=== PATIENT | female | born 1955 | race Caucasian/White ===

== ENCOUNTER 2018-11-15 14:57 | Outpatient (CLI) | payer MEDICARE, MEDICAID, SELFPAY ==
[2018-11-15 16:39] LABS: ALT 30 U/L (12-78); AST 21 U/L (15-37); Albumin 3.6 g/dL (3.4-5.0); Alkaline Phosphatase 60 U/L (46-116); Anion Gap 9.2 mmol/L (3-11); BUN 14 mg/dL (7-18); Bilirubin, Total 0.3 mg/dL (0.2-1.0); CO2 25.8 mmol/L (21.0-32.0); CREATININE 0.65 mg/dL (0.55-1.02); Calcium 8.9 mg/dL (8.5-10.1); Calculated LDL 144; Chloride 103 mmol/L (98-107); Cholesterol 263 mg/dL (50-200); Glucose 88 mg/dL (70-100); HDL Cholesterol 107 mg/dL (40-60); Potassium 4.2 mmol/L (3.5-5.1); Sodium 138 mmol/L (136-145); Triglyceride 63 mg/dL (30-150)
== END 2018-11-15 15:17 ==
PROVIDERS: PCP Family Medicine; Visit Provider Family Medicine
DX: E78.00 Pure hypercholesterolemia, unspecified (principal); E87.6 Hypokalemia
CPT/HCPCS: 36415; 80053; 80061; 83721

== ENCOUNTER 2020-04-15 03:39 | Outpatient (CLI) | payer MEDICARE, MEDICAID, SELFPAY ==
[2020-04-15 12:16] LABS: ALT 28 U/L (14-59); AST 22 U/L (15-37); Albumin 3.9 g/dL (3.4-5.0); Alkaline Phosphatase 57 U/L (46-116); Anion Gap 3.4 mmol/L (3-11); BUN 13 mg/dL (7-18); Bilirubin, Total 0.2 mg/dL (0.2-1.0); CO2 30.6 mmol/L (21.0-32.0); CREATININE 0.67 mg/dL (0.55-1.02); Calcium 9.1 mg/dL (8.5-10.1); Calculated LDL 142 mg/dL (<100); Chloride 104 mmol/L (98-107); Cholesterol 259 mg/dL (<200); Glucose 88 mg/dL (74-106); HDL Cholesterol 108 mg/dL (40-60); Potassium 4.2 mmol/L (3.5-5.1); Sodium 138 mmol/L (136-145); Total Protein 7.1 g/dL (6.4-8.2); Triglyceride 49 mg/dL (<150)
== END 2020-04-15 03:59 ==
PROVIDERS: PCP Family Medicine; Visit Provider Family Medicine
DX: E78.00 Pure hypercholesterolemia, unspecified (principal); E87.6 Hypokalemia
CPT/HCPCS: 36415; 80053; 80061

== ENCOUNTER 2020-05-20 00:47 | Outpatient (CLI) | payer MEDICARE, MEDICAID, SELFPAY ==
--- NOTE | 2020-05-20 13:29 | DI.MAMMO_ITS ---
EXAM: MG MAMMO SCREENING CLINICAL HISTORY: screening. TECHNIQUE: Bilateral full field digital CC and MLO mammographic images were obtained with 3D tomosyn thesis and utilizing computer aided detection (CAD). COMPARISON: Prior mammograms dating back to 2010, the most recent being 2016. There are no interval mammograms since 2016. FINDINGS: The fibroglandular tissue of the breast is very dense, this decreasing the sensitivity of the mammogr am for finding in underlying lesions. There are no new obvious spiculated masses nor malignant appearing microcalcification groups. Subtle suggestion of possible nodules in subjacent to the dense fibroglandular tissue. There is no new arch itectural distortion nor skin thickening-retraction. IMPRESSION: Very dense bilateral fibroglandular tissue. Subtle suggestion of possible bilateral nodules. Recomm end follow-up bilateral screening breast ultrasound. BI-RADS Category 0 - Assessment Incomplete: Need additional imaging evaluation Breast Density - Category D - Extremely dense Breast density Category C or D implies that the patient has dense breast tissue. Dense breast tissue can make it harder to find cancer on a mammogram. Dense breast tissue is also associated with an incr eased risk of breast cancer. This information about the result of the mammogram report was provided to the patient to raise their awareness. Use this report when you speak with the patient about their risks for breast cancer, which includes their family history. At that time, you may recommend additional screening tests (Ultrasoun d or MRI) as these tests may add significant information. A negative radiographic report should not delay biopsy if a dominant or clinically suspicious mass is present. Up to ten percent of cancers are not identified on mammography. A negative report may reinforce clinical impression. Adenosis and dense breasts may obscure an underlying neoplasm. False positive reports average 6 to 10%. Patient will receive a letter notifying them of these results.
== END 2020-05-20 01:07 ==
PROVIDERS: PCP Family Medicine; Visit Provider Obstetrics & Gynecology Gynecology
DX: Z12.31 Encounter for screening mammogram for malignant neoplasm of breast (principal); R92.8 Other abnormal and inconclusive findings on diagnostic imaging of breast
CPT/HCPCS: 77063; 77067

== ENCOUNTER 2020-05-24 01:12 | Outpatient (CLI) | payer MEDICARE, MEDICAID, SELFPAY ==
--- NOTE | 2020-05-24 | DI.US_ITS ---
EXAM: US BREAST LT COMPLETE CLINICAL HISTORY: F/U MAMMO, DENSE BREASTS, ? BILAT NODULES TECHNIQUE: Ultrasound of both breasts were performed. COMPARISON: MG Screening Bilat Mammo from 04/06/2016 MG MG MAMMO SCREENING from 05/20/2020 US US BREAST RT COMPLETE from 05/24/2020 FINDINGS: No solid or cystic masses, hypoechoic foci, areas of abnormal shadowing, or areas of skin thickening. There is minimal ductal dilatation in the subareolar region. Normal lymph nodes are seen in the ax illa. IMPRESSION: No sonographically suspicious finding. Yearly screening mammography is recommended. BI-RADS Category 1 - Negative DATA REPOSITORY:
== END 2020-05-24 01:32 ==
PROVIDERS: PCP Family Medicine; Visit Provider Obstetrics & Gynecology Gynecology
DX: R92.8 Other abnormal and inconclusive findings on diagnostic imaging of breast (principal)
CPT/HCPCS: 76642

== ENCOUNTER 2020-09-13 02:29 | Outpatient (CLI) | payer MEDICARE, MEDICAID, SELFPAY ==
[2020-09-14 00:14] LABS: COVID-19 RT-PCR UVMMC Result Negative (Negative)
== END 2020-09-13 02:30 | disposition home or self-care (01) ==
LOC: LBO 02:30
PROVIDERS: Orthopaedic Surgery; PCP Family Medicine; Visit Provider Family Medicine
DX: Z20.822 Contact with and (suspected) exposure to COVID-19 (principal); Z01.818 Encounter for other preprocedural examination
CPT/HCPCS: U0003; U0005

== ENCOUNTER 2020-10-03 13:45 | Outpatient (REF) | payer MEDICARE, MEDICAID, SELFPAY ==
[2020-10-03 15:01] LABS: Abs Immature Grans 0.03 10^3/uL (0.0-0.06); Absolute Basophil Count 0.02 10^3/uL (0.0-0.2); Absolute Eosinophil Count 0.28 10^3/uL (0.0-0.7); Absolute Lymphocyte Count 1.68 10^3/uL (1.2-3.4); Absolute Monocyte Count 0.42 10^3/uL (0.1-0.8); Absolute Neutrophil Count 4.37 10^3/uL (1.2-6.7); Basophils % 0.3; Eosinophils % 4.1; HCT 32.7 % (36.0-46.0); HGB 10.9 g/dL (11.2-15.7); Immature Grans % 0.4; Lymphocytes % 24.7; MCH 32.1 pg (27.0-33.0); MCHC 33.3 % (32.0-36.0); MCV 96.2 fL (80-95); MPV 8.7 fL (8.0-11.0); Monocytes % 6.2; Neutrophils % 64.3; Nucleated RBC 0 %; Platelet Count 604 10^3/uL (130-400); RDW 11.9 % (11.7-14.6); RDW-SD 41.7 fL
[2020-10-03 15:11] LABS: ALT 22 U/L (14-59); AST 17 U/L (15-37); Albumin 3.2 g/dL (3.4-5.0); Alkaline Phosphatase 88 U/L (46-116); Anion Gap 6.6 mmol/L (3-11); BUN 14 mg/dL (7-18); Bilirubin, Total 0.1 mg/dL (0.2-1.0); CO2 30.4 mmol/L (21.0-32.0); CREATININE 0.5 mg/dL (0.55-1.02); Calcium 9.6 mg/dL (8.5-10.1); Chloride 103 mmol/L (98-107); Glucose 91 mg/dL (74-106); Magnesium 1.9 mg/dL (1.8-2.4); Potassium 4.9 mmol/L (3.5-5.1); Sodium 140 mmol/L (136-145); Total Protein 6.8 g/dL (6.4-8.2)
== END 2020-10-03 13:46 | disposition home or self-care (01) ==
LOC: LBN 13:45
PROVIDERS: PCP Family Medicine; Visit Provider Family Medicine
DX: E55.9 Vitamin D deficiency, unspecified (principal); E87.6 Hypokalemia; E83.42 Hypomagnesemia
CPT/HCPCS: 80053; 82306; 83735; 85025

== ENCOUNTER 2021-07-16 00:47 | Outpatient (CLI) | payer MEDICARE, MEDICAID, SELFPAY ==
--- NOTE | 2021-07-16 | DI.DEXA_ITS ---
Exam(s) XR DEXA BONE DENSITY W/WO IHSAN EXAM: XR DEXA BONE DENSITY W/WO IHSAN CLINICAL HISTORY: OTHER DISORDER OF BONE DENSITY,M85.88 TECHNIQUE: COMPARISON: CR LUMBAR SPINE COMPLETE from 10/25/2009 FINDINGS: DEXA scan was performed according to the usual protocol. Lumbar spine scanning shows T-score -0.2, prior examination of October 2017 showed lumbar T-score 0.6. Left forearm scanning shows T-score -3.7, prior examination of 2017 showed left forearm T-score -2.1. Lateral vertebral scanogram shows mild anterior wedging of vertebral bodies in the thoracolumbar vignesh on consistent with minimal anterior compression fractures of uncertain age. IMPRESSION: Findings are consistent with osteoporosis according to the WHO criteria. RADIATION DOSE DELIVERED: Total DLP
== END 2021-07-16 01:07 ==
PROVIDERS: PCP Family Medicine; Visit Provider Family Medicine
DX: M85.88 Other specified disorders of bone density and structure, other site (principal); M81.0 Age-related osteoporosis without current pathological fracture
CPT/HCPCS: 77080

== ENCOUNTER 2021-08-20 15:52 | Outpatient (REF) | payer MEDICARE, MEDICAID, SELFPAY ==
[2021-08-20 20:48] LABS: HCT 41.6 % (36.0-46.0); HGB 13.5 g/dL (11.2-15.7); MCH 30.5 pg (27.0-33.0); MCHC 32.5 % (32.0-36.0); MCV 94.1 fL (80-95); MPV 10.1 fL (8.0-11.0); Platelet Count 323 10^3/uL (130-400); RBC 4.42 10^6/uL (3.93-5.22); RDW 11.9 % (11.7-14.6); RDW-SD 41.8 fL; WBC 5.12 10^3/uL (4.4-10.8)
[2021-08-20 21:03] LABS: Anion Gap 10.9 mmol/L (3-11); BUN 16 mg/dL (7-18); CO2 26.1 mmol/L (21.0-32.0); CREATININE 0.6 mg/dL (0.55-1.02); Calcium 9.3 mg/dL (8.5-10.1); Calculated LDL 116 mg/dL (<100); Chloride 104 mmol/L (98-107); Cholesterol 229 mg/dL (<200); Glucose 88 mg/dL (74-106); HDL Cholesterol 106 mg/dL (40-60); Potassium 4.2 mmol/L (3.5-5.1); Sodium 141 mmol/L (136-145); Triglyceride 35 mg/dL (<150)
== END 2021-08-20 15:53 | disposition home or self-care (01) ==
LOC: NCHCN 15:52
PROVIDERS: PCP Nurse Practitioner Family; Visit Provider Family Medicine
DX: E78.5 Hyperlipidemia, unspecified (principal); M85.88 Other specified disorders of bone density and structure, other site
CPT/HCPCS: 80048; 80061; 85027

== ENCOUNTER → 2021-11-03 01:59 | Outpatient (CLI) | payer MEDICARE, MEDICAID, SELFPAY ==
--- NOTE | 2021-11-03 | DI.MAMMO_ITS ---
Exam(s) MG MAMMO SCREENING 60 MIN DUR EXAM: MG MAMMO SCREENING 60 MIN DUR CLINICAL HISTORY: SCREENING, Z12.31. TECHNIQUE: Bilateral full field digital CC and MLO mammographic images were obtained with 3D tomosyn thesis and utilizing computer aided detection (CAD). COMPARISON: 2011 through 2019 FINDINGS: Masses/Architectural Distortion: None seen. Microcalcifications: No suspicious pleomorphic-type are seen. Skin Thickening/Nipple Retraction: None. IMPRESSION: 1. No significant interval change with no specific features of malignancy noted. 2. Unless there is more urgent need, annual screening mammography is recommended, as per [place] [employer] guidelines. BI-RADS Category 1-negative Breast Density - Category D - extremely dense Breast Density Category D: The mammogram demonstrates the patient's breast tissue is dense. Dense cornel ast tissue is very common and is not abnormal but dense breast tissue can make it harder to find canc er on a mammogram. Also, dense breast tissue may increase their breast cancer risk. This information about the result of the mammogram report was provided to the patient to raise their awareness. Use th is report when you speak with the patient about their risks for breast cancer, which includes their f amily history. At that time, you may recommend for more screening tests (Ultrasound or MRI) as they m ight be useful based on their risk. A negative radiographic report should not delay biopsy if a dominant or clinically suspicious mass is present. Up to ten percent of cancers are not identified on mammography. A negative report may reinforce clinical impression. Adenosis and dense breasts may obscure an underlying neoplasm. False positive reports average 6 to 10%.
== END ==
PROVIDERS: PCP Family Medicine; Visit Provider Family Medicine
DX: Z12.31 Encounter for screening mammogram for malignant neoplasm of breast (principal)
CPT/HCPCS: 77063; 77067

== ENCOUNTER 2021-12-11 17:27 | Emergency (ER) | payer MEDICARE, MEDICAID, SELFPAY ==
[2021-12-11 17:32] VITALS: BP 123/66; PULSE 76; RESP 16; TEMP 37.1; O2SAT 98
--- NOTE | 2021-12-11 18:05 | ED.GENADUL_ITS ---
Discharge Plan Disposition Patient Disposition: HOME Condition: Improving Discharge Details Clinical Impression: Dehydration Primary Care Provider: Frank Francois ED Provider: Edd Lang Home Meds and New Rx's Prescriptions: Continued calcium citrate 1,000 mg tablet 1,000 mg PO DAILY polyethylene glycol 3350 [Miralax] 17 gram/dose powder 17 gm PO DAILY niacin 500 MG tablet 500 mg PO DAILY Cholest Off 450 MG tablet 450 mg PO DAILY TUMERIC 500 mg PO DAILY multivitamin 1 tab PO DAILY B Complex 1 EACH tablet extended release 1 ea PO DAILY acetaminophen [Acetaminophen Extra Strength] 500 MG tablet 1,000 mg PO Q4H PRN omega-3 fatty acids-fish oil 300-1,000 mg capsule 1 cap PO DAILY docusate sodium [Colace] 100 mg capsule 100 mg PO BID oxycodone-acetaminophen 5-325 mg tablet 1 tab PO PRN Label Comments: TAKE ONE TABLET BY MOUTH EVERY DAY NEEDED FOR PAIN morphine 15 mg tablet extended release 15 mg PO BID Label Comments: TAKE ONE TABLET BY MOUTH TWICE A DAY Discharge Instructions Instructions: Dehydration (ED) Additional Instructions: Home to rest today. Small, frequent sips of fluids to maintain good hydration. May slowly advance a bland diet. Return if you develop a fever, vomiting, or any other acute concerns Medical Decision Making 66-year-old female who states over the weekend she indulged in some socializing with small amount of alcohol, poor p.o. intake. For the past 3 days she has felt general weakness, has had poor p.o. intake with some nausea but no emesis. She had decreased energy today at physical therapy and they recommended that she be evaluated in ER. Patient arrives with normal vital signs, she is pleasant and alert. She does have some dry mucous membranes and appears mildly dehydrated. IV access was established and screening labs obtained. Patient was given 1 L normal saline. Labs are reassuring. Note of urine specific gravity 1.02. Patient improved following fluids. Able to take p.o. without difficulty. Discussed with her home management and she is appropriate for outpatient trial. HPI General Mode of arrival: ambulatory . Date/Time Provider Initiated Documentation: 12/11/21 17:28 . Limitations to Documentation: no limitations . Information obtained by: patient . History of Present Illness 66 year old F presents to the emergency department with the chief complaint of Generalized weakness and poor p.o. intake, described as moderate, Patient reports no radiation. Patient started experiencing this day(s) and it has been constant. No relieving factors improve symptom(s), No exacerbating factors reported . Patient notes loss of appetite, malaise and weakness; denies chest pain, fever/chills, headaches, nausea/vomiting, shortness of breath and syncope. Patient did receive the following treatments prior to arrival, none Related Data Home Medications Medication Instructions Recorded Confirmed Multivitamin 1 tab PO DAILY 10/09/13 12/11/21 Tumeric 500 mg PO DAILY 10/09/13 12/11/21 niacin 500 mg tablet 500 mg PO DAILY 10/09/13 12/11/21 plant stanol scott 450 mg tablet 450 mg PO DAILY 10/09/13 12/11/21 (Cholest Off) acetaminophen 500 mg tablet 1,000 mg PO Q4H PRN 07/19/14 12/11/21 (Acetaminophen Extra Strength) vitamin B complex (B Complex 1 ea PO DAILY 07/19/14 12/11/21 tablet,extended release) calcium citrate 1,000 mg tablet 1,000 mg PO DAILY 03/08/19 12/11/21 docusate sodium 100 mg capsule 100 mg PO BID 03/17/19 12/11/21 (Colace) omega-3 fatty acids-fish oil 300 1 cap PO DAILY 03/17/19 12/11/21 mg-1,000 mg capsule polyethylene glycol 3350 17 17 gm PO DAILY 03/17/19 12/11/21 gram/dose oral powder (Miralax) morphine 15 mg tablet,extended 15 mg PO BID 12/11/21 12/11/21 release oxycodone-acetaminophen 5 mg-325 1 tab PO PRN 12/11/21 mg tablet Allergies Allergy/AdvReac Type Severity Reaction Status Date / Time No Known Allergies Allergy Unverified 12/11/21 17:37 General Stated Complaint: GenMedical ROCKY: 3 PFSH All Active Problems (Updated 12/11/21 @ 19:27 by Edd Lang MD) Dehydration (Acute) 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 Rx with cervical vertebra fusion and rodding. Cervical vertebral fusion (Acute) 10/2020. [facility]. Robert placed Encounter for pessary maintenance (Chronic) 57 mm ring with support. 02/18/2021 pessary removed secondary to vaginal irritation. 02/27/2021 patient reports no issues since pessary removed. We will leave out 57 mm ring with support until patient request otherwise. History of nephrolithiasis (Acute) History of bulimia (Acute) Spinal stenosis of lumbar region (Acute) Osteoporosis (Chronic) Hyperlipidemia (Acute) H/O rectocele repair (Acute) 01/17/19 [facility] [place]Dr. Pitt. [place]-rectal surgeon Pelvic organ prolapse quantification stage 2 cystocele (Acute) 02/2019. Sx developed after successful rectocele repair . 57 mm ring with support pessary placed 04/24/201905/2019 [facility] UroGyn Dept recommended against surgery. Recommend to continue current pessary. 02/18/2021 pessary removed secondary to vaginal excoriation not reinserted. Surgical History Pelvic organ prolapse quantification stage 3 rectocele Social History Smoking/Tobacco Use Status: Former Tobacco Use Smoking risk assessment performed?: Yes Alcohol Intake: current Alcohol Intake frequency: a few times a week Drug use: Current Sobriety Details: History of IVDA at 15 years old Household members: other Details: Patient is . [place], lives in [facility]. 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 Pleasant, well groomed, interactive. HEAD: Normocephalic, atraumatic ENT: Mucous membranes dry, oropharynx unremarkable, External ear exam unremarkable EYES: PERRL, EOMI NECK: Full ROM, no XOCHILT, no menigismus CHEST/RESP: Nontender, clear to auscultation bilateral, no wheeze/rhonchi/rales CARDIOVASCULAR: RRR, no murmur, rub ankit. 2+ Rad pulse bilateral ABDOMEN: Soft, nontender, no mass. +Bowel sounds EXT: Full ROM, no edema, no rash Neuro: Grossly normal neurologic exam, conversant, interactive. Psych: Speech fluent, thoughts congruent, affect normal Course Vital Signs Vital signs: Vital Signs Temperature 37.1 C 12/11/21 17:32 Pulse 76 12/11/21 17:32 Respiratory Rate 16 12/11/21 17:32 Blood Pressure 123/66 12/11/21 17:32 Pulse Oximetry 98 12/11/21 17:32 Temperature 37.1 C 12/11/21 17:32 Temperature Source Temporal Artery Scan 12/11/21 17:32 Pulse 76 12/11/21 17:32 Respiratory Rate 16 12/11/21 17:32 Respiratory Effort 12/11/21 17:32 Blood Pressure 123/66 12/11/21 17:32 Blood Pressure Position Sitting 12/11/21 17:32 Pulse Oximetry 98 12/11/21 17:32 Oxygen Delivery Method Room Air 12/11/21 17:32 Oxygen Flow Rate 0 12/11/21 17:32 Pain Level 10 12/11/21 17:32 Comment 12/11/21 17:32
[2021-12-11] MEDS: Normal Saline 1,000 ML 1000 ML IV (18:20)
[2021-12-11 18:23] LABS: HCT 37.5 % (36.0-46.0); HGB 12.4 g/dL (11.2-15.7); MCH 29.9 pg (27.0-33.0); MCHC 33.1 % (32.0-36.0); MCV 90 fL (80-95); Platelet Count 270 10^3/uL (130-400); RBC 4.15 10^6/uL (3.93-5.22); RDW 12.1 % (11.7-14.6); RDW-SD 40.4 fL; WBC 4.77 10^3/uL (4.4-10.8)
[2021-12-11] MEDS: Normal Saline Flush 10 ML SYR IVP (18:25)
[2021-12-11 18:26] VITALS: RESP 16
[2021-12-11 18:37] LABS: ALT 29 U/L (14-59); AST 19 U/L (15-37); Albumin 3.8 g/dL (3.4-5.0); Alkaline Phosphatase 76 U/L (46-116); Anion Gap 6.8 mmol/L (3-11); BUN 12 mg/dL (7-18); Bilirubin, Total 0.3 mg/dL (0.2-1.0); CO2 29.2 mmol/L (21.0-32.0); CREATININE 0.7 mg/dL (0.55-1.02); Calcium 9.3 mg/dL (8.5-10.1); Chloride 101 mmol/L (98-107); Glucose 112 mg/dL (74-106); Lipase 98 U/L (73-393); Potassium 3.8 mmol/L (3.5-5.1); Sodium 137 mmol/L (136-145); Total Protein 7.3 g/dL (6.4-8.2)
[2021-12-11 19:06] LABS: Bilirubin Negative (Negative); Blood Negative (Negative); Clarity Clear (Clear); Glucose Negative (Negative); Ketones Negative (Negative); Leukocyte Esterase Negative (Negative); Nitrite Negative (Negative); Urobilinogen 0.2 EU/dL (Up TO 0.2)
[2021-12-11 19:59] VITALS: BP 126/74; PULSE 62; RESP 18; TEMP 36.3; O2SAT 99
== END 2021-12-11 20:12 | disposition home or self-care (01) ==
PROVIDERS: Emergency Provider Emergency Medicine; PCP Family Medicine
DX: E86.0 Dehydration (principal); Z87.891 Personal history of nicotine dependence
CPT/HCPCS: 80053; 83690; 85027; 96360; 99284; 81003

== ENCOUNTER 2021-12-16 12:10 | Emergency (ER) | payer MEDICARE, MEDICAID, SELFPAY ==
--- NOTE | 2021-12-16 12:30 | DI.RAD_ITS ---
Exam(s) XR ANKLE LT COMPLETE EXAM: XR ANKLE LT COMPLETE CLINICAL HISTORY: pain. TECHNIQUE: 2D digital imaging was performed. COMPARISON: No exams were available for comparison FINDINGS: 3 views No evidence of fracture or widening of the mortise. Talar dome unremarkable. Exaggerated plantar arch noted. Small calcification noted at plantar fascia level. No osseous tarsa l coalition evident. IMPRESSION: DATA REPOSITORY: RADIATION DOSE DELIVERED:
--- NOTE | 2021-12-16 12:30 | DI.RAD_ITS ---
Exam(s) XR FOOT LT COMPLETE EXAM: XR FOOT LT COMPLETE CLINICAL HISTORY: pain. TECHNIQUE: 2D digital imaging was performed. COMPARISON: CR LEFT FOOT COMPLETE from 03/19/2014 FINDINGS: 3 views There is a nondisplaced subtle transverse fracture of the base of the 5th metatarsal. No other fract ures identified. No radiopaque foreign body. No osseous lesions. IMPRESSION: Nondisplaced fracture at the base of the 5th metatarsal. DATA REPOSITORY: RADIATION DOSE DELIVERED:
[2021-12-16 12:32] VITALS: BP 126/83; PULSE 79; RESP 18; TEMP 36.7; O2SAT 98
--- NOTE | 2021-12-16 15:09 | W.ED.GENAD ---
Discharge Plan Disposition Patient Disposition: HOME Condition: Stable Discharge Details Clinical Impression: Closed fracture of fifth metatarsal bone Primary Care Provider: Frank Francois ED Provider: Yamila Stevens Home Meds and New Rx's Prescriptions: Continued calcium citrate 1,000 mg tablet 1,000 mg PO DAILY polyethylene glycol 3350 [Miralax] 17 gram/dose powder 17 gm PO DAILY niacin 500 MG tablet 500 mg PO DAILY Cholest Off 450 MG tablet 450 mg PO DAILY TUMERIC 500 mg PO DAILY multivitamin 1 tab PO DAILY B Complex 1 EACH tablet extended release 1 ea PO DAILY acetaminophen [Acetaminophen Extra Strength] 500 MG tablet 1,000 mg PO Q4H PRN omega-3 fatty acids-fish oil 300-1,000 mg capsule 1 cap PO DAILY docusate sodium [Colace] 100 mg capsule 100 mg PO BID oxycodone-acetaminophen 5-325 mg tablet 1 tab PO PRN Label Comments: TAKE ONE TABLET BY MOUTH EVERY DAY NEEDED FOR PAIN morphine 15 mg tablet extended release 15 mg PO BID Label Comments: TAKE ONE TABLET BY MOUTH TWICE A DAY Discharge Instructions Additional Instructions: Wear your boot Follow-up with orthopedic Take your pain medication as prescribed and return earlier should you have new or worsening complaints Referrals: Frank Francois MD [Primary Care Provider] - Greg Dawkins MD [ [facility] STAFF PHYSICIAN] - Discharge Data Discharge Date/Time-TO BE ENTERED AT DEPARTURE: 12/16/21 14:05 Medical Decision Making Patient with tenderness, swelling, and ecchymosis to her left foot, dorsal aspect Distal pulses intact X-ray of left foot showed a nondisplaced left fifth metatarsal fracture to the distal aspect Placed in a boot and will refer to orthopedics in the outpatient setting Has crutches in the car and feels comfortable using them, also has walker Has morphine at home which she will take as needed for pain Medical Records Medical records reviewed: Yes I reviewed the patient's medical records. HPI General Date/Time Provider Initiated Documentation: 12/16/21 12:38. HPI Narrative: This 66-year-old female with history of chronic pain presents with report of twisting her foot yesterday and having persistent pain to her left foot. She was evaluated by physical therapy prior to assessment and sent to the emergency department for evaluation. She does take chronic pain medication secondary to chronic back pain and surgery. She states that neither of us is helping with her discomfort. denies any additional complaints at this time. Related Data Home Medications Medication Instructions Recorded Confirmed Multivitamin 1 tab PO DAILY 10/09/13 12/11/21 Tumeric 500 mg PO DAILY 10/09/13 12/11/21 niacin 500 mg tablet 500 mg PO DAILY 10/09/13 12/11/21 plant stanol scott 450 mg tablet 450 mg PO DAILY 10/09/13 12/11/21 (Cholest Off) acetaminophen 500 mg tablet 1,000 mg PO Q4H PRN 07/19/14 12/11/21 (Acetaminophen Extra Strength) vitamin B complex (B Complex 1 ea PO DAILY 07/19/14 12/11/21 tablet,extended release) calcium citrate 1,000 mg tablet 1,000 mg PO DAILY 03/08/19 12/11/21 docusate sodium 100 mg capsule 100 mg PO BID 03/17/19 12/11/21 (Colace) omega-3 fatty acids-fish oil 300 1 cap PO DAILY 03/17/19 12/11/21 mg-1,000 mg capsule polyethylene glycol 3350 17 17 gm PO DAILY 03/17/19 12/11/21 gram/dose oral powder (Miralax) morphine 15 mg tablet,extended 15 mg PO BID 12/11/21 12/11/21 release oxycodone-acetaminophen 5 mg-325 1 tab PO PRN 12/11/21 mg tablet Allergies Allergy/AdvReac Type Severity Reaction Status Date / Time No Known Allergies Allergy Unverified 12/11/21 17:37 General Stated Complaint: Orthopedic ROCKY: 4 Review of Systems All systems reviewed & are unremarkable except as noted in HPI and below PFSH All Active Problems (Updated 12/16/21 @ 13:43 by CESAR Brody) Dehydration (Acute) Closed fracture of fifth metatarsal bone (Acute) 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 Rx with cervical vertebra fusion and rodding. Cervical vertebral fusion (Acute) 10/2020. [facility]. Robert placed Encounter for pessary maintenance (Chronic) 57 mm ring with support. 02/18/2021 pessary removed secondary to vaginal irritation. 02/27/2021 patient reports no issues since pessary removed. We will leave out 57 mm ring with support until patient request otherwise. History of nephrolithiasis (Acute) History of bulimia (Acute) Spinal stenosis of lumbar region (Acute) Osteoporosis (Chronic) Hyperlipidemia (Acute) H/O rectocele repair (Acute) 01/17/19 [facility] [place]. Pitt. [place]-rectal surgeon Pelvic organ prolapse quantification stage 2 cystocele (Acute) 02/2019. Sx developed after successful rectocele repair . 57 mm ring with support pessary placed 04/24/201905/2019 [facility] [place] UroGyn Dept recommended against surgery. Recommend to continue current pessary. 02/18/2021 pessary removed secondary to vaginal excoriation not reinserted. Surgical History Pelvic organ prolapse quantification stage 3 rectocele Social History Smoking/Tobacco Use Status: Former Tobacco Use Smoking risk assessment performed?: Yes Alcohol Intake: current Alcohol Intake frequency: a few times a week Drug use: Current Sobriety Details: History of IVDA at 15 years old Household members: other Details: Patient is . X 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 Mona/Worship: Taoism Do you feel safe in your relationship?: Yes History History 3 Para 1 Hx # Term Pregnancies 1 Multiple births Hx # Pregnancies Ectopic pregnancies AB induced Hx Number of Living Children 1 AB spontaneous 2 Exam Const General: cooperative, comfortable and no acute distress Orientation: alert and oriented x3 Extrem Other: left-sided tenderness, neurovascularly intact, no tenderness to left ankle or left knee Course Vital Signs Vital signs: Vital Signs Temperature 36.7 C 12/16/21 12:32 Pulse 79 12/16/21 12:32 Respiratory Rate 18 12/16/21 12:32 Blood Pressure 126/83 12/16/21 12:32 Pulse Oximetry 98 12/16/21 12:32 Temperature 36.7 C 12/16/21 12:32 Temperature Source Skin 12/16/21 12:32 Pulse 79 12/16/21 12:32 Respiratory Rate 18 12/16/21 12:32 Respiratory Effort 12/16/21 13:36 Blood Pressure 126/83 12/16/21 12:32 Blood Pressure Position Sitting 12/16/21 12:32 Pulse Oximetry 98 12/16/21 12:32 Oxygen Delivery Method Room Air 12/16/21 12:32 Oxygen Flow Rate 0 12/16/21 12:32 Pain Level 5 12/16/21 13:36 PAWSS Have you Been Recently Intoxicated or Drunk Within the Last 30 days?: No Have you Ever Experienced Previous Episodes of Alcohol Withdrawal?: No Have you ever Experienced Withdrawal Seizures?: No Have you ever Experienced Delirium Tremens(DT)s?: No Have you ever undergone Alcohol Rehabilitation Treatment (i.e, inpt ot outpatient treatment programs)?: No Have you ever Experienced Blackouts?: No Have you ever Combined Alcohol with other Downers within the last 90 days?: No Have you ever Combined Alcohol with any other Substance of Abuse during the last 90 days?: No Positive Blood Alcohol level on Presentation? [PCS.BAL]: No Evidence of Increased Autonomic Activity (i.e. HR>120, tremor, sweating, agitation, nausea)?: No Result: 0
== END 2021-12-16 14:05 | disposition home or self-care (01) ==
PROVIDERS: Emergency Provider Physician Assistant; PCP Family Medicine
DX: S92.355A Nondisplaced fracture of fifth metatarsal bone, left foot, initial encounter for closed fracture (principal); Z87.891 Personal history of nicotine dependence; X50.1XXA Overexertion from prolonged static or awkward postures, initial encounter
CPT/HCPCS: 99284; 73610; 73630; 99283

== ENCOUNTER 2022-03-13 13:49 | Outpatient (REF) | payer MEDICARE, MEDICAID, SELFPAY ==
--- NOTE | 2022-03-13 13:15 | PAPFT_PTH ---
PATIENT: Mary Ellen Hodge LOC: [facility] U#:[id number] AGE/SX: 67/F ROOM: RE03/13/[address]: Dionne Eckert : 1955 BED: DIS: 03/13/2022 SPEC #: [id number] RECD: 03/13/22 17:30 STATUS: SHELBY REQ #: [id number] VERA: 03/13/22 13:[address]: Dionne Eckert DEPT: [facility] Cytology RECD BY: Yamila Holcomb ENTERED: 03/13/22 17:31 SP TYPE: PAPFT OTHR DR: Frank Francois Tissues: 1 - CX/ENDOCX FOR PAP SMEARS Procedures: PAP THIN PREP/[facility] Screening HPV DNA PROBE Comments: [id number]
== END 2022-03-13 13:50 | disposition home or self-care (01) ==
LOC: LBN 13:49
PROVIDERS: PCP Family Medicine; Visit Provider Obstetrics & Gynecology Gynecology
DX: Z12.4 Encounter for screening for malignant neoplasm of cervix (principal); Z11.51 Encounter for screening for human papillomavirus (HPV); Z01.419 Encounter for gynecological examination (general) (routine) without abnormal findings
CPT/HCPCS: 88142; 87624

== ENCOUNTER → 2023-03-03 01:10 | Outpatient (CLI) | payer MEDICARE, MEDICAID, SELFPAY ==
--- NOTE | 2023-03-03 07:45 | DI.MAMMO_ITS ---
Exam(s) MG MAMMO SCREENING 60 MIN DUR EXAM: MG MAMMO SCREENING 60 MIN DUR CLINICAL HISTORY: breast cancer screening. TECHNIQUE: Bilateral full field digital CC and MLO mammographic images were obtained with 3D tomosyn thesis and utilizing computer aided detection (CAD). COMPARISON: 2012 through 2021 FINDINGS: Positioning of left MLO suboptimal due to patient arm immobility. Masses/Architectural Distortion: None seen. Microcalcifications: No suspicious pleomorphic-type are seen. Skin Thickening/Nipple Retraction: None. IMPRESSION: 1. No significant interval change with no specific features of malignancy noted. 2. Unless there is more urgent need, annual screening mammography is recommended, as per [place] [employer] guidelines. BI-RADS Category 1-negative Breast Density - Category D - extremely dense Breast Density Category D: The mammogram demonstrates the patient's breast tissue is dense. Dense cornel ast tissue is very common and is not abnormal but dense breast tissue can make it harder to find canc er on a mammogram. Also, dense breast tissue may increase their breast cancer risk. This information about the result of the mammogram report was provided to the patient to raise their awareness. Use th is report when you speak with the patient about their risks for breast cancer, which includes their f amily history. At that time, you may recommend for more screening tests (Ultrasound or MRI) as they m ight be useful based on their risk. A negative radiographic report should not delay biopsy if a dominant or clinically suspicious mass is present. Up to ten percent of cancers are not identified on mammography. A negative report may reinforce clinical impression. Adenosis and dense breasts may obscure an underlying neoplasm. False positive reports average 6 to 10%.
== END ==
PROVIDERS: PCP Family Medicine; Visit Provider Obstetrics & Gynecology Gynecology
DX: Z12.31 Encounter for screening mammogram for malignant neoplasm of breast (principal)
CPT/HCPCS: 77063; 77067

== ENCOUNTER 2023-04-21 20:55 | Outpatient (REF) | payer MEDICARE, MEDICAID, SELFPAY ==
[2023-04-21 21:37] LABS: HCT 38.9 % (36.0-46.0); HGB 12.9 g/dL (11.2-15.7); MCH 30.1 pg (27.0-33.0); MCHC 33.2 % (32.0-36.0); MCV 91 fL (80-95); MPV 9.7 fL (8.0-11.0); Platelet Count 306 10^3/uL (130-400); RBC 4.29 10^6/uL (3.93-5.22); RDW 12.3 % (11.7-14.6); RDW-SD 40.7 fL; WBC 3.73 10^3/uL (4.4-10.8)
[2023-04-21 21:57] LABS: ALT 34 U/L (14-59); AST 21 U/L (15-37); Alkaline Phosphatase 73 U/L (46-116); Anion Gap 9.2 mmol/L (3-11); BUN 14 mg/dL (7-18); Bilirubin, Total 0.3 mg/dL (0.2-1.0); CO2 27.8 mmol/L (21.0-32.0); CREATININE 0.7 mg/dL (0.55-1.02); Calcium 9.6 mg/dL (8.5-10.1); Calculated LDL 108 mg/dL (<100); Chloride 102 mmol/L (98-107); Cholesterol 218 mg/dL (<200); Estimated GFR 92.98 (mL/min/1.73m2); Glucose 88 mg/dL (74-106); HDL Cholesterol 105 mg/dL (40-60); Potassium 4.4 mmol/L (3.5-5.1); Sodium 139 mmol/L (136-145); Total Protein 7.2 g/dL (6.4-8.2); Triglyceride 25 mg/dL (<150)
== END 2023-04-21 20:56 | disposition home or self-care (01) ==
LOC: NCHCN 20:55
PROVIDERS: PCP Family Medicine; Visit Provider Family Medicine
DX: G89.21 Chronic pain due to trauma (principal); M81.0 Age-related osteoporosis without current pathological fracture; Z00.00 Encounter for general adult medical examination without abnormal findings
CPT/HCPCS: 80053; 80061; 85027

== ENCOUNTER 2024-04-26 16:38 | Outpatient (REF) | payer MEDICARE, MEDICAID, SELFPAY ==
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
--- OUTSIDE RECORDS SUMMARY | 2024-04-26 16:46 | XMS_ITS | Encounter Summary ---
[place] [address] Care Team Providers Care Tooling Manager Name Role Phone Frank Francois MD Primary Care Provider [phone] Encounter Details Date Type Department Care Team (Late st Contact Info) Description 04/03/2024 Telephone Obstetrics [place] [id number] Matthew Sanchez LPN Social History Tobacco Use Types Packs/Day Years Used Date Smoking Tobacco: Former Cigarettes 1 15 0 10/12/1968 - 10/13/1983 Smokeless Tobacco: Never Alcohol Use Standard Drinks/Week Comments Yes 1 (1 standard drink = 0.6 oz pur e alcohol) [facility] Inpatient Questions Answer Date Recorded Does Anyone Try to Keep You From Having Contact with Others or Doing Things Outside Your Home? no 05/03/2023 Feels Threatened by Someone no 04/15 Feels Unsafe at Home or Work/School no 05/03/2023 Physical Signs of Abuse Present no 05/03/2023 Sex and Gender Information Value Date Recorded Sex Assigned at Not on file Gender Identity Not on file Sexual Orientation Not on file documented as of this encounter Miscellaneous Notes * Telephone Encounter - Matthew Sanchez LPN - 04/03/2024 2:39 PM EDT Mary Ellen Hodge calls today to request next step for surgical repair of vaginal prolapse and difficulty emptying her bladder. Plan to forward note to MD Nicholas. documented in this encounter Plan of Treatment Upcoming Encounters Date Type Department Care Team (Late st Contact Info) Description 04/27/2024 11:30 AM EST Office Visit Dermatology at [place] [address] [place] [address] Robert Herron MD [address], [place] [address] Scheduled Procedures Name Priority Associated Diagnoses Date/Ti me ANTERIOR COLPORRHAPHY CYSTOC SALLY W OR WO URETHEROCELE; INC CYSTO (WRVU 10.08) Female cystocele URETHRAL SUSPENSION, SLING\F ASCIA OR SYNTHETIC (WRVU 12.13) Female cystocele documented as of this encounter Visit Diagnoses Not on filedocumented in this encounter Care Teams Tooling Manager Relationship Specialty Start Date End Date Frank Francois MD [address] [place] [address] PCP - General Emergency Medicine 04/28/21 documented as of this encounter
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
--- OUTSIDE RECORDS SUMMARY | 2024-04-26 16:46 | XMS_ITS | Clinical Summary ---
Author Organization [facility] Address [facility] [place] [address] Care Team Providers Care Supply Chain Business Analyst Name Role Phone Frank Francois MD Primary Care Provider [phone] Allergies Active Allergy Reactions Criticality Noted Date Comments Gabapentin 11/20/2021 Other reaction(s): Drowsiness Worse balance. even at 100 TID Medications Medication Sig Dispensed Refills Start Date End Date Status valACYclovir (VALTREX) 500 mg Tablet Take 500 mg by mouth 2 times daily. Taking PRN Active fish oil-omega-3 fatty acids 1,000 mg Capsule Take 2 g by mouth daily. Active Niacin 1,000 mg Tablet Sustained Release 24 hr Take 1,200 mg by mouth. Active TURMERIC ROOT EXTRACT ORAL Take by mouth. Active Calcium 500 mg Tablet Take by mouth. Active cholecalciferol, Vitamin D3, (cholecalciferol, Vitamin D3,) 50 mcg (2,000 unit) Capsule Take by mouth. Active multivitamin (THERAGRAN) Tablet Take 1 tablet by mouth daily. Active pyridoxine (B-6) 100 mg Tablet Take 100 mg by mouth daily. Active UNABLE TO FIND Med Name cholestoff and coQ 10. Richelle root Active oxyCODONE-acetaminop hen (Percocet) 5-325 mg Tablet 09/20/2021 Active acetaminophen (Tylenol) 500 mg Tablet Take 325 mg by mouth as needed. Active magnesium hydroxide (Milk of Magnesia) 2,400 mg/10 mL Suspension Take by mouth daily. 27-28 ML Active estradioL (ESTRACE) 0.01 % (0.1 mg/gram) CreamIndications:Vag inal atrophy Place 2 g vaginally daily. 42.5 g 12 12/24/2023 Active morphine CR (MS Contin) 15 mg ER tablet Take 15 mg by mouth every 12 hours. 11/15/2023 Active Active Problems Problem Noted Date Diagnosed Date History of pelvic fracture 11/21/2018 Peripheral neuropathy 11/21/2018 Spinal stenosis 11/21/2018 History of right hip replacement 11/21/2018 Osteoarthritis (arthritis due to wear and tear o f joints) 11/21/2018 History of bulimia--per scanned doc 11/21/2018 Chronic pain 11/21/2018 Gastroesophageal reflux--treats with aloe vera j uice 11/21/2018 Actinic cheilitis 11/10/2016 AK (actinic keratosis) 11/10/2016 Solar lentigo 03/12/2014 Resolved Problems Problem Noted Date Diagnosed Date Resolved Date Rectal prolapse 11/21/2018 02/27/2019 Encounters Date Type Department Care Team Description 04/17/2024 Orders Only [place] [address] Helen Peterson MD Female cystocele 04/13/2024 8:30 AM EDT TH Visit (TeleHealth) Obstetrics [place] [address] Helen Peterson MD Female cystocele 04/11/2024 Telephone Obstetrics [place] [phone] Addy Arnold 04/03/2024 Telephone Obstetrics [place] [address] Matthew Sanchez LPN 02/22/2024 9:00 AM EDT Office Visit Dermatology at [address] [address] Robert Herron MD Herpes labialis 02/22/2024 Travel from Last 3 Months Immunizations Name Administration Dates Next Due Influenza Unspecified Formulation 04/23/2018 Family History Medical History Relation Comments Heart Disease Father Hypertension Father Dementia Mother Cerebrovascular Accident Paternal Grandfather Relation Status Comments Father Mother Paternal Grandfather Social History Tobacco Use Types Packs/Day Years [...] on file Sexual Orientation Not on file Last Filed Vital Signs Vital Sign Reading Time Taken Comments Blood Pressure 101/51 12/24/2023 1:49 PM EDT Pulse 58 12/24/2023 1:49 PM EDT Temperature 36.8 ??C (98.3 ??F) 08/26/2023 9:04 AM ED T Respiratory Rate 18 08/26/2023 9:04 AM EDT Oxygen Saturation 98% 12/24/2023 1:49 PM EDT Inhaled Oxygen Concentration - - Weight 38.9 kg (85 lb 12.8 oz) 12/24/2023 1:49 P M EDT Height 142.2 cm (4' 8) 12/24/2023 1:49 PM EDT Body Mass Index 19.24 12/24/2023 1:49 PM EDT Plan of Treatment Upcoming Encounters Date Type Department Care Team (Late st Contact Info) Description 04/27/2024 11:30 AM EST Office Visit Dermatology at [place] [address] [place] [phone] Robert Herron MD [address], [place] [address] Scheduled Procedures Name Priority Associated Diagnoses Date/Ti me ANTERIOR COLPORRHAPHY CYSTOC SALLY W OR WO URETHEROCELE; INC CYSTO (WRVU 10.08) Female cystocele URETHRAL SUSPENSION, SLING\F ASCIA OR SYNTHETIC (WRVU 12.13) Female cystocele Health Maintenance Due Date Last Done Comments CT Colonography 1953 FIT DNA 1953 FIT 1953 Sigmoidoscopy 1953 Hepatitis C Screening 1971 Tetanus/Diphtheria/Pertussis Vaccines (1 - Tdap) 01/14 Breast Cancer Share Decision Needed 1993 Breast Cancer screening 1993 Zoster vaccine (1 of 2) 2003 Advance Directive 01/15/2008 Bone Density Scan 2018 Pneumoccocal Vaccine: 65+ (1 of 1 - PCV) 2018 Covid-19 Vaccine (1 - season) 2024 Influenza (Flu) vaccine (1 o f 1 - Influenza standard series) 02/13/2024 04/23/2018 Colonoscopy 01/17/2029 01/17/2019 Colorectal Cancer Screening 01/17/2029 Sigmoidoscopy (10 year) with FIT yearly 01/17/2029 0 01/17/2019 Advance Directives * Full Code (Latest Code Status on File) Date Activated Date Inactivated Comments 01/17/2019 11:21 AM 01/18/2019 7:55 PM Question Answer Comments Does patient have capacity to make decision: Yes Care Teams Supply Chain Business Analyst Relationship Specialty Start Date End Date Frank Francois MD [address] [place] [address] PCP - General Emergency Medicine 04/28/21
--- OUTSIDE RECORDS SUMMARY | 2024-04-26 16:46 | XMS_ITS | Encounter Summary ---
Author Organization [facility] [place] [address] Care Team Providers Care Lead Press Operator Name Role Phone Frank Francois MD Primary Care Provider [phone] Encounter Details Date Type Department Care Team (Latest Contact Info) Description 08/26/2023 Travel Social History Tobacco Use Types Packs/Day Years [...] on file documented as of this encounter Plan of Treatment Upcoming Encounters Date Type Department Care Team (Late st Contact Info) Description 04/27/2024 11:30 AM EST Office Visit Dermatology at [place] [address] [place] [address] Robert Herron MD [address], [place] [address] Scheduled Procedures Name Priority Associated Diagnoses Date/Ti me ANTERIOR COLPORRHAPHY CYSTOC SALLY W OR WO URETHEROCELE; INC CYSTO (WRVU 10.08) Female cystocele URETHRAL SUSPENSION, SLING\F ASCIA OR SYNTHETIC (WRVU 12.13) Female cystocele documented as of this encounter Visit Diagnoses Not on filedocumented in this encounter Care Teams Lead Press Operator Relationship Specialty Start Date End Date Frank Francois MD [address] [place] [address] PCP - General Emergency Medicine 04/28/21 documented as of this encounter
--- OUTSIDE RECORDS SUMMARY | 2024-04-26 16:46 | XMS_ITS | Encounter Summary ---
Author Organization [facility] [place] [address] Care Team Providers Care Trestleman Name Role Phone Frank Francois MD Primary Care Provider [phone] Encounter Details Date Type Department Care Team (Late Contact Info) Description 04/17/2024 Orders [place] [phone] Helen Peterson MD [facility] [place] [address] Female cystocele Social History Tobacco Use Types Packs/Day Years [...] Encounters Date Type Department Care Team (Late Contact Info) Description 04/27/2024 11:30 AM EST Office Visit Dermatology at [address] [place] [phone] Robert Herron MD [address], [place] [address] Scheduled Orders Name Type Priority Associated Diagnoses Orde r Schedule SURGICAL CASE REQUEST: ANTERIOR COLPORRHAPHY CYSTOCELE W OR WO URETHEROCELE; INC CYSTO (WRVU 10.08), URETHRAL SUSPENSION, SLING\FASCIA OR SYNTHETIC (WRVU 12.13) Procedures Routine Female cystocele One Time for 1 Occurrences starting 04/17/2024 until 04/17/2024 Scheduled Procedures Name Priority Associated Diagnoses Date/Ti me ANTERIOR COLPORRHAPHY CYSTOC SALLY W OR WO URETHEROCELE; INC CYSTO (WRVU 10.08) Female cystocele URETHRAL SUSPENSION, SLING\F ASCIA OR SYNTHETIC (WRVU 12.13) Female cystocele documented as of this encounter Visit Diagnoses Diagnosis Female cystocele Cystocele, midline documented in this encounter Care Teams Trestleman Relationship Specialty Start Date End Date Frank Francois MD [address] [place] [address] PCP - General Emergency Medicine 04/28/21 documented as of this encounter
--- OUTSIDE RECORDS SUMMARY | 2024-04-26 16:46 | XMS_ITS | Encounter Summary ---
Author Organization [facility] [place] [address] Care Team Providers Care Building Code Inspector Name Role Phone Frank Francois MD Primary Care Provider [phone] Encounter Details Date Type Department Care Team (Late st Contact Info) Description 12/21/2023 Telephone Obstetrics and Gynecology at [facility] [place] [address] [facility] Social History Tobacco Use Types Packs/Day Years Used Date Smoking Tobacco: Former Cigarettes 1 15 0 10/12/1968 - 10/13/1983 Smokeless Tobacco: Never Alcohol Use Standard Drinks/Week Comments Yes 1 (1 standard drink = 0.6 oz pur e alcohol) [facility] Inpatient Questions Answer Date Recorded Does [...] 11:30 AM EST Office Visit Dermatology at [place] [address] [place] [phone] Robert Herron MD [address], [place] [address] Scheduled Procedures Name Priority Associated Diagnoses Date/Ti me ANTERIOR COLPORRHAPHY CYSTOC SALLY W OR WO URETHEROCELE; INC CYSTO (WRVU 10.08) Female cystocele URETHRAL SUSPENSION, SLING\F ASCIA OR SYNTHETIC (WRVU 12.13) Female cystocele documented as of this encounter Visit Diagnoses Not on filedocumented in this encounter Care Teams Building Code Inspector Relationship Specialty Start Date End Date Frank Francois MD [address] [place] [address] PCP - General Emergency Medicine 04/28/21 documented as of this encounter
--- OUTSIDE RECORDS SUMMARY | 2024-04-26 16:46 | XMS_ITS | Encounter Summary ---
Author Organization [facility] [place] [address] Care Team Providers Care Oilfield Plant And Field Operator Name Role Phone Frank Francois MD Primary Care Provider [phone] Encounter Details Date Type Department Care Team (Latest Contact Info) Description 12/24/2023 Travel Social History Tobacco Use Types Packs/Day [...] 11:30 AM EST Office Visit Dermatology at [place] [address] [place] [address] Robert Herron MD [address], [place] [address] Scheduled Procedures Name Priority Associated Diagnoses Date/Ti me ANTERIOR COLPORRHAPHY CYSTOC SALLY W OR WO URETHEROCELE; INC CYSTO (WRVU 10.08) Female cystocele URETHRAL SUSPENSION, SLING\F ASCIA OR SYNTHETIC (WRVU 12.13) Female cystocele documented as of this encounter Visit Diagnoses Not on filedocumented in this encounter Care Teams Oilfield Plant And Field Operator Relationship Specialty Start Date End Date Frank Francois MD [address] [place] [address] PCP - General Emergency Medicine 04/28/21 documented as of this encounter
--- OUTSIDE RECORDS SUMMARY | 2024-04-26 16:46 | XMS_ITS | Encounter Summary ---
Author Organization [facility] [place] [address] Care Team Providers Care Health Information Management Director Name Role Phone Frank Francois MD Primary Care Provider [phone] Encounter Details Date Type Department Care Team (Latest Contact Info) Description 02/22/2024 Travel Social History Tobacco Use Types Packs/Day [...] 11:30 AM EST Office Visit [facility] [place] [address] [place] [address] Robert Herron MD [address], [place] [address] Scheduled Procedures Name Priority Associated Diagnoses Date/Ti me ANTERIOR COLPORRHAPHY CYSTOC SALLY W OR WO URETHEROCELE; INC CYSTO (WRVU 10.08) Female cystocele URETHRAL SUSPENSION, SLING\F ASCIA OR SYNTHETIC (WRVU 12.13) Female cystocele documented as of this encounter Visit Diagnoses Not on filedocumented in this encounter Care Teams Health Information Management Director Relationship Specialty Start Date End Date Frank Francois MD [address] [place] [address] PCP - General Emergency Medicine 04/28/21 documented as of this encounter
--- OUTSIDE RECORDS SUMMARY | 2024-04-26 16:46 | XMS_ITS | Continuity of Care Document ---
Author Organization [facility] Address [address] [place] [id number] Care Team Providers Care Applications Architect Name Role Phone ANTONY GRIFFIN Primary Care Physician Encounter [facility] FIN NBR [phone] Date(s): 11/13/23 - 11/13/[address] [address]- Encounter Diagnosis Rectal prolapse(Discharge Diagnosis) - 11/13/23 Rectocele(Discharge Diagnosis) - 11/13/23 UTI (urinary tract infection)(Discharge Diagnosis) - 11/13/23 Discharge Disposition: Home or Self Care Attending Physician: Beny Alcala MD Admitting Physician: Beny Alcala MD Allergies, Adverse Reactions, Alerts No Known Medication Allergies Assessment and Plan Extracted from: Title:ED Provider Note Author:CESAR Cooley Date:11/13/23 Assessment/Plan 1.??Rectal prolapse??K62.3 ??Reduce successfully while in the emergency department. ??Has close surgical follow-up in 3 days. ??Return precautions understood. Ordered: cefpodoxime 100 mg oral tablet, 100 mg = 1 tab, Oral, every 12 hr, X 7 days, # 14 tab, 0 Refill(s), 11/20/23 16:28:00 EDT, Pharmacy: [facility], 142, cm, 11/13/23 12:12:00 EDT, Height, 39, kg, 11/13/23 12:17:00 EDT, Weight Dosing ?? 2.??Rectocele??N81.6 Ordered: cefpodoxime 100 mg oral tablet, 100 mg = 1 tab, Oral, every 12 hr, X 7 days, # 14 tab, 0 Refill(s), 11/20/23 16:28:00 EDT, Pharmacy: [facility], 142, cm, 11/13/23 12:12:00 EDT, Height, 39, kg, 11/13/23 12:17:00 EDT, Weight Dosing ?? 3.??UTI (urinary tract infection)??N39.0 ??Will treat with cefpodoxime. ??Discussed??fluids and return precautions. Ordered: cefpodoxime 100 mg oral tablet, 100 mg = 1 tab, Oral, every 12 hr, X 7 days, # 14 tab, 0 Refill(s), 11/20/23 16:28:00 EDT, Pharmacy: [facility], 142, cm, 11/13/23 12:12:00 EDT, Height, 39, kg, 11/13/23 12:17:00 EDT, Weight Dosing ?? Orders: Urine Culture, U CleanCatch, Stat collect, ST - Stat, 11/13/23 14:44:00 EDT, Once, Nurse collect, Collected, 11/13/23 14:44:00 EDT, Print Label, [id number] Follow Up With When Contact Information Follow up with specialist Within 2 to 4 days Additional Instructions: Future Appointments Diagnostic Tests Pending * Urine Culture 11/13/23 Medications cefpodoxime 100 mg oral tablet 100 mg = 1 tab, Oral, every 12 hr, X 7 days, # 14 tab, 0 Refill(s), 11/20/23 3:28:00 PM CDT, Pharmacy: [facility], 142, cm, 11/13/23 12:12:00 EDT, Height, 39, kg, 11/13/23 12:17:00 EDT, Weight Dosing Start Date: 11/13/23 Stop Date: 11/20/23 Status: Ordered morphine 15 mg oral tablet 0 Refill(s) Start Date: 11/13/23 Status: Ordered Percocet 5/325 0 Refill(s) Start Date: 11/13/23 Status: Ordered Mental Status 11/13/23 Eye Opening Response Johnson Spontaneous ly Best Verbal Response [place] Oriented Best Motor Response Johnson Obeys comman ds Johnson Coma Score 15 Results Laboratory List Name Date Urinalysis Microscopic 11/13/23 Urinalysis with Micro if Indicated and C ulture if Indicated 11/13/23 CBC w/ Diff 11/13/23 Comprehensive Metabolic Panel (CMP) Automated Diff 11/13/23 Most recent to oldest [Reference Range]: 1 WBC [4.8-10.8 K/mcL] 4.7 K/mcL *LOW* (11/13/23 1:50 PM) RBC [4.20-5.40 Million/mcL] 4.35 Million /mcL (11/13/23 1:50 PM) Neutro Auto [42.2-75.2 %] 65.5 % (11/13/23 1:50 PM) Lymph Auto [20.5-51.1 %] 27.1 % (11/13/23 1:50 PM) [place] Auto [1.7-9.3 %] 5.5 % (11/13/23 1:50 PM) Basophil Auto [0.0-0.8 %] 0.7 % (11/13/23 1:50 PM) BUN [7-25 mg/dL] 12 mg/dL (11/13/23 1:50 PM) UA Color [Yellow] Yellow (11/13/23 2:44 PM) UA WBC [0-3] 25-50 *ABN* (11/13/23 2:44 PM) Glucose Level [70-109 mg/dL] 93 mg/dL (11/13/23 1:50 PM) Potassium Level [3.5-5.1 mmol/L] 3.7 mmo l/L (11/13/23 1:50 PM) Baso Absolute [0.0-0.2 K/mcL] 0.0 K/mcL (11/13/23 1:50 PM) MCV [81.0-99.0 fL] 90.0 fL (11/13/23 1:50 PM) UA Urobilinogen [0.2] 0.2 (11/13/23 2:44 PM) UA Bili [Negative] Negative (11/13/23 2:44 PM) UA Ketones [Negative] Negative (11/13/23 2:44 PM) AST [13-39 IntlUnit/L] 18 IntlUnit/L (11/13/23 1:50 PM) ALT [7-52 IntlUnit/L] 18 IntlUnit/L (11/13/23 1:50 PM) MCHC [32.0-37.0 g/dL] 34.3 g/dL (11/13/23 1:50 PM) Osmolality [275-295 mOsm/kg] 275 mOsm/kg (11/13/23 1:50 PM) Sodium Level [136-145 mmol/L] 138 mmol/L (11/13/23 1:50 PM) UA RBC [0-3] 0-3 (11/13/23 2:44 PM) UA Leuk Est [Negative] Small *ABN* (11/13/23 2:44 PM) Lymph Absolute [1.2-3.4 K/mcL] 1.3 K/mcL (11/13/23 1:50 PM) UA Nitrite [Negative] Positive *ABN* (11/13/23 2:44 PM) UA Glucose [Negative] Negative (11/13/23 2:44 PM) Hct [37.0-47.0 %] 39.2 % (11/13/23 1:50 PM) UA Bacteria [None Seen] 4+ *ABN* (11/13/23 2:44 PM) Calcium Level [8.6-10.3 mg/dL] 9.2 mg/dL (11/13/23 1:50 PM) [place] Absolute [0.1-0.6 K/mcL] 0.3 K/mcL (11/13/23 1:50 PM) Albumin Level [3.5-5.7 g/dL] 3.9 g/dL (11/13/23 1:50 PM) Protein Total [6.4-8.9 g/dL] 6.9 g/dL (11/13/23 1:50 PM) UA Protein [Negative] Negative (11/13/23 2:44 PM) MCH [27.0-31.0 pg] 30.9 pg (11/13/23 1:50 PM) Neutro Absolute [1.4-6.5 K/mcL] 3.1 K/mc L (11/13/23 1:50 PM) Bilirubin Total [0.3-1.0 mg/dL] 0.3 mg/d L (11/13/23 1:50 PM) Hgb [12.0-16.0 g/dL] 13.5 g/dL (11/13/23 1:50 PM) Alk Phos [34-104 IntlUnit/L] 58 IntlUnit /L (11/13/23 1:50 PM) UA Blood [Negative] Negative (11/13/23 2:44 PM) MPV [7.4-10.4 fL] 6.6 fL *LOW* (11/13/23 1:50 PM) UA Spec Grav [1.001-1.030] 1.010 (11/13/23 2:44 PM) Platelets [130-400 K/mcL] 308 K/mcL (11/13/23 1:50 PM) CO2 [21-31 mmol/L] 24 mmol/L (11/13/23 1:50 PM) Eos Absolute [0.0-0.2 K/mcL] 0.1 K/mcL (11/13/23 1:50 PM) UA pH [5.00-9.00] 6.50 (11/13/23 2:44 PM) UA Appear [Clear] Cloudy *ABN* (11/13/23 2:44 PM) Chloride Level [98-107 mmol/L] 105 mmol/ L (11/13/23 1:50 PM) RDW-CV [11.5-14.5 %] 13.4 % (11/13/23 1:50 PM) A/G Ratio [1.0-2.5 g/dL] 1.3 g/dL (11/13/23 1:50 PM) BUN/Creat Ratio [8.0-20.0] 20.0 (11/13/23 1:50 PM) Globulin [2.3-3.5 g/dL] 3.0 g/dL (11/13/23 1:50 PM) UA Culture Ind?. [No] Yes (11/13/23 2:44 PM) Urine Srce Clean Catch (11/13/23 2:44 PM) Creatinine Level [0.60-1.20 mg/dL] 0.60 mg/dL (11/13/23 1:50 PM) Anion Gap [3.0-12.0] 9.0 (11/13/23 1:50 PM) Eos, Auto [0.00-3.00 %] 1.20 % (11/13/23 1:50 PM) eGFR CKD-EPI [>=60 mL/min/1.73 m2] 96 mL /min/1.73 m2 (11/13/23 1:50 PM) Radiology Reports * Exam Date Time Procedure Performing Provider Status 11/13/23 2:[address] Abdomen and Pelvis w/ Contrast Diamond Turner; Rich (Verified) Notes: (CT Abdomen and Pelvis w/ Contrast) Reason For Exam: abd pain/ rectocele / rectal prolapse CT Abdomen and Pelvis w/ Contrast PROCEDURE INFORMATION: Exam: CT Abdomen And Pelvis With Contrast Exam date and time: 11/13/2023 1:58 PM Age: 68 years old Clinical indication: Abdominal pain; Acute; Additional info: Abd pain/ rectocele / rectal prolapse TECHNIQUE: Imaging protocol: Computed tomography of the abdomen and pelvis with contrast. Radiation optimization: All CT scans at this facility use at least one of these dose optimization techniques: automated exposure control; mA and/or kV adjustment per patient size (includes targeted exams where dose is matched to clinical indication); or iterative reconstruction. Contrast material: [id number]; Contrast volume: 100 ml; Contrast route: INTRAVENOUS (IV); COMPARISON: MR PELVIS WO CONTRAST 04/27/2018 1:02 PM FINDINGS: Liver: Normal. No mass. Gallbladder and bile ducts: Normal. No calcified stones. No ductal dilation. Pancreas: Normal. No ductal dilation. Spleen: Normal. No splenomegaly. Adrenal glands: Normal. No mass. Kidneys and ureters: Normal. No hydronephrosis. Stomach and bowel: Under distension versus mild distal gastric wall thickening. Bowel gas pattern nonobstructive. Significant prolapse changes again noted with loops of bowel through the pelvic floor. Appendix: No evidence of appendicitis. Intraperitoneal space: Unremarkable. No free air. No significant fluid collection. Vasculature: Unremarkable. No abdominal aortic aneurysm. Lymph nodes: Unremarkable. No enlarged lymph nodes. Urinary bladder: Unremarkable as visualized. Reproductive: Unremarkable as visualized. Bones/joints: Grade 2 anterolisthesis L5 on S1 with associated bilateral L5 pars defects. No acute fracture. Soft tissues: See Stomach and bowel finding. IMPRESSION: Significant pelvic floor prolapse Under distension versus mild distal gastric wall thickening. Consider gastritis or infiltrative process THIS DOCUMENT HAS BEEN ELECTRONICALLY SIGNED BY ELLIOT ARITA MD on 11/13/2023 04:25 PM Final Signed by: Elliot Arita MD Signed (Electronic Signature): 11/13/2023 4:25 pm Vital Signs Most recent to oldest [Reference Range]: 1 2 3 Temperature Temporal Artery [36-38 Deg C] 37.2 Deg C (11/13/23 12:12 PM) Peripheral Pulse Rate [60-100 bpm] 70 bpm (11/13/23 4:34 PM) 72 bpm (11/13/23 4:03 PM) 60 bpm (11/13/23 2:29 PM) Respiratory Rate [12-24 br/min] 16 br/min (11/13/23 4:34 PM) 16 br/min (11/13/23 4:03 PM) 16 br/min (11/13/23 2:29 PM) Blood Pressure [90-140/60-90 mmHg] 126/79mmHg (11/13/23 4:34 PM) 126/79mmHg (11/13/23 4:03 PM) 121/60mmHg (11/13/23 2:29 PM) Mean Arterial Pressure, Cuff [65-140 mmHg] 87 mmHg (11/13/23 12:12 PM) Weight 39 kg (11/13/23 12:12 PM) Weight Dosing 39.000 kg (11/13/23 12:12 PM) Height 142 cm (11/13/23 12:12 PM) Body Mass Index 19.34 kg/m2 (11/13/23 12:12 PM) Social History Social History Type Response Tobacco Former tobacco user Tobacco Use:. Sex Hospital Discharge Instructions Follow Up Care 11/13/2023 11:52:32 With:Follow up with specialist Address: When:2 to 4 days Physician Emergency department Note * CESAR Cooley: PERFORM Event Display: ED Note Physician Authored Date: [id number] GISEL CORTEZ :1955 Age:68 years Sex:Female Visit Date:11/13/2023 Primary Care Physician: ANTONY GRIFFIN Basic Information Time Seen: CESAR Cooley / 11/13/2023 11:59 Chief Complaint rectaseal in 2019 at 2019. 18 months ago was seen by GI and was dx with a hemmoroid. States the pain is rectal unbearable, has nausea, fatigue, urinary buring. Exposed to C.diff recently. Hemmroid isbleeding and having loss of bowels. Take narcotics nayeli History Of Present Illness: This is a 68-year-old female with??history of uterine, bladder and rectal prolapse here for concernof worsening rectal prolapse over the past month.?? She??was seen initially??at [facility] and it was reduced??back in September. ??For the past month she has had Worsening of??the prolapse. ??Initially thought it was a hemorrhoid??however??due to the size that she does not believe this is the case at this time. ??She describes intermittent abdominal cramping??almost this like a??severe menstrual cycle or a contraction??lasting a few minutes each time. ??She did have a normal bowel movement this morning however this was preceded by 1 of these cramps.?? Most the time though??over the past month that she has had difficulties with her bowel movements and has been incontinent.?? She typically does take a milk of magnesia or??daily.?? Has been afebrile. ??No nausea or vomiting. ??She also notes dysuria over the past few days and increased urinary frequency. Review of Systems: See HPI Physical Exam Vitals & Measurements T:??37.2?C ??(Temporal Artery)?? HR:??70??(Peripheral)?? RR:??16?? BP:??126/79?? SpO2:??100%?? HT:??142??cm?? WT:??39??kg?? BMI:??19.34?? Pain Score:??9?? General: Patient is alert and engaging, appears well. Is in no acute distress. Speaking comfortablyin full sentences.?? Constitutional: No fevers, chills or diaphoresis.?? HEENT: Head normocephalic and atraumatic. Neck supple with FROM w/o lymphadenopathy or JVD. Tracheamidline. No c-spine tenderness. EOMs intact w/o pain. Pupils equal and reactive to light. TMs visulized bilaterally with normal color and landmarks present w/o erythema or effusion.?? Respiratory: ??No obvious work of breathing, regular rate. BS equal b/l, clear to auscultation.?? Cardiovascular: Heart regular rate and rhythm w/o murmurs, rubs or gallops. No peripheral edema present.?? GI: normoactive BS. Abdomen soft non tender, nondistended without guarding, rebound or rigidity. NoHSM Extremities: No obvious deformities. FROM.?? Integumentary: Skin warm and pink. No rashes or ecchymosis present.?? Neuro: CN III-XII grossly intact.?? Psychiatric: acting appropriate for age and circumstance. Normal mood without obvious ??affect.?? Medical Decision Making: This is a very pleasant 68-year-old female here for rectal prolapse. ??Vitals obtained and reviewedall within normal limits.?? Abdominal exam??benign. ??She did have a??8 cm??rectal prolapse. ??Tissue was red and nonblanchable. ??No with ischemic tissue present.?? Normal rectal tone.?? Did obtain labs and CT of the abdomen. ??Labs unrevealing.?? Was able to reduce??easily after some compression.??Patient given fentanyl for the pain during the procedure but she tolerated it very well. ??She did have significant improvement in pain after procedure was done.?? She already has a scheduled appointment with Dr. Larose??on??November 15.?? She remains??hemodynamically stable??while in the emergency department and believe that she is safeto discharge??with this close surgical follow-up. ?? UA was concerning for infection and will start on cefpodoxime. ??First dose was given while in the emergency department. Procedure No Qualifying Data Assessment/Plan 1.??Rectal prolapse??K62.3 ??Reduce successfully while in the emergency department. ??Has close surgical follow-up in 3 days. ??Return precautions understood. Ordered: cefpodoxime 100 mg oral tablet, 100 mg = 1 tab, Oral, every 12 hr, X 7 days, # 14 tab, 0 Refill(s),11/20/23 16:28:00 EDT, Pharmacy: [facility], 142, cm, 11/13/23 12:12:00 EDT, Height, 39, kg, 11/13/23 12:17:00 EDT, Weight Dosing ?? 2.??Rectocele??N81.6 Ordered: cefpodoxime 100 mg oral tablet, 100 mg = 1 tab, Oral, every 12 hr, X 7 days, # 14 tab, 0 Refill(s),11/20/23 16:28:00 EDT, Pharmacy: [facility], 142, cm, 11/13/23 12:12:00 EDT, Height, 39, kg, 11/13/23 12:17:00 EDT, Weight Dosing ?? 3.??UTI (urinary tract infection)??N39.0 ??Will treat with cefpodoxime. ??Discussed??fluids and return precautions. Ordered: cefpodoxime 100 mg oral tablet, 100 mg = 1 tab, Oral, every 12 hr, X 7 days, # 14 tab, 0 Refill(s),11/20/23 16:28:00 EDT, Pharmacy: [facility], 142, cm, 11/13/23 12:12:00 EDT, Height, 39, kg, 11/13/23 12:17:00 EDT, Weight Dosing ?? Orders: Urine Culture, U CleanCatch, Stat collect, ST - Stat, 11/13/23 14:44:00 EDT, Once, Nurse collect, Collected, 11/13/23 14:44:00 EDT, Print Label, [id number] Follow Up With When Contact Information Follow up with specialist Within 2 to 4 days Additional Instructions: Medication Reconciliation New Prescription cefpodoxime (cefpodoxime 100 mg oral tablet)1 tab Oral (given by mouth) every 12 hours for 7 Days. Refills: 0. ?? Unchanged morphine (morphine 15 mg oral tablet) ?? oxyCODONE-acetaminophen (Percocet 5/325) Problem List/Past Medical History Ongoing No qualifying data Historical No qualifying data Medication Administration Given cefpodoxime, 100 mg, Oral. For: Rectal prolapse,??Rectocele,??UTI (urinary tract infection) fentaNYL, 25 mcg, IV Push. For: Rectal prolapse,??Rectocele fentaNYL, 25 mcg, IV Push. For: Rectal prolapse,??Rectocele fentaNYL, 25 mcg, IV Push. For: Rectal prolapse,??Rectocele,??UTI (urinary tract infection) Allergies No Known Medication Allergies Social History Alcohol Current, 1-2 times per month Electronic Cigarette/Vaping Electronic Cigarette Use: Never. Substance Use Never Tobacco Former tobacco user Tobacco Use:. Diagnostic Results CT Abdomen and Pelvis w/ Contrast 11/13/2023 16:[address] Abdomen and Pelvis w/ Contrast ?? 11/13/23 13:58:20 PROCEDURE INFORMATION: Exam: CT Abdomen And Pelvis With Contrast Exam date and time: 11/13/2023 1:58 PM Age: 68 years old Clinical indication: Abdominal pain; Acute; Additional info: Abd pain/ rectocele / rectal prolapse ?? TECHNIQUE: Imaging protocol: Computed tomography of the abdomen and pelvis with contrast. Radiation optimization: All CT scans at this facility use at least one of these dose optimization techniques: automated exposure control; mA and/or kV adjustment per patient size (includes targeted exams where dose is matched to clinical indication); or iterative reconstruction. Contrast material: [id number]; Contrast volume: 100 ml; Contrast route: INTRAVENOUS (IV); ?? COMPARISON: MR PELVIS WO CONTRAST 04/27/2018 1:02 PM ?? FINDINGS: Liver: Normal. No mass. Gallbladder and bile ducts: Normal. No calcified stones. No ductal dilation. Pancreas: Normal. No ductal dilation. Spleen: Normal. No splenomegaly. Adrenal glands: Normal. No mass. Kidneys and ureters: Normal. No hydronephrosis. Stomach and bowel: Under distension versus mild distal gastric wall thickening. Bowel gas pattern nonobstructive. Significant prolapse changes again noted with loops of bowel through the pelvic floor. Appendix: No evidence of appendicitis. ?? Intraperitoneal space: Unremarkable. No free air. No significant fluid collection. Vasculature: Unremarkable. No abdominal aortic aneurysm. Lymph nodes: Unremarkable. No enlarged lymph nodes. Urinary bladder: Unremarkable as visualized. Reproductive: Unremarkable as visualized. Bones/joints: Grade 2 anterolisthesis L5 on S1 with associated bilateral L5 pars defects. No acute fracture. Soft tissues: See???Stomach and bowel?? finding. ?? IMPRESSION: Significant pelvic floor prolapse ?? Under distension versus mild distal gastric wall thickening. Consider gastritis or infiltrative process ? THIS DOCUMENT HAS BEEN ELECTRONICALLY SIGNED BY ELLIOT ARITA MD on 11/13/2023 04:25 PM ?? Signed By: Elliot Arita MD Lab Results CBC and Differential?? LATEST RESULTS?? WBC?? 11/13/23 13:50?? 4.7 ??Low?? RBC?? 11/13/23 13:50?? 4.35?? Hgb?? 11/13/23 13:50?? 13.5?? Hct?? 11/13/23 13:50?? 39.2?? MCV?? 11/13/23 13:50?? 90.0?? MCH?? 11/13/23 13:50?? 30.9?? MCHC?? 11/13/23 13:50?? 34.3?? RDW-CV?? 11/13/23 13:50?? 13.4?? Platelets?? 11/13/23 13:50?? 308?? MPV?? 11/13/23 13:50?? 6.6 ??Low?? Neutro Auto?? 11/13/23 13:50?? 65.5?? Lymph Auto?? 11/13/23 13:50?? 27.1?? [place] Auto?? 11/13/23 13:50?? 5.5?? Eos, Auto?? 11/13/23 13:50?? 1.20?? Basophil Auto?? 11/13/23 13:50?? 0.7?? Neutro Absolute?? 11/13/23 13:50?? 3.1?? Lymph Absolute?? 11/13/23 13:50?? 1.3?? [place] Absolute?? 11/13/23 13:50?? 0.3?? Eos Absolute?? 11/13/23 13:50?? 0.1?? Baso Absolute?? 11/13/23 13:50?? 0.0? Routine Chemistry?? LATEST RESULTS?? Sodium Level?? 11/13/23 13:50?? 138?? Potassium Level?? 11/13/23 13:50?? 3.7?? Chloride Level?? 11/13/23 13:50?? 105?? CO2?? 11/13/23 13:50?? 24?? Alk Phos?? 11/13/23 13:50?? 58?? AST?? 11/13/23 13:50?? 18?? ALT?? 11/13/23 13:50?? 18?? BUN?? 11/13/23 13:50?? 12?? Glucose Level?? 11/13/23 13:50?? 93?? Creatinine Level?? 11/13/23 13:50?? 0.60?? BUN/Creat Ratio?? 11/13/23 13:50?? 20.0?? eGFR CKD-EPI?? 11/13/23 13:50?? 96?? Calcium Level?? 11/13/23 13:50?? 9.2?? Protein Total?? 11/13/23 13:50?? 6.9?? Albumin Level?? 11/13/23 13:50?? 3.9?? Globulin?? 11/13/23 13:50?? 3.0?? A/G Ratio?? 11/13/23 13:50?? 1.3?? Bilirubin Total?? 11/13/23 13:50?? 0.3?? Anion Gap?? 11/13/23 13:50?? 9.0?? Osmolality?? 11/13/23 13:50?? 275? UA Macroscopic?? LATEST RESULTS?? Urine Srce?? 11/13/23 14:44?? Clean Catch?? UA Color?? 11/13/23 14:44?? Yellow?? UA Appear?? 11/13/23 14:44?? Cloudy Abnormal?? UA Glucose?? 11/13/23 14:44?? Negative?? UA Bili?? 11/13/23 14:44?? Negative?? UA Ketones?? 11/13/23 14:44?? Negative?? UA Spec Grav?? 11/13/23 14:44?? 1.010?? UA Blood?? 11/13/23 14:44?? Negative?? UA pH?? 11/13/23 14:44?? 6.50?? UA Protein?? 11/13/23 14:44?? Negative?? UA Urobilinogen?? 11/13/23 14:44?? 0.2?? UA Nitrite?? 11/13/23 14:44?? Positive Abnormal?? UA Leuk Est?? 11/13/23 14:44?? Small Abnormal?? UA Culture Ind?.?? 11/13/23 14:44?? Yes? UA Microscopic?? LATEST RESULTS?? UA WBC?? 11/13/23 14:44?? 25-50 Abnormal?? UA RBC?? 11/13/23 14:44?? 0-3?? UA Bacteria?? 11/13/23 14:44?? 4+ Abnormal? Electronically Signed on 11/13/2023 17:48 EDT CESAR Cooley Emergency department Discharge instructions * CESAR Cooley: PERFORM Event Display: ED Discharge Information Authored Date: [id number] GISEL CORTEZ :1955 Age:68 years Sex:Female Visit Date:11/13/2023 Primary Care Physician: ANTONY GRIFFIN Discharge Instructions We would like to thank you for allowing us to assist you with your healthcare needs. The following includes patient education materials and information regarding your injury/illness. Diagnosis from Today's Visit Rectal prolapse Rectocele UTI (urinary tract infection) Discharge Vitals Temperature??(Temporal Artery) 99.0 ??F (37.2 ??C) Heart Rate??(Peripheral) 72 Respiratory Rate?? 16 Blood Pressure?? 126/79?? SpO2?? 100% Height?? 55.91 in (142 cm) Weight?? 86.00 lb (39 kg) BMI?? 19.34 Allergies No Known Medication Allergies What to Do Next Instructions from Your Care Team You are seen here for rectal prolapse. ??This was successfully reduced. ??Please continue with your??stool softener and see Dr. Larose??as planned on the fourth.?? There is also evidence of UTI on??urinalysis You are to be on a cefpodoxime. ??Please take this twice a day for the next 7 days.?? Please returnto the emergency department with any worsening of pain or return of the prolapse. You Need to Schedule the Following Appointments Follow Up with??Follow up with specialist When:??Within 2 to 4 days Upcoming Scheduled Appointments Wednesday 1:00 PM EDT ?? With: Alexander Larose MD Where: [facility] General Surgery Status: Confirmed You were treated today on an emergency basis; it may be friedman to contact your primary care provider to notify them of your visit today. You may have been referred to your regular doctor or a specialist, please follow up as instructed. If your condition worsens or you can't get in to see the doctor, contact the Emergency Department. Medications What How Much When Why Instructions Next Dose New cefpodoxime (cefpodoxime 100 mg oral tablet) 1 tab Oral (given by mouth) Every 12 hours Rectal prolapse Rectocele UTI (urinary tract infection) Duration: 7 Days Pickup at [facility] Unchanged morphine (morphine 15 mg oral tablet) Unchanged oxyCODONE-acetaminophen (Percocet 5/ 325) Pharmacy Information [facility]: [address] [place] [id number] [phone] Abdomen and Pelvis w/ Contrast 11/13/2023 16:25 EDT Medications and Immunizations Administered Given fentaNYL, 25 mcg, IV Push. For: Rectal prolapse,??Rectocele fentaNYL, 25 mcg, IV Push. For: Rectal prolapse,??Rectocele fentaNYL, 25 mcg, IV Push. For: Rectal prolapse,??Rectocele,??UTI (urinary tract infection) Lab Test Name Test Result Date/Time WBC 4.7 K/mcL 11/13/2023 13:50 EDT RBC 4.35 Million/mcL 11/13/2023 13:50 EDT Hgb 13.5 g/dL 11/13/2023 13:50 EDT Hct 39.2 % 11/13/2023 13:50 EDT MCV 90.0 fL 11/13/2023 13:50 EDT MCH 30.9 pg 11/13/2023 13:50 EDT MCHC 34.3 g/dL 11/13/2023 13:50 EDT RDW-CV 13.4 % 11/13/2023 13:50 EDT Platelets 308 K/mcL 11/13/2023 13:50 EDT MPV 6.6 fL 11/13/2023 13:50 EDT Neutro Auto 65.5 % 11/13/2023 13:50 EDT Lymph Auto 27.1 % 11/13/2023 13:[address] [place] Auto 5.5 % 11/13/2023 13:50 EDT Eos, Auto 1.20 % 11/13/2023 13:50 EDT Basophil Auto 0.7 % 11/13/2023 13:50 EDT Neutro Absolute 3.1 K/mcL 11/13/2023 13:50 EDT Lymph Absolute 1.3 K/mcL 11/13/2023 13:[address] [place] Absolute 0.3 K/mcL 11/13/2023 13:50 EDT Eos Absolute 0.1 K/mcL 11/13/2023 13:50 EDT Baso Absolute 0.0 K/mcL 11/13/2023 13:50 EDT Sodium Level 138 mmol/L 11/13/2023 13:50 EDT Potassium Level 3.7 mmol/L 11/13/2023 13:50 EDT Chloride Level 105 mmol/L 11/13/2023 13:50 EDT CO2 24 mmol/L 11/13/2023 13:50 EDT Alk Phos 58 IntlUnit/L 11/13/2023 13:50 EDT AST 18 IntlUnit/L 11/13/2023 13:50 EDT ALT 18 IntlUnit/L 11/13/2023 13:50 EDT BUN 12 mg/dL 11/13/2023 13:50 EDT Glucose Level 93 mg/dL 11/13/2023 13:50 EDT Creatinine Level 0.60 mg/dL 11/13/2023 13:50 EDT BUN/Creat Ratio 20.0 11/13/2023 13:50 EDT eGFR CKD-EPI 96 mL/min/1.73 m2 11/13/2023 13:50 EDT Calcium Level 9.2 mg/dL 11/13/2023 13:50 EDT Protein Total 6.9 g/dL 11/13/2023 13:50 EDT Albumin Level 3.9 g/dL 11/13/2023 13:50 EDT Globulin 3.0 g/dL 11/13/2023 13:50 EDT A/G Ratio 1.3 g/dL 11/13/2023 13:50 EDT Bilirubin Total 0.3 mg/dL 11/13/2023 13:50 EDT Anion Gap 9.0 11/13/2023 13:50 EDT Osmolality 275 mOsm/kg 11/13/2023 13:50 EDT Urine Srce Clean Catch 11/13/2023 14:44 EDT UA Color YELLOW. 11/13/2023 14:44 EDT UA Appear CLOUDY. 11/13/2023 14:44 EDT UA Glucose NEGATIVE 11/13/2023 14:44 EDT UA Bili NEGATIVE 11/13/2023 14:44 EDT UA Ketones NEGATIVE 11/13/2023 14:44 EDT UA Spec Grav 1.010 11/13/2023 14:44 EDT UA Blood NEGATIVE 11/13/2023 14:44 EDT UA pH 6.50 11/13/2023 14:44 EDT UA Protein NEGATIVE 11/13/2023 14:44 EDT UA Urobilinogen 0.2 11/13/2023 14:44 EDT UA Nitrite POSITIVE 11/13/2023 14:44 EDT UA Leuk Est SMALL Clinitek 11/13/2023 14:44 EDT UA Culture Ind?. Yes 11/13/2023 14:44 EDT UA WBC 25-50 11/13/2023 14:44 EDT UA RBC 0-3 11/13/2023 14:44 EDT UA Bacteria 4+ 11/13/2023 14:44 EDT Patient/Director Of Scientific Research Signature Patient Name:GISEL CORTEZ I have received this information and my questions have been answered. Patient/Director Of Scientific Research Name: Patient/Director Of Scientific Research Signature: Relationship to Patient: Witness Name/Signature: Date: Electronically Signed on: 11/13/2023 16:31 EDTSigned by:WOOD Patient Care team information Care Team Personnel Name: ANTONY GRIFFIN Position: No Access Member Role: Primary Care Physician Address: Address: [address] [address]-
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
--- OUTSIDE RECORDS SUMMARY | 2024-04-26 16:46 | XMS_ITS | Encounter Summary ---
Author Organization [facility] [place] [address] Care Team Providers Care Financial Developer Name Role Phone Frank Francois MD Primary Care Provider [phone] Encounter Details Date Type Department Care Team (Late st Contact Info) Description 04/11/2024 Telephone Obstetrics [place] [address] Addy Arnold Social History Tobacco Use Types Packs/Day Years Used Date Smoking Tobacco: Former Cigarettes 1 15 0 10/12/1968 - 10/13/1983 Smokeless Tobacco: Never Alcohol Use Standard Drinks/Week Comments Yes 1 (1 standard drink = 0.6 oz pur e alcohol) [facility] Inpatient Questions Answer Date Recorded Does Anyone [...] 11:30 AM EST Office Visit Dermatology at [address] [place] [id number] Robert Herron MD [address], [place] [address] Scheduled Procedures Name Priority Associated Diagnoses Date/Ti me ANTERIOR COLPORRHAPHY CYSTOC ASLLY W OR WO URETHEROCELE; INC CYSTO (WRVU 10.08) Female cystocele URETHRAL SUSPENSION, SLING\F ASCIA OR SYNTHETIC (WRVU 12.13) Female cystocele documented as of this encounter Visit Diagnoses Not on filedocumented in this encounter Care Teams Financial Developer Relationship Specialty Start Date End Date Frank Francois MD [address] [place] [address] PCP - General Emergency Medicine 04/28/21 documented as of this encounter
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
--- OUTSIDE RECORDS SUMMARY | 2024-04-26 16:47 | XMS_ITS | Encounter Summary ---
[facility] Organization [facility] [place] [address] Care Team Providers Care [facility] Psychiatrist Name Role Phone AdaEdd sanchez Primary Care Provider [phone] Encounter Details Date Type Department Care Team (Late st Contact Info) Description 07/10/2019 Telephone [place] [phone] Shirin Malone RN Social History Tobacco Use Types Packs/Day Years Used Date Smoking Tobacco: Former Cigarettes 1 15 0 10/12/1968 - 10/13/1983 Smokeless Tobacco: Never Alcohol Use Standard Drinks/Week Comments Yes 1 (1 standard drink = 0.6 oz pur e alcohol) Sex and Gender Information Value Date Recorded Sex Assigned at Not on file Gender Identity Not on file Sexual Orientation Not on file documented as of this encounter Miscellaneous Notes * Telephone Encounter - Shirin Tian RN - 07/10/2019 2:24 PM EST I received a call from Mary Ellen. She notes the day after she saw Dr. Pitt for follow up of her rectocele surgery she noted she hada bladder prolapse. March 022018 She was seen by ob-ships equipment engineer and a pessary was placed 05/23/2019 . She lives in [place], [place]. She reports she is unable to insert and remove the device because of her hands and past injuries. 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 She notes she has stool staining on her protective pads because of this. She had her pessary removed recently for a trial and notes that she feels she has to bear down to void, she is not emptying her bladder because when she goes to lay back down at night she has to get right back up and go again and will void more urine. She also feels when the pessary is not in place this places more pressure in her pelvis making her feel more rectal pressure. She looked with a mirror, after moving her bowels and noted some blood and slight bulging at her anus. I asked her if she has any history of hemorrhoids, she denies any. I have suggested she have her pessary replaced to see if this helps relieve her feeling of pelvic fullness, and the need to bear down when trying to void. I have also asked her about her weight lifting and other activities which cause increase pressure to her pelvic floor and have cautioned her about making sure she is doing things in an apropriate way. She is somewhat vague as to what her exercising activities include. She ask that I let Dr. Pitt know of the above information and asks if she needs to come and see him. I let her know that I will ask that if Dr. Pitt thinks she needs to come for a visit he ask his national secretary to schedule Mary Ellen for a follow up appoinmtnent documented in this encounter Plan of Treatment Upcoming Encounters Date Type Department Care Team (Late st Contact Info) Description 04/27/2024 11:30 AM EST Office Visit Dermatology at [place] [address] [place] [phone] Robert Herron MD [address], [place] [address] Scheduled Procedures Name Priority Associated Diagnoses Date/Ti me ANTERIOR COLPORRHAPHY CYSTOC SALLY W OR WO URETHEROCELE; INC CYSTO (WRVU 10.08) Female cystocele URETHRAL SUSPENSION, SLING\F ASCIA OR SYNTHETIC (WRVU 12.13) Female cystocele documented as of this encounter Visit Diagnoses Not on filedocumented in this encounter Care Teams [facility] Psychiatrist Relationship Specialty Start Date End Date Edd Caballero DO [address] [place] [address] PCP - General Family Medicine 10/24/18 04/27/21 documented as of this encounter
--- OUTSIDE RECORDS SUMMARY | 2024-04-26 16:47 | XMS_ITS | Encounter Summary ---
Author Organization Formerly [facility] [place] [address] Care Team Providers Care Junior Administrative Assistant Name Role Phone Frank Francois MD Primary Care Provider [phone] Reason for Visit * Reason Comments Follow-up * Consultation (Routine) - Closed Specialty Diagnoses / Procedures Referred By Contac t Referred To Contact General Surgery Diagnoses Cystocele with incomplete uterovaginal prolapse Frank Francois MD [address] [place] [address] [facility] Gen Surgery [address] [place] [address] Referral ID Status Reason Start Date Expiration Date V isits Requested Visits Authorized [id number] Closed Consult, Test & Treat PCP Updated and/or Approved 05/01/2023 04/30/2024 12 12 Encounter Details Date Type Department Care Team (Late st Contact Info) Description 06/03/2023 2:00 PM EST Office Visit [place] [address] Greg Pitt MD [facility] [place] [address] Perineal floor weakness Social History Tobacco Use Types Packs/Day Years [...] Sign Reading Time Taken Comments Blood Pressure 98/55 06/03/2023 2:24 PM EST Pulse 63 06/03/2023 2:24 PM EST Temperature - - Respiratory Rate 16 06/03/2023 2:24 PM EST Oxygen Saturation 100% 06/03/2023 2:24 PM EST Inhaled Oxygen Concentration - - Weight 38.7 kg (85 lb 4.8 oz) 06/03/2023 2:24 PM EST Height - - Body Mass Index 19.83 05/03/2023 3:40 PM EST documented in this encounter Progress Notes * Paco Lama MD - 06/03/2023 2:00 PM EST Colorectal Surgery Outpatient Consultation ~ Division of Colon and Rectal Surgery ~ [facility] HPI: Mary Ellen Hodge is a pleasant 68 y.o. female who we were asked to see by Dr. Francois regarding Chief Complaint Patient presents with Follow-up . The patient's PCP is Frank Francois MD. Mary Ellen previously underwent a perineal rectosigmoidectomy for treatment of full thickness rectal prolapse on 01/17/23. She was last seen on 01/22/20 due to concern for anterior mucosal prolapse related to vaginal or bladder prolapse- she was treating her symptoms with a pessary, and to follow up with her uro-glass furnace operator for management of anterior prolapse. Recently she was seen in the [facility] on 05/03 with recurrent rectal prolapse and procodynia. Work up was otherwise unremarkable and she as encouraged to continue follow up with Dr. Pitt today. Reports that over the last 6 months she has been experiencing daily episodes of prolapse that have progressively gotten more symptomatic with bloody mucus discharge- wears a pad to control drainage. Denies straining or constipation as she takes milk of magnesia daily, but does report prolonged time on the toilet due to urinary frequency and inability to completely empty her bladder. She is no longer wearing her pessary- continues to follow with Dr. Ordaz - and plan to fit an incontinence ring with knob- she has not had this placed yet. Dr. Eckert has recently referred her to pelvic floor physical therapy over the past month. Since starting physical therapy, her she reports no further symptoms of any prolapse Review of Systems 10 point review of systems was reviewed with the patient and otherwise negative except for stated in the HPI. Past medical history: Patient Active Problem List [...] METHOD performed by Greg Pitt MD at [facility] MAIN OR PRO EXCIS RECTAL PROLAPSE, PERINEAL N/A 01/17/2019 @RECTOPEXY, RESEC. PROLAPSE, PERINEAL APPROACH (WRVU 18.5) performed by Greg Pitt MD at [facility] MAIN OR TOTAL HIP ARTHROPLASTY Right Allergies: Gabapentin Medications: reviewed in the electronic medical record. Current Outpatient Medications on File Prior to Visit Medication Sig Dispense Refill magnesium hydroxide (Milk of Magnesia) 2,400 mg/10 mL Suspension Take by mouth daily. 27-28 ML morphine CR (Ms Contin) 15 mg Tablet [...] 500 mg by mouth 2 times daily. acetaminophen (Tylenol) 500 mg Tablet Take 325 mg by mouth Every 6 hours as needed. polyethylene glycoL (Miralax) 17 gram/dose Powder MIX 17 GRAMS ( ONE CAPFUL) IN LIQUID AND DRINK BYMOUTH ONCE DAILY docusate sodium (COLACE) 100 mg Capsule Take 1 capsule by mouth 2 times daily. (Patient not taking:Reported on 06/03/2023) No current facility-administered medications on file prior [...] Father Dementia Mother Cerebrovascular Accident Paternal Grandfather Patient denies a family history of: colorectal cancer, colorectal polyps, diverticular disease, Crohn disease, and ulcerative colitis. Patient admits a family history of: none. Physical exam: Vitals: Blood pressure 98/55, pulse 63, resp. rate 16, weight 38.7 kg (85 lb 4.8 oz), SpO2 100%. BMI: Body mass index is 19.83 kg/m??. General Appearance: well developed and well nourished Neuro: awake, alert and oriented to person, place and time no acute distress Psych: appropriate mood and affect Eyes: extra ocular muscles intact, pupils equally reactive to light and accomodation ENT: neck supple, no lyphadenopathy noted CV: regular rate and rhythm Resp: non-labored without adventitous sounds on auscultation Lymph: no edema noted Abdomen: soft, non-tender, and not distended, no masses or organomegaly Perineal exam: The patient was examined in the prone floyd knife position with nursing assisting. The perianal skinis normal. The anus is normal without evidence of external skin tags or prolapsing tissue. On digital rectal exam resting tone is normal and squeeze tone is normal. There is normal relaxation with valsalva. There are no masses. There is no gross blood. Normal voluntary anal contraction an evacuation without prolapsing tissue. Significant mobility of anterior compartment with valsalva consistent with perineal descent Labs: reviewed. Endoscopy: reviewed. Path: reviewed. Imaging: reviewed. 11/21/2018 9:59 AM 02/27/2019 12:49 PM 01/22/2020 10:20 AM 06/03/2023 1:57 PM COREFO Responses Incontinence Scale 55.55 33.33 58.33 77.78 Social Impact Scale 77.77 47.22 69.44 88.89 Frequency Scale 12.5 0 0 37.5 Stool Releated Aspects 50 8.33 16.66 83.33 Medication Scale 50 41.66 16.66 33.33 Total COREFO Score 58.65 33.65 48.07 74.04 The COREFO questionnaire is a validated questionnaire [...] Ellen Hodge is a 68 y.o. female with history of rectal prolapse status post Altmeyer procedure who presents back to clinic for concern of recurrent prolapse. 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 There is no evidence of any recurrent rectal prolapse. Given her dramatic improvement with pelvic floor PT, we encouraged her to continue with her therapy as she has experienced her back improvement. She will continue to follow-up with out with Dr. Eckert regarding cystocele and uterine prolapse. Should she develop any further symptoms in the future, we encouraged her to reach out to our team. Otherwise she can follow-up on an as-needed basis. Paco Lama MD Colorectal Surgery I have seen the patient and reviewed [...] appropriate. Greg Pitt MD MSc FACS FASCRS reel stripper Division of Colon and Rectal Surgery [facility] Pager [phone] documented in this encounter Plan of Treatment Upcoming Encounters Date Type Department Care Team (Late st Contact Info) Description 04/27/2024 11:30 AM EST Office Visit Dermatology at [place] [address] [place] [phone] Robert Herron MD [address] [facility], [facility]ANICE A DERMATOLOGY [place], [place] [id number] Scheduled Procedures Name Priority Associated Diagnoses Date/Ti me ANTERIOR COLPORRHAPHY CYSTOC SALLY W OR WO URETHEROCELE; INC CYSTO (WRVU 10.08) Female cystocele URETHRAL SUSPENSION, SLING\F ASCIA OR SYNTHETIC (WRVU 12.13) Female cystocele documented as of this encounter Visit Diagnoses Diagnosis Perineal floor weakness documented in this encounter Care Teams Junior Administrative Assistant Relationship Specialty Start Date End Date Frank Francois MD [address] [place] [address] PCP - General Emergency Medicine 04/28/21 documented as of this encounter
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
--- OUTSIDE RECORDS SUMMARY | 2024-04-26 16:47 | XMS_ITS | Encounter Summary ---
Author Organization [facility] [place] [address] Care Team Providers Care Adjunct Teacher Name Role Phone Frank Francois MD Primary Care Provider [phone] Encounter Details Date Type Department Care Team (Latest Contact Info) Description 05/03/2023 Travel Social History Tobacco Use Types Packs/Day [...] 11:30 AM EST Office Visit Dermatology at [place] [address] [place] [address] Robert Herron MD [address], [place] [address] Scheduled Procedures Name Priority Associated Diagnoses Date/Ti me ANTERIOR COLPORRHAPHY CYSTOC SALLY W OR WO URETHEROCELE; INC CYSTO (WRVU 10.08) Female cystocele URETHRAL SUSPENSION, SLING\F ASCIA OR SYNTHETIC (WRVU 12.13) Female cystocele documented as of this encounter Visit Diagnoses Not on filedocumented in this encounter Care Teams Adjunct Teacher Relationship Specialty Start Date End Date Frank Francois MD [address] [place] [address] PCP - General Emergency Medicine 04/28/21 documented as of this encounter
--- OUTSIDE RECORDS SUMMARY | 2024-04-26 16:47 | XMS_ITS | Encounter Summary ---
Author Organization [facility] [place] [address] Care Team Providers Care Paper Making Machine Operator Name Role Phone Frank Francois MD Primary Care Provider [phone] Encounter Details Date Type Department Care Team (Latest Contact Info) Description 05/04/2022 Travel Social History Tobacco Use Types Packs/Day [...] 11:30 AM EST Office Visit Dermatology at [address] [place] [phone] Robert Herron MD [address] [place] [address] RD, [place] [address] Scheduled Procedures Name Priority Associated Diagnoses Date/Ti me ANTERIOR COLPORRHAPHY CYSTOC SALLY W OR WO URETHEROCELE; INC CYSTO (WRVU 10.08) Female cystocele URETHRAL SUSPENSION, SLING\F ASCIA OR SYNTHETIC (WRVU 12.13) Female cystocele documented as of this encounter Visit Diagnoses Not on filedocumented in this encounter Care Teams Paper Making Machine Operator Relationship Specialty Start Date End Date Frank Francois MD [address] [place] [address] PCP - General Emergency Medicine 04/28/21 documented as of this encounter
--- OUTSIDE RECORDS SUMMARY | 2024-04-26 16:47 | XMS_ITS | Encounter Summary ---
Author Organization [facility] [place] [address] Care Team Providers Care Nick Setter Name Role Phone AdaEdd Bueno Primary Care Provider [phone] Encounter Details Date Type Department Care Team (Late st Contact Info) Description 03/02/2019 Telephone [place] [phone] Carey Fletcher RN Social History Tobacco Use Types Packs/Day [...] encounter Miscellaneous Notes * Telephone Encounter - Carey Olivier RN - 03/02/2019 1:51 PM EDT Patient is S/P Case Date: 01/17/2019 ?? Surgeon: Surgeon(s) and Role: * Greg Pitt MD - Primary * Alex Mariscal MD - Resident ?? Preoperative diagnosis: RECTAL POLAPSE ?? Postoperative diagnosis: RECTAL POLAPSE linear colonic ulcerations ?? Procedure(s) (LRB): COLONOSCOPY; W CONTROL OF BLEEDING, ANY METHOD (N/A) @RECTOPEXY, RESEC. PROLAPSE, PERINEAL APPROACH (WRVU 18.5) (N/A) TRIAGE CALL Caller: Patient Reason for Call: Something is protruding from my vagina Symptom Review: Onset: Today Location: Vagina Duration: Since this morning What makes it better: NA What makes it worse: NA Timing of symptoms: Since this morning Review of Systems related to Reason for Call: Integumentary: Neg Head (ENT/Neuro): Not Assessed Respiratory: Not Assessed Cardiac: Not Assessed GI: Neg : Pos Musculoskeletal: Not Assessed Pertinent Positive and Negative findings: Patient reports bladder pressure, difficulty with urination and swelling in the vaginal area. Bowels are moving fine and no signs of any protrusion there. Discussed with resident. Select specific Decision Support Tool used: MD WILIAM verbal instruction Disposition: Referred to other agency Plan of Care: Patient is to contact local PCP or women's care center for exam. Suspected differentials are UTI vs vaginal prolapse? Per Decision Support Tool (note specific protocol from text selected above): WILIAM instruction from Patient/responsible caregiver able to read back instructions/plan of care? yes Recommendations for worsening condition given to patient/responsible caregiver? Patient to be seen locally and if symptoms worsen she will call back and/or present to local ER Patient/responsible caregiver able to read back actions for worsening condition? yes Patient/responsible caregiver intends to comply with action/disposition? yes Follow up needed? yes If yes, outline: Local provider. documented in this encounter Plan of Treatment Upcoming Encounters Date Type Department Care Team (Late st Contact Info) Description 04/27/2024 11:30 AM EST Office Visit Dermatology at [address] [place] [address] Robert Herron MD [address] [place] [address] RD, [place] [address] Scheduled Procedures Name Priority Associated Diagnoses Date/Ti me ANTERIOR COLPORRHAPHY CYSTOC SALLY W OR WO URETHEROCELE; INC CYSTO (WRVU 10.08) Female cystocele URETHRAL SUSPENSION, SLING\F ASCIA OR SYNTHETIC (WRVU 12.13) Female cystocele documented as of this encounter Visit Diagnoses Not on filedocumented in this encounter Care Teams Nick Setter Relationship Specialty Start Date End Date Edd Caballero DO [address] [place] [address] PCP - General Family Medicine 10/24/18 04/27/21 documented as of this encounter
--- OUTSIDE RECORDS SUMMARY | 2024-04-26 16:47 | XMS_ITS | Encounter Summary ---
Author Organization [facility] [place] [address] Care Team Providers Care Physician Ophthalmologist Name Role Phone Edd Caballero DO Primary Care Provider [phone] Encounter Details Date Type Department Care Team (Late st Contact Info) Description 05/27/2020 Ancillary Procedure Radiology Library at [facility] [place] [address] Edd Caballero DO [address] [place] [address] Social History Tobacco Use Types Packs/Day Years [...] 11:30 AM EST Office Visit Dermatology at [place] [address] [facility] [place] [phone] Robert Herron MD [address] [facility], [place] [address] Scheduled Procedures Name Priority Associated Diagnoses Date/Ti me ANTERIOR COLPORRHAPHY CYSTOC SALLY W OR WO URETHEROCELE; INC CYSTO (WRVU 10.08) Female cystocele URETHRAL SUSPENSION, SLING\F ASCIA OR SYNTHETIC (WRVU 12.13) Female cystocele documented as of this encounter Procedures Procedure Name Priority Date/Time Associated Diagnosis Comments FILM LIBRARY STORAGE ONLY MR SPINE Routine 05/27/2020 12:00 AM EST documented in this encounter Results * Film Library- Storage Only MR Spine (05/27/2020 12:00 AM EST) Narrative [facility] - 05/28/2020 11:12 AM EST This exam is auto-finalizing. It's purpose is for storage only. Edd Caballero DO G FILM LIBRARY O RDERABLES [place], [place] documented in this encounter Visit Diagnoses Not on filedocumented in this encounter Care Teams Physician Ophthalmologist Relationship Specialty Start Date End Date Edd Caballero DO [address] [place] [address] PCP - General Family Medicine 10/24/18 04/27/21 documented as of this encounter
--- OUTSIDE RECORDS SUMMARY | 2024-04-26 16:47 | XMS_ITS | Encounter Summary ---
Author Organization [facility] [place] [address] Care Team Providers Care Ssds Mk 2 Advanced Operator Name Role Phone AdaEdd adam Primary Care Provider [phone] Encounter Details Date Type Department Care Team (Late st Contact Info) Description 07/03/2019 Telephone [place] [phone] Carey Fletcher RN Social History Tobacco Use [...] Telephone Encounter - Carey Olivier RN - 07/03/2019 10:58 AM EST Patient is S/P Case Date: 01/17/2019 ?? Surgeon: Surgeon(s) and Role: * Greg Pitt MD - Primary * Alex Mariscal MD - Resident ?? Preoperative diagnosis: RECTAL POLAPSE ?? Postoperative diagnosis: RECTAL POLAPSE linear colonic ulcerations ?? Procedure(s) (LRB): COLONOSCOPY; W CONTROL OF BLEEDING, ANY METHOD (N/A) @RECTOPEXY, RESEC. PROLAPSE, PERINEAL APPROACH (WRVU 18.5) (N/A) Anesthesia: General Patient phones today and leaves a message stating that she has questions about her Wid[place] procedurewith Dr. Pitt. Phoned back and left her a voicemail with our call back number. documented in this encounter Plan of Treatment Upcoming Encounters Date Type Department Care Team (Late st Contact Info) Description 04/27/2024 11:30 AM EST Office Visit Dermatology at [place] [address] [place] [address] Robert Herron MD [address] [facility], [place] [address] Scheduled Procedures Name Priority Associated Diagnoses Date/Ti me ANTERIOR COLPORRHAPHY CYSTOC SALLY W OR WO URETHEROCELE; INC CYSTO (WRVU 10.08) Female cystocele URETHRAL SUSPENSION, SLING\F ASCIA OR SYNTHETIC (WRVU 12.13) Female cystocele documented as of this encounter Visit Diagnoses Not on filedocumented in this encounter Care Teams Ssds Mk 2 Advanced Operator Relationship Specialty Start Date End Date Edd Caballero DO [address] [place] [address] PCP - General Family Medicine 10/24/18 04/27/21 documented as of this encounter
--- OUTSIDE RECORDS SUMMARY | 2024-04-26 16:47 | XMS_ITS | Encounter Summary ---
Author Organization [facility], [facility] [place] [address] Care Team Providers Care Vision Mixer Name Role Phone Edd Caballero DO Primary Care Provider [phone] Reason for Visit * Reason Comments Follow-up Encounter Details Date Type Department Care Team (Late st Contact Info) Description 02/27/2019 1:00 PM EDT Office Visit [place] [address] Greg Pitt MD [facility] [place] [address] Rectal prolapse Social History Tobacco Use Types Packs/Day Years [...] Sign Reading Time Taken Comments Blood Pressure 128/56 02/27/2019 12:51 PM EDT Pulse 64 02/27/2019 12:51 PM EDT Temperature - - Respiratory Rate 16 02/27/2019 12:51 PM EDT Oxygen Saturation 100% 02/27/2019 12:51 PM EDT Inhaled Oxygen Concentration - - Weight 42.5 kg (93 lb 9.6 oz) 02/27/2019 12:51 P M EDT Height - - Body Mass Index 20.98 01/17/2019 8:05 AM EDT documented in this encounter Progress Notes * Greg Pitt MD - 02/27/2019 1:00 PM EDT Colorectal Surgery Outpatient Follow-up ~ Division of Colon and Rectal Surgery ~ [facility] HPI: Mary Ellen Hodge is a pleasant 64 y.o. female who has undergone perineal rectosigmoidectomy forthe treatment of full thickness rectal prolapse. She returns today for a postoperative visit. She reports that she is doing extremely well postoperatively and has had complete resolution of her primary complaints. She has noted occasional pinkish discharge that she has noted on the toilet tissue however no jazlyn bleeding and no recurrence of prolapse. She has noted a couple of the sutures used to reapproximate her resection have come out. She is taking Colace daily and MiraLAX every other day approximately 1/2-3/4 of a capful. She denies straining or hard bowel movements. Review of Systems Constitutional: Negative for weight loss. Gastrointestinal: Negative for abdominal discomfort, vomiting, constipation and diarrhea. All other systems reviewed and are negative. The patient's PCP is Edd Caballero DO. Past medical history: Patient Active Problem List Diagnosis Code ??? Solar lentigo L81.4 ??? 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 AK (actinic keratosis) L57.0 ??? History of pelvic fracture Z87.81 ??? Peripheral neuropathy G62.9 ??? Spinal stenosis M48.00 ??? History of right hip replacement Z96.641 ??? Osteoarthritis (arthritis due to wear and tear of joints) M19.90 ??? History of bulimia--per scanned doc Z86.59 ??? Chronic pain G89.29 ??? Gastroesophageal reflux--treats with aloe vera juice K21.9 Past surgical history: Past Surgical History: Procedure Laterality Date ??? COLONOSCOPY 2003 ??? DILATION AND CURETTAGE OF UTERUS ??? JOINT REPLACEMENT Right ??? PRO COLONOSCOPY, FLEX, W/CONTROL, BLEEDING N/A 01/17/2019 COLONOSCOPY; W CONTROL OF BLEEDING, ANY METHOD performed by Greg Pitt MD at [facility] MAIN OR ??? PRO EXCIS RECTAL PROLAPSE, PERINEAL N/A 01/17/2019 @RECTOPEXY, RESEC. PROLAPSE, PERINEAL APPROACH (WRVU 18.5) performed by Greg Pitt MD at [facility] MAIN OR Allergies: Patient has no known allergies. Medications: reviewed in the electronic medical record. Current Outpatient Medications on File Prior to Visit Medication Sig Dispense Refill ??? lidocaine (XYLOCAINE) 5 % Ointment as needed. 0 ??? docusate sodium (COLACE) 100 mg Capsule Take 1 capsule by mouth 2 times daily. ??? polyethylene glycol (MIRALAX) 17 gram Powder in Packet Take 17 g by mouth daily. ??? acetaminophen (TYLENOL) 500 mg Tablet Take 1,000 mg by mouth every 6 hours as needed for Pain. ??? UNABLE TO FIND Med Name cholestoff and coQ 10. Richelle root ??? triamcinolone (KENALOG) 0.1 % Ointment Apply topically 2 times daily. 30 g 1 ??? diclofenac (VOLTAREN) 75 mg Tablet, Delayed Release (E.C.) ??? miSOPROStol (CYTOTEC) 200 mcg Tablet ??? potassium chloride (K-DUR/KLOR-CON) 20 mEq Tab Sust.Rel. Particle/Crystal ??? fish oil-omega-3 fatty acids 1,000 mg Capsule Take 2 g by mouth daily. ??? Niacin 1,000 mg Tablet Sustained Release 24 hr Take 1,200 mg by mouth. ??? TURMERIC ROOT EXTRACT ORAL Take by mouth. ??? Calcium 500 mg Tablet Take by mouth. ??? Cholecalciferol, Vitamin D3, (VITAMIN D-3) 2,000 unit Capsule Take by mouth. ??? multivitamin (THERAGRAN) Tablet Take 1 tablet by mouth daily. ??? pyridoxine (B-6) 100 mg Tablet Take 100 mg by mouth daily. ??? valACYclovir (VALTREX) 500 mg Tablet Take 500 mg by mouth 2 times daily. ??? diclofenac-misoprostol (ARTHROTEC 50) 50-200 mg-mcg per tablet ??? [DISCONTINUED] traMADol (ULTRAM) 50 mg Tablet Take 1 tablet by mouth every 6 hours as needed for Pain. 15 tablet 0 ??? [DISCONTINUED] bisacodyl (DULCOLAX) 5 mg Tablet, Delayed Release (E.C.) Take 10 mg by mouth 4 times daily. No current facility-administered medications on file prior to visit. Social history: reports that she quit smoking about 35 years ago. Her smoking use included cigarettes. She has a 15.00 pack-year smoking history. She has never used smokeless tobacco. She reports that she drinks about 1.0 standard drinks of alcohol per week. She reports that she has current or pastdrug history. Family medical history: Family History Problem Relation Age of Onset ??? Heart Disease Father Patient denies a family history of: colorectal cancer, colorectal polyps, diverticular disease, Crohn disease and ulcerative colitis. Patient admits a family history of: none. Physical exam: Vitals: Blood pressure 128/56, pulse 64, resp. rate 16, weight 42.5 kg (93 lb 9.6 oz), SpO2 100 %. BMI: Body mass index is 20.98 kg/m??. General Appearance: well developed and well [...] non-tender, and not distended, no masses or organomegaly. Scars from prior intervention. Ext: no cyanosis Labs: reviewed. Endoscopy: reviewed. Path: reviewed. Imaging: reviewed. COREFO Responses 11/21/2018 02/27/2019 Incontinence Scale 55.55 33.33 Social Impact Scale 77.77 47.22 Frequency Scale 12.5 0 Stool Releated Aspects 50 8.33 Medication Scale 50 41.66 Total COREFO Score 58.65 33.65 The COREFO questionnaire is a validated questionnaire [...] disturbance. Impression/Plan: Mary Ellen Hodge is a 64 y.o. female status post perineal rectosigmoidectomy for rectal prolapse as well as complete colonoscopy performed at the same time. her colonoscopy was completely normal and this puts her at average risk she should have a repeat colonoscopy in 10 years. Otherwise she is doing quite well postoperatively, I counseled her to begin a daily quarter capful of MiraLAX regimen and to DC Colace at this time. All her questions were answered to her satisfaction I will see her back in 10 years for her next screening colonoscopy. Greg Pitt MD, MSc fitness specialist Division of Colon and Rectal Surgery [facility] Pager [phone] documented in this encounter Plan of Treatment Upcoming Encounters Date Type Department Care Team (Late st Contact Info) Description 04/27/2024 11:30 AM EST Office Visit Dermatology at [place] [address] [place] [address] Robert Herron MD [address] [facility], [place] [address] Scheduled Procedures Name Priority Associated Diagnoses Date/Ti me ANTERIOR COLPORRHAPHY CYSTOC SALLY W OR WO URETHEROCELE; INC CYSTO (WRVU 10.08) Female cystocele URETHRAL SUSPENSION, SLING\F ASCIA OR SYNTHETIC (WRVU 12.13) Female cystocele documented as of this encounter Visit Diagnoses Diagnosis Rectal prolapse documented in this encounter Care Teams Vision Mixer Relationship Specialty Start Date End Date Edd Caballero DO [address] [place] [address] PCP - General Family Medicine 10/24/18 04/27/21 documented as of this encounter
--- OUTSIDE RECORDS SUMMARY | 2024-04-26 16:47 | XMS_ITS | Encounter Summary ---
Author Organization [facility] [place] [address] Care Team Providers Care Fur Pointer Name Role Phone AdaEdd DO Primary Care Provider [phone]- [phone] Encounter Details Date Type Department Care Team (Late st Contact Info) Description 01/10/2019 Telephone [place] [phone] Lorna Barton, RN Social History Tobacco Use Types Packs/Day [...] encounter Miscellaneous Notes * Telephone Encounter - Lorna Barton RN - 01/10/2019 1:33 PM EDT Patient called the general surgery clinic nurses line with some questions about pre-op and post-op.She is scheduled for Altemeier procedure to fix a rectal prolapse w/ intra-op colonoscopy on 01/17/19. I returned the pts call. She is a bit teary during the call. She states that she had a falling outwith her daughter. She is wondering if she can drive home from the hospital after surgery. She states that she has been having increased pain from her prolapse so she has taken some dilaudid she had from a previous surgery. She states that she wears a pad to protect her underwear from the moisture of the prolapse and wants to make sure that is ok. She questioned if she should stop any of her medic ations, specifically the diclofenac, cytotec and fish oil. She also states that she is feeling a lot of anxiety about the surgery and feels like she isn't going to make it through. She states that she has a lot going on in her life other than this as well. Plan: I discussed with Dr. Alfie Pitt. Pt will hold her diclofenac, cytotec and fish oil from now until surgery. She will take extra strength tylenol, which she currently takes. I also reminded her that Dr. Pitt would like her to take 2 extra strength tylenol three times a day for 2 days before surgery. I explained that we did not prescribe the dilaudid so I cannot tell her what to do about taking or not taking it. I did caution her that narcotics can cause constipation which will make her painworse. I told the patient that she will not be able to drive home after discharge. I empathized with her anxiety regarding surgery. I suggested she touch base with her PCP to talk about it more. I reassured her that Dr. Pitt will take good care of her. Pt was appreciative of the information and will call with further questions/concerns. documented in this encounter Plan of Treatment Upcoming Encounters Date Type Department Care Team (Late st Contact Info) Description 04/27/2024 11:30 AM EST Office Visit Dermatology at [place] [address] [place] [phone] Robert Herron MD [address], [place] [address] Scheduled Procedures Name Priority Associated Diagnoses Date/Ti me ANTERIOR COLPORRHAPHY CYSTOC SALLY W OR WO URETHEROCELE; INC CYSTO (WRVU 10.08) Female cystocele URETHRAL SUSPENSION, SLING\F ASCIA OR SYNTHETIC (WRVU 12.13) Female cystocele documented as of this encounter Visit Diagnoses Not on filedocumented in this encounter Care Teams Fur Pointer Relationship Specialty Start Date End Date Edd Caballero DO [address] [place] [address] PCP - General Family Medicine 10/24/18 04/27/21 documented as of this encounter
--- OUTSIDE RECORDS SUMMARY | 2024-04-26 16:47 | XMS_ITS | Encounter Summary ---
[place] [address] Care Team Providers Care Platen Builder Up Name Role Phone Frank Francois MD Primary Care Provider [phone] Reason for Referral * Consultation (RADHA) - Closed Specialty Diagnoses / Procedures Referred By Contac t Referred To Contact General Surgery Diagnoses Rectal prolapse Dionne Eckert MD [address] [place] [address] [facility] Gen Surgery [address] [address] Referral ID Status Reason Start Date Expiration Date V isits Requested Visits Authorized [id number] Closed Consult, Test & Treat PCP Updated and/or Approved 07/07/2023 01/04/2024 6 6 Encounter Details Date Type Department Care Team (Late st Contact Info) Description 07/14/2023 Transcribe Orders eDH Incoming Referrals [phone] Dionne Eckert MD [address] [place] [address] Rectal prolapse Social History Tobacco Use Types [...] 11:30 AM EST Office Visit Dermatology at [place] [address] [place] [phone] Robert Herron MD [address], [place] [address] [place] [address] Scheduled Procedures Name Priority Associated Diagnoses Date/Ti me ANTERIOR COLPORRHAPHY CYSTOC SALLY W OR WO URETHEROCELE; INC CYSTO (WRVU 10.08) Female cystocele URETHRAL SUSPENSION, SLING\F ASCIA OR SYNTHETIC (WRVU 12.13) Female cystocele Scheduled Referrals Name Type Priority Associated Diagnoses Order Schedule Referral to Colorectal Surgery Outpatient Referral Routine Rectal prolapse Ordered: 07/14/2023 documented as of this encounter Visit Diagnoses Diagnosis Rectal prolapse documented in this encounter Care Teams Platen Builder Up Relationship Specialty Start Date End Date Frank Francois MD [address] [place] [id number] PCP - General Emergency Medicine 04/28/21 documented as of this encounter
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
--- OUTSIDE RECORDS SUMMARY | 2024-04-26 16:47 | XMS_ITS | Encounter Summary ---
Author Organization [facility] [place] [address] Care Team Providers Care Engineering Test Specialist Name Role Phone AdaEdd adam Primary Care Provider +1- [phone] Encounter Details Date Type Department Care Team (Late st Contact Info) Description 03/14/2019 Telephone [place] [phone] Carey Fletcher RN Social History Tobacco Use [...] Telephone Encounter - Carey Olivier RN - 03/14/2019 12:29 PM EDT Patient is S/P Case Date: 01/17/2019 ?? Surgeon: Surgeon(s) and Role: * Greg Pitt MD - Primary * Alex Mariscal MD - Resident ?? Preoperative diagnosis: RECTAL POLAPSE ?? Postoperative diagnosis: RECTAL POLAPSE linear colonic ulcerations ?? Procedure(s) (LRB): COLONOSCOPY; W CONTROL OF BLEEDING, ANY METHOD (N/A) @RECTOPEXY, RESEC. PROLAPSE, PERINEAL APPROACH (WRVU 18.5) (N/A) Patient has already had follow-up and was doing great. Called 03-02-19 with vaginal issues and was instructed to see her PCP, local ER or urgent care. Patient phones back today requesting a call. Leftmessage for patient to call back. documented in this encounter Plan of Treatment Upcoming Encounters Date Type Department Care Team (Late st Contact Info) Description 04/27/2024 11:30 AM EST Office Visit Dermatology at [place] [address] [facility] [place] [address] Robert Herron MD [address] [facility] [address] Scheduled Procedures Name Priority Associated Diagnoses Date/Ti me ANTERIOR COLPORRHAPHY CYSTOC SALLY W OR WO URETHEROCELE; INC CYSTO (WRVU 10.08) Female cystocele URETHRAL SUSPENSION, SLING\F ASCIA OR SYNTHETIC (WRVU 12.13) Female cystocele documented as of this encounter Visit Diagnoses Not on filedocumented in this encounter Care Teams Engineering Test Specialist Relationship Specialty Start Date End Date Edd Caballero DO [address] [place] [address] PCP - General Family Medicine 10/24/18 04/27/21 documented as of this encounter
--- OUTSIDE RECORDS SUMMARY | 2024-04-26 16:47 | XMS_ITS | Encounter Summary ---
Author Organization [facility] [place] [address] Care Team Providers Care Ammonia Print Operator Name Role Phone AdaEdd sanchez Primary Care Provider +1- [phone] Encounter Details Date Type Department Care Team (Late st Contact Info) Description 03/15/2019 Telephone [place] [phone] Carey Fletcher RN Social History Tobacco Use [...] Telephone Encounter - Carey Olivier RN - 03/15/2019 9:45 AM EDT Phone call from patient today, was finally able to reach patient. Patient reports that she now havea gynecological prolapse (uterus/bladder she thinks). [facility]. She wants to make sure that this won't effect the repair of her rectal prolapse. Will forward to Dr. Pitt. documented in this encounter Plan of Treatment Upcoming Encounters Date Type Department Care Team (Late st Contact Info) Description 04/27/2024 11:30 AM EST Office Visit Dermatology at [place] [address] [facility] [place] [address] Robert Herron MD [address] [facility] [place] [address] Scheduled Procedures Name Priority Associated Diagnoses Date/Ti me ANTERIOR COLPORRHAPHY CYSTOC SALLY W OR WO URETHEROCELE; INC CYSTO (WRVU 10.08) Female cystocele URETHRAL SUSPENSION, SLING\F ASCIA OR SYNTHETIC (WRVU 12.13) Female cystocele documented as of this encounter Visit Diagnoses Not on filedocumented in this encounter Care Teams Ammonia Print Operator Relationship Specialty Start Date End Date Edd Caballero DO [address] [place] [address] PCP - General Family Medicine 10/24/18 04/27/21 documented as of this encounter
--- OUTSIDE RECORDS SUMMARY | 2024-04-26 16:47 | XMS_ITS | Encounter Summary ---
Author Organization [facility] [place] [address] Care Team Providers Care Machine Spring Former Name Role Phone Edd Caballero DO Primary Care Provider +1- [phone] Encounter Details Date Type Department Care Team (Late st Contact Info) Description 06/10/2020 12:05 AM EST Ancillary Procedure Radiology Library at [facility] [place] [address] Edd Caballero, DO [address] [place] [address] Social History Tobacco Use Types Packs/Day Years [...] 11:30 AM EST Office Visit Dermatology at [place] [address] [facility] [place] [phone] Robert Herron MD [address] [facility] [place] [address] Scheduled Procedures Name Priority Associated Diagnoses Date/Ti me ANTERIOR COLPORRHAPHY CYSTOC SALLY W OR WO URETHEROCELE; INC CYSTO (WRVU 10.08) Female cystocele URETHRAL SUSPENSION, SLING\F ASCIA OR SYNTHETIC (WRVU 12.13) Female cystocele documented as of this encounter Procedures Procedure Name Priority Date/Time Associated Diagnosis Comments FILM LIBRARY STORAGE ONLY DX SPINE Routine 06/10/2020 12:05 AM EST documented in this encounter Results * Film Library- Storage Only DX Spine (06/10/2020 12:05 AM EST) Narrative [facility] [place] - 06/12/2020 11:24 AM EST This exam is auto-finalizing. It's purpose is for storage only. Edd Caballero DO G FILM LIBRARY O RDERABLES Performing Organization Address City/State/[facility] Co de Phone Number [place], [place] documented in this encounter Visit Diagnoses Not on filedocumented in this encounter Care Teams Machine Spring Former Relationship Specialty Start Date End Date Edd Caballero DO [address] [place] [address] PCP - General Family Medicine 10/24/18 04/27/21 documented as of this encounter
--- OUTSIDE RECORDS SUMMARY | 2024-04-26 16:47 | XMS_ITS | Encounter Summary ---
Author Organization [facility] [place] [address] Care Team Providers Care Owner Spa Director Name Role Phone AdaEdd adam Primary Care Provider [phone] Encounter Details Date Type Department Care Team (Late Contact Info) Description 03/14/2019 Telephone [place] [phone] Carey Fletcher RN Social History Tobacco Use [...] Encounter - Carey Olivier RN - 03/14/2019 2:49 PM EDT Patient phoned again. Phoned back, got v-mail, this time mailbox is full. documented in this encounter Plan of Treatment Upcoming Encounters Date Type Department Care Team (Late Contact Info) Description 04/27/2024 11:30 AM EST Office Visit Dermatology at [address] [place] [id number] Robert Herron MD [address], [place] [address] Scheduled Procedures Name Priority Associated Diagnoses Date/Ti me ANTERIOR COLPORRHAPHY CYSTOC SALLY W OR WO URETHEROCELE; INC CYSTO (WRVU 10.08) Female cystocele URETHRAL SUSPENSION, SLING\F ASCIA OR SYNTHETIC (WRVU 12.13) Female cystocele documented as of this encounter Visit Diagnoses Not on filedocumented in this encounter Care Teams Owner Spa Director Relationship Specialty Start Date End Date Edd Caballero DO [address] [place] [address] PCP - General Family Medicine 10/24/18 04/27/21 documented as of this encounter
--- OUTSIDE RECORDS SUMMARY | 2024-04-26 16:47 | XMS_ITS | Encounter Summary ---
[facility] [address] Care Team Providers Care Heel Seat Fitter Machine Name Role Phone Frank Francois MD Primary Care Provider [phone] Encounter Details Date Type Department Care Team (Late st Contact Info) Description 07/05/2023 Telephone [place] [phone] Lorna Lo, RN Social History Tobacco Use Types Packs/Day Years Used Date Smoking Tobacco: Former Cigarettes 1 15 0 10/12/1968 - 10/13/1983 Smokeless Tobacco: Never Alcohol Use Standard Drinks/Week Comments Yes 1 (1 standard drink = 0.6 oz pur e alcohol) [facility] Inpatient Questions Answer Date Recorded Does Anyone [...] Miscellaneous Notes * Telephone Encounter - Lorna Lo RN - 07/05/2023 3:31 PM EST 01/17/19: Perineal Rectosigmoidectomy Last seen by Dr. Pitt on 06/03/23 for c/o recurrent rectal prolapse. 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 Pt would like to schedule surgery. Pt reports she feels the prolapse has been out daily since her visit with Dr. Pitt last month. Will send to Dr. Pitt and team for review. documented in this encounter Plan of Treatment Upcoming Encounters Date Type Department Care Team (Late st Contact Info) Description 04/27/2024 11:30 AM EST Office Visit Dermatology at [place] [address] [place] [address] Robert Herron MD [address], [place] [address] Scheduled Procedures Name Priority Associated Diagnoses Date/Ti me ANTERIOR COLPORRHAPHY CYSTOC SALLY W OR WO URETHEROCELE; INC CYSTO (WRVU 10.08) Female cystocele URETHRAL SUSPENSION, SLING\F ASCIA OR SYNTHETIC (WRVU 12.13) Female cystocele documented as of this encounter Visit Diagnoses Not on filedocumented in this encounter Care Teams Heel Seat Fitter Machine Relationship Specialty Start Date End Date Frank Francois MD [address] [place] [address] PCP - General Emergency Medicine 04/28/21 documented as of this encounter
--- OUTSIDE RECORDS SUMMARY | 2024-04-26 16:47 | XMS_ITS | Encounter Summary ---
Author Organization [place] [address] Care Team Providers Care Installers Mechanical Name Role Phone AdaEdd sanchez Iain DON Primary Care Provider [phone] Reason for Visit * Auth/Cert Specialty Diagnoses / Procedures Referred By Contac t Referred To Contact Diagnoses Rectal prolapse RECTAL POLAPSE unk Procedures PRO COLONOSCOPY, DIAGNOSTIC PRO EXCIS RECTAL PROLAPSE, PERINEAL COLONOSCOPY, DIAGNOSTIC @RECTOPEXY, RESEC. PROLAPSE, PERINEAL APPROACH ([facility] 18.5) Referral ID Status Reason Start Date Expiration Date Visits Re quested Visits Authorized [id number] 1 1 Encounter Details Date Type Department Care Team (Late st Contact Info) Description 01/17/2019 8:58 AM EDT - 01/17/2019 11:26 AM EDT Surgery [place] [address] Julio Pitt MD [facility] [place] [address] COLONOSCOPY; W CONTROL OF BLEEDING, ANY METHOD ([facility] 4.66) Social History Tobacco Use Types Packs/Day Years [...] Sign Reading Time Taken Comments Blood Pressure 144/67 01/17/2019 11:26 AM EDT Pulse 84 01/17/2019 11:26 AM EDT Temperature 36.1 ??C (97 ??F) 01/17/2019 11:26 AM EDT Respiratory Rate 16 01/17/2019 8:05 AM EDT Oxygen Saturation 100% 01/17/2019 11:26 AM EDT Inhaled Oxygen Concentration - - Weight 41.3 kg (91 lb) 01/17/2019 8:05 AM EDT Height 142.2 cm (4' 8) 01/17/2019 8:05 AM EDT Body Mass Index 21.99 01/17/2019 8:05 AM EDT documented in this encounter Discharge Summaries * Dorie Erazo PA - 01/17/2019 1:03 PM EDT Images from the original note were not included. Colorectal Surgery Discharge Summary Patient Name: Mary Ellen Hodge Patient Age: 64 y.o. Birthdate: 1955 Admit date: 01/17/2019 Discharge date: 01/18/19 Attending Physician: JULIO PITT Primary Diagnosis: Admitting Diagnosis: RECTAL POLAPSE Now Status Post: Procedure(s): COLONOSCOPY; W CONTROL OF BLEEDING, ANY METHOD @RECTOPEXY, RESEC. PROLAPSE, PERINEAL APPROACH ([facility] 18.5) Date of surgery: 01/17/2019 Discharge Diagnoses (Hospital Problems): Active Hospital Problems Diagnosis ??? Rectal prolapse Resolved Hospital Problems No resolved problems to display. Secondary Diagnoses (Chronic Problems): Active Non-Hospital Problems Diagnosis ??? History of pelvic fracture ??? Peripheral neuropathy ??? Spinal stenosis ??? History of right hip replacement ??? Osteoarthritis (arthritis due to wear and tear of joints) ??? History of bulimia--per scanned doc ??? Chronic pain ??? Gastroesophageal reflux--treats with aloe vera juice ??? Actinic cheilitis ??? AK (actinic keratosis) ??? Solar lentigo Operations/Major Procedures: 01/17/2019 Surgeon(s) and Role: * Julio Pitt MD - Primary * Alex Mariscal MD - Resident COLONOSCOPY; W CONTROL OF BLEEDING, ANY METHOD: @RECTOPEXY, RESEC. PROLAPSE, [facility]AL APPROACH ([facility] HPI: Mary Ellen Hodge is a 63 y.o. female who was referred to Dr. Julio Pitt by Dr. Bajwa regarding rectal prolapse. Ms. Hodge reports that since March 2018 she has had progressing symptoms including rectal pressure, irregular bowel habits with a few days of constipation and then a few days of soft bowel movements with associated incontinence, urgency, and incomplete emptying. She reports shewas initially diagnosed with hemorrhoids and that it took her a while to find a provider that wouldproperly address her complaints. ?? Due to her irregular bowel habits she is now taking up to two dulcolax pills four times per day as stool softeners. She endorses not drinking enough fluids daily, reporting about 1 quart per day. She also has had urinary incontinence, urgency, incomplete voiding and was seeing a physical therapist and doing regular Kegal exercises which she believes has helped, but first needs to treat her prolapse. At this time she reports having ongoing prolapse symptoms while exercising, straining, or whenshe is tired, and it is now having a significant impact on her daily life. She uses witchhazel, baby wipes, OTC hemorrhoid ointment, and lidocaine 5% to manage her symptoms. She does endorse noticing blood per rectum occasionally while wiping. She would like surgery to allow her to get back to living her regular life, but does endorse having some fear of having to get an ostomy. ?? Dr. Pitt has discussed goals, risks, alternatives to surgical management, the patient has expressed understanding and has elected to proceed with operative intervention at this time. Hospital Course: Mary Ellen Hodge is a 64 y.o. female who was admitted on 01/17/2019 for surgical management of full thickness rectal prolapse. Mary Ellen Hodge was taken to the operating room where she underwent a perineal proctosigmoidectomy. Intraoperatively, a colonoscopy was performed demonstrating no evidence of masses, only a linear ulceration noted which was managed with clip application. Shetolerated the operation well and without complication. She was admitted post-operatively for clinical monitoring and further management. The patient was tolerating a regular diet, walking independently, voiding spontaneously, and havingadequate bowel function (bowel movements and flatus). The patient was deemed stable for discharge on 01/18/2019. Colon & Rectal Surgery Evidence-based* Discharge Criteria At a minimum all criteria must be met prior to discharged (every line should have a check-hollie): [x] adequate oral intake [x] adequate urine output [x] ambulating independently >4X day in hallway [x] effective peristalsis: consistently passing flatus and/or stool [x] no evidence of complications; educated about signs and symptoms of complications [x] pain controlled with oral meds, preferably non-narcotic; patient to be discharged with prescription more than Tylenol/Ibuprofen (i.e. Tramadol or Oxycodone) [x] Tylenol alternating every three hours with Ibuprofen (with food) around the clock (assuming no contraindications to either). [x] ex. Tylenol 12pm, Ibuprofen 3pm, Tylenol 6pm, Ibuprofen 9pm [x] Tramadol or Oxycodone for breatkhrough [x] follow-up appointment already scheduled -call Samantha Chin [phone] for scheduling assistance -call the [facility] Surgery [facility] nurses [phone] for prior authorizations assistance Only if applicable (check either NA or at end after scheduled): [x] NA visiting nurse arrangements in place [] [x] NA ostomy nursing appt. POD# 12-14 [] [x] NA subQ drain(s) stay in until < 30 cc / 24 hours each x 3 days in a row [] [x] NA elvin out POD #12-14 (General Surgery nurses clinic for drain/staple removal) [] *Jumana MITCHELL Jr, et al. Criteria to determine readiness for hospital discharge following colorectal surgery: an international consensus using the [place] technique. Dis Colon Rectum. 2012 Sep;55(4):416-23. Vital Signs Last value Range last 24hrs Temperature Temp: 36.8 ??C (98.2 ??F) Temp: [36.5 ??C (97.7 ??F)-37 ??C (98.6 ??F)] Heart Rate Heart Rate: 63 Heart Rate: -- Blood Pressure BP: 117/69 BP: (92-117)/(51-69) Respiratory Rate Resp: 18 Resp: [16-18] SpO2 SpO2: 97 % SpO2: [93 %-97 %] Pertinent Lab Data: Recent Labs 01/18/19 0501/17/19 1220 HGB 9.8* 10.3* HCT 30.2* 32.6* Recent Labs 01/18/1952201/17/19 1220 CREATININE 0.70 0.57* No results for input(s): CRP in the last 72 hours. Physical Exam: Body mass index is 21.99 kg/m??. General: NAD, resting comfortably, pleasant, conversant HEENT: PERRL CVS: RRR Pulm: Breathing comfortably, no respiratory distress Abd: soft, nontender to palpation Skin: warm, dry Neuro: CN 2-12 grossly intact, nonfocal,moving all four extremities spontaneously Imaging: No new imaging Condition at discharge: Stable Mental Status: awake and alert, oriented x 3 Medications: Your Medications New Medications Dose Details docusate sodium 100 mg Cap Commonly known as: COLACE Take 1 capsule by mouth 2 times daily. 100 mg Refills: 0 polyethylene glycol 17 gram Pwpk Commonly known as: MIRALAX Take 17 g by mouth daily. Start taking on: 01/19/2019 17 g Refills: 0 traMADol 50 mg Tab Commonly known as: ULTRAM Take 1 tablet by mouth every 6 hours as needed for Pain. 50 mg Quantity: 15 tablet Refills: 0 Continued medications, unchanged Dose Details acetaminophen 500 mg Tab Commonly known as: TYLENOL Take 1,000 mg by mouth every 6 hours as needed for Pain. 1000 mg Refills: 0 ARTHROTEC 50 50-200 mg-mcg Tbid Generic drug: diclofenac-misoprostol Refills: 0 bisacodyl 5 mg Tbec Commonly known as: DULCOLAX Take 10 mg by mouth 4 times daily. 10 mg Refills: 0 Calcium 500 mg Tab Take by mouth. Refills: 0 cholecalciferol (Vitamin D3) 2,000 unit Cap Take by mouth. Generic drug: cholecalciferol (Vitamin D3) Refills: 0 diclofenac 75 mg Tbec Commonly known as: VOLTAREN Refills: 0 fish oil-omega-3 fatty acids 1,000 mg Cap Take 2 g by mouth daily. 2 g Refills: 0 miSOPROStol 200 mcg Tab Commonly known as: CYTOTEC Refills: 0 multivitamin Tab Commonly known as: THERAGRAN Take 1 tablet by mouth daily. 1 tablet Refills: 0 niacin 1,000 mg Tablet sr Commonly known as: NIASPAN ER Take 1,200 mg by mouth. 1200 mg Refills: 0 potassium chloride 20 mEq Tbtq Commonly known as: K-DUR/KLOR-CON Refills: 0 pyridoxine (vitamin B6) 100 mg Tab Commonly known as: B-6 Take 100 mg by mouth daily. 100 mg Refills: 0 triamcinolone 0.1 % Oint Commonly known as: KENALOG Apply topically 2 times daily. Quantity: 30 g Refills: 1 TURMERIC ROOT EXTRACT ORAL Take by mouth. Refills: 0 UNABLE TO FIND Med Name cholestoff and coQ 10. Richelle root Refills: 0 valACYclovir 500 mg Tab Commonly known as: VALTREX Take 500 mg by mouth 2 times daily. 500 mg Refills: 0 STOPPED Medications HYDROmorphone 2 mg Tab Commonly known as: DILAUDID Disposition: Home Allergies: No Known Allergies Outpatient Services/Studies: No discharge procedures on file. Scheduled Appointments: Future Appointments and Orders Future Appointments and Orders Future Appointments Provider Department Dept Phone 02/27/2019 1:00 PM Julio Pitt MD General Surgery at [place] Arrive at: [facility] [phone] 10/30/2019 11:00 AM Robert Herron MD Dermatology at [place] Arrive at: [facility] [address] [phone] Instructions Given to Patient at Discharge: Patient Instructions Colon and Rectal Surgery Patient Discharge Instructions Activity level: Avoid heavy lifting for the next 4 weeks or until cleared to do so at follow-up appointment. No vaginal or rectal intercourse (or insertion of tampon/toys, etc.) until follow-up with surgeon. Otherwise activity as tolerated by comfort level. Diet: Regular diet. You should try and drink 2 liters of fluids daily. VERY IMPORTANT: Bowel Medications: You should try to avoid being constipated or straining to have abowel movement until follow-up with your surgeon. You should remain on daily stool softener and gentle laxative (Colace and MiraLax). If you are experiencing constipation or require straining to havea bowel movement on this regimen, please add milk of magnesium to your bowel regimen. You will use d ifferent medications and find the right regimen that works for you. Your goal should be to have soft bowel movements that do not require straining. Incontinence may occur with this advanced bowel regimen, please do not stop bowel regimen for issues with incontinence. Please call provider if you have any questions. Driving: No driving while still taking opioid pain medications (wait at least 6- 8 hours since last dose). No driving if you are still sore from surgery as it may limit your ability to react quickly if necessary. Shower/Bath: You may shower and bathe. Pain Medication: Tylenol should be used as primary [id number] pain reliever; 650mg every 6 hours or 1000mg every 8 hours as needed. Do not exceed 3000mg in 24 hours. Ibuprofen may also be used and dosed at 600mg every 6 hours as well. In addition to these medications, non-opioid therapies andnon- pharmacologic modalities such as heating pad, ice, and activity modification are recommended asappropriate for adjunct treatment of your pain. For break through pain management, you are also being prescribed a prescription opioid for the treatment of acute post-operative pain related to surgery. You have been advised to take the smallest dose possible to control their pain and as their pain improves to take smaller doses and increase the time between doses. Risk for opioid misuse, abuse or diversion have been considered. Risks and potential side effects of opioid medications, that include but are not limited to, addiction, overdose and , dependence, tolerance, constipation, sexual dysfunction, hyperalgesia and crime victimization have been discussed. Also informed of: - the risks of keeping unused medication -counseled on keeping opioids locked -counseled on safe disposal of unused medication -dangers of operating a motor vehicle or heavy machinery -if a renewal is required, they shall return for an in-office follow up for reevaluation. The Acute Opioid Therapy Informed Consent form has been completed and sent to medical records for scanning to chart. Follow up Appointments: You will receive a phone call and/or a letter in the mail with information about your appointments. Please call [phone] (clinic number for appointments only) to confirm date and time of your appointments or if you do not receive information about your appointment in a timely manner. Future Appointments Date Time Provider Department [place] 02/27/2019 1:00 PM Julio Pitt MD Leb Surg [facility] 10/30/2019 11:00 AM Robert Herron MD Lit Derm [facility] Call your doctor if: ??? You develop any of the following sings or symptoms of infection: o Redness or swelling of your incision (some mild redness around the incision and the staple sites is normal) o Drainage or bleeding from your incision o Fever over 100.5 F o Increased pain or discomfort at the incision site ??? Persistent nausea and/or vomiting or the inability to keep foods or fluids down in a 24 hour period. ??? Signs or symptoms of dehydration: o Dry mouth o Dark, concentrated urine, or lack of urine o Lightheadedness ??? Any other concerning sign or symptom such as shortness or breath, chest pain, pain with urination or other signs of urinary tract infection (UTI), or new leg pain/swelling. Also, please call if you develop increasing abdominal pain, increasing abdominal pain, abdominal firmness, if you stop passing gas or stool for an extended period of time, or bloody bowel movements/vomitting. CALL THE GENERAL SURGERY CLINIC DURING WORKING HOURS AT , OR CALL AFTER CLINIC HOURS, WEEKENDS AND HOLIDAYS: ASK FOR THE SURGERY RESIDENT BROOMCORN SEEDER IF ANY OF THE ABOVE OCCUR. Divison of Colon and Rectal Surgery ??? [facility] ??? [address] ??? [place] [address] ??? [phone] ??? ~~~~~~~~~~~~~~~~~~~~~~~~~~~~~~~~~~~~~~~~~~~~~~~~~~~~~~~~~~~~~~~~~~~ General Instructions None [facility] Surgery - Provider Contact Information: [phone] Primary [place] Physician: Edd Caballero DO [address] [facility] [id number] Signed: CESAR Dyson 01/18/19 2:36 PM documented in this encounter Discharge Instructions * Patient Instructions* Dorie Erazo PA - 01/18/2019 2:15 PM EDT Images from the original note were not included. Colon and Rectal Surgery Patient Discharge Instructions Activity level: Avoid heavy lifting for the next 4 weeks or until cleared to do so at follow-up appointment. No vaginal or rectal intercourse (or insertion of tampon/toys, etc.) until follow-up with surgeon. Otherwise activity as tolerated by comfort level. Diet: Regular diet. You should try and drink 2 liters of fluids daily. VERY IMPORTANT: Bowel Medications: You should try to avoid being constipated or straining to have abowel movement until follow-up with your surgeon. You should remain on daily stool softener and gentle laxative (Colace and MiraLax). If you are experiencing constipation or require straining to havea bowel movement on this regimen, please add milk of magnesium to your bowel regimen. You will use d ifferent medications and find the right regimen that works for you. Your goal should be to have soft bowel movements that do not require straining. Incontinence may occur with this advanced bowel regimen, please do not stop bowel regimen for issues with incontinence. Please call provider if you have any questions. Driving: No driving while still taking opioid pain medications (wait at least 6- 8 hours since last dose). No driving if you are still sore from surgery as it may limit your ability to react quickly if necessary. Shower/Bath: You may shower and bathe. Pain Medication: Tylenol should be used as primary uces-jfi-ayabugs pain reliever; 650mg every 6 hours or 1000mg every 8 hours as needed. Do not exceed 3000mg in 24 hours. Ibuprofen may also be used and dosed at 600mg every 6 hours as well. In addition to these medications, non-opioid therapies andnon- pharmacologic modalities such as heating pad, ice, and activity modification are recommended asappropriate for adjunct treatment of your pain. For break through pain management, you are also being prescribed a prescription opioid for the treatment of acute post-operative pain related to surgery. You have been advised to take the smallest dose possible to control their pain and as their pain improves to take smaller doses and increase the time between doses. Risk for opioid misuse, abuse or diversion have been considered. Risks and potential side effects of opioid medications, that include but are not limited to, addiction, overdose and , dependence, tolerance, constipation, sexual dysfunction, hyperalgesia and crime victimization have been discussed. Also informed of: - the risks of keeping unused medication -counseled on keeping opioids locked -counseled on safe disposal of unused medication -dangers of operating a motor vehicle or heavy machinery -if a renewal is required, they shall return for an in-office follow up for reevaluation. The Acute Opioid Therapy Informed Consent form has been completed and sent to medical records for scanning to chart. Follow up Appointments: You will receive a phone call and/or a letter in the mail with information about your appointments. Please call [phone] (clinic number for appointments only) to confirm date and time of your appointments or if you do not receive information about your appointment in a timely manner. Future Appointments Date Time Provider Department Center 02/27/2019 1:00 PM Julio Pitt MD Leb Surg [facility] 10/30/2019 11:00 AM Robert Herron MD [facility] Call your doctor if: ??? You develop any of the following sings or symptoms of infection: o Redness or swelling of your incision (some mild redness around the incision and the staple sites is normal) o Drainage or bleeding from your incision o Fever over 100.5 F o Increased pain or discomfort at the incision site ??? Persistent nausea and/or vomiting or the inability to keep foods or fluids down in a 24 hour period. ??? Signs or symptoms of dehydration: o Dry mouth o Dark, concentrated urine, or lack of urine o Lightheadedness ??? Any other concerning sign or symptom such as shortness or breath, chest pain, pain with urination or other signs of urinary tract infection (UTI), or new leg pain/swelling. Also, please call if you develop increasing abdominal pain, increasing abdominal pain, abdominal firmness, if you stop passing gas or stool for an extended period of time, or bloody bowel movements/vomitting. CALL THE GENERAL SURGERY CLINIC DURING WORKING HOURS AT , OR CALL AFTER CLINIC HOURS, WEEKENDS AND HOLIDAYS: ASK FOR THE SURGERY RESIDENT BROOMCORN SEEDER IF ANY OF THE ABOVE OCCUR. Divison of Colon and Rectal Surgery ??? [facility] ??? [address] ??? [place] [address] ??? [phone] ??? ~~~~~~~~~~~~~~~~~~~~~~~~~~~~~~~~~~~~~~~~~~~~~~~~~~~~~~~~~~~~~~~~~~~ documented in this encounter Medications at Time of Discharge Medication Sig Dispensed Refills Start Date End Date UNABLE TO FIND Med Name cholestoff and [...] by mouth 2 times daily. Taking PRN lidocaine (XYLOCAINE) 5 % Ointment as needed. 0 01/05/2019 05/04/2022 docusate sodium (COLACE) 100 mg Capsule Take 1 capsule by mouth 2 times daily. 01/18/2019 12/24/2023 polyethylene glycol (MIRALAX) 17 gram Powder in Packet Take 17 g by mouth daily. 01/19/2019 05/04/2022 traMADol (ULTRAM) 50 mg Tablet Take 1 tablet by mouth every 6 hours as needed for Pain. 15 tablet 01/18/2019 02/27/2019 acetaminophen (TYLENOL) 500 mg Tablet Take 1,000 mg by mouth every 6 hours as needed for Pain. 05/04/2022 bisacodyl (DULCOLAX) 5 mg Tablet, Delayed Release (E.C.) Take 10 mg by mouth 4 times daily. 02/27/2019 triamcinolone (KENALOG) 0.1 % Ointment Apply topically 2 times daily. 30 g 1 11/02/2017 05/23/2019 diclofenac (VOLTAREN) 75 mg Tablet, Delayed Release (E.C.) 08/09/2017 05/04/2022 miSOPROStol (CYTOTEC) 200 mcg Tablet 08/09/2017 05/04/2022 potassium chloride (K-DUR/KLOR-CON) 20 mEq Tab Sust.Rel. Particle/Crystal 08/31/2017 05/04/2022 diclofenac-misoprostol (ARTHROTEC 50) 50-200 mg-mcg per tablet 04/02/2005 05/23/2019 documented as of this encounter Progress Notes * Nahed Beal RN - 01/18/2019 4:48 PM EDT Marysol was discharged home around 1615 in stable condition via private vehicle with no services. IV access removed and hemostasis obtained prior to departure. Pt was endorsing moderate nausea (no emesis) prior to discharge; MD to bedside. Pt and daughter both feel comfortable with discharge home. MDs concurred. Discharge instructions reviewed with patient and daughter; all questions encouraged and an swered. Both pt and daughter verbalized understanding. All belongings accompanied pt on discharge. * Lauren Catherine RN - 01/17/2019 3:27 PM EDT Marysol arrived to 418B A+Ox4, denies SOB ,chest pain, N/V. Reporting 5-6/10 tolerable pain. Daughter at bedside. attached to all monitors, VSS. Oriented to room and call light. Bed alarm on. Will continue too monitor * Chio Pennington RN - 01/17/2019 1:10 PM EDT 1245 break coverage. 1310 daughter at bedside. * Yamila Timmons RN - 01/17/2019 11:37 AM EDT 1126 Pt received into pacu 5 following colonscopy, rectal prolapse s/p perineal sigmoidectomy. Pt unresponse with oral airway in place VSS. Will continue to monitor per pacu protocol. Will draw H&H and Cr in PACU. 1325 Pt resting comfortably on left side, talking with daughter. H/H WNL, waiting for chem results.Waiting for 418B to be cleaned. documented in this encounter H&P Notes * Alex Mariscal MD - 01/17/2019 8:11 AM EDT 24 Hour H&P Update No changes in medical condition since last Surgery office visit. Patient denies chest pain, increasing shortness of breath, nausea/vomitting/fevers/chills. Patient Vitals for the past 8 hrs: BP Temp Temp src Pulse Resp SpO2 Height Weight 01/17/19 0805 104/62 37 ??C (98.6 ??F) Temporal 67 16 100 % 142.2 cm (4' 8) 41.3 kg (91 lb) NAD Heart sounds are nml, no murmur appreciated Lungs clear to auscultation Abdomen is soft There are no rashes on the skin Extremities are symmetric A/P: Okay to proceed with surgery, perineal proctosigmoidectomy. documented in this encounter Miscellaneous Notes * Plan of Care - Reynaldo Lyle RN - 01/18/2019 2:38 AM EDT Problem: Patient Care Overview Goal: Plan of Care Review Outcome: Ongoing (Interventions Implemented as Appropriate) 01/18/19228 Coping/Psychosocial Plan Of Care Reviewed With patient Plan of Care Review Progress no change OUTCOME EVALUATION NOTE: OUTCOME SUMMARY: A+O x4, SBP maintained into high 90's w/o complains. Pain was controlled with scheduled Tylenol Oliver.V Toradol. Continued on MIVF of L.R infusing at 42 cc/hr via left hand PIV. PO fluid intake encouraged w/o nausea and vomiting. Pt was able to void 300 cc dark alvarez urine around 0100 am. Bladder scanned per protocol. Perirectal incision with small amount of bloody drainage noted. Dressing changed x 1. Having one liquid bowel movement overnight. Will continue to monitor. @0500: bladder scanned 155 cc at this time. chief talent officer MD paged. PLAN MOVING FORWARD: Pain control. Closely monitor perirectal incision. Bladder scan per protocol. INDIVIDUALIZED FALL PREVENTION INTERVENTIONS: Patient-specific fall risk factors per assessment: [current deficits]: narcotics, generalized weakness, multiple tubes. Assistance [level of assistance required for transfers and ambulation]: SBA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 Zan Sanchez MD)0929 (Canceled Entry - Provider: Zan Sanchez MD)1120 (Anesthesia Volume Adjustment - Provider: Zan Sanchez MD) lactated ringers infusion (CANCELED) 42 mL/hr, Intravenous, CONTINUOUS, Starting on Wed01/17/19 at 1230, Until Wed01/18/19 at 0842, Recovery (Recovery-Hospital Unit) 1215 (New Bag - Provider: Esthela Timmons RN) PRN Medication Order 01/16/2019 01/17/2019 01/18/2019 BUpivacaine-EPINEPHrine 0.25 %-1:200,000 injection (CANCELED) ONCE PRN, Starting on Wed01/17/19 at 1110, Until Wed01/18/19 at 1955, Intra-Operative (Intra-Procedure), Routine 1110 (Given - Provider: Julio Pitt MD - Comment: 15mL Bupivacaine 0.25% with epi (1:200,000) mixed with 15mL Lidocaine 1%) fentaNYL (PF) 50mcg/mL injection (CANCELED) 12.5-25 mcg, Intravenous, EVERY 5 MIN PRN, Starting on Wed01/17/19 at 1124, Until Wed01/17/19 at 1349, Pain, Give 12.5 mcg every 5 minutes PRN for mild to moderate pain (1-5) Give 25 mcg every 5 minutes PRN for moderate to severe pain (6-10). Hold for respiratory rate less than 10 per minute. Maximum dose 250 mcg over one hour. If ordered with hydromorphone or morphine, give hydromorphone or morphine first and use fentanyl for breakthrough pain., PACU Recovery, Routine 1158 (Given - Provider: Yamila Timmons RN)1212 (Given - Provider: Yamila Timmons, RN)1239 (Given - Provider: Yamila Timmons RN) lidocaine (PF) (XYLOCAINE) 10 mg/mL (1 %) injection (CANCELED) ONCE PRN, Starting on Wed01/17/19 at 1110, Until Wed01/18/19 at 1955, Intra-Operative (Intra-Procedure), Routine 1110 (Given - Provider: Julio Pitt MD - Comment: 15mL Bupivacaine 0.25% with epi (1:200,000) mixed with 15mL Lidocaine 1%) lidocaine (XYLOCAINE) 10 mg/mL (1 %) injection 3 mg 3 mg (0.3 mL), Subcutaneous, ONCE PRN, 1 dose, Starting on Wed01/17/19 at 1527, Until Wed01/18/19 at 195, for discomfort with PIV insertion, Recovery (Recovery-Hospital Unit), Routine sodium chloride 0.9 % (flush) flush 5-20 mL 5-20 mL, Intravenous, EVERY 1 MIN PRN, Starting on Wed01/17/19 at 1527, Until Wed01/18/19 at 195, flush, Flush pertains to all indwelling lines. Flush per protocol found in the job aid using the link provided on this medication record., Recovery (Recovery-Hospital Unit), Routine traMADol (ULTRAM) tablet 25 mg (COMPLETED) 25 mg, Oral, ONCE PRN, 1 dose, Starting on Wed01/17/19 at 1712, Until Wed01/17/19 at 1728, Pain, Routine 1728 (Given - Provider: Lauren Catherine RN) traMADol (ULTRAM) tablet 50 mg 50 mg, Oral, EVERY 6 HOURS PRN, Starting on Wed01/17/19 at 1205, Until Wed01/18/19 at 195, Pain, May repeat 50 mg in 60 minutes if pain is not relieved. Contraindications with MAO inhibitors. Because of the potential risk and severity of serotonin syndrome or neuroleptic malignant syndrome - Like reactions, caution should be observed when administering selective serotonin reuptake inhibitors (SSRIs) with tramadol., Routine 1343 (Given - Provider: Yamila Timmons RN) 1257 (Given - Provider: Nahed Beal RN) Linked Groups Order Group 1: cefTRIAXone (ROCEPHIN) 1 g vial attach to sodium chloride 0.9% 50 mL Mini-Bag Plus (CANCELED)Jump to med 1 g, Intravenous, EVERY 24 HOURS, First dose on Wed01/17/19 at 0830, Until Discontinued, Administer over 30 Minutes, Attach to 50 mL sodium chloride 0.9% Mini-Bag Plus , Intra-Operative (Intra-Procedure), Indication for (Active or Suspected): Prophylaxis And metroNIDAZOLE (FLAGYL) 1,000 mg in sodium chloride 0.9% 200 mL (2x100 mL bags) (COMPLETED)Jump to med 1,000 mg, Intravenous, ONCE, 1 dose, On Wed01/17/19 at 0830, Administer over 60 Minutes, Infuse two bags of 500 mg/100 mL each over 30 minutes consecutively. Total dose 1000 mg/200 mL. Document infusion initiation time of first bag. chief talent officer to OR., Intra-Operative (Intra-Procedure), Indication for (Active or Suspected): Prophylaxis Group 2: ketorolac (TORADOL) injection 15 mgJump to med 15 mg, Intravenous, USER SPECIFIED (4 times per day), 20 doses, First dose on Wed01/17/19 at 1500, Last dose on Wed01/22/19 at 0900, Do not administer with other NSAIDS, Routine Followed by ibuprofen (ADVIL;MOTRIN) tablet 600 mgJump to med 600 mg, Oral, EVERY 6 HOURS, First dose on Wed01/22/19 at 1500, Until Discontinued, Administer orally with milk or food to minimize GI irritation. Maximum dose of 3200 mg from all sources in 24 hours, Routine documented in this encounter Care Teams Installers Mechanical Relationship Specialty Start Date End Date Edd Caballero DO [address] [place] [id number] PCP - General Family Medicine 10/24/18 04/27/21 documented as of this encounter
--- OUTSIDE RECORDS SUMMARY | 2024-04-26 16:47 | XMS_ITS | Encounter Summary ---
Author Organization [facility] [place] [address] Care Team Providers Care Floor Technician Name Role Phone Frank Francois MD Primary Care Provider [phone] Encounter Details Date Type Department Care Team (Latest Contact Info) Description 06/03/2023 Travel Social History Tobacco Use Types Packs/Day [...] 11:30 AM EST Office Visit Dermatology at [place] [address] [place] [address] Robert Herron MD [address] [place] [address] Scheduled Procedures Name Priority Associated Diagnoses Date/Ti me ANTERIOR COLPORRHAPHY CYSTOC SALLY W OR WO URETHEROCELE; INC CYSTO (WRVU 10.08) Female cystocele URETHRAL SUSPENSION, SLING\F ASCIA OR SYNTHETIC (WRVU 12.13) Female cystocele documented as of this encounter Visit Diagnoses Not on filedocumented in this encounter Care Teams Floor Technician Relationship Specialty Start Date End Date Frank Francois MD [address] [place] [address] PCP - General Emergency Medicine 04/28/21 documented as of this encounter
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
--- OUTSIDE RECORDS SUMMARY | 2024-04-26 16:47 | XMS_ITS | Encounter Summary ---
Author Organization [facility] [place] [address] Care Team Providers Care Process Control Board Operator Name Role Phone AdaEdd adam Primary Care Provider [phone]- [phone] Encounter Details Date Type Department Care Team (Late st Contact Info) Description 01/05/2020 Telephone [place] [phone] Shirin Malone RN Social History Tobacco Use [...] Telephone Encounter - Shirin Tian RN - 01/05/2020 2:00 PM EDT I received a voice mail message from Mary Ellen who notes in her message she had surgery with Dr. Pitt and feels she again has a rectal prolapse. Case Date:??01/17/2019?? Surgeon(s) and Role:?* Greg Pitt MD - Primary?* Alex Mariscal MD - Resident ??Preoperative diagnosis: RECTAL POLAPSE Postoperative diagnosis:??RECTAL POLAPSE linear colonic ulcerations? Procedure(s) (LRB): COLONOSCOPY; W CONTROL OF BLEEDING, ANY METHOD (N/A) @RECTOPEXY, RESEC. PROLAPSE, PERINEAL APPROACH (WRVU 18.5) (N/A) She would like to schedule follow up with Dr. Pitt to see what can be done. I will forward my note to Dr. Pitt and his vp revenue cycle. She was last seen by Dr. Pitt in February of 2019 Below is a small portion from that visit. Impression/Plan: Mary Ellen Hodge is a 64 [...] 10 years for her next screening colonoscopy. ?? Greg Pitt MD, MSc annealing furnace operator Division of Colon and Rectal Surgery [facility] Pager [phone] ?1:49 PM documented in this encounter Plan of Treatment Upcoming Encounters Date Type Department Care Team (Late st Contact Info) Description 04/27/2024 11:30 AM EST Office Visit Dermatology at [address] [phone] Robert Herron MD [address] [place] [address], [facility] [place] [address] Scheduled Procedures Name Priority Associated Diagnoses Date/Ti me ANTERIOR COLPORRHAPHY CYSTOC SALLY W OR WO URETHEROCELE; INC CYSTO (WRVU 10.08) Female cystocele URETHRAL SUSPENSION, SLING\F ASCIA OR SYNTHETIC (WRVU 12.13) Female cystocele documented as of this encounter Visit Diagnoses Not on filedocumented in this encounter Care Teams Process Control Board Operator Relationship Specialty Start Date End Date Edd Caballero DO [address] [place] [address] [place] [address] PCP - General Family Medicine 10/24/18 04/27/21 documented as of this encounter
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
--- OUTSIDE RECORDS SUMMARY | 2024-04-26 16:47 | XMS_ITS | Encounter Summary ---
Author Organization [facility] [place] [address] Care Team Providers Care Child And Family Services Specialist Name Role Phone AdaEdd adam Primary Care Provider [phone] Reason for Visit * Auth/Cert Specialty Diagnoses / Procedures Referred By Contac t Referred To Contact Diagnoses Rectal prolapse RECTAL POLAPSE unk Procedures PRO COLONOSCOPY, DIAGNOSTIC PRO EXCIS RECTAL PROLAPSE, PERINEAL COLONOSCOPY, DIAGNOSTIC @RECTOPEXY, RESEC. PROLAPSE, PERINEAL APPROACH (WRVU 18.5) Referral ID Status Reason Start Date Expiration Date Visits Re quested Visits Authorized [id number] 1 1 Encounter Details Date Type Department Care Team (Latest Contact Info) Description 01/17/2019 6:52 AM EDT - 01/18/2019 4:15 PM EDT Hospital Encounter [address] [place] [address] Julio Pitt MD [facility] [place] [address] Discharge Disposition: Home Social History Tobacco Use Types Packs/Day Years [...] Sign Reading Time Taken Comments Blood Pressure 119/73 01/18/2019 3:17 PM EDT Pulse 63 01/17/2019 1:30 PM EDT Temperature 36.9 ??C (98.4 ??F) 01/18/2019 3:17 PM ED T Respiratory Rate 18 01/18/2019 3:17 PM EDT Oxygen Saturation 95% 01/18/2019 3:17 PM EDT Inhaled Oxygen Concentration - - Weight 44.5 kg (98 lb 1.7 oz) 01/18/2019 7:00 AM EDT Height 142.2 cm (4' 8) [...] ANY METHOD: @RECTOPEXY, RESEC. PROLAPSE, PERINEAL APPROACH ([facility] HPI: Mary Ellen Hodge is a [...] follow-up appointment already scheduled -call Samantha Chin [phone] for scheduling assistance -call the General Surgery Clinic nurses [phone] for prior authorizations assistance Only if applicable [...] colorectal surgery: an international consensus using the [place] technique. Dis Colon Rectum. 2012 Sep;55(4):416-23. Vital Signs Last value Range last 24hrs Temperature Temp: 36.8 ??C (98.2 ??F) Temp: [36.5 ??C (97.7 ??F)-37 ??C (98.6 ??F)] Heart Rate Heart Rate: 63 Heart Rate: -- Blood Pressure BP: 117/69 BP: (92-117)/(51-69) Respiratory Rate Resp: 18 Resp: [16-18] SpO2 SpO2: 97 % SpO2: [93 %-97 %] Pertinent Lab Data: Recent Labs 01/18/19 0523 01/17/19 1220 HGB 9.8* 10.3* HCT 30.2* 32.6* Recent Labs 01/18/19 0523 01/17/19 1220 CREATININE 0.70 0.57* No results for [...] PM Julio Pitt MD General Surgery at [place] Arrive at: [facility] [phone] 10/30/2019 11:00 AM Robert Herron MD Dermatology at [place] Arrive at: [facility] [address] [phone] Instructions Given to Patient at Discharge: Patient [...] Medication: Tylenol should be used as primary dkjy-vxf-sautpfr pain reliever; 650mg every 6 hours or [...] with information about your appointments. Please call [phone] (clinic number for appointments only) to confirm date and time of your appointments or if you do not receive information about your appointment in a timely manner. Future Appointments Date Time Provider Department Center 02/27/2019 1:00 PM Julio Pitt MD [place] [facility] 10/30/2019 11:00 AM Robert Herron MD Lit Derm [facility] Call your doctor if: ??? You [...] AND HOLIDAYS: ASK FOR THE SURGERY RESIDENT WAX ROOM SUPERVISOR IF ANY OF THE ABOVE OCCUR. Divison of Colon and Rectal Surgery ??? [facility] ??? [address] ??? [place] [address] ??? [phone] ??? ~~~~~~~~~~~~~~~~~~~~~~~~~~~~~~~~~~~~~~~~~~~~~~~~~~~~~~~~~~~~~~~~~~~ General Instructions None [facility] [place] - Provider Contact Information: [phone] Primary [place] Physician: Edd Caballero DO [address] [facility] [id number] Signed: CESAR Dyson 01/18/19 2:36 PM documented [...] Medication: Tylenol should be used as primary nbyh-jmp-cwkhfjp pain reliever; 650mg every 6 hours or [...] with information about your appointments. Please call [phone] (clinic number for appointments only) to confirm date and time of your appointments or if you do not receive information about your appointment in a timely manner. Future Appointments Date Time Provider Department Center 02/27/2019 1:00 PM Julio Pitt MD [place] [facility] 10/30/2019 11:00 AM Robert Herron MD [facility] Call your doctor if: ??? [...] AND HOLIDAYS: ASK FOR THE SURGERY RESIDENT WAX ROOM SUPERVISOR IF ANY OF THE ABOVE OCCUR. Divison of Colon and Rectal Surgery ??? [facility] ??? [address] ??? [place] [address] ??? [phone] ??? ~~~~~~~~~~~~~~~~~~~~~~~~~~~~~~~~~~~~~~~~~~~~~~~~~~~~~~~~~~~~~~~~~~~ documented in this encounter Medications [...] bladder scanned 155 cc at this time. call circuit worker MD paged. PLAN MOVING FORWARD: Pain control. [...] Pitt MD - 01/17/2019 11:56 AM EDT [facility] Operative Note Patient Name: Mary Ellen Hodge : [id number] MR#: [id number] Case Date: 01/17/2019 Surgeon: Surgeon(s) and Role: [...] Note Patient Name: Mary Ellen Hodge : [id number] MR#: [id number] Case Date: 01/17/2019 Surgeon: Surgeon(s) and Role: [...] closure: Yes Sterile closure tray used: Yes Ihubrvvag-piarpkkkz-tpyiiyucur abdominal cavity wash: Yes Qyxtrnzao-pbdzucuqq-qsjjpqmzjo wound wash: Yes documented in this encounter Plan of Treatment Upcoming Encounters Date Type Department Care Team (Late st Contact Info) Description 04/27/2024 11:30 AM EST Office Visit Dermatology at [place] [address] [place] [address] Robert Herron MD [address], [place] [address] Scheduled Procedures Name Priority Associated Diagnoses Date/Ti [...] EDT TYPE AND SCREEN, SDP (FUTURE SURGERY, [facility] SAME DAY PROGRAM ONLY) STAT 01/17/2019 7:07 AM EDT ABO/RH TYPING STAT 01/17/2019 7:07 AM EDT ANTIBODY SCREEN STAT 01/17/2019 7:07 AM EDT documented in this encounter Results * (ABNORMAL) Hemoglobin and Hematocrit, blood (01/18/2019 5:23 AM EDT) Hemoglobin 9.8(L) 11.7 - 15.5 gm/dL [facility] Hematocrit 30.2(L) 35.7 - 45.8 % [facility] Blood specimen (specimen) 01/18/2019 5:23 AM EDT 01/18/2019 5:59 AM EDT Narrative Resulting Agency Comment Spec In Lab Julio Pitt MD HEMATOLOGY ORDERABLE S Performing Organization Address City/[facility]/ZIP Co de Phone Number [facility] [place] [address] * Creatinine (01/18/2019 5:23 AM EDT) Creatinine 0.70 0.70 - 1.20 mg/dL [facility] Est Glomerular Filtration Rate 90 >=60 mL/min/1.7 3 m?? [facility] Comment: The eGFR was calculated using the CKD-EPI equation. As with all creatinine based estimates of kidney function, eGFR values calculated with the CKD-EPI equation are not accurate in patients with acute kidney failure, extremes of body mass or the acutely ill. http://[employer] eGFR 105 >=60 mL/min/1.7 3 m?? [facility] Comment: The eGFR was calculated using the CKD-EPI equation. As with all creatinine based estimates of kidney function, eGFR values calculated with the CKD-EPI equation are not accurate in patients with acute kidney failure, extremes of body mass or the acutely ill. [email or web address] Blood specimen (specimen) 01/18/2019 5:23 AM EDT 01/18/2019 5:59 AM EDT Narrative Resulting Agency Comment Spec In Lab Julio Pitt MD CHEMISTRY ORDERABLES Performing Organization Address City/[facility]/ZIP Co de Phone Number [facility] [place] [address] * (ABNORMAL) Hemoglobin and Hematocrit, blood (01/17/2019 12:20 PM EDT) Hemoglobin 10.3(L) 11.7 - 15.5 gm/dL [facility] Hematocrit 32.6(L) 35.7 - 45.8 % [facility] Blood specimen (specimen) 01/17/2019 12:20 PM EDT 01/17/2019 12:30 PM EDT Narrative Resulting Agency Comment Spec In Lab Julio Pitt MD HEMATOLOGY ORDERABLE S Performing Organization Address [facility] Co de Phone Number [facility] [place] [address] * (ABNORMAL) Creatinine (01/17/2019 12:20 PM EDT) Creatinine 0.57(L) 0.70 - 1.20 mg/dL [facility] Est Glomerular Filtration Rate 97 >=60 mL/min/1.7 3 m?? [facility] Comment: The eGFR was calculated using the CKD-EPI equation. As with all creatinine based estimates of kidney function, eGFR values calculated with the CKD-EPI equation are not accurate in patients with acute kidney failure, extremes of body mass or the acutely ill. http://[employer] eGFR 112 >=60 mL/min/1.7 3 m?? [facility] Comment: The eGFR was calculated using the CKD-EPI equation. As with all creatinine based estimates of kidney function, eGFR values calculated with the CKD-EPI equation are not accurate in patients with acute kidney failure, extremes of body mass or the acutely ill. [email or web address] Blood specimen (specimen) 01/17/2019 12:20 PM EDT 01/17/2019 12:30 PM EDT Narrative Resulting Agency Comment Spec In Lab Julio Pitt MD CHEMISTRY ORDERABLES Performing Organization Address [facility]/ZIP Co de Phone Number [facility] [place] [address] * Specimen to Pathology (01/17/2019 10:58 AM EDT) AP Specimen 01/17/2019 10:5 8 AM EDT 01/17/2019 10:58 AM EDT Narrative [facility] - 01/17/2019 10:58 AM EDT Specimen requisition ordered. ??Separate Pathology report to follow Julio Pitt MD PATHOLOGY/CYTOLOGY O RDERABLES Performing Organization Address City/[facility]/ZIP Co de Phone Number [facility] [place] [address] * Surgical Pathology Report (01/17/2019 10:56 AM EDT) Final Diagnosis [id number] ? Location: 4WST; 0418; B The signing pathologist has (i) examined the relevant preparation(s) for the specimen(s) and (ii) rendered or confirmed the diagnosis(es). . ?Surgical Pathology DIAGNOSIS Rectum, resection: Rectum with mucosal prolapse changes. Electronically signed by: ??Saima Ramsey MD Verified: ??01/20/2019 ?Pathologist Performed at: ??-[facility] Dept. [place], [place], [place] CLINICAL INFORMATION Specimen Submitted: A - [...] visible at the distal margin. Sections/Proces sing: Geothermal Operations Engineer sections in 3 cassettes as follows: ?A1: ??proximal margin ?A2: ??distal margin ?A3: ??representativ e mucosa ??MJA/sns 01/20/2019 1:00 PM EDT [facility] COLON STRUCTURE / Unknown 01/17/2019 10:56 AM EDT 01/17/2019 10:56 AM EDT Julio Pitt MD PATHOLOGY/CYTOLOGY O RDERABLES [facility] [place] [address] * ABORH Recheck Status (01/17/2019 7:07 AM EDT) ABORH Type Recheck Completed [facility] Blood specimen (specimen) 01/17/2019 7:07 AM EDT 01/17/2019 7:07 AM EDT Narrative Resulting Agency Comment Spec In Lab Julio Pitt MD BLOOD BANK LAB ORDER PUNEET [facility] [place] [address] * Antibody screen (01/17/2019 7:07 AM EDT) Ab Screen Interp Negative [facility] Expires at 2359 on: 01/20/2019 [facility] Blood specimen (specimen) 01/17/2019 7:07 AM EDT 01/17/2019 7:07 AM EDT Narrative Resulting Agency Comment Spec In Lab Julio Pitt MD BLOOD BANK LAB ORDER PUNEET [facility] [place] [address] * ABO/Rh Typing (01/17/2019 7:07 AM EDT) ABORH Type O Pos [facility] Blood specimen (specimen) 01/17/2019 7:07 AM EDT 01/17/2019 7:07 AM EDT Narrative Resulting Agency Comment Spec In Lab Julio Pitt MD BLOOD BANK LAB ORDER PUNEET Performing Organization Address City/[facility]/ZIP Co de Phone Number [facility] [place] [address] documented in this encounter Visit Diagnoses Diagnosis Rectal prolapse documented in this encounter Administered Medications Inactive Administered Medications - up to 3 most recent administrations Medication Order MAR Action Action Date Dose Rate Site acetaminophen (TYLENOL) tablet 1,000 mg 1,000 mg, Oral, ONCE, 1 dose, On Wed01/17/19 at 0830, Administer with SIP of H2O only., Day of Surgery (Day of Procedure), Routine Given 01/17/2019 8:49 AM EDT 1,000 mg acetaminophen (TYLENOL) tablet 1,000 mg 1,000 mg, Oral, EVERY 6 HOURS, First dose on Wed01/17/19 at 1230, Until Discontinued, Do not exceed 4,000 mg in 24 hours., Routine Given 01/18/2019 6:17 AM EDT 1,000 mg Given 01/18/2019 12:47 AM EDT 1,000 mg Given 01/17/2019 8:31 PM EDT 1,000 mg celecoxib (CeleBREX) capsule 400 mg 400 mg, Oral, ONCE, 1 dose, On Wed01/17/19 at 0830, Administer with SIP of H2O only., Day of Surgery (Day of Procedure), Routine Given 01/17/2019 8:49 AM EDT 400 m g docusate sodium (COLACE) capsule 100 mg 100 mg, Oral, 2 TIMES DAILY, First dose on Wed01/17/19 at 2100, Until Discontinued, Routine Given 01/17/2019 8:31 PM EDT 100 mg fentaNYL (PF) 50mcg/mL injection 12.5-25 mcg, Intravenous, EVERY 5 MIN PRN, [...] fentanyl for breakthrough pain., PACU Recovery, Routine Given 01/17/2019 12:39 PM EDT 25 mcg Given 01/17/2019 12:12 PM EDT 25 mcg Given 01/17/2019 11:58 AM EDT 25 mcg gabapentin (NEURONTIN) capsule 300 mg 300 mg, Oral, 3 TIMES DAILY, First dose on Wed01/17/19 at 1500, Until Discontinued, Routine Given 01/18/2019 8:50 AM EDT 300 mg Given 01/17/2019 8:31 PM EDT 300 mg Given 01/17/2019 3:48 PM EDT 300 mg heparin (Porcine) subcutaneous injection 5,000 Units 5,000 Units, Subcutaneous, WAX ROOM SUPERVISOR TO O.R., 1 dose, On Wed01/17/19 at 0830, Routine Given 01/17/2019 8:49 AM EDT 5,000 Units Left Lower Quadrant heparin (Porcine) subcutaneous injection 5,000 Units 5,000 [...] Given 01/17/2019 8:31 PM EDT 15 mg lactated ringers infusion 42 mL/hr, Intravenous, CONTINUOUS, Starting on Wed01/17/19 at 1230, Until Wed01/18/19 at 0842, Recovery (Recovery-Hospital Unit) New Bag 01/17/2019 12:15 PM EDT 42 mL/hr 42 mL /hr ondansetron (ZOFRAN-ODT) oral disintegrating tablet 8 mg 8 mg, Oral, EVERY 8 HOURS, 3 doses, First dose on Wed01/17/19 at 1545, Last dose on Wed01/18/19 at 0745, Recovery (Recovery-Hospital Unit), Routine Given 01/18/2019 8:46 AM EDT 8 mg Given 01/17/2019 3:49 PM EDT 8 mg polyethylene glycol (MIRALAX) packet 17 g 17 [...] PM EDT 0.4 mg traMADol (ULTRAM) tablet 25 mg 25 mg, Oral, ONCE PRN, 1 dose, Starting on Wed01/17/19 at 1712, Until Wed01/17/19 at 1728, Pain, Routine Given 01/17/2019 5:28 PM EDT 25 mg traMADol (ULTRAM) tablet 50 mg 50 [...] 0849 (Given - Provider: Lorna Bush RN) acetaminophen (TYLENOL) tablet 1,000 mg 1,000 mg, Oral, EVERY 6 HOURS, First dose on Wed01/17/19 at 1230, Until Discontinued, Do not exceed 4,000 mg in 24 hours., Routine 1443 (Given - Provider: Yamila Timmons RN)2030 (Given - Provider: Reynaldo Lyle RN) 0047 (Given - Provider: Reynaldo Lyle RN)0617 (Given - Provider: Reynaldo Lyle RN)1230 (Hold - Provider: Nahed Beal RN - Reason: See comment - Comment: dose [...] area - Comment: given at 9:10 per [facility] records)0910 (New Bag - Provider: Zan Sanchez [...] Routine 1548 (Given - Provider: Lauren Catherine RN)203 (Given - Provider: Reynaldo Lyle RN) 0850 (Given - Provider: Nahed Beal RN)1500 (Due) heparin (Porcine) subcutaneous injection 5,000 Units (COMPLETED) 5,000 Units, Subcutaneous, WAX ROOM SUPERVISOR TO O.R., 1 dose, On Wed01/17/19 at [...] Routine 1443 (Given - Provider: Yamila Timmons RN)2031 (Given - Provider: Reynaldo Lyle RN) 0300 [...] Document infusion initiation time of first bag. call circuit worker to OR., Intra-Operative (Intra-Procedure), Indication for (Active or Suspected): Prophylaxis 911 (Given - Provider: Zan Sanchez MD) ondansetron [...] 2100, Until Discontinued, Recovery (Recovery-Hospital Unit), Routine 203 (Given - Provider: Reynaldo Lyle RN) 0900 (Not Given - Provider: Nahed Beal RN - Reason: See comment - Comment: INFUSING) [...] Yamila Timmons RN)1212 (Given - Provider: Yamila Timmons RN)1239 (Given - Provider: Yamila Timmons RN) [...] on Wed01/17/19 at 1527, Until Wed01/18/19 at 1955, for discomfort with PIV insertion, Recovery (Recovery-Hospital Unit), Routine sodium chloride 0.9 % (flush) flush 5-20 mL 5-20 mL, Intravenous, EVERY 1 MIN PRN, Starting on Wed01/17/19 at 1527, Until Wed01/18/19 at 1955, flush, Flush pertains to all indwelling lines. [...] Document infusion initiation time of first bag. call circuit worker to OR., Intra-Operative (Intra-Procedure), Indication for (Active [...] Routine documented in this encounter Care Teams Child And Family Services Specialist Relationship Specialty Start Date End Date Edd Caballero DO [address] [place] [address] PCP - General Family Medicine 10/24/18 04/27/21 documented as of this encounter
--- OUTSIDE RECORDS SUMMARY | 2024-04-26 16:47 | XMS_ITS | Encounter Summary ---
[facility] [place] [address] Care Team Providers Care Litigation Associate Name Role Phone Frank Francois MD Primary Care Provider [phone] Reason for Visit * Reason Comments Rectal Problems Encounter Details Date Type Department Care Team ([facility] st Contact Info) Description 07/22/2023 6:51 PM EST - 07/22/2023 11:21 PM EST [place] [address] Lupe Estrada MD [facility] [address] [place] [address] Rectal prolapse; Abdominal cramping; Incontinence of feces, unspecified fecal incontinence type Discharge Disposition: Home Social History Tobacco Use [...] Sign Reading Time Taken Comments Blood Pressure 100/68 07/22/2023 10:17 PM EST Pulse 68 07/22/2023 11:15 PM EST Temperature 36.8 ??C (98.2 ??F) 07/22/2023 2:26 PM ES T Respiratory Rate 18 07/22/2023 10:17 PM EST Oxygen Saturation 97% 07/22/2023 11:15 PM EST Inhaled Oxygen Concentration - - Weight 38.1 kg (84 lb) 07/22/2023 2:26 PM EST Height - - Body Mass Index 19.52 05/03/2023 3:40 PM EST documented in this encounter Discharge Instructions * Discharge Instructions* Gideon Arnold MD - 07/22/2023 10:40 PM EST What makes up the pelvic floor? The pelvic floor refers to a group of muscles that support the organs in the pelvis. These organs include the bladder and rectum. In the female pelvis, they also include the uterus. The pelvic floor muscles play an important role in bladder and bowel control. Like any muscles, they can become injured or weakened. Contributing factors can include: vaginal childbirth Obesity certain types of surgery Normal aging What do pelvic floor muscle exercises do? Pelvic floor muscles exercises, also known as Kegel exercises, is to strengthen the pelvic floor muscles. When these muscles become weak, it increases the risk of problems such as: Urinary incontinence:This is when a person leaks urine or loses bladder control. Stress incontinence occurs when the muscles and tissues around the urethra do not stay closed properly when there is increased pressure in the abdomen. Activities that increase the pressure in the abdomen include coughing, sneezing, laughing, or heavy lifting. This is common in people who have given . It can also happen after surgery to treat prostate cancer or an enlarged prostate. Urge incontinence is when aperson regularly feels a sudden urge need to urinate. Fecal incontinence.This refers to the involuntary loss of liquid or solid stool. Anal incontinence can also mean the involuntary passing of gas. Injury to the pelvic floor muscles, like vaginal childbirth, can contribute to incontinence. Pelvic organ prolapse.This is when the bladder, rectum, or uterus drops down and bulges into the vagina. This can happen if the pelvic floor is weakened and unable to support the organs. While some people with pelvic organ prolapse have no symptoms, others notice a feeling of fullness or a bulge inthe vagina. If you have any of these problems, doing exercises to strengthen your pelvic floor may help improvesymptoms. While these exercises may be helpful in improving your current symptoms, these exercises have not shown to prevent new problems from developing. If you are interested in trying pelvic floor muscle exercises, it is a good idea to talk with your health care provider first. There are some situations in which these exercises are not recommended: In certain types of injury that can result from childbirth. This will need to heal before exercise can be beneficial. These exercises may also worsen symptoms in people with a condition called myofascial pelvic pain syndrome. This condition causes pain with sex or bladder problems. People with this condition are typically treated by a physical therapist with specialized training. Your provider can help you understand whether pelvic floor muscle exercises are likely to be helpful for your situation, teach you how to do the exercises correctly, and refer you to a physical therapist if needed. How do I learn how to do pelvic floor muscle exercises? If you want to try to perform pelvic muscle exercises, start by talking to your provider. They can teach you how to do them correctly. You will learn which muscles to tighten. It's sometimes really hard to know which muscles to tighten. Below are some ways you can practice: People with male or female anatomy: squeeze the muscles you would use to avoid passing gas or holding in a bowel movement. People with female anatomy: put a finger inside your vagina and squeeze the muscles around your finger. You can also imagine that you are sitting on a marble and have to pick it up using your vagina. People with male anatomy: squeeze the muscles that control the flow of urine. These exercises mighthelp reduce urine leaks in people who have had surgery to treat prostate cancer or an enlarged prostate. No matter how you learn to do pelvic muscle exercises, its important to understand that the musclesinvolved are NOT in your belly, thighs, or buttocks. After you learn which muscles to tighten, you can do the exercises in any position. You should perform pelvic muscle exercises 3 times a day. For each set, do the following about 10 times: Squeeze your pelvic muscles Hold the muscles tight for about 10 seconds Relax Keep this routine up for at least a few months. Results are not immediate and may take you a few weeks to several months to notice results. What is the role of a physical therapist? Some people benefit from working with a physical therapist or specially trained nurse. This can help to ensure that you are using the correct technique in order to get the most out of your exercises. In addition, these providers may use other methods to help you improve your technique and maximize results, such as: Biofeedback:This typically involves inserting a sensor into your vagina or rectum that can identifywhich muscles you are pritesh and measure the strength of each contraction. This can help if you are having trouble isolating your pelvic floor muscles and can also give you an idea of your progress as you strengthen these muscles over time. Electrical stimulation: This can be done along with biofeedback. It involves placing a device into the vagina or anus. The device delivers a small electrical current that causes the pelvic floor muscles to contract. Vaginal weights. You can purchase weighted cones that you hold in your vagina or rectum to help increase strength. You use your pelvic floor muscles to keep the weight in place during your normal daily activities. While there is limited evidence supporting this approach, some people find that it helps them strengthen their pelvic floor. Vaginal weights are easy to use, relatively inexpensive, andcan be purchased online. What are the benefits of pelvic floor muscle exercises? There is no doubt that pelvic floor muscle exercise can generally strengthen your pelvic floor, butit can also help in the following situations: Preventing leakage of urine in stress incontinence: Once you know how to contract your pelvic floormuscles effectively, you can get into the habit of doing this any time you are about to laugh, cough, sneeze, lift something heavy, or do anything else that might cause leakage. Controlling sudden urges to urinate: If you have this urge, rather than running to the bathroom, sit or stand still and contract your pelvic muscles. Once the urge decreases, you can then go to the toilet. Improving fecal and anal incontinence. Relieving symptoms of pelvic organ prolapse, such as a feeling of fullness or pressure in the vagina. If you have any of these problems and pelvic floor muscle exercises do not seem to be helping afterseveral months, talk to your health care provider. They may recommend changing the way you do the exercises or trying other approaches. While pelvic floor muscle exercises can be beneficial, many people with incontinence or pelvic organ prolapse need other treatments as well. From UpToDate What is pelvic organ prolapse? Pelvic organ prolapse is a condition that affects the pelvic floor. The pelvic floor is the name for the muscles that support the organs in the pelvis, including the bladder, rectum, and uterus. Pelvic organ prolapse is when these muscles relax too much, causing the organs to drop down and press against or bulge into the vagina. Prolapse can affect different organs. You may hear your provider use different terms for the types of prolapse: Bladder - If the bladder bulges into the vagina, it is called cystocele. Rectum - If the rectum bulges into the vagina, it is called rectocele. Uterus - If the uterus bulges into the vagina, it is called uterine prolapse. Some things can increase your risk of having pelvic organ prolapse. They include: Obesity Older age It is important to talk with your provider about your past medical history including any obstetric history. What are the symptoms of pelvic organ prolapse? Many times, prolapse does not cause any symptoms. But when symptoms do happen, they can include: Fullness or pressure in the pelvis or vagina An aching or pulling sensation in the pelvis A bulge in the vagina or coming out of the vagina Leaking urine when you laugh, cough, or sneeze Have the urge to urinate all of a sudden Trouble having a bowel movement When using the toilet, you might need to press on the bulge in your vagina with a finger to get outall your urine or to finish a bowel movement. Is there a test for pelvic organ prolapse? Your provider will be able to tell if you have it by doing a pelvic exam. Your provider may want toperform both a digital rectal exam and pelvic exam at the same time while asking you to contract and relax your pelvic floor muscles. This will allow your provider to evaluate prolapse and abnormal movements of your pelvic floor muscles. Is there anything I can do on my own to feel better? Some people may feel better if they do pelvic muscle exercises. These exercises strengthen the muscles that control the flow of urine and bowel movements. They are also known as Kegel exercises. Your provider can teach you how to do them or refer you to a physical therapist who specializes in pelvic floor problems. How do I learn how to do pelvic floor muscle exercises? If you want to try to perform pelvic muscle exercises, start by talking to your provider. They can teach you how to do them correctly. You will learn which muscles to tighten. It's sometimes really hard to know which muscles to tighten. Below are some ways you can practice: People with male or female anatomy: squeeze the muscles you would use to avoid passing gas or holding in a bowel movement. People with female anatomy: put a finger inside your vagina and squeeze the muscles around your finger. You can also imagine that you are sitting on a marble and have to pick it up using your vagina. People with male anatomy: squeeze the muscles that control the flow of urine. These exercises mighthelp reduce urine leaks in people who have had surgery to treat prostate cancer or an enlarged prostate. No matter how you learn to do pelvic muscle exercises, its important to understand that the musclesinvolved are NOT in your belly, thighs, or buttocks. After you learn which muscles to tighten, you can do the exercises in any position. You should perform pelvic muscle exercises 3 times a day. For each set, do the following about 10 times: Squeeze your pelvic muscles Hold the muscles tight for about 10 seconds Relax Keep this routine up for at least a few months. Results are not immediate and may take you a few weeks to several months to notice results. How is pelvic organ prolapse treated? People who have no symptoms or who are not bothered by their symptoms do not need treatment. If youdo have symptoms that bother you, your treatment options might include: Pelvic floor muscle exercises: This involves working with a physical therapist for 8 to 12 weeks tostrengthen your pelvic muscles. A vaginal pessary - This device fits inside your vagina to support the bladder and push it back into place. Pessaries come in different shapes and sizes. Your provider may refer you to you gynecologyurology specialists to talk to you about your options and make sure your pessary fits your body. Surgery - A surgeon can move organs back where they belong and strengthen the tissues that keep them in place. You should only consider this type of surgery if you do not plan to have children or aredone having children. Can pelvic organ prolapse be prevented? You can reduce your chances of pelvic organ prolapse if you: Lose weight if you are overweight This will reduce amount of pressure on your pelvic floor Get treated for constipation if you are constipated This will limit straining and prevent prolapse changes Avoid activities that require you to lift heavy things This will also decrease the amount of pressure on your pelvic floor From ASCRS and UpToDate What is rectal prolapse? Rectal prolapse is a condition that happens when some or all of the tissue that lines the rectum telescopes out through the anus turning it inside out. This can be quite embarrassing often significant impact on a patient's quality of life. Rectal prolapse is most common in women over 50 years of age and are six times more likely as men to develop this condition, although it can happen in men and women of all ages. Although an operation is not always needed, the definitive treatment of rectal prolapse requires surgery. What causes rectal prolapse in adults? While a number of factors have been shown to be associated with rectal prolapse, there is no clear cut cause. Women who have had more than one baby by vaginal are more likely to get rectal prolapse, especially if the vaginal delivery was complicated by use of forceps, suction, or episiotomy (incision on the perineum). Other contributing factors associated with vaginal deliveries is having a large baby, usually > 8 pounds. Other health conditions that can make rectal prolapse more likely include: prison bowel problems Chronic constipation: this means your bowel movements are too hard or small, difficult to get out, and happen fewer than 3 times per week. Straining during bowel movements. Diarrhea: this means your bowel movements are watery and runny and happen more than 3 times per day. Problems in the pelvic area, including weak muscles or a history of pelvic injury. What are the symptoms of rectal prolapse? The main symptom is bright red tissue sticking out of the anus. The tissue might have mucus or blood on it. Rectal prolapse is not usually painful, but may be uncomfortable. The tissue can stay outside the anus or move in and out of the body. Other symptoms include: Trouble starting a bowel movement Feeling like you have fully emptied your bowels Feeling something falling out that you may have to push back in following a bowel movement/sensation of sitting on a ball Leaking solid or liquid bowel movements, also known as fecal incontinence Fecal incontinence occurs in rectal prolapse due to prolapse tissue overcoming the strength of the anal sphincter muscles. Is rectal prolapse the same as hemorrhoids? Some of the symptoms of hemorrhoids and rectal prolapse are similar, however, rectal prolapse involves an entire segment of the bowel located higher up within the body, while hemorrhoids involve onlythe inner layer near the anal opening. Is there a test for rectal prolapse? A provider can often diagnose this condition with a careful history and complete anorectal exam. Providers want induce the prolapse so we know what you are experiencing at home. Exam may include sitting on the commode and straining as if having a bowel movement. This will allow your provider to seeexactly what you are seeing and feeling. Occasionally, a rectal prolapse may be more internal, making the diagnosis very difficult. Your provider may want to get imaging studies to evaluate your rectum. Imaging studies include: MRI: this test will create 3D pictures of inside the body. Cystocolpoproctography: in this study, the provider will fill your bladder, vagina and rectum with contrast that is easily seen on X-Rays. These x-rays will show how these parts of your body are working. Defecogrpahy: this test uses contrast in the rectum and takes x-rays while you are having a bowel movement. Manometry: this test measures the pressure inside the rectum. It can show if the muscles that control bowel movements are working correctly. These tests can give your provider useful information and can assist in determining whether surgerymay be beneficial and which operation is appropriate. How is rectal prolapse treated? The treatment depends on how serious your symptoms are and if have other health problems. Whatever treatment you have, your provider will likely tell you to: Eat foods high in fiber. You should be getting between 25-35 grams of fiber per day. Use fiber supplementation. This can be done metamucil, citrucel, psyllium powder, wheat dextrin. Drink more water. You should drink between 6-8 glasses of water daily. Laxatives: These medicines help make bowel movements easier to get out. Enemas: This is a fluid that squirted into the rectum to help empty your bowels. Pelvic floor exercises with biofeedback: These exercises strengthen the muscles the control flow ofurine and bowel movements. They are called kegel exercises. Biofeedback uses devices called sensorsthat measure muscle activity. They can tell if you are using the muscles the right way. This can bedone at home or with pelvic floor physical therapy. The above mentioned treatment options aim at reducing constipation, diarrhea, and straining that can be associated with causing rectal prolapse, however, simply correcting these problems may not improve the prolapse once it has developed. If the rectal prolapse goes untreated for longer periods of time, the greater the chance of having permanent problems with fecal incontinence and nerve damage. There are many different ways to surgically correct rectal prolapse. Abdominal or perineal surgery may be suggested. An abdominal repair may be approached via an open approach (open surgery) or laparoscopic (minimally invasive), or even robotically in some patients. Potential benefits of a laparoscopic or robotic approach includes less pain, shorter hospital stay, and earlier return to work. The decision to recommend an abdominal or perineal surgery takes into account many factors including: Age Physical condition Extent of prolapse Results of various testing Most surgeons would agree that if a patient is medically fit for surgery, an abdominal approach mayoffer the best chance for a terminal carman successful repair. Perineal approaches are often better choices for very elderly patients or patients with very severe medical conditions. The perineal approach can also be beneficial for younger males, as there is a small chance of causing sexual dysfunction with the abdominal approach. Surgical approaches typically either include removing part of the rectumor pulling the rectum back up and anchoring it. When patients complain of a long history of constipation, removal of a portion of the colon may be included in an attempt to improve bowel function. It is important to note that although the prolapsecan be fixed, the function may not ALWAYS improve. If you are a female experiencing rectal prolapse, your provider may refer you to see the gynecologyurology team for additional workup. How successful is treatment? A great majority of patients are completely relieved of symptoms, or are significantly helped. If the prolapse or some other conditions weakened the anal sphincter muscles, they do have the potentialto regain strength after the rectal prolapse has been corrected. Factors that influence post-operative outcomes: Condition of the anal sphincter muscles before surgery Whether the prolapse is internal or external Overall health of the patient It is important to understand that it may take as long as 1 year to determine the impact of surgeryon bowel function. Chronic constipation and straining should be avoided after surgery because ultimately it can result in recurrence of the rectal prolapse. From ASCRS and UpToDate * Attachments The following attachments cannot be sent through Care Everywhere. * Fecal Incontinence Diet (Emirati) * Protein Increase: General Info (Emirati) documented in this encounter Medications at Time of Discharge Medication Sig Dispensed Refills Start Date End Date magnesium hydroxide (Milk of Magnesia) 2,400 mg/10 mL Suspension Take by mouth daily. 27-28 ML acetaminophen (Tylenol) 500 mg Tablet Take 325 mg by mouth as needed. oxyCODONE-acetaminophen (Percocet) 5-325 mg Tablet 09/20/2021 UNABLE TO FIND Med Name cholestoff and [...] by mouth 2 times daily. Taking PRN polyethylene glycoL (Miralax) 17 gram/dose Powder MIX 17 GRAMS ( ONE CAPFUL) IN LIQUID AND DRINK BY MOUTH ONCE DAILY 03/19/2022 12/24/2023 morphine CR (Ms Contin) 15 mg Tablet Sustained Release 09/17/2021 02/22/2024 docusate sodium (COLACE) 100 mg Capsule Take 1 capsule by mouth 2 times daily. 01/18/2019 12/24/2023 documented as of this encounter ED Notes * Genie Esparza RN - 07/22/2023 11:20 PM EST Patient is alert and oriented, VSS. RN reviewed discharge paperwork with patient. Questions answered and patient expresses no further concerns. IV removed and pt wheeled out of ER with family. * Genie Esparza RN - 07/22/2023 8:26 PM EST Pt resting on stretcher. IV placed, blood work send and fluid started. Warm blankets provided. * Lester Thompson APRN - 07/22/2023 8:03 PM EST ED PROVIDER NOTE Patient Name: Mary Ellen Hodge Patient Age: 68 y.o. Patient : 1955 Encounter Date: 07/22/2023 Chief Complaint Rectal Problems History of Present Illness Mary Ellen Hodge is a 68 y.o. female who presents for evaluation of prolapsed rectum. Patient has been dealing with issues with a prolapsed rectum, this has been persistently worsening since the end of May. She has been seen by colorectal surgery, they recommended constipation management and to see LABORATORY MONITOR. She has seen LABORATORY MONITOR, per LABORATORY MONITOR there is no pelvic floor issue/dysfunction, no bladder or vaginal prolapse. Patient's prolapse has been persistently worsening. She saw LABORATORY MONITOR in the end of June, they were able to easily reduce the prolapse but as soon as patient goes to sit and goto the bathroom even without any pushing it prolapsed again. It is becoming more and more bothersome, she has been having worsening fecal incontinence, now with some lower abdominal pain and some wors ening difficulties with urination. She was post to have a colorectal appointment today, unfortunately that was canceled. Because of her ongoing issues she presents here today. She has been becoming generally weaker and unwell, this has been severely impacting her quality of life, her ability to drive. She presents here with her daughter. The history is provided by the patient, family, and EMR. Review of Systems ROS as above with pertinent positives and negatives. Medical, surgical and social history as well as medications and allergies reviewed & updated inchart as appropriate. Physical Exam BP 100/68 Pulse 65 Temp 36.8 ??C (98.2 ??F) Resp 18 Wt 38.1 kg (84 lb) SpO2 98% BMI 19.52 kg/m?? Physical Exam Constitutional: General: She is not in acute distress. Eyes: Extraocular Movements: Extraocular movements intact. Cardiovascular: Rate and Rhythm: Normal rate. Abdominal: Palpations: Abdomen is soft. Tenderness: There is no abdominal tenderness. Genitourinary: Comments: Rectal exam deferred, I visualized a picture of the prolapse on daughter's phone. Rectal prolapse extending beyond buttock. Musculoskeletal: Comments: Generalized decreased range of motion, chronic Skin: General: Skin is warm. Capillary Refill: Capillary refill takes less than 2 seconds. Neurological: General: No focal deficit present. Mental Status: She is alert. Psychiatric: Mood and Affect: Mood normal. ED Course ED Course as of 07/22/23 2252 [facility] Jul 22, [id number] General surgery paged [phone] WBC: 6.0 2121 Creatinine(!): 0.59 2203 Surgery paged for update [phone] Pt and family updated, awaiting surgery reccos 2225 Surgery paged for follow-up recommendations History, examination Vitals, nursing notes reviewed Diagnostics Reviewed and interpreted independently Imaging No orders to display Labs Recent Results (from the past 24 hour(s)) Basic Metabolic Panel (non-fasting) Result Value Ref Range Glucose Lvl 91 65 - 199 mg/dL BUN 14 8 - 18 mg/dL Creatinine 0.59 (L) 0.70 - 1.20 mg/dL Sodium 138 135 - 145 mmol/L Potassium 4.5 3.5 - 5.0 mmol/L Chloride 102 98 - 107 mmol/L CO2 25 22 - 31 mmol/L Anion Gap 11 5 - 15 mmol/L Calcium 9.5 8.5 - 10.5 mg/dL Estimated GFR 97 >=60 mL/min/1.73 m?? Hemogram Result Value Ref Range WBC 6.0 4.0 - 9.5 x10(3)/mcL RBC 4.15 4.00 - 5.21 x10(6)/mcL Hemoglobin 12.5 11.7 - 15.5 g/dL Hematocrit 36.8 35.7 - 45.8 % MCV 88.7 82.6 - 94.4 fL MCH 30.1 27.1 - 32.0 pg MCHC 34.0 31.7 - 35.0 g/dL Platelets 300 145 - 357 x10(3)/mcL RDWSD 42.0 37.0 - 46.0 fL RDWCV 12.8 11.5 - 14.1 % MPV 9.0 7.6 - 12.9 fL nRBC % Auto 0.0 % nRBC Abs Auto 0.000 0.000 - 0.000 x10(3)/mcL Differential, Automated Result Value Ref Range Neutrophils % 42.1 % Neutr Abs (ANC) 2.52 1.70 - 6.10 x10(3)/mcL Lymphocytes % 43.9 % Lymphocytes Abs 2.6 0.9 - 3.2 x10(3)/mcL Monocytes % 6.9 % Monocyte Abs 0.4 0.3 - 0.9 x10(3)/mcL Eosinophils % 6.4 % Eosinophils Abs 0.4 0.0 - 0.4 x10(3)/mcL Basophils % 0.5 % Basophils Abs 0.0 0.0 - 0.1 x10(3)/mcL Immature Gran % 0.20 % Snow Gran Abs 0.01 0.00 - 0.04 x10(3)/mcL Medications As noted below and documented in MAR Medications lactated Ringers 1,000 mL IV bolus ( Intravenous New Bag 07/22/232019) Procedures None by myself MDM, Assessment and Plan MDM/PLAN: 68 y.o. female with known issues with rectal prolapse, symptoms have been worsening and patient having a difficult time managing at home. On initial presentation patient is afebrile and hemodynamically stable. Physical exam notable as above, rectal exam deferred. Will get basic labs and consult colo rectal/general surgery. Labs largely unremarkable. Surgery seen patient, they did reduce the prolapse. Their final recommendations from their consult are pending at this time. Patient did have to get up to urinate, she urinated and she did not have any recurrence of prolapse. I spoke with surgery, they plan to get her follow-up expedited in the outpatient colorectal clinic. In the meantime patient's daughter feels she would be able to reduce the prolapse in the future should need to be done. We discussed signs and symptoms and need for return such as change or worsening pain, change in the appearance of the prolapsed rectum such as pale mucosa or purple/dusky mucosa. Recommended PCP follow-up in 1 week as needed and reach out to colorectal with any further concerns. Patient's PCP is Frank Francois MD. ASSESSMENT: 1. Rectal prolapse 2. Abdominal cramping 3. Incontinence of feces, unspecified fecal incontinence type DISPO: Discharge instructions per AVS which I have also verbally gone over with the patient Return precautions were discussed with the patient; patient expressed understanding and is in agreement with plan New Prescriptions No medications on file Discharge to home Lester Thompson APRN 07/22/23 1535 * Neri Persaud APRN - 07/22/2023 2:25 PM EST Brief Provider in triage note 68-year-old female past medical history of rectal prolapse (years) presents to ED AOx4 and ambulatory for worsening rectal pain. The patient was scheduled to be seen by Dr. Pitt of colorectal surgery but had to cancel. Office advised patient if she is having continuous pain to go to the emergencyroom for further evaluation and management. Neri Perasud APRN 07/22/23 1427 documented in this encounter Miscellaneous Notes * Consult Note - Gideon Arnold MD - 07/22/2023 10:18 PM EST Mary Ellen Hodge [id number] [facility] COLORECTAL SURGERY ED CONSULTATION NOTE HPI: 68 yo F known to the CRS service and Dr. Daniela Pitt for history of Altmeyer Procedure for a full thickness rectal prolapse on 01/17/19. She had recurrence of her prolapse circa April of 2023 and prescribed pelvic floor PT for which she had success and doing well on follow-up appointment on 06/03/23. Due to a combination of getting weak from her recent cervical surgery and viral illness, she has not attended her appointments and has suffered prolapse again. On a regular day, the prolapse is typically out and associated with an average of one bout of fecalincontinence per day. She wears Depends daily. She has supplemented her diet with PO Milk of Mag tokeep her stools loose to decrease the degree of straining on the toilet. Appetite has decreased, but she is also fearful of eating too much that will make her defecate larger BM's and exacerbate her condition. Only on occasion does she note some streaks of blood while wiping after a BM. ROS: Full 12-Point ROS reviewed and negative except noted in HPI. PMHx: Past Medical History: Diagnosis Date Anemia Arthritis Chronic pain spine and legs Gastroesophageal reflux Irregular heart beat told yrs ago that I have an arrhythmia, Spinal stenosis Transfusion history 2015 Traumatic open fracture of shaft of femur 1976 MEDS: Prior to Admission medications Medication Sig Start Date End Date Taking? Authorizing Provider magnesium hydroxide (Milk of Magnesia) 2,400 mg/10 mL Suspension Take by mouth daily. 27-28 ML PROVIDER, HISTORICAL acetaminophen (Tylenol) 500 mg Tablet Take 325 mg by mouth Every 6 hours as needed. PROVIDER, HISTORICAL polyethylene glycoL (Miralax) 17 gram/dose Powder MIX 17 GRAMS ( ONE CAPFUL) IN LIQUID AND DRINK BYMOUTH ONCE DAILY 03/19/22 PROVIDER, HISTORICAL morphine CR (Ms Contin) 15 mg Tablet Sustained Release 09/17/21 PROVIDER, HISTORICAL oxyCODONE-acetaminophen (Percocet) 5-325 mg Tablet 09/20/21 PROVIDER, HISTORICAL docusate sodium (COLACE) 100 mg Capsule Take 1 capsule by mouth 2 times daily. Patient not taking: Reported on 06/03/2023 01/18/19 Dorie Erazo PA UNABLE TO FIND Med Name cholestoff and coQ 10. Richelle root PROVIDER, HISTORICAL fish oil-omega-3 fatty acids 1,000 mg Capsule Take 2 g by mouth daily. PROVIDER, HISTORICAL Niacin 1,000 mg Tablet Sustained Release 24 hr Take 1,200 mg by mouth. PROVIDER, HISTORICAL TURMERIC ROOT EXTRACT ORAL Take by mouth. PROVIDER, HISTORICAL Calcium 500 mg Tablet Take by mouth. PROVIDER, HISTORICAL cholecalciferol, Vitamin D3, (cholecalciferol, Vitamin D3,) 50 mcg (2,000 unit) Capsule Take by mouth. PROVIDER, HISTORICAL multivitamin (THERAGRAN) Tablet Take 1 tablet by mouth daily. PROVIDER, HISTORICAL pyridoxine (B-6) 100 mg Tablet Take 100 mg by mouth daily. PROVIDER, HISTORICAL valACYclovir (VALTREX) 500 mg Tablet Take 500 mg by mouth 2 times daily. PROVIDER, HISTORICAL PSHx: Past Surgical History: Procedure Laterality Date COLONOSCOPY [...] METHOD performed by Greg Pitt MD at [facility] MAIN OR PRO EXCIS RECTAL PROLAPSE, PERINEAL N/A 01/17/2019 @RECTOPEXY, RESEC. PROLAPSE, PERINEAL APPROACH (WRVU 18.5) performed by Greg Pitt MD at [facility] MAIN OR TOTAL HIP ARTHROPLASTY Right FAM Hx: Family History Problem Relation Age of Onset Heart Disease Father Hypertension Father Dementia Mother Cerebrovascular Accident Paternal Grandfather SHx: Social Determinants of Health with Concerns Financial Resource Strain: Not on file Food Insecurity: Not on file Transportation Needs: Not on file Physical Activity: Not on file Housing Stability: Not on file Utilities: Not on file VITALS: Visit Vitals BP 100/68 Pulse 65 Temp 36.8 ??C (98.2 ??F) Resp 18 Wt 38.1 kg (84 lb) SpO2 98% BMI 19.52 kg/m?? LABS: Lab Results Component Value Date WBC 6.0 07/22/2023 HGB 12.5 07/22/2023 HCT 36.8 07/22/2023 MCV 88.7 07/22/2023 PLATELET 300 07/22/2023 Lab Results Component Value Date NA 138 07/22/2023 K 4.5 07/22/2023 CL 102 07/22/2023 CO2 25 07/22/2023 BUN 14 07/22/2023 CREATININE 0.59 (L) 07/22/2023 GLUCOSE 91 07/22/2023 CALCIUM 9.5 07/22/2023 ESTGFR 97 07/22/2023 Lab Results Component Value Date ALT 19 05/03/2023 AST 18 05/03/2023 ALKPHOS 66 05/03/2023 BILITOT 0.2 05/03/2023 IMAGING: No results found for this visit on 07/22/23. FOCUSSED PHYSICAL EXAM: General: NAD, AAOx4, underweight and frail CV: RRR, no murmurs Pulm: no distress, unlabored breathing, satting well on RA Abdo: soft, non-distended, non-tender MSK: OA deformities noted Anal: prolapsed mucosa, moderately edematous, pink and well perfused without any ulcerations or punctate hemorrhages ASSESSMENT: 68 yo F known to the CRS service and Dr. Daniela Pitt for history of Altmeyer Procedure for a full thickness rectal prolapse on 01/17/19. She had recurrence of her prolapse circa April of 2023 and prescribed pelvic floor PT for which she had success and doing well on follow-up appointment on 06/03/23. Due to a combination of getting weak from her recent cervical surgery and viral illness, she has not attended her appointments and has suffered prolapse again. Was currently prolapsed during our encounter, though easily reducible with gentle pressure on examination. PLAN / RECOMMENDATIONS: No acute surgical intervention at this time, OK to DC from ED Will re-schedule her next follow-up appointment with Dr. Pitt sooner than expected for upcoming plan of care options Meanwhile will optimize her pelvic floor and nutritional status with resumption of PT and protein supplementation Instructions provided to pt's daughter who felt comfortable watching the prolapse closely and reducing it herself if need be Gideon Arnold MD 07/22/2023 Colorectal Surgery [id number] Associated attestation - Patricia Denney MD - 07/23/2023 11:55 AM EST I reviewed all clinical notes and clinical findings of Mary Ellen Hodge with the colorectal surgery team and the patient's assigned nurse. I did not examine the patient. I agree with the assessment and plan as outlined above with the following notations. Briefly, Elderly female with history of previous perineal rectosigmoidectomy performed by Dr. Daniela Meyer who presents to the ER with evidence of recurrent prolapse, reducible. Patient was examined and discussedwith plans for office evaluation. Patient and family were educated on techniques for reduction of prolapse. Plans will be for office consultation. All questions were answered. Patricia Denney MD, MS, FACS, FASCRS Chief, Division of Colon and Rectal Surgery [facility] Pager [phone] * ED Triage - Karl Aguayo RN - 07/22/2023 2:26 PM EST Please see Provider in Triage note. documented in this encounter Plan of Treatment Upcoming Encounters Date Type Department Care Team (Late st Contact Info) Description 04/27/2024 11:30 AM EST Office Visit Dermatology at [place] [address] [facility] [place] [address] Robert Herron MD [address], [place] [address] Scheduled Procedures Name Priority Associated Diagnoses Date/Ti me ANTERIOR COLPORRHAPHY CYSTOC SALLY W OR WO URETHEROCELE; INC CYSTO (WRVU 10.08) Female cystocele URETHRAL SUSPENSION, SLING\F ASCIA OR SYNTHETIC (WRVU 12.13) Female cystocele documented as of this encounter Procedures Procedure Name Priority Date/Time Associated Diagnosis Comments HEMOGRAM STAT 07/22/2023 8:20 PM EST DIFFERENTIAL, AUTOMATED STAT 07/22/2023 8:20 PM EST CBC (WITH DIFF) STAT 07/22/2023 8:20 PM EST BASIC METABOLIC PANEL STAT 07/22/2023 8:20 PM EST documented in this encounter Results * Differential, Automated (07/22/2023 8:20 PM EST) Neutrophil % 42.1 % [facility] Neutrophil Absolute 2.52 1.70 - 6.10 x10(3)/[facility] Lymph % 43.9 % [facility] Lymphocytes Abs 2.6 0.9 - 3.2 x10(3)/[facility] Monocyte % 6.9 % [facility] Monocyte Abs 0.4 0.3 - 0.9 x10(3)/[facility] Eos % 6.4 % [facility] Eosinophils Abs 0.4 0.0 - 0.4 x10(3)/[facility] Basophil % 0.5 % [facility] Baso Absolute 0.0 0.0 - 0.1 x10(3)/[facility] Immature Gran % 0.20 % [facility] Comment: Immature granulocytes(IG's)percentage and absolute count will include metamyelocytes, myelocytes, and promyelocytes. Blood smears from CBCs yielding IG's will be scanned manually for concordance. If this scan disagrees with the automated IG or if promyelocytes are noted, a manual differential will be performed. Immature Gran Absolute 0.01 0.00 - 0.04 x10(3)/[facility] Blood 07/22/2023 8:20 PM EST 07/22/2023 8:27 PM EST Narrative Resulting Agency Comment Spec In Lab Lester Clinecoa MANAGER MEAT HEMATOLOGY ORDERABLE S [facility] [place] [address] * Hemogram (07/22/2023 8:20 PM EST) White Blood Cell 6.0 4.0 - 9.5 x10(3)/[facility] Red Blood Cell 4.15 4.00 - 5.21 x10(6)/[facility] Hemoglobin 12.5 11.7 - 15.5 g/dL [facility] Hematocrit 36.8 35.7 - 45.8 % [facility] Mean Cell Volume 88.7 82.6 - 94.4 fL [facility] Mean Cell Hemoglobin 30.1 27.1 - 32.0 pg [facility] Mean Cell Hemoglobin Concentration 34.0 31.7 - 35.0 g/dL [facility] Platelet 300 145 - 357 x10(3)/[facility] RDW Standard Deviation 42.0 37.0 - 46.0 fL [facility] RDW coefficient of variation 12.8 11.5 - 14.1 % [facility] Mean Platelet Volume 9.0 7.6 - 12.9 fL [facility] NRBC% auto 0.0 % [facility] NRBC Absolute 0.000 0.000 - 0.000 x10(3)/[facility] Blood 07/22/2023 8:20 PM EST 07/22/2023 8:27 PM EST Narrative Resulting Agency Comment Spec In Lab Lester Soncoa MANAGER [employer] HEMATOLOG[employer] ORDERABLE S [facility] [place] [address] * (ABNORMAL) Basic Metabolic Panel (non-fasting) (07/22/2023 8:20 PM EST) Glucose 91 65 - 199 mg/dL [facility] Comment:Diabetes: >=200 mg/d L plus symptoms Blood Urea Nitrogen 14 8 - 18 mg/dL [facility] Creatinine 0.59(L) 0.70 - 1.20 mg/dL [facility] Sodium 138 135 - 145 mmol/L [facility] Potassium 4.5 3.5 - 5.0 mmol/L [facility] Comment: Please note: ??Patients with WBC >100,000 may have falsely elevated Potassium levels. ??For accurate Potassium quantification in these patients send serum separator tube (gold top) for subsequent determinations. ??Contact the Clinical Chemistry Laboratory if there are any questions. Chloride 102 98 - 107 mmol/L [facility] Carbon Dioxide 25 22 - 31 mmol/L [facility] Anion Gap 11 5 - 15 mmol/L [facility] Calcium 9.5 8.5 - 10.5 mg/dL [facility] Est Glomerular Filtration Rate 97 >=60 mL/min/1. 73 m?? [facility] Comment: This patient's estimated GFR was calculated using the 2020 CKD-EPI equation. The estimated GFR can vary from the measured GFR by up to 30% in the absence of rapidly changing kidney function. Assessment of the estimated GFR is not appropriate when creatinine concentrations are rapidly changing. For clinical situations in which a more precise estimate of GFR is necessary, consider alternative methods of GFR estimation such as a 24-hour urine creatinine clearance. Assignment of CKD stage 1-5 for patients with an eGFR near the transition point between stages may be based on clinical assessment of muscle mass and symptoms in addition to eGFR. Blood 07/22/2023 8:20 PM EST 07/22/2023 8:27 PM EST Narrative Resulting Agency Comment Spec In Lab Lester Thompson APRN CHEMISTRY ORDERABLES [facility] [place] [address] documented in this encounter Visit Diagnoses Diagnosis Rectal prolapse Abdominal cramping Abdominal pain, unspecified site Incontinence of feces, unspecified fecal incontinence type documented in this encounter Administered Medications Inactive Administered Medications - up to 3 most recent administrations Medication Order MAR Action Action Date Dose Rate Site lactated Ringers 1,000 mL IV bolus at 2,000 mL/hr, Intravenous, ONCE, 1 dose, On Juli 07/22/23 at 2003 New Bag 07/22/2023 8:20 PM EST 2000 mL/hr documented in this encounter Active and Recently Administered Medications Times are shown in EST. Scheduled Medication Order 07/20/2023 07/21/2023 07/22/2023 lactated Ringers 1,000 mL IV bolus (COMPLETED) at 2,000 mL/hr, Intravenous, ONCE, 1 dose, On Juli 07/22/23 at 2003 2019 (New Bag - Prov ider: Genie Esparza RN)225 (Stopped - Provider: Genie Esparza RN) documented in this encounter Care Teams Litigation Associate Relationship Specialty Start Date End Date Frank Francois MD [address] [place] [id number] PCP - General Emergency Medicine 04/28/21 documented as of this encounter
--- OUTSIDE RECORDS SUMMARY | 2024-04-26 16:47 | XMS_ITS | Encounter Summary ---
Author Organization [facility] [place] [address] Care Team Providers Care Tack Puller Name Role Phone AdaEdd sanchez Primary Care Provider [phone]- [phone] Encounter Details Date Type Department Care Team (Late st Contact Info) Description 01/23/2019 Telephone [place] [id number] Lorna Lo RN Social History Tobacco Use Types Packs/Day [...] Telephone Encounter - Lorna Lo RN - 01/23/2019 10:18 AM EDT Ms. Hodge is s/p Altmeier procedure with Dr. Alfie Pitt on 01/17/19. She calls today to discuss recovery and activity. She reports doing well overall. Her bowels are erratic. She is following a bowel regimen to keep them soft and easy to pass (Miralax and stool softeners), and she reports she can tellwhen she's going to have a BM but can't get to the bathroom on time. Discussed it will take weeks before her bowels really calm down and we can tell what her new normal will be. She agrees with the importance of keeping her bowels moving as they are. She asks whether she can swim in a pool or [place],reports she typically does light paddling to stay active. Advised this is ok. Reviewed her 10-15lb lifting restriction and that she doesn't want to push/pull anything heavy either. 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 She'll call if she has any further questions or concerns. documented in this encounter Plan of Treatment Upcoming Encounters Date Type Department Care Team (Late st Contact Info) Description 04/27/2024 11:30 AM EST Office Visit Dermatology at [place] [address] [place] [phone] Robert Herron MD [address] [facility] [place] [address] Scheduled Procedures Name Priority Associated Diagnoses Date/Ti me ANTERIOR COLPORRHAPHY CYSTOC SALLY W OR WO URETHEROCELE; INC CYSTO (WRVU 10.08) Female cystocele URETHRAL SUSPENSION, SLING\F ASCIA OR SYNTHETIC (WRVU 12.13) Female cystocele documented as of this encounter Visit Diagnoses Not on filedocumented in this encounter Care Teams Tack Puller Relationship Specialty Start Date End Date Edd Caballero DO [address] [place] [address] PCP - General Family Medicine 10/24/18 04/27/21 documented as of this encounter
--- OUTSIDE RECORDS SUMMARY | 2024-04-26 16:47 | XMS_ITS | Encounter Summary ---
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 [facility] Hemoglobin 12.0 11.7 - 15.5 g/dL [facility] Hematocrit 35.0(L) 35.7 - 45.8 % [facility] Mean Cell Volume 90.2 82.6 - 94.4 fL [facility] Mean Cell Hemoglobin 30.9 27.1 - 32.0 pg [facility] Mean Cell Hemoglobin Concentration 34.3 31.7 - 35.0 g/dL [facility] Platelet 252 145 - 357 x10(3)/mc L [facility] RDW Standard Deviation 41.0 37.0 - 46.0 fL [facility] RDW coefficient of variation 12.5 11.5 - 14.1 % [facility] Mean Platelet Volume 8.8 7.6 - 12.9 fL [facility] NRBC% auto 0.0 % [facility] NRBC Absolute 0.000 0.000 - 0.000 x10(3)/mc L [facility] Blood 05/03/2023 4:35 PM EST 05/03/2023 5:00 PM EST Narrative Resulting Agency Comment Spec In Lab Frank GUERRERO HEMATOLOGY ORDERABL [place] [address] * Lipase (05/03/2023 4:35 PM EST) Lipase 35 0 - 60 unit/L [facility] Blood 05/03/2023 4:35 PM EST 05/03/2023 5:00 PM EST Narrative Resulting Agency Comment Spec In Lab Andie Kemp MD CHEMISTRY ORDERABLES [facility] [place] [address] * (ABNORMAL) Comprehensive metabolic panel (non-fasting) (05/03/2023 4:35 PM EST) Glucose 108 65 - 199 mg/dL [facility] Comment:Diabetes: >=200 mg/d L plus symptoms Blood Urea Nitrogen 12 8 - 18 mg/dL [facility] Creatinine 0.61(L) 0.70 - 1.20 mg/dL [facility] Sodium 138 135 - 145 mmol/L [facility] Potassium 3.9 3.5 - 5.0 mmol/L [facility] Comment: Please note: ??Patients with WBC >100,000 may have falsely elevated Potassium levels. ??For accurate Potassium quantification in these patients send serum separator tube (gold top) for subsequent determinations. ??Contact the Clinical Chemistry Laboratory if there are any questions. Chloride 104 98 - 107 mmol/L [facility] Carbon Dioxide 25 22 - 31 mmol/L [facility] Anion Gap 9 5 - 15 mmol/L [facility] Calcium 9.4 8.5 - 10.5 mg/dL [facility] Protein, Total 6.6 6.1 - 8.0 g/dL [facility] Albumin 3.9 3.2 - 5.2 g/dL [facility] Aspartate Aminotransferase 18 0 - 30 unit/L [facility] Alanine Aminotransferase 19 0 - 30 unit/L [facility] Alkaline Phosphatase 66 35 - 105 unit/L [facility] Bilirubin, Total 0.2 0.2 - 1.3 mg/dL [facility] Est Glomerular Filtration Rate 96 >=60 mL/min/1. 73 m?? [facility] Comment: This patient's estimated GFR was [...] and symptoms in addition to eGFR. Blood 05/03/2023 4:35 PM EST 05/03/2023 5:00 PM EST Narrative Resulting Agency Comment Spec In Lab Andie Kemp MD CHEMISTRY ORDERABLES [place] [address] documented in this encounter Visit Diagnoses Diagnosis Chronic abdominal pain Abdominal pain, unspecified site Rectal prolapse documented in this encounter Administered Medications Inactive Administered Medications - up to 3 most recent administrations Medication Order MAR Action Action Date Dose Rate Site iohexoL (Omnipaque) (350 mg/mL) solution 0-200 mL 0-200 mL, Intravenous, ONCE PRN, 1 dose, Starting on Wed05/03/23 at 1743, Until Wed05/03/23 at 1743, Per Protocol, Warning Vesicant/Irritant Medication , Radiology Contrast, Routine Given 05/03/2023 5:43 PM EST 70 mLs documented in this encounter Active and Recently Administered Medications Times are shown in EST. PRN Medication Order 05/01/2023 05/02/2023 05/03/2023 iohexoL (Omnipaque) (350 mg/mL) solution 0-200 mL (COMPLETED) 0-200 mL, Intravenous, ONCE PRN, 1 dose, Starting on Wed05/03/23 at 1743, Until Wed05/03/23 at 1743, Per Protocol, Warning Vesicant/Irritant Medication , Radiology Contrast, Routine 1743 (Given - Provid er: Florentin Galan) documented in this encounter Care Teams Hadoop Admin Relationship Specialty Start Date End Date Frank Francois MD [address] [place] [address] PCP - General Emergency Medicine 04/28/21 documented as of this encounter
--- OUTSIDE RECORDS SUMMARY | 2024-04-26 16:47 | XMS_ITS | Encounter Summary ---
Author Organization [facility] [place] [address] Care Team Providers Care Support Specialist Name Role Phone Frank Francois MD Primary Care Provider [phone] Encounter Details Date Type Department Care Team (Late st Contact Info) Description 05/03/2023 Telephone [place] [phone] Lorna Barton, RN Social History Tobacco Use Types Packs/Day Years Used Date Smoking Tobacco: Former Cigarettes 1 15 0 10/12/1968 - 10/13/1983 Smokeless Tobacco: Never Alcohol Use Standard Drinks/Week Comments Yes 1 (1 standard drink = 0.6 oz pur e alcohol) [facility] Inpatient Questions Answer Date Recorded Does Anyone [...] Telephone Encounter - Lorna Barton RN - 05/03/2023 10:15 AM EST Pt is s/p Case Date: 01/17/2019 Surgeon: Surgeon(s) and Role: * Greg Pitt MD - Primary * Alex Mariscal MD - Resident Preoperative diagnosis: RECTAL POLAPSE Postoperative diagnosis: RECTAL POLAPSE linear colonic ulcerations Procedure(s) (LRB): COLONOSCOPY; W CONTROL OF BLEEDING, ANY METHOD (N/A) @RECTOPEXY, RESEC. PROLAPSE, PERINEAL APPROACH (WRVU 18.5) (N/A) Anesthesia: General Findings: Rectal prolapse s/p perineal proctosigmoidectomy. Colonoscopy without masses, linear ulceration noted s/p clip application. She called clinic today to discuss her situation and hopefully get some ideas to help manage until her appointment. She has a follow up appointment with Dr. Pitt on 06/03. She states that her rectal prolapse is back. For the last 6 months it has been out a little bit but she could bend over and get it to go back in. The last couple of weeks it is larger and won't reduce. She states that it sticks out maybe about an inch. She notes that there is bloody mucous from her rectum. She states it is bright red blood. She wears a pad and states that she has to change it every time she goes to the bathroom (to urinate or have a BM) because it is wet through. I asked her to estimate how many times in a day that is and she states 5-8 times. She denies the toilet water turning red when she has a BM or urinates. She saw her PCP a couple of weeks ago and he did labs at that time which she reports are ok. I asked her if she was dizzy or lightheaded and she states that sometimes she is, but her equilibrium has been off since she had back surgery (C2-T1 laminectomy). She states that she works with PT/OT for her back, her hand dexterity and pelvic floor. She states that she has a lot of pain everyday (total body pains) but also has a lot of abdominal spasms. She takes morphine and prn oxycodone. She states that she takes MOM once a day which keeps her moving her bowels daily. Her stool is soft. She does not strain. I noted that Dr. Pitt mentioned she was seeing Dr. Eckert on in regards to a pessary. She states that the pessary was too uncomfortable. She saw them about a month ago and the decision was made to wait a while for now. Pt states she has difficulty with urinating, it takesa while to be able to pass urine. Which means she is sitting on the toilet for longer periods of time. Plan: I explained that making sure her stool is soft and not straining to have a BM are both important things to make happen with a rectal prolapse, which it sounds like she has accomplished. The fact that she has to sit for long times on the toilet to urinate is not the best. I let her know that if her lighteadedness worsens, or if she notices an increase in blood she should go to the ED for asse ssment. In the meantime, I will see if she can be put on a cancellation list for a sooner appointment and I will run this all by Dr. Pitt to get his opinion. Pt verbalizes her understanding and agrees with the plan. documented in this encounter Plan of Treatment Upcoming Encounters Date Type Department Care Team (Late st Contact Info) Description 04/27/2024 11:30 AM EST Office Visit Dermatology at [address] [phone] Robert Herron MD [address] [facility] [place] [address] Scheduled Procedures Name Priority Associated Diagnoses Date/Ti me ANTERIOR COLPORRHAPHY CYSTOC SALLY W OR WO URETHEROCELE; INC CYSTO (WRVU 10.08) Female cystocele URETHRAL SUSPENSION, SLING\F ASCIA OR SYNTHETIC (WRVU 12.13) Female cystocele documented as of this encounter Visit Diagnoses Not on filedocumented in this encounter Care Teams Support Specialist Relationship Specialty Start Date End Date Frank Francois MD [address] [place] [address] PCP - General Emergency Medicine 04/28/21 documented as of this encounter
--- OUTSIDE RECORDS SUMMARY | 2024-04-26 16:47 | XMS_ITS | Encounter Summary ---
Author Organization [facility] [place] [address] Care Team Providers Care Pad Cutter Name Role Phone Frank Francois MD Primary Care Provider [phone] Encounter Details Date Type Department Care Team (Late st Contact Info) Description 10/07/2021 Telephone Dermatology at [address] [phone] Lisseth Oconnor LPN Social History Tobacco Use Types Packs/Day [...] encounter Miscellaneous Notes * Telephone Encounter - Lisseth Oconnor LPN - 10/07/2021 8:12 AM EDT 09/26/21 Shave left posterior thigh Dx: Wart No further treatment necessary, return to clinic 05/04/22 Reviewed biopsy results and Dr. Shah recommendation with patient. She voiced understanding. documented in this encounter Plan of Treatment Upcoming Encounters Date Type Department Care Team (Late Contact Info) Description 04/27/2024 11:30 AM EST Office Visit Dermatology at [address] [phone] Robert Herron MD [address] [facility] [address] [facility] D[facility] [place], [place] [id number] Scheduled Procedures Name Priority Associated Diagnoses Date/Ti me ANTERIOR COLPORRHAPHY CYSTOC SALLY W OR WO URETHEROCELE; INC CYSTO (WRVU 10.08) Female cystocele URETHRAL SUSPENSION, SLING\F ASCIA OR SYNTHETIC (WRVU 12.13) Female cystocele documented as of this encounter Visit Diagnoses Not on filedocumented in this encounter Care Teams Pad Cutter Relationship Specialty Start Date End Date Frank Francois MD [address] [place] [address] PCP - General Emergency Medicine 04/28/21 documented as of this encounter
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
--- OUTSIDE RECORDS SUMMARY | 2024-04-26 16:47 | XMS_ITS | Encounter Summary ---
[place] [address] Care Team Providers Care Investment Officer Name Role Phone Frank Francois MD Primary Care Provider [phone] Reason for Referral * Consultation (Routine) - Closed Specialty Diagnoses / Procedures Referred By Contac t Referred To Contact General Surgery Diagnoses Cystocele with incomplete uterovaginal prolapse Frank Francois MD [address] [place] [address] [facility] [address] [place] [id number] Referral ID Status Reason Start Date Expiration Date V isits Requested Visits Authorized [id number] Closed Consult, Test & Treat PCP Updated and/or Approved 05/01/2023 04/30/2024 12 12 Encounter Details Date Type Department Care Team (Latest Contact Info) Description 05/01/2023 Transcribe Orders eDH Incoming Referrals [phone] Frank Francois MD [address] [place] [address] Cystocele with incomplete uterovaginal prolapse Social History Tobacco Use Types Packs/Day [...] 11:30 AM EST Office Visit Dermatology at [place] [address] [place] [address] Robert Herron MD [address], [place] [address] Scheduled Procedures Name Priority Associated Diagnoses Date/Ti me ANTERIOR COLPORRHAPHY CYSTOC SALLY W OR WO URETHEROCELE; INC CYSTO (WRVU 10.08) Female cystocele URETHRAL SUSPENSION, SLING\F ASCIA OR SYNTHETIC (WRVU 12.13) Female cystocele Scheduled Referrals Name Type Priority Associated Diagnoses Orde r Schedule Referral to General Surgery Outpatient Referral Routine Cystocele with incomplete uterovaginal prolapse Ordered: 05/01/2023 documented as of this encounter Visit Diagnoses Diagnosis Cystocele with incomplete uterovaginal prolapse documented in this encounter Care Teams Investment Officer Relationship Specialty Start Date End Date Frank Francois MD [address] [place] [id number] PCP - General Emergency Medicine 04/28/21 documented as of this encounter
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
--- OUTSIDE RECORDS SUMMARY | 2024-04-26 16:47 | XMS_ITS | Encounter Summary ---
Author Organization [facility] [place] [address] Care Team Providers Care Plaque Maker Name Role Phone Edd Caballero DO Primary Care Provider [phone] Encounter Details Date Type Department Care Team (Late st Contact Info) Description 06/10/2020 Ancillary Procedure Radiology Library at [facility] [place] [address] Edd Caballero DO [address] [place] [address] Social History Tobacco Use Types Packs/Day Years [...] 11:30 AM EST Office Visit Dermatology at [place] [address] [facility] [place] [phone] Robert Herron MD [address] [facility] [place] [address] Scheduled Procedures Name Priority Associated Diagnoses Date/Ti me ANTERIOR COLPORRHAPHY CYSTOC SALLY W OR WO URETHEROCELE; INC CYSTO (WRVU 10.08) Female cystocele URETHRAL SUSPENSION, SLING\F ASCIA OR SYNTHETIC (WRVU 12.13) Female cystocele documented as of this encounter Procedures Procedure Name Priority Date/Time Associated Diagnosis Comments FILM LIBRARY STORAGE ONLY CT SPINE Routine 06/10/2020 12:00 AM EST documented in this encounter Results * Film Library- Storage Only CT Spine (06/10/2020 12:00 AM EST) Narrative [facility] - 06/12/2020 11:23 AM EST This exam is auto-finalizing. It's purpose is for storage only. Edd Caballero DO G FILM LIBRARY O RDERABLES [place], [place] documented in this encounter Visit Diagnoses Not on filedocumented in this encounter Care Teams Plaque Maker Relationship Specialty Start Date End Date Edd Caballero DO [address] [place] [address] PCP - General Family Medicine 10/24/18 04/27/21 documented as of this encounter
--- OUTSIDE RECORDS SUMMARY | 2024-04-26 16:48 | XMS_ITS | Encounter Summary ---
Author Organization [facility]ly [facility] [place] [address] Care Team Providers Care Coal Crusher Operator Name Role Phone Ramona Hercules CAMERON Primary Care Provider Encounter Details Date Type Department Care Team (Late st Contact Info) Description 11/04/2017 Telephone Dermatology at [address] [place] [address] Shona Otto LPN Social History Tobacco Use Types Packs/Day Years Used Date Smoking Tobacco: Former Smokeless Tobacco: Never Sex and Gender Information Value Date Recorded Sex Assigned at Not on file Gender Identity Not on file Sexual Orientation Not on file documented as of this encounter Miscellaneous Notes * Telephone Encounter - Shona Otto LPN - 11/04/2017 11:35 AM EDT Returned call to patient to discuss plan per Dr. Herron Plan: Continue to use TAC 0.1 % ointment twice daily, the lip will begin to be less painful as it heals. Okay to use Vaseline on lips to keep moist. Call to make follow up appointment before restarting Imiquimod. Dr. Herron would like to recheck lower lip Mary Ellen voiced understanding and agrees with plan, knows to contact clinic with questions/concerns * Telephone Encounter - Shona Otto LPN - 11/04/2017 10:53 AM EDT Patient reports, my lip was painful all night and I did not get any relief from my first application of TAC ointment last night. If I continue to use the ointment will the pain begin to subside? Call cell # [phone] Herron for review and plan documented in this encounter Plan of Treatment Upcoming Encounters Date Type Department Care Team (Late st Contact Info) Description 04/27/2024 11:30 AM EST Office Visit Dermatology at [place] [address] [facility] [place] [address] Robert Herron MD [address], [place] A D[facility]MATOLOGY [place], [place] [id number] Scheduled Procedures Name Priority Associated Diagnoses Date/Ti me ANTERIOR COLPORRHAPHY CYSTOC SALLY W OR WO URETHEROCELE; INC CYSTO (WRVU 10.08) Female cystocele URETHRAL SUSPENSION, SLING\F ASCIA OR SYNTHETIC (WRVU 12.13) Female cystocele documented as of this encounter Visit Diagnoses Not on filedocumented in this encounter Care Teams Coal Crusher Operator Relationship Specialty Start Date End Date Ramona Hercules APRN [address] [place] [address] PCP - General Family Medicine 11/10/16 04/17/18 documented as of this encounter
--- OUTSIDE RECORDS SUMMARY | 2024-04-26 16:48 | XMS_ITS | Encounter Summary ---
Author Organization [facility] [place] [address] Care Team Providers Care Procurement Professional Name Role Phone Ramona Hercules APRN Primary Care Provider Reason for Visit * Reason Comments Skin Check * Consultation (Routine) - Specialty Diagnoses / Procedures Referred By Satinder connelly Referred To Contact Dermatology Diagnoses Disorder of the skin and subcutaneous tissue, unspecified Skin Lesion Procedures Skin Lesion Ramona Hercules APRN [address] [place] [address] Robert Herron MD [address] [place] [address], [place] [address] Referral ID Status Reason Start Date Expiration Date V isits Requested Visits Authorized [id number] 09/30/2016 09/30/2017 1 1 Encounter Details Date Type Department Care Team (Late st Contact Info) Description 11/10/2016 8:00 AM EDT Office Visit Dermatology at [address] [address] Robert Herron MD [address] [place] [address], [place] Valdez DERMATOLOGY [place], [place] [id number] Actinic cheilitis; AK (actinic keratosis) Social History Tobacco Use Types Packs/Day Years Used Date Smoking Tobacco: Former Sex and Gender Information Value Date Recorded Sex Assigned at Not on file Gender Identity Not on file Sexual Orientation Not on file documented as of this encounter Progress Notes * Robert Herron MD - 11/10/2016 8:00 AM EDT PROBLEM: 1. Repeat skin checkup. 2. 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 Marysol follows up, was last being seen here in 2013. She is for repeat check. She is concerned about a lesion on her lip. Physical examination reveals a pleasant 61-year-old woman who has a 1 x 2.5 cm patch of actinic cheilitis, a white patch on the lower central lip. She has an actinic on the right supraclavicular area. She has an irritated seborrheic keratosis on her back. Examination of the face, the chest, the back, hands, and forearms is otherwise benign. A/P: Actinic keratoses/actinic cheilitis lip. a. LN2 x2 applied to lip site and to right supraclavicular chest site. b. Recommend I see her again in 6 weeks to assess completeness and resolution of lip site. c. Continue sun avoidance precautions. d. Recommend I see her again in another 3 years for repeat check, sooner if any new skin lesions of concern. Cc: Ramona Hercules APRN documented in this encounter Plan of Treatment Upcoming Encounters Date Type Department Care Team (Late st Contact Info) Description 04/27/2024 11:30 AM EST Office Visit Dermatology at [place] [address] [facility] [place] [address] Robert Herron MD [address] [facility], [place] [address] Scheduled Procedures Name Priority Associated Diagnoses Date/Ti me ANTERIOR COLPORRHAPHY CYSTOC SALLY W OR WO URETHEROCELE; INC CYSTO (WRVU 10.08) Female cystocele URETHRAL SUSPENSION, SLING\F ASCIA OR SYNTHETIC (WRVU 12.13) Female cystocele documented as of this encounter Visit Diagnoses Diagnosis Actinic cheilitis Acute dermatitis due to solar radiation AK (actinic keratosis) Actinic keratosis documented in this encounter Care Teams Procurement Professional Relationship Specialty Start Date End Date Ramona Hercules, GOLF MANAGER [address] [place] [address] PCP - General Family Medicine 11/10/16 04/17/18 documented as of this encounter
--- OUTSIDE RECORDS SUMMARY | 2024-04-26 16:48 | XMS_ITS | Encounter Summary ---
Author Organization [facility] [place] [address] Care Team Providers Care Marine Electrician Name Role Phone Abby Chang APRN Primary Care Provider + Encounter Details Date Type Department Care Team (Late st Contact Info) Description 02/07/2015 Telephone [place] [address] Ashish Gray MD [facility] [place] [address] Social History Tobacco Use Types Packs/Day Years Used Date Smoking Tobacco: Former Sex and Gender Information Value Date Recorded Sex Assigned at Not on file Gender Identity Not on file Sexual Orientation Not on file documented as of this encounter Miscellaneous Notes * Telephone Encounter - Ashish Gray MD - 02/07/2015 3:46 PM EDT ID Attending Pt called to report severe N/V and inability to eat essentially since our last visit when I changedher abx. Not sure why she didn't notify me of these sx, which in retrospect she says were not really improved by changing moxifloxacin to levofloxacin. This leaves two major causes of her N/V: the other antibiotic, linezolid, or a cause entirely unrelated to antibiotic usage. We are close enough to the planned end of therapy, and she is miserable enough, that the right nextstep is to stop all antibiotics and observe. If she gets substantially better, then we'll blame theantibiotics. If not then investigations into non-ID or [id number]-[id number] causes should begun. Speaking of, the patient attempted to do her best to describe the workup she received last night inthe ED, even trying to characterize lab values adjectivally but without attached numerical content.I clarified that I would get those records in order to have usable information and would let her know if I see findings of immediate concern. She did mention her red blood cells were low which makes me wonder if perhaps she was having toxicity from linezolid, which would have been seen had she followed through with weekly labs sent to me as advised and ordered. That too moves in the direction of stopping abx, so plans are aligned. Will see pt Wednesday, asked her to please notify me if new issues arise in meantime. documented in this encounter Plan of Treatment Upcoming Encounters Date Type Department Care Team (Late st Contact Info) Description 04/27/2024 11:30 AM EST Office Visit Dermatology at [place] [address] [place] [address] Robert Herron MD [address] [facility], [place] [address] Scheduled Procedures Name Priority Associated Diagnoses Date/Ti me ANTERIOR COLPORRHAPHY CYSTOC SALLY W OR WO URETHEROCELE; INC CYSTO (WRVU 10.08) Female cystocele URETHRAL SUSPENSION, SLING\F ASCIA OR SYNTHETIC (WRVU 12.13) Female cystocele documented as of this encounter Visit Diagnoses Not on filedocumented in this encounter Care Teams Marine Electrician Relationship Specialty Start Date End Date Abby Chang APRN PCP - General 05/19/13 02/20/15 documented as of this encounter
--- OUTSIDE RECORDS SUMMARY | 2024-04-26 16:48 | XMS_ITS | Encounter Summary ---
Author Organization [facility] [place] [address] Care Team Providers Care Junior Graphic Designer Name Role Phone AdaEdd sanchez Iain DON Primary Care Provider [phone] Encounter Details Date Type Department Care Team (Late Contact Info) Description 11/21/2018 12:30 PM EDT [place] [phone] Social History Tobacco Use Types Packs/Day Years [...] 11:30 AM EST Office Visit Dermatology at [place] [address] [address] [place] [address] Robert Herron MD [address], [place] [address] Scheduled Procedures Name Priority Associated Diagnoses Date/Ti me ANTERIOR COLPORRHAPHY CYSTOC SALLY W OR WO URETHEROCELE; INC CYSTO (WRVU 10.08) Female cystocele URETHRAL SUSPENSION, SLING\F ASCIA OR SYNTHETIC (WRVU 12.13) Female cystocele documented as of this encounter Visit Diagnoses Not on filedocumented in this encounter Care Teams Junior Graphic Designer Relationship Specialty Start Date End Date Edd Caballero DO [address] [id number] PCP - General Family Medicine 10/24/18 04/27/21 documented as of this encounter
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
--- OUTSIDE RECORDS SUMMARY | 2024-04-26 16:48 | XMS_ITS | Encounter Summary ---
Author Organization [facility] [place] [address] Care Team Providers Care Foreign Exchange Services Manager Name Role Phone Abby Chang APRN Primary Care Provider + Encounter Details Date Type Department Care Team (Late st Contact Info) Description 02/08/2015 External Results Infectious Disease at [facility] [place] [address] Ashish Gray MD [facility] [place] [address] Social History Tobacco Use Types Packs/Day Years Used Date Smoking Tobacco: Former Sex and Gender Information Value Date Recorded Sex Assigned at Not on file Gender Identity Not on file Sexual Orientation Not on file documented as of this encounter Plan of Treatment Upcoming Encounters Date Type Department Care Team (Late st Contact Info) Description 04/27/2024 11:30 AM EST Office Visit Dermatology at [address] [place] [address] Robert Herron MD [address], [place] [address] Scheduled Procedures Name Priority Associated Diagnoses Date/Ti me ANTERIOR COLPORRHAPHY CYSTOC SALLY W OR WO URETHEROCELE; INC CYSTO (WRVU 10.08) Female cystocele URETHRAL SUSPENSION, SLING\F ASCIA OR SYNTHETIC (WRVU 12.13) Female cystocele documented as of this encounter Procedures Procedure Name Priority Date/Time Associated Diagnosis Comments EXTERNAL LAB CBC CMP THYROID RESULTS PANEL Routine 02/06/2015 documented in this encounter Results * (ABNORMAL) CBC / CMP / Thyroid External Results (02/06/2015) White Blood Cell 2.5(Exter nal Lab) Hemoglobin 7.4(A) 12.0 - 16.0 Hematocrit 22.5(A) 36.0 - 46.0 Mean Cell Volume 85.9 82.0 - 108.0 Platelet 210 Sodium 137(Exter nal Lab) 137 - 147 Potassium 4.1 3.4 - 5.3 Chloride 102 99 - 108 Carbon Dioxide 29 22 - 29 Blood Urea Nitrogen 19 Creatinine 0.58 Est Glomerular Filtration Rate >60 Glucose 98 Calcium 9.1 8.7 - 10.7 Protein, Total 6.7 6.4 - 8.2 Albumin 3.9 3.5 - 5.0 Bilirubin, Total 0.3 0.1 - 1.4 Alkaline Phosphatase 78 Aspartate Aminotransferase 14 13 - 35 Alanine Aminotransferase 29 7 - 35 02/06/2015 Historical Provider EXTERNAL LAB CLARI GUTHRIE documented in this encounter Visit Diagnoses Not on filedocumented in this encounter Care Teams Foreign Exchange Services Manager Relationship Specialty Start Date End Date Abby Chang APRN PCP - General 05/19/13 02/20/15 documented as of this encounter
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
--- OUTSIDE RECORDS SUMMARY | 2024-04-26 16:48 | XMS_ITS | Encounter Summary ---
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 Procedures Name Priority Associated Diagnoses Date/Ti me ANTERIOR COLPORRHAPHY CYSTOC SALLY W OR WO URETHEROCELE; INC CYSTO (WRVU 10.08) Female cystocele URETHRAL SUSPENSION, SLING\F ASCIA OR SYNTHETIC (WRVU 12.13) Female cystocele documented as of this encounter Results * EKG 12 Lead (11/21/2018 1:00 PM EDT) Pathologist [facility] Ventricular rate 51 BPM MUSE SYSTEM Atrial Rate 51 BPM MUSE SYSTEM P-R Interval 136 ms MUSE SYSTEM QRS Duration 72 ms MUSE SYSTEM Q-T Interval 432 ms MUSE SYSTEM QTC Calculated (Bezet) 398 ms MUSE SYSTEM Calculated P [place] 33 degrees MUSE SYSTEM Calculated R [place] 57 degrees MUSE SYSTEM Calculated T [place] 33 degrees MUSE SYSTEM INTERPRETATION Sinus bradycardia Otherwise normal ECG No previous ECGs available Confirmed by MD Chance, Alvaro ([id number]) on 11/21/2018 1:20:13 PM MUSE SYSTEM 11/21/2018 1:00 PM EDT 11/21/2018 1:20 PM EDT Greg Pitt MD ECG ORDERABLES MUSE SYSTEM * Hepatic Function Panel (11/21/2018 12:56 PM EDT) Pathologist [facility] Protein, Total 7.8 6.1 - 8.0 gm/dL [facility] Albumin 4.5 3.2 - 5.2 gm/dL [facility] Aspartate Aminotransferase 29 0 - 30 unit/L [facility] Alanine Aminotransferase 22 0 - 30 unit/L [facility] Alkaline Phosphatase 58 40 - 104 unit/L [facility] Bilirubin, Total 0.2 0.2 - 1.3 mg/dL [facility] Bilirubin, Direct 0.1 0.0 - 0.3 mg/dL [facility] Blood specimen (specimen) 11/21/2018 12:56 PM EDT 11/21/2018 1:21 PM EDT Narrative Resulting Agency Comment Spec In Lab Greg Pitt MD CHEMISTRY ORDERABLES [facility] [place] [address] * (ABNORMAL) Basic Metabolic Panel (non-fasting) (11/21/2018 12:56 PM EDT) Glucose 88 65 - 199 mg/dL [facility] Comment:Diabetes: >=200 mg/d L plus symptoms Blood Urea Nitrogen 13 8 - 18 mg/dL [facility] Creatinine 0.71 0.70 - 1.20 mg/dL [facility] Sodium 142 135 - 145 mmol/L [facility] Potassium 5.1(H) 3.5 - 5.0 mmol/L [facility] Comment: Please note: ??Patients with WBC >100,000 may have falsely elevated Potassium levels. ??For accurate Potassium quantification in these patients send serum separator tube (gold top) for subsequent determinations. ??Contact the Clinical Chemistry Laboratory if there are any questions. Chloride 104 98 - 107 mmol/L [facility] Carbon Dioxide 24 22 - 31 mmol/L [facility] Anion Gap 14 5 - 15 mmol/L [facility] Calcium 10.0 8.5 - 10.5 mg/dL [facility] Est Glomerular Filtration Rate 89 >=60 mL/min/1. 73 m?? [facility] Comment: The eGFR was calculated using the CKD-EPI equation. As with all creatinine based estimates of kidney function, eGFR values calculated with the CKD-EPI equation are not accurate in patients with acute kidney failure, extremes of body mass or the acutely ill. http://[email or web address] eGFR 104 >=60 mL/min/1. 73 m?? [facility] Comment: The eGFR was calculated using the CKD-EPI equation. As with all creatinine based estimates of kidney function, eGFR values calculated with the CKD-EPI equation are not accurate in patients with acute kidney failure, extremes of body mass or the acutely ill. http://[email or web address] Blood specimen (specimen) 11/21/2018 12:56 PM EDT 11/21/2018 1:21 PM EDT Narrative Resulting Agency Comment Spec In Lab Greg Pitt MD CHEMISTRY ORDERABLES [facility] [place] [address] documented in this encounter Visit Diagnoses Diagnosis Rectal prolapse- Primary documented in this encounter Care Teams Ultrasound Applications Specialist Relationship Specialty Start Date End Date Edd Caballero DO [address] [place] [address] PCP - General Family Medicine 10/24/18 04/27/21 documented as of this encounter
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
--- OUTSIDE RECORDS SUMMARY | 2024-04-26 16:48 | XMS_ITS | Encounter Summary ---
Author Organization [facility] [place] [address] Care Team Providers Care Follow Up Rep Name Role Phone AdaEdd sanchez Primary Care Provider [phone] Encounter Details Date Type Department Care Team (Late st Contact Info) Description 11/21/2018 12:00 PM EDT Clinical [place] [phone] Rectal prolapse Social History Tobacco Use Types [...] as of this encounter Progress Notes * Roxana Grover RN - 11/21/2018 12:00 PM EDT PAT questionnaire reviewed with patient while in Pre Admission testing. Patient states has instructions from surgeons office regarding preoperative bowel prep. Pre-operative teaching booklet reviewed. Patient verbalizes a good understanding of all information. Has clearfast PLAN Testing: T&S,lab,EKG Special medication instructions: Procedure date: 12-16. Pt shared with anesth not to pt IV/Lab in right arm( muscle loss) documented in this encounter Plan of Treatment Upcoming Encounters Date Type Department Care Team (Late st Contact Info) Description 04/27/2024 11:30 AM EST Office Visit Dermatology at [place] [address] [facility] [place] [address] Robert Herron MD [address] [facility], [place] [address] Scheduled Procedures Name Priority Associated Diagnoses Date/Ti me ANTERIOR COLPORRHAPHY CYSTOC SALLY W OR WO URETHEROCELE; INC CYSTO (WRVU 10.08) Female cystocele URETHRAL SUSPENSION, SLING\F ASCIA OR SYNTHETIC (WRVU 12.13) Female cystocele documented as of this encounter Procedures Procedure Name Priority Date/Time Associated Diagnosis Comments EKG 12-LEAD Routine 11/21/2018 1:00 PM EDT Rectal prolapse documented in this encounter Results * EKG 12 Lead (11/21/2018 1:00 PM EDT) Ventricular rate 51 BPM MUSE SYSTEM Atrial Rate 51 BPM MUSE SYSTEM P-R Interval 136 ms MUSE SYSTEM QRS Duration 72 ms MUSE SYSTEM Q-T Interval 432 ms MUSE SYSTEM QTC Calculated (Bezet) 398 ms MUSE SYSTEM Calculated P [place] 33 degrees MUSE SYSTEM Calculated R [place] 57 degrees MUSE SYSTEM Calculated T [place] 33 degrees MUSE SYSTEM INTERPRETATION Sinus bradycardia Otherwise normal ECG No previous ECGs available Confirmed by MD Chance, Alvaro ([id number]) on 11/21/2018 1:20:13 PM MUSE SYSTEM 11/21/2018 1:00 PM EDT 11/21/2018 1:20 PM EDT Greg Pitt MD ECG ORDERABLES MUSE SYSTEM documented in this encounter Visit Diagnoses Diagnosis Rectal prolapse documented in this encounter Care Teams Follow Up Rep Relationship Specialty Start Date End Date Edd Caballero DO [address] [place] [address] PCP - General Family Medicine 10/24/18 04/27/21 documented as of this encounter
--- OUTSIDE RECORDS SUMMARY | 2024-04-26 16:48 | XMS_ITS | Encounter Summary ---
[place] [address] Care Team Providers Care Actor Understudy Name Role Phone Jeannie Mantilla MD Primary Care Provider [phone] Reason for Visit * Reason Comments Other Encounter Details Date Type Department Care Team (Late st Contact Info) Description 03/06/2015 [place] [phone] Balta Benavides RN Social History Tobacco Use Types Packs/Day Years Used Date Smoking Tobacco: Former Sex and Gender Information Value Date Recorded Sex Assigned at Not on file Gender Identity Not on file Sexual Orientation Not on file documented as of this encounter Miscellaneous Notes * Telephone Encounter - Balta Benavides RN - 03/07/2015 8:22 AM EDT I have spoken with Mary Ellen and discussed MRI results and recommendations from Dr. Heath. Mary Ellen willcontact Orthopedic Surgeon Dr. Goldberg for Hip Replacement options. * Telephone Encounter - Balta Benavides RN - 03/07/2015 8:21 AM EDT ----- Message from Ivanna Condon sent at 03/06/2015 4:46 PM EDT ----- ----- Message ----- From: Eleazar Heath MD Sent: 03/05/2015 3:20 PM To: [facility] [employer] Developer Santiago Spencer and Mo, I tried calling Mary Ellen, but was unable to reach her. I reviewed her MRI with the [facility] radiologist. Her MRI showed quite a bit of inflammation and the possibility of crystal disease (though none was ever seen when fluid was drained), and it also showed quite a bit of joint damage. But, I think it still might be best for her to see her orthopedic surgeon for his evaluation of a hip replacement. With Eleazar mckeon * Telephone Encounter - Balta Benavides RN - 03/06/2015 4:28 PM EDT Mary Ellen calls RTC to Dr. Heath for results. documented in this encounter Plan of Treatment Upcoming Encounters Date Type Department Care Team (Late st Contact Info) Description 04/27/2024 11:30 AM EST Office Visit Dermatology at [place] [address] [place] [address] Robert Herron MD [address], [place] [address] Scheduled Procedures Name Priority Associated Diagnoses Date/Ti me ANTERIOR COLPORRHAPHY CYSTOC SALLY W OR WO URETHEROCELE; INC CYSTO (WRVU 10.08) Female cystocele URETHRAL SUSPENSION, SLING\F ASCIA OR SYNTHETIC (WRVU 12.13) Female cystocele documented as of this encounter Visit Diagnoses Not on filedocumented in this encounter Care Teams Actor Understudy Relationship Specialty Start Date End Date Jeannie Mantilla MD [facility] [address] [place] [place] [address] PCP - General 02/21/15 11/09/16 documented as of this encounter
--- OUTSIDE RECORDS SUMMARY | 2024-04-26 16:48 | XMS_ITS | Encounter Summary ---
Author [place] [address] Care Team Providers Care Drafter Civil (Cad) Name Role Phone Abby Chang AUTO GLASS TECHNICIAN Primary Care Provider + Encounter Details Date Type Department Care Team (Late st Contact Info) Description 09/17/2014 [place] [phone] Abby Chang, AUTO GLASS TECHNICIAN [address] [place] [address] Social History Tobacco Use Types Packs/Day Years Used Date Smoking Tobacco: Unknown Sex and Gender Information Value Date Recorded Sex Assigned at Not on file Gender Identity Not on file Sexual Orientation Not on file documented as of this encounter Plan of Treatment Upcoming Encounters Date Type Department Care Team (Late st Contact Info) Description 04/27/2024 11:30 AM EST Office Visit Dermatology at [address] [place] [phone] Robert Herron MD [address], [place] A DERMATOLOGY [place], [place] [id number] Scheduled Procedures Name Priority Associated Diagnoses Date/Ti me ANTERIOR COLPORRHAPHY CYSTOC SALLY W OR WO URETHEROCELE; INC CYSTO (WRVU 10.08) Female cystocele URETHRAL SUSPENSION, SLING\F ASCIA OR SYNTHETIC (WRVU 12.13) Female cystocele documented as of this encounter Procedures Procedure Name Priority Date/Time Associated Diagnosis Comments FILM LIBRARY STORAGE ONLY DX HIP Routine 09/17/2014 3:28 PM EDT documented in this encounter Results * Film Library- Storage only DX Hip (09/17/2014 3:28 PM EDT) Anatomical Region Laterality Modality Other 09/17/2014 3:28 PM EDT Narrative 12/03/2014 3:29 PM EDT This is a Non-reportable exam Procedure Note BRENNEN, UNSIGNED REPORT - 12/03/2014 This is a Non-reportable exam Abby Chang APRN IMIain FILM LIBRARY ORDERABLES documented in this encounter Visit Diagnoses Not on filedocumented in this encounter Care Teams Drafter Civil (Cad) Relationship Specialty Start Date End Date Abby Chang APRN PCP - General 05/19/13 02/20/15 documented as of this encounter
--- OUTSIDE RECORDS SUMMARY | 2024-04-26 16:48 | XMS_ITS | Encounter Summary ---
Author Organization [facility] [place] [address] Care Team Providers Care Farmworker [employer] Name Role Phone Israel Campuzano APRN Primary Care Provider + Encounter Details Date Type Department Care Team (Latest Contact Info) Description 12/12/2014 11:51 AM EDT - 12/12/2014 11:59 PM EDT Hospital [place] [phone] CLINIC, Ashish Donahue MD [facility] [place] [address] Osteomyelitis Discharge Disposition: Home Social History Tobacco Use Types Packs/Day Years Used Date Smoking Tobacco: Former Sex and Gender Information Value Date Recorded Sex Assigned at Not on file Gender Identity Not on file Sexual Orientation Not on file documented as of this encounter Last Filed Vital Signs Vital Sign Reading Time Taken Comments Blood Pressure 111/61 12/12/2014 2:58 PM EDT Pulse 64 12/12/2014 2:58 PM EDT Temperature 36.2 ??C (97.2 ??F) 12/12/2014 2:25 PM ED T Respiratory Rate 18 12/12/2014 2:58 PM EDT Oxygen Saturation 99% 12/12/2014 2:58 PM EDT Inhaled Oxygen Concentration - - Weight - - Height - - Body Mass Index - - documented in this encounter Discharge Instructions * Discharge Instructions* Mendez Morse RN - 12/12/2014 2:37 PM EDT [facility] Vascular and Interventional Radiology Biopsy Discharge Instructions ??? Bone biopsy: call your doctor immediately if you develop a sudden onset of weakness, increased pain or swelling at the biopsy site or heavy bleeding at the biopsy site. Activity And Diet: ??? Go home and rest quietly for the remainder of the day. You may resume your normal activities tomorrow. ??? Resume your usual diet after the procedure. ??? Do not drive, sign any important/legal documents, or make any important decisions for 24 hours following sedation medications. When to call your healthcare provider: ??? If you see any redness, swelling or drainage at the biopsy site. ??? If you develop chills. ??? If you have a fever greater than or equal to 101 degrees Fahrenheit. ??? If you develop pain around the biopsy site. Bandage: ??? Check the dressing/bandaid throughout the day for an increase in drainage. Keep the biopsy sitedry for 24 hours. Replace the bandaid as needed. You may shower 24 hours after the biopsy. Medication: ??? DO NOT take aspirin-containing products, ibuprofen, or blood-thinning medication for the next 24 hours unless your doctor says you may do so. ??? Generally you may use acetaminophen as needed for discomfort unless you have liver disease and are instructed not to take acetaminophen. Biopsy Results ??? The results of your biopsy should be available within 5 business days and will be reported to you by your primary lawn care technician or the clinician who ordered the biopsy. Please do not call us forresults as we will not have them. ??? If you have not been contacted by your clinician within 5 business days you should call that office for further information. When to call the Interventional Radiology Department: Please call with any questions or concerns. If it is during regular office hours, please call [phone]. If it is after regular office hours, or on weekends or holidays, please call [phone] and ask to speak to the Gummed Tape Press Operator neonatal social worker for Interventional Radiology. You have received medication during your procedure to help lesson anxiety and keep you comfortable.These medications affect judgement and reaction time. We recommend that you do not drive, operate equipment, sign any important documents, or smoke unattended for 24 hours following your procedure. Because of the sedation, be careful on stairs, as you may be unsteady on your feet. You may resume your regular diet as tolerated. IV site -- slight redness, or tenderness is normal, you can use a warm compress. If tenderness and redness increases or foul drainage occurs, please contact your M. D. Revised 06/26/11 documented in this encounter Medications at Time of Discharge Medication Sig Dispensed Refills Start Date End Date fish oil-omega-3 fatty acids 1,000 mg Capsule [...] by mouth 2 times daily. Taking PRN HYDROcodone-acetaminophen (NORCO) 10-325 mg Tablet Every 4-6 hours 0 11/09/2014 11/21/2018 potassium chloride (MICRO-K) 10 mEq CR capsule 04/02/2005 10/25/2017 diclofenac-misoprostol (ARTHROTEC 50) 50-200 mg-mcg per tablet 04/02/2005 05/23/2019 documented as of this encounter Progress Notes * Monica Joaquin RN - 12/13/2014 10:22 AM EDT Interventional and Vascular Radiology Post-Procedure Call Name: Mary Ellen Hodge Age: 59 y.o. Sex; Female Date of : 1955 (home) No relevant phone numbers on file. PCP ISRAEL CAMPUZANO APRN [phone] Date/Time of call: December 13, 2014/10:22 AM Procedure: CT Guided Bone Biopsy Procedural Provider: Dr. Fernandez Contact with patient or if not, with whom? patient Message left on answering machine? Provider notified via phone or email if unable to contact pt: N/A Are you having pain related to your procedure now? Little tender Are you having any swelling or bleeding from the site? No Are there any improvement in your symptoms? NA Are you having any other problems related to your procedure? No Comments: Did you understand the discharge instructions given and do you have any questions? Yes Comments: Do you have any comments about your Nurse or Provider or the care you received? It was wonderful treatment. Nurse Comments: * Jose Fernandez MD - 12/12/2014 1:26 PM EDT Interventional Radiology - Pre-Procedure Note Problem List: There are no hospital problems to display for this patient. Active Non-Hospital Problems Diagnosis ??? Solar lentigo ID: 59 y.o. 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 No past surgical history on file. Prior To Admission Medications: (Not in a hospital admission) Allergies: No Known Allergies Family History: No family history on file. Social History and Habits: History Social History ??? Marital Status: Single Spouse Name: N/A Number of Children: N/A ??? Years of Education: N/A Occupational History ??? Not on file. Social History Main Topics ??? Smoking status: Former Smoker ??? Smokeless tobacco: Not on file ??? Alcohol Use: Not on file ??? Drug Use: Not on file ??? Sexual Activity: Not on file Other Topics Concern ??? Not on file Social History Narrative Immunizations: There is no immunization history on file for this patient. Physical Exam: Last Set of Vitals: Last value Range last 24 hrs Temperature Temp: 36.7 ??C (98.1 ??F) Temp: [36.7 ??C (98.1 ??F)] Heart Rate Heart Rate: 64 Heart Rate: [64] Blood Pressure BP: 106/60 mmHg BP: (106)/(60) Respiratory Rate Resp: 18 Resp: [18] SpO2 SpO2: 100 % SpO2: [100 %] Physical Exam: Heart:sinus Lungs:clear to auscultation Laboratory (Last 24 Hours): Lab Results Component Value Date WBC 5.6 11/19/2014 HCT 35.1 11/19/2014 BUN 20* 11/19/2014 Radiology: destructive arthritis with capsular thickening and calcification ASA Classification ___ Class 1 Healthy patient, no medical problems x Class 2 Mild systemic disease ___ Class 3 Severe systemic disease, but not incapacitating ___ Class 4 Severe systemic disease that is a constant threat to life ___ Class 5 Moribund, not expected to live 24 hours irrespective of operation Mallampati Classification _x_ Class I: soft palate, fauces, uvula, pillars ___ Class II: soft palate, fauces, portion of uvula ___ Class III: soft palate, base of uvula ___ Class IV: hard palate only Medications to discontinue for procedure: none Prophylactic antibiotic: none Planned access site / position: supine position / ant lat approach A copy of this document will be sent to the patient's Primary Care Physician and/or Referring Physician. Jose Fernandez MD 12/12/2014 * Amie Ventura RN - 12/07/2014 1:15 PM EDT ANGIO NURSING DATABASE Name: MARY ELLEN HODGE Date of : 1955 AGE 59 y.o. Address: [address] [place] [id number] (home) Referring Provider: Ashish Gray REASON FOR VISIT: CT guided Biopsy bone and adjacent area of most prominently involved and safely accessible soft tissue sending both specimens for path as well as Gram stain and bacterial culture, fungal smear culture, and AFB smear, microbacterial culture. Medications to discontinue for procedure: none Prophylactic antibiotic: none Planned access site / position: prone (No Known Allergies Pertinent PMH: Patient Active Problem List Diagnosis Code ??? 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 Date/Procedure Med's given/comments 12/12/14 CT guided right hip biopsy Versed 1.5 mg IV, Fentanyl 75 mcg IV Laboratory Results: Lab Results Component Value Date CREATININE 0.54* 11/19/2014 Lab Results Component Value Date K 4.2 11/19/2014 Lab Results Component Value Date PLATELET 382* 11/19/2014 Medications: Prior to Admission medications Medication Sig Start Date End Date Taking? Authorizing Provider valACYclovir (VALTREX) 500 mg Tablet Take 500 mg by mouth 2 times daily. PROVIDER, HISTORICAL potassium chloride (MICRO-K) 10 mEq CR capsule 04/02/05 diclofenac-misoprostol (ARTHROTEC 50) 50-200 mg-mcg per tablet 04/02/05 ++++ FOR OUTPATIENT SCAN'S: I have informed this patient that they require a local owner operator truck driver to be present and in the building to drive them home after this procedure. In the absence of a local owner operator truck driver, IR will not be able to perform this procedure and will need to reschedule. Pt verbalized understanding of these i nstructions during the pre-procedure education via phone. (initials) documented in this encounter Plan of Treatment Upcoming Encounters Date Type Department Care Team (Late st Contact Info) Description 04/27/2024 11:30 AM EST Office Visit Dermatology at [address] [place] [id number] Robert Herron MD [address] [place] [address], SALVADOR [place] [address] Scheduled Procedures Name Priority Associated Diagnoses Date/Ti me ANTERIOR COLPORRHAPHY CYSTOC SALLY W OR WO URETHEROCELE; INC CYSTO (WRVU 10.08) Female cystocele URETHRAL SUSPENSION, SLING\F ASCIA OR SYNTHETIC (WRVU 12.13) Female cystocele documented as of this encounter Procedures Procedure Name Priority Date/Time Associated Diagnosis Comments CT GUIDED BIOPSY BONE(EXTREMITIES/PE LVIS) Routine 12/12/2014 2:24 PM EDT Osteomyelitis FUNGUS CULTURE & CALC STAIN Routine 12/12/2014 2:15 PM EDT ANAEROBIC CULTURE Routine 12/12/2014 2:1 5 PM EDT BONE CULTURE, AEROBIC & ANAEROBIC Routine 12/12/2014 2:15 PM EDT BONE CULTURE Routine 12/12/2014 2:15 PM EDT AFB CULTURE Routine 12/12/2014 2:15 PM EDT CRYSTAL EXAM BODY FLUID Routine 12/12/2014 2:15 PM EDT FUNGAL STAIN Routine 12/12/2014 2:15 PM EDT FUNGUS CULTURE Routine 12/12/2014 2:15 PM EDT CELL COUNT BODY FLUID Routine 12/12/2014 2:15 PM EDT SPECIMEN TO PATHOLOGY (NON-OR) Routine 12/12/2014 1:34 PM EDT SPECIMEN TO PATHOLOGY (NON-OR) Routine 12/12/2014 1:33 PM EDT SURGICAL PATHOLOGY REPORT Routine 12/12/2014 1:33 PM EDT documented in this encounter Results * CT Biopsy-Bone (12/12/2014 2:24 PM EDT) Anatomical Region Laterality Modality Computed Tomogra phy 12/12/2014 2:24 PM EDT Narrative 12/12/2014 5:22 PM EDT PROCEDURE: CT GUIDED right hip aspiration and bone biopsy OPERATORS: Rebecca INFORMED CONSENT: Informed consent was obtained and all of the patient's questions were answered prior to the start of the procedure. MODERATE SEDATION: Was provided by the Special Procedures nurse using 1.5 mg of Versed and 75 mcg of Fentanyl intravenously. Continuous vital sign monitoring was performed. DESCRIPTION: After informed consent was obtained, a pre- procedural time-out was performed as per [facility] protocol. The patient was placed in the CT Suite in the supine position. The right hip was localized on axial CT images. The needle entry site was marked under CT guidance. The skin was prepped and draped in the usual sterile fashion. 1% buffered Lidocaine was used for local anesthesia. Maximum sterile barrier technique was utilized. The 13G Bonopty bone biopsy set was employed. The penetration needle was advanced under imaging guidance through the anterior joint capsule. Aspiration was productive of approximately 1.5 cc of synovitis cloudy fluid. Within the fluid small foci of calcification could be seen. The sample was sent both for cell count differential and crystal analysis as well as culture and sensitivity. The bone biopsy needle was subsequently advanced coaxially into the femoral neck. The tip of the biopsy needle was recorded and 1 specimen was obtained. This was sent to anatomic pathology. Aspirated marrow elements were also placed in the culture tube for analysis in microbiology. All needles were removed and hemostasis obtained by manual compression. COMPLICATIONS: None.There were no immediate postprocedure complications. The patient left the fluoroscopic suite to the ambulatory Recovery Room in stable condition. MEDICATIONS: 1.5 mg of Versed and 75 mcg of Fentanyl intravenously Resident/Fellow: None Attending: Rebecca Hinds performed this procedure. Procedure Note Jose Fernandez MD - 12/12/2014 PROCEDURE: CT GUIDED right hip aspiration and bone biopsy OPERATORS: Rebecca INFORMED CONSENT: Informed consent was obtained and all of the patient's questions were answered prior to the start of the procedure. MODERATE SEDATION: Was provided by the Special Procedures nurse using 1.5 mg of Versed and 75mcg of Fentanyl intravenously. Continuous vital sign monitoring wasperformed. DESCRIPTION: After informed consent was obtained, a pre- procedural time-out wasperformed as per [facility] protocol. The patient was placed in the CT Suite in the supine position. The right hip was localized on axial CT images. The needle entry site wasmarked under CT guidance. The skin was prepped and draped in the usual sterilefashion. 1% buffered Lidocaine was used for local anesthesia. Maximum sterilebarrier technique was utilized. The 13G Bonopty bone biopsy set was employed. The penetration needle was advanced under imaging guidance through the anterior joint capsule.Aspiration was productive of approximately 1.5 cc of synovitis cloudy fluid. Withinthe fluid small foci of calcification could be seen. The sample was sent bothfor cell count differential and crystal analysis as well as culture andsensitivity. The bone biopsy needle was subsequently advanced coaxially into thefemoral neck. The tip of the biopsy needle was recorded and 1 specimen wasobtained. This was sent to anatomic pathology. Aspirated marrow elements were alsoplaced in the culture tube for analysis in microbiology. All needles were removed and hemostasis obtained by manual compression. COMPLICATIONS: None.There were no immediate postprocedure complications. The patient leftthe fluoroscopic suite to the ambulatory Recovery Room in stable condition. MEDICATIONS: 1.5 mg of Versed and 75 mcg of Fentanyl intravenously Resident/Fellow: None Attending: Rebecca Hinds performed this procedure. Ashish Gray MD IMG CT ORDERABLES * Crystal Exam Body Fluid Hip, Right (12/12/2014 2:15 PM EDT) Crystal BF Type Hip, Right CERNER MILLENNIUM Crystal Exam, Fld None Seen CERNER MILLENNIUM Swab from hip region (specimen) 12/12/2014 2:15 PM EDT 12/12/2014 2:40 PM EDT Narrative Resulting Agency Comment Spec In Lab Ashish Gray MD BODY FLUIDS AND STOO LS ORDERABLES CERNER MILLENNIUM * Cell Count Body Fluid Hip, Right (12/12/2014 2:15 PM EDT) Body Fluid Source Hip, Right C ERNER MILLENNIUM Color, Fld Red CERNER MILLENNIUM Appearance, Fld Cloudy CERN ER MILLENNIUM Nucl Cell BF Ct 367 /mcl CERN ER MILLENNIUM Comment: If Nucleated Cell Count equals zero, No Scan or Differential is performed. If Nucleated Cell Count equals 1-5, Smear is scanned but no results are reported unless abnormalities are seen. If Nucleated Cell Count equals 6 or greater, Differential is reported. Nucleated Cell Count results are correlated with body fluid type and clinical condition. Neut Absolute BF 180 /mcl CER NER MILLENNIUM Neutrophil BF 49 % CERNER MILLENNIUM Comment: Counts may be inaccurate due to clumping of cells Counts may be inaccurate due to presence of debris Lymphocyte BF 30 % CERNER MILLENNIUM Macrophage BF 9 % CERNER MILLENNIUM Eosinophil BF 12 % CERNER MILLENNIUM Swab from hip region (specimen) 12/12/2014 2:15 PM EDT 12/12/2014 2:40 PM EDT Narrative Resulting Agency Comment Spec In Lab Ashish Gray MD BODY FLUIDS AND STOO LS ORDERABLES Performing Organization Address City/[facility] Co de Phone Number SANDRO OLIVERIUM * Anaerobic Culture (12/12/2014 2:15 PM EDT) Anaerobic Culture No anaerobic organisms isolated SANDRO BERGENNIUM Specimen from bone (specimen) RIGHT HIP REGION STRUCTURE / Unknown 12/12/2014 2:15 PM EDT 12/12/2014 3:08 PM EDT Narrative Resulting Agency Comment Spec In Lab Ashish Gray MD MICROBIOLOGY - GENER AL ORDERABLES Performing Organization Address [facility] de Phone Number SANDRO OLIVERIUM * Bone Culture (12/12/2014 2:15 PM EDT) Bone Culture No growth SANDRO MILLENNIUM Gram Stain No WBC's seen. No microorganisms seen. SANDRO MILLENNIUM Specimen from bone (specimen) RIGHT HIP REGION STRUCTURE / Unknown 12/12/2014 2:15 PM EDT 12/12/2014 3:08 PM EDT Narrative Resulting Agency Comment Spec In Lab Ashish Gray MD MICROBIOLOGY - GENER AL ORDERABLES Performing Organization Address [facility] Co de Phone Number SANDRO OLIVERIUM * Calcofluor White Stain (12/12/2014 2:15 PM EDT) Calcofluor Stain Calcofluor White Preparation: Negative SANDRO BERGENNIUM Specimen from bone (specimen) 12/12/2014 2:15 PM EDT 12/12/2014 3:08 PM EDT Comment:CT GUIDED RIGHT HIP BIOPSY Narrative Resulting Agency Comment Spec In Lab Ashish Gray MD MICROBIOLOGY - GENER AL ORDERABLES Performing Organization Address City/[facility] Co de Phone Number SANDRO OMALLEY * Fungus culture (12/12/2014 2:15 PM EDT) Fungus Culture No Fungus isolated SANDRO OMALLEY Specimen from bone (specimen) 12/12/2014 2:15 PM EDT 12/12/2014 3:08 PM EDT Comment:CT GUIDED RIGHT HIP BIOPSY Narrative Resulting Agency Comment Spec In Lab Ashish Gray MD MICROBIOLOGY - GENER AL ORDERABLES Performing Organization Address [facility] Co de Phone Number SANDRO OMALLEY * AFB culture Bone (12/12/2014 2:15 PM EDT) Acid Fast Bacilli Culture No Acid Fast Bacilli isolated SANDRO OMALLEY Acid Fast Stain No Acid Fast Bacilli seen SANDRO OMALLEY Specimen from bone (specimen) 12/12/2014 2:15 PM EDT 12/12/2014 3:08 PM EDT Comment:CT GUIDED RIGHT HIP BIOPSY Narrative Resulting Agency Comment Spec In Lab Ashish Gray MD MICROBIOLOGY - GENER AL ORDERABLES Performing Organization Address [facility] Co de Phone Number SANDRO OMALLEY * Specimen to Pathology (NON-OR) (12/12/2014 1:34 PM EDT) AP Specimen 12/12/2014 1:34 PM EDT 12/12/2014 1:34 PM EDT Narrative SANDRO OMALLEY - 12/12/2014 1:34 PM EDT Specimen requisition ordered. ??Separate Pathology report to follow Ashish Gray MD PATHOLOGY/CYTOLOGY O RDERABLES Performing Organization Address [facility]/ZIP Co de Phone Number SANDRO OMALLEY * Surgical Pathology Report (12/12/2014 1:33 PM EDT) Final Diagnosis ? [facility] ? Provider: ?? ASHISH GRAY ?Pt. Name: ?? MARY ELLEN HODGE ? Acc #: ?[id number] ?Pt. ? Col Date: ?? 12/12/2014 ?/Sex: ?1955,(59 years),Female ? Rec Date: ?? 12/12/2014 ?LOC: ?[id number] ? SURGICAL PATHOLOGY ? ---Pathologic Diagnosis--- ? Bone, right hip, CT guided biopsy: ?- Lamellar bone, adipose tissue and rare interspersed plasma cells, ? negative for osteomyelitis, see comment ? 12/13/14 ? [facility] ? 12/18/14 Verified by: ? Diana SULLIVAN, Dusty Pereyra ? Dermatopathologis t, Bone & Soft Tissue ? Pathologist ? (Electronic Signature) ? The attending pathologist whose signature appears on this report has ? reviewed all diagnostic slides and has edited the gross and/or ? microscopic portion of the report in rendering the final pathologic ? diagnosis. ? ---Comment--- ? Multiple deeper sections have been examined. ? ---Gross Description--- ? A - Labeled/Fixative: CT guided right hip biopsy, formalin. ? Quantity/Size: Single, 0.4 x 0.2 cm. ? Tissue Description: Cylindrical core of yellow-lock bone tissue. ? Sections/Processi ng: Blocks submitted for decalcification: ??(A1). (T1) ??ejr ? ---Clinical Information--- ? Specimen Submitted: ? A - CT guided right hip biopsy ? Clinical History: ? Right hip pain ? Clinical Diagnosis: ? Question osteomyelitis 12/18/2014 6:23 PM EDT [facility] BONE STRUCTURE / Unknown 12/12/2014 1:33 PM EDT 12/12/2014 1:33 PM EDT Ashish Gray MD PATHOLOGY/CYTOLOGY O CHERY Performing Organization Address City/[facility] Co de Phone Number SANDRO BERGGONZÁLEZTESSA [facility] [place] [address] * Specimen to Pathology (NON-OR) (12/12/2014 1:33 PM EDT) AP Specimen 12/12/2014 1:33 PM EDT 12/12/2014 1:33 PM EDT Narrative SANDRO LYSSA - 12/12/2014 1:33 PM EDT Specimen requisition ordered. ??Separate Pathology report to follow Ashish Gray MD PATHOLOGY/CYTOLOGY O CHERY Performing Organization Address [facility] Co de Phone Number SANDRO OMALLEY documented in this encounter Visit Diagnoses Diagnosis Osteomyelitis Unspecified osteomyelitis, site unspecified documented in this encounter Administered Medications Inactive Administered Medications - up to 3 most recent administrations Medication Order MAR Action Action Date Dose Rate Site fentaNYL 50mcg/mL injection 50 mcg, Intravenous, EVERY 5 MIN PRN, Starting on Wed12/12/14 at 1326, Until Wed12/12/14 at 1414, Pain, Recovery (Recovery-Hospital Unit), Routine Given 12/12/2014 2:00 PM EDT 50 mcg Given 12/12/2014 1:50 PM EDT 25 mcg midazolam (PF) (VERSED) 1 mg/mL injection 1 mg 1 mg, Intravenous, EVERY 5 MIN PRN, Starting on Wed12/12/14 at 1326, Until Wed12/12/14 at 1414, Anxiety, Recovery (Recovery-Hospital Unit), Routine Given 12/12/2014 2:00 PM EDT 1 mg Given 12/12/2014 1:50 PM EDT 0.5 mg documented in this encounter Care Teams Farmworker [employer] Relationship Specialty Start Date End Date Israel Campuzano APRN PCP - General 05/19/13 02/20/15 documented as of this encounter
--- OUTSIDE RECORDS SUMMARY | 2024-04-26 16:48 | XMS_ITS | Encounter Summary ---
Author Organization [facility] [place] [address] Care Team Providers Care Net Developer Architect Name Role Phone AdaEdd sanchez Primary Care Provider [phone]- [phone] Encounter Details Date Type Department Care Team (Late Contact Info) Description 11/01/2018 Telephone [place] [phone] Carey Fletcher, RN Social History Tobacco Use Types Packs/Day Years Used Date Smoking Tobacco: Former Smokeless Tobacco: Never Sex and Gender Information Value Date Recorded Sex Assigned at Not on file Gender Identity Not on file Sexual Orientation Not on file documented as of this encounter Miscellaneous Notes * Telephone Encounter - Carey Olivier, RN - 11/01/2018 2:32 PM EDT Patient phoned today to report that she is very bothered by her rectal prolapse symptoms and she can't get in until November 17. Will forward to Scheduling corporation secretary as urgent need for visit. Phoned patient back and left message. documented in this encounter Plan of Treatment Upcoming Encounters Date Type Department Care Team (Late st Contact Info) Description 04/27/2024 11:30 AM EST Office Visit Dermatology at [place] [address] [place] [address] Robert Herron MD [address], [place] [address] Scheduled Procedures Name Priority Associated Diagnoses Date/Ti me ANTERIOR COLPORRHAPHY CYSTOC SALLY W OR WO URETHEROCELE; INC CYSTO (WRVU 10.08) Female cystocele URETHRAL SUSPENSION, SLING\F ASCIA OR SYNTHETIC (WRVU 12.13) Female cystocele documented as of this encounter Visit Diagnoses Not on filedocumented in this encounter Care Teams Net Developer Architect Relationship Specialty Start Date End Date Edd Caballero DO [address] [place] [id number] PCP - General Family Medicine 10/24/18 04/27/21 documented as of this encounter
--- OUTSIDE RECORDS SUMMARY | 2024-04-26 16:48 | XMS_ITS | Encounter Summary ---
[place] [address] Care Team Providers Care Pavilion Cutter Name Role Phone Abby Chang APRN Primary Care Provider + Reason for Visit * Reason Onset Date Comments Other 12/26/2014 MAP-approval for Zyvox assistance Encounter Details Date Type Department Care Team (Late st Contact Info) Description 12/26/2014 [place] [address] Ramona Calles Other (MAP-approval for Zyvox assistance) Social History Tobacco Use Types Packs/Day Years Used Date Smoking Tobacco: Former Sex and Gender Information Value Date Recorded Sex Assigned at Not on file Gender Identity Not on file Sexual Orientation Not on file documented as of this encounter Miscellaneous Notes * Telephone Encounter - Ramona Calles - 12/26/2014 2:44 PM EDT MAP-approval for Zyvox assistance I received a call from Fanny Roy in Infectious Disease requesting Zyvox for Ms. Hodge. Ms. Hodge have [place] [employer] [facility] [employer], but they are denying coverage for Zyvox because Ms. Hodge does not have a positive culture. I called Ms. Hodge and completed the Zyvox application together on the phone. I called the Zyvox Assist program to complete the presumptive screening. Ms. Hodge was approved for an immediate 30-day supply of Zyvox 600 mg po twice daily. I called and she said that she would like to use the [facility] in [facility]. I called infectious disease to notify them of the approval and to ask that a prescription be sent to the [facility]. I called the pharmacy and faxed them the approval letter with the billing codes. Thepharmacy will have to order the medication and I told Ms. Hodge to call the pharmacy to see exactly when the medication is expected to arrive. Because Ms. Hodge needs more than 30-days of Zyvox, she will need to complete a paper application.I sent the patient page of the application to Ms. Hodge for her to sign and return with proof of her income. I sent the provider page of the application to Dr. Gray for his signature as well. I will fax the application and income documents to the program as soon as it is received to allow Ms. Hussein coyle to receive the refill of the Zyvox to complete her treatment. documented in this encounter Plan of Treatment Upcoming Encounters Date Type Department Care Team (Late st Contact Info) Description 04/27/2024 11:30 AM EST Office Visit Dermatology at [place] [address] [place] [address] Robert Herron MD [address], [place] [address] Scheduled Procedures Name Priority Associated Diagnoses Date/Ti me ANTERIOR COLPORRHAPHY CYSTOC SALLY W OR WO URETHEROCELE; INC CYSTO (WRVU 10.08) Female cystocele URETHRAL SUSPENSION, SLING\F ASCIA OR SYNTHETIC (WRVU 12.13) Female cystocele documented as of this encounter Visit Diagnoses Not on filedocumented in this encounter Care Teams Pavilion Cutter Relationship Specialty Start Date End Date Abby Chang APRN PCP - General 05/19/13 02/20/15 documented as of this encounter
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
--- OUTSIDE RECORDS SUMMARY | 2024-04-26 16:48 | XMS_ITS | Encounter Summary ---
[place] [address] Care Team Providers Care Database Administration Project Manager Name Role Phone Abby Chang APRN Primary Care Provider + Reason for Visit * Reason Onset Date Comments Other 01/17/2015 MAP-w[facility] to co fo r continued assist Encounter Details Date Type Department Care Team (Late st Contact Info) Description 01/17/2015 Telephone [place] [address] Ramona Calles Other (MAP-wilian to co for continued assist) Social History Tobacco Use Types Packs/Day Years Used Date Smoking Tobacco: Former Sex and Gender Information Value Date Recorded Sex Assigned at Not on file Gender Identity Not on file Sexual Orientation Not on file documented as of this encounter Miscellaneous Notes * Telephone Encounter - Ramona Calles - 01/17/2015 10:55 AM EDT MAP-wilian to co for continued assist I received the patient page of the [employer] application and proof of income from Ms. Hodge. I had received the provider page from on 12/31/14. I faxed the complete application and proof of income to [employer] to allow Ms. Hodge to receive the remaining 2 weeks of Zyvox 600 mg po twice daily (#14) beyond the initial 30-day supply she received on 12/26/14. The company made the determination within an hour and Ms. Hodge is all set to sweet pickle maker more Zyvox at no cost if needed after her appointment on 01/21/15. She is eligible for the year now. documented in this encounter Plan of Treatment Upcoming Encounters Date Type Department Care Team (Late st Contact Info) Description 04/27/2024 11:30 AM EST Office Visit Dermatology at [place] [address] [place] [address] Robert Herron MD [address], [place] [address] Scheduled Procedures Name Priority Associated Diagnoses Date/Ti me ANTERIOR COLPORRHAPHY CYSTOC SALLY W OR WO URETHEROCELE; INC CYSTO (WRVU 10.08) Female cystocele URETHRAL SUSPENSION, SLING\F ASCIA OR SYNTHETIC (WRVU 12.13) Female cystocele documented as of this encounter Visit Diagnoses Not on filedocumented in this encounter Care Teams Database Administration Project Manager Relationship Specialty Start Date End Date Abby Chang, CAMERON PCP - General 05/19/13 02/20/15 documented as of this encounter
--- OUTSIDE RECORDS SUMMARY | 2024-04-26 16:48 | XMS_ITS | Encounter Summary ---
Author Organization [facility] [place] [address] Care Team Providers Care Bomb Squad Commander Name Role Phone Jeannie Mantilla MD Primary Care Provider [phone] Encounter Details Date Type Department Care Team (Late st Contact Info) Description 03/13/2015 Telephone [place] [phone] Marina Walker LPN Social History Tobacco Use Types Packs/Day Years Used Date Smoking Tobacco: Former Sex and Gender Information Value Date Recorded Sex Assigned at Not on file Gender Identity Not on file Sexual Orientation Not on file documented as of this encounter Miscellaneous Notes * Telephone Encounter - Marina Walker LPN - 03/13/2015 1:00 PM EDT Called and received the fax # [phone] to the [facility] in [facility] for Orthopedic. Order faxed and confirmed to the Ortho clinic today. documented in this encounter Plan of Treatment Upcoming Encounters Date Type Department Care Team (Late st Contact Info) Description 04/27/2024 11:30 AM EST Office Visit Dermatology at [address] [place] [address] Robert Herron MD [address], [place] José [place] [address] Scheduled Procedures Name Priority Associated Diagnoses Date/Ti me ANTERIOR COLPORRHAPHY CYSTOC SALLY W OR WO URETHEROCELE; INC CYSTO (WRVU 10.08) Female cystocele URETHRAL SUSPENSION, SLING\F ASCIA OR SYNTHETIC (WRVU 12.13) Female cystocele documented as of this encounter Visit Diagnoses Not on filedocumented in this encounter Care Teams Bomb Squad Commander Relationship Specialty Start Date End Date Jeannie Mantilla MD [facility] [address] [place] [address] PCP - General 02/21/15 11/09/16 documented as of this encounter
--- OUTSIDE RECORDS SUMMARY | 2024-04-26 16:48 | XMS_ITS | Encounter Summary ---
Author Organization [facility] [place] [address] Care Team Providers Care Sound Recordist Name Role Phone Abby Chang APRN Primary Care Provider + Reason for Visit * Reason Onset Date Comments Medication Refill 01/25/2015 Encounter Details Date Type Department Care Team (Late st Contact Info) Description 01/25/2015 Telephone [place] [address] [facility] [place] [address] Medication Refill Social History Tobacco Use Types Packs/Day Years Used Date Smoking Tobacco: Former Sex and Gender Information Value Date Recorded Sex Assigned at Not on file Gender Identity Not on file Sexual Orientation Not on file documented as of this encounter Miscellaneous Notes * Telephone Encounter - Jackie Venegas RN - 01/25/2015 5:08 PM EDT [facility] did not go through He called back and said They were able to process the zyvox without pa * Telephone Encounter - Jackie Venegas RN - 01/25/2015 4:52 PM EDT Phone call from Ms. carias Levoquine and linezolid sent to [facility] pharmacy She needs them at [facility] per Dr. Gray note It looks like there was some question about whether prior auth was needed to continue the linezolid documented in this encounter Plan of Treatment Upcoming Encounters Date Type Department Care Team (Late st Contact Info) Description 04/27/2024 11:30 AM EST Office Visit Dermatology at [place] [address] [place] [phone] Robert Herron MD [address], [place] [address] Scheduled Procedures Name Priority Associated Diagnoses Date/Ti me ANTERIOR COLPORRHAPHY CYSTOC SALLY W OR WO URETHEROCELE; INC CYSTO (WRVU 10.08) Female cystocele URETHRAL SUSPENSION, SLING\F ASCIA OR SYNTHETIC (WRVU 12.13) Female cystocele documented as of this encounter Visit Diagnoses Diagnosis Osteomyelitis Unspecified osteomyelitis, site unspecified documented in this encounter Care Teams Sound Recordist Relationship Specialty Start Date End Date Abby Chang, STRUCTURAL STEEL ERECTOR PCP - General 05/19/13 02/20/15 documented as of this encounter
--- OUTSIDE RECORDS SUMMARY | 2024-04-26 16:48 | XMS_ITS | Encounter Summary ---
Author Organization [facility] [place] [address] Care Team Providers Care Monotype Setter Name Role Phone Abby Chang APRN Primary Care Provider + Reason for Visit * Reason Comments Skin Check Encounter Details Date Type Department Care Team (Late st Contact Info) Description 03/12/2014 8:30 AM EDT Office Visit Dermatology at [address] [place] [address] Robert Herron MD [address] [place] [address] RD, [place] [address] Solar lentigo (Primary Dx) Discharge Disposition: Home Social History Tobacco Use Types Packs/Day Years Used Date Smoking Tobacco: Unknown Sex and Gender Information Value Date Recorded Sex Assigned at Not on file Gender Identity Not on file Sexual Orientation Not on file documented as of this encounter Patient Instructions * Patient Instructions* Sybil Kaplan LPN - 03/12/2014 8:42 AM EDT Images from the original note were not included. [facility] Moles: After Your Visit Your Care Instructions Moles are skin growths made up of cells that produce color (pigment). A mole can appear anywhere onthe skin, alone or in groups. Most people get a few moles during their first 20 years of life. Theyare usually brown in color but can be blue, black, or flesh-colored. Most moles are harmless and donot cause pain or other symptoms, unless you rub them or they bump against something. You usually do not need treatment for moles. But some can turn into cancer. Talk to your doctor if a mole bleeds, itches, hines, or changes size or color. Also let your doctor know if you get a new mole. Make sure to wear sunscreen and other sun protection every day to help prevent skin cancer. Follow-up care is a sylvester part of your treatment and safety. Be sure to make and go to all appointments, and call your doctor if you are having problems. It???s also a good idea to know your test results and keep a list of the medicines you take. How can you care for yourself at home? ?? Check all the skin on your body once a month for skin growths or other changes, such as in the color and feel of the skin. ?? parking enforcement officer front of a full-length mirror. Look carefully at the front and back of your body. Then look at your right and left sides with your arms raised. ?? Bend your elbows and look carefully at your forearms, the back of your upper arms, and your palms. ?? Look at your feet, the bottoms of your feet, and the spaces between your toes. ?? Use a hand mirror to look at the back of your legs, the back of your neck, and your back, rear end (buttocks), and genital area. Part the hair on your head to look at your scalp. ?? If you see a change in a skin growth, contact your doctor. Look for: ?? A mole that bleeds. ?? A fast-growing mole. ?? A scaly or crusted growth on the skin. ?? A sore that will not heal. To prevent skin cancer ?? Always wear sunscreen on exposed skin. Make sure the sunscreen blocks ultraviolet rays (both UVAand UVB) and has a sun protection factor (SPF) of at least 15. Use it every day, even when it is cloudy. Some doctors may recommend a higher SPF, such as 30. ?? Wear a wide-brimmed hat and long sleeves and pants if you are going to be outdoors for very long. ?? Avoid the sun between 10 a.m. and 4 p.m., which is the peak time for the sun's ultraviolet rays. ?? Avoid sunburns, tanning booths, and sunlamps. ?? Be sure to protect children from the sun. Sunburns in childhood damage the skin and increase therisk of cancer. When should you call for help? Watch closely for changes in your health, and be sure to contact your doctor if: ?? A mole looks different than it did before. It may have changed in size, color, shape, or the wayit looks. ?? You have a new mole. ?? You have a new pimple or skin growth that does not go away. Where can you learn more? Visit our health information library at [email or web address] You can also view health information on [employer], your personal patient account. Log in or sign up today. Enter M489 in the search box to learn more about Moles: After Your Visit. ?? [id number] [employer]. Care instructions adapted under license by [facility]. This care instruction is for use with your licensed healthcare professional. If you have questions about a medical condition or this instruction, always ask your healthcare professional. [employer] disclaims any warranty or liability for your use of this information. Content Version: [id number]; Last Revised: January 17, 2013 documented in this encounter Progress Notes * Robert Herron MD - 03/12/2014 8:55 AM EDT Problem: Skin checkup. Marysol follows up after last being seen in 2007. She is here for a repeat skin check. 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 Physical examination reveals a pleasant now 59-year-old woman who has numerous solar lentigos, one on the left base of her neck, a number on her dorsal foramens, on her lateral thighs. She uses sunless tanning lotion and has tanned from that but avoids the sun as much as she can she states. Careful examination of the head and the neck, the chest, the back, hands, arms, forearms, thighs, and calves is otherwise benign. Assessment and Plan: Benign skin examination. a. Patient reassured about benign solar lentigos. b. No treatment necessary. c. Recommend that I see her again in another three years for repeat check, sooner for any new skin lesions/concerns. COPY: Ky Griffin documented in this encounter Plan of Treatment Upcoming Encounters Date Type Department Care Team (Late st Contact Info) Description 04/27/2024 11:30 AM EST Office Visit Dermatology at [place] [address] [place] [address] Robert Herron MD [address], [place] [address] Scheduled Procedures Name Priority Associated Diagnoses Date/Ti me ANTERIOR COLPORRHAPHY CYSTOC SALLY W OR WO URETHEROCELE; INC CYSTO (WRVU 10.08) Female cystocele URETHRAL SUSPENSION, SLING\F ASCIA OR SYNTHETIC (WRVU 12.13) Female cystocele documented as of this encounter Visit Diagnoses Diagnosis Solar lentigo- Primary Other dyschromia documented in this encounter Care Teams Monotype Setter Relationship Specialty Start Date End Date Abby Chang APRN PCP - General 05/19/13 02/20/15 documented as of this encounter
--- OUTSIDE RECORDS SUMMARY | 2024-04-26 16:48 | XMS_ITS | Encounter Summary ---
Author Organization [facility] [place] [address] Care Team Providers Care Wheat Washer Name Role Phone AdaEdd sanchez Iain DON Primary Care Provider [phone] Encounter Details Date Type Department Care Team (Latest Contact Info) Description 11/21/2018 12:55 PM EDT Laboratory [place] [phone] Rectal prolapse Social History Tobacco Use Types [...] 11:30 AM EST Office Visit Dermatology at [address] [place] [address] Robert Herron MD [address], [place] [address] Scheduled Procedures Name Priority Associated Diagnoses Date/Ti me ANTERIOR COLPORRHAPHY CYSTOC SALLY W OR WO URETHEROCELE; INC CYSTO (WRVU 10.08) Female cystocele URETHRAL SUSPENSION, SLING\F ASCIA OR SYNTHETIC (WRVU 12.13) Female cystocele documented as of this encounter Procedures Procedure Name Priority Date/Time Associated Diagnosis Comments ABORH RECHECK STATUS Routine 11/21/2018 12:56 PM EDT HEMOGRAM Routine 11/21/2018 12:56 PM EDT Rectal prolapse DIFFERENTIAL, AUTOMATED Routine 11/21/2018 12:56 PM EDT Rectal prolapse TYPE AND SCREEN, SDP (FUTURE SURGERY, [facility] SAME DAY PROGRAM ONLY) Routine 11/21/2018 12:56 PM EDT Rectal prolapse ABO/RH TYPING Routine 11/21/2018 12:56 PM EDT Rectal prolapse CBC (WITH DIFF) Routine 11/21/2018 12:56 PM EDT Rectal prolapse ANTIBODY SCREEN Routine 11/21/2018 12:56 PM EDT Rectal prolapse HEPATIC FUNCTION PANEL Routine 11/21/2018 12:56 PM EDT Rectal prolapse BASIC METABOLIC PANEL Routine 11/21/2018 12:56 PM EDT Rectal prolapse documented in this encounter Results * ABORH Recheck Status (11/21/2018 12:56 PM EDT) ABORH Recheck Order Order Placed [facility] ABORH Type Recheck Not Performed [facility] Blood specimen (specimen) 11/21/2018 12:56 PM EDT 11/21/2018 1:00 PM EDT Narrative Resulting Agency Comment Spec In Lab Greg Pitt MD BLOOD BANK LAB ORDER PUNEET [facility] [place] [address] * Antibody screen (11/21/2018 12:56 PM EDT) Ab Screen Interp Negative [facility] Expires at [id number] on: 12/19/2018 [facility] Blood specimen (specimen) 11/21/2018 12:56 PM EDT 11/21/2018 1:00 PM EDT Narrative Resulting Agency Comment Spec In Lab Greg Pitt MD BLOOD BANK LAB ORDER PUNEET [facility] [place] [address] * ABO/Rh Typing (11/21/2018 12:56 PM EDT) ABORH Type O Pos [facility] Blood specimen (specimen) 11/21/2018 12:56 PM EDT 11/21/2018 1:00 PM EDT Narrative Resulting Agency Comment Spec In Lab Greg Pitt MD BLOOD BANK LAB ORDER PUNEET Performing Organization Address [facility] Co de Phone Number [facility] [place] [address] * Differential, Automated (11/21/2018 12:56 PM EDT) [facility] Neutrophil % 43.8 % [facility] Neutrophil Absolute 1.88 1.70 - 6.10 x10(3)/[facility] Lymph % 40.8 % [facility] Lymphocytes Abs 1.8 0.9 - 3.2 x10(3)/[facility] Monocyte % 6.8 % [facility] Monocyte Abs 0.3 0.3 - 0.9 x10(3)/[facility] Eos % 7.5 % [facility] Eosinophils Abs 0.3 0.0 - 0.4 x10(3)/[facility] Basophil % 0.9 % [facility] Baso Absolute 0.0 0.0 - 0.1 x10(3)/[facility] Immature Gran % 0.20 % [facility] Comment: Immature granulocytes(IG's)percentage and absolute count will include metamyelocytes, myelocytes, and promyelocytes. Blood smears from CBCs yielding IG's will be scanned manually for concordance. If this scan disagrees with the automated IG or if promyelocytes are noted, a manual differential will be performed. Immature Gran Absolute 0.01 0.00 - 0.04 x10(3)/[facility] Blood specimen (specimen) 11/21/2018 12:56 PM EDT 11/21/2018 1:21 PM EDT Narrative Resulting Agency Comment Spec In Lab Greg Pitt MD HEMATOLOGY ORDERABLE S [facility] [place] [address] * (ABNORMAL) Hemogram (11/21/2018 12:56 PM EDT) White Blood Cell 4.3 4.0 - 9.5 x10(3)/[facility] Red Blood Cell 4.16 4.00 - 5.21 x10(6)/[facility] Hemoglobin 13.0 11.7 - 15.5 gm/dL [facility] Hematocrit 40.4 35.7 - 45.8 % [facility] Mean Cell Volume 97.1(H) 82.6 - 94.4 [facility] Mean Cell Hemoglobin 31.3 27.1 - 32.0 pg [facility] Mean Cell Hemoglobin Concentration 32.2 31.7 - 35.0 gm/dL [facility] Platelet 298 145 - 357 x10(3)/[facility] RDW Standard Deviation 46.5(H) 37.0 - 46.0 [facility] RDW coefficient of variation 13.1 11.5 - 14.1 % [facility] Mean Platelet Volume 8.8 7.6 - 12.9 [facility] NRBC% auto 0.0 % [facility] NRBC Absolute 0.000 0.000 - 0.000 x10(3)/[facility] Blood specimen (specimen) 11/21/2018 12:56 PM EDT 11/21/2018 1:21 PM EDT Narrative Resulting Agency Comment Spec In Lab Greg Pitt MD HEMATOLOGY ORDERABLE S [facility] [place] [address] * (ABNORMAL) Basic Metabolic Panel (non-fasting) (11/21/2018 12:56 PM EDT) Glucose 88 65 - 199 mg/dL [facility] Comment:Diabetes: >=200 mg/d L plus symptoms Blood Urea Nitrogen 13 8 - 18 mg/dL [facility] Creatinine 0.71 0.70 - 1.20 mg/dL [facility] Sodium 142 135 - 145 mmol/L [facility] Potassium 5.1(H) 3.5 - 5.0 mmol/L [facility] Comment: Please note: ??Patients with WBC >100,000 may have falsely elevated Potassium levels. ??For accurate Potassium quantification in these patients send serum separator tube (gold top) for subsequent determinations. ??Contact the Clinical Chemistry Laboratory if there are any questions. Chloride 104 98 - 107 mmol/L [facility] Carbon Dioxide 24 22 - 31 mmol/L [facility] Anion Gap 14 5 - 15 mmol/L [facility] Calcium 10.0 8.5 - 10.5 mg/dL [facility] Est Glomerular Filtration Rate 89 >=60 mL/min/1. 73 m?? [facility] Comment: The eGFR was calculated using the CKD-EPI equation. As with all creatinine based estimates of kidney function, eGFR values calculated with the CKD-EPI equation are not accurate in patients with acute kidney failure, extremes of body mass or the acutely ill. [email or web address] eGFR 104 >=60 mL/min/1. 73 m?? [facility] Comment: The eGFR was calculated using the CKD-EPI equation. As with all creatinine based estimates of kidney function, eGFR values calculated with the CKD-EPI equation are not accurate in patients with acute kidney failure, extremes of body mass or the acutely ill. [email or web address] Blood specimen (specimen) 11/21/2018 12:56 PM EDT 11/21/2018 1:21 PM EDT Narrative Resulting Agency Comment Spec In Lab Greg Pitt MD CHEMISTRY ORDERABLES Performing Organization Address City/[facility] Co de Phone Number [facility] [place] [address] * Hepatic Function Panel (11/21/2018 12:56 PM EDT) Protein, Total 7.8 6.1 - 8.0 gm/dL [facility] Albumin 4.5 3.2 - 5.2 gm/dL [facility] Aspartate Aminotransferase 29 0 - 30 unit/L [facility] Alanine Aminotransferase 22 0 - 30 unit/L [facility] Alkaline Phosphatase 58 40 - 104 unit/L [facility] Bilirubin, Total 0.2 0.2 - 1.3 mg/dL [facility] Bilirubin, Direct 0.1 0.0 - 0.3 mg/dL [facility] Blood specimen (specimen) 11/21/2018 12:56 PM EDT 11/21/2018 1:21 PM EDT Narrative Resulting Agency Comment Spec In Lab Greg Pitt MD CHEMISTRY ORDERABLES Performing Organization Address City/[facility] Co de Phone Number [facility] [place] [address] documented in this encounter Visit Diagnoses Diagnosis Rectal prolapse documented in this encounter Care Teams Wheat Washer Relationship Specialty Start Date End Date Edd Caballero DO [address] [place] [address] PCP - General Family Medicine 10/24/18 04/27/21 documented as of this encounter
--- OUTSIDE RECORDS SUMMARY | 2024-04-26 16:48 | XMS_ITS | Encounter Summary ---
Author Organization [facility] [place] [address] Care Team Providers Care Farm Equipment Technician Name Role Phone Jeannie Mantilla MD Primary Care Provider [phone] Encounter Details Date Type Department Care Team (Late st Contact Info) Description 02/25/2015 External Results Infectious Disease at [facility] [place] [address] Ashish Gray MD [facility] [place]FECTI[place] [address] Social History Tobacco Use Types Packs/Day Years Used Date Smoking Tobacco: Former Sex and Gender Information Value Date Recorded Sex Assigned at Not on file Gender Identity Not on file Sexual Orientation Not on file documented as of this encounter Plan of Treatment Upcoming Encounters Date Type Department Care Team (Late st Contact Info) Description 04/27/2024 11:30 AM EST Office Visit Dermatology at [address] [place] [address] Robert Herron MD [address] [place] [address] RD, [place] [address] Scheduled Procedures Name Priority Associated Diagnoses Date/Ti me ANTERIOR COLPORRHAPHY CYSTOC SALLY W OR WO URETHEROCELE; INC CYSTO (WRVU 10.08) Female cystocele URETHRAL SUSPENSION, SLING\F ASCIA OR SYNTHETIC (WRVU 12.13) Female cystocele documented as of this encounter Procedures Procedure Name Priority Date/Time Associated Diagnosis Comments EXTERNAL LAB CBC CMP THYROID RESULTS PANEL Routine 02/23/2015 documented in this encounter Results * (ABNORMAL) CBC / CMP / Thyroid External Results (02/23/2015) White Blood Cell 4.5([employer] [facility]) Hemoglobin 9.6(A) 12.0 - 16.0 Hematocrit 30.1(A) 36.0 - 46.0 Mean Cell Volume 89.6 82.0 - 108.0 Platelet 550 02/23/2015 Historical Provider EXTERNAL LAB CLARI GUTHRIE documented in this encounter Visit Diagnoses Not on filedocumented in this encounter Care Teams Farm Equipment Technician Relationship Specialty Start Date End Date Jeannie Mantilla MD [address] [place] [address] PCP - General 02/21/15 11/09/16 documented as of this encounter
--- OUTSIDE RECORDS SUMMARY | 2024-04-26 16:48 | XMS_ITS | Encounter Summary ---
[place] [address] Care Team Providers Care Resident Associate Name Role Phone Abby Chang LINEN ATTENDANT Primary Care Provider + Encounter Details Date Type Department Care Team (Late st Contact Info) Description 09/19/2014 [place] [phone] Abby Chang, LINEN ATTENDANT [address] [place] [address] Social History Tobacco Use Types Packs/Day Years Used Date Smoking Tobacco: Unknown Sex and Gender Information Value Date Recorded Sex Assigned at Not on file Gender Identity Not on file Sexual Orientation Not on file documented as of this encounter Plan of Treatment Upcoming Encounters Date Type Department Care Team (Late st Contact Info) Description 04/27/2024 11:30 AM EST Office Visit Dermatology at [address] [place] [phone] Robert Herron MD [address] [address], [facility] [place], [place] [id number] Scheduled Procedures Name Priority Associated Diagnoses Date/Ti me ANTERIOR COLPORRHAPHY CYSTOC SALLY W OR WO URETHEROCELE; INC CYSTO (WRVU 10.08) Female cystocele URETHRAL SUSPENSION, SLING\F ASCIA OR SYNTHETIC (WRVU 12.13) Female cystocele documented as of this encounter Procedures Procedure Name Priority Date/Time Associated Diagnosis Comments FILM LIBRARY STORAGE ONLY CT HIP Routine 09/19/2014 3:33 PM EDT documented in this encounter Results * Film Library- Storage only CT Hip (09/19/2014 3:33 PM EDT) Anatomical Region Laterality Modality Hip Other 09/19/2014 3:33 PM EDT Narrative 12/03/2014 3:33 PM EDT This is a Non-reportable exam Procedure Note BRENNEN, UNSIGNED REPORT - 12/03/2014 This is a Non-reportable exam Abby Chang APRN IMIain FILM LIBRARY ORDERABLES documented in this encounter Visit Diagnoses Not on filedocumented in this encounter Care Teams Resident Associate Relationship Specialty Start Date End Date Abby Chang APRN PCP - General 05/19/13 02/20/15 documented as of this encounter
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
--- OUTSIDE RECORDS SUMMARY | 2024-04-26 16:48 | XMS_ITS | Encounter Summary ---
[place] [address] Care Team Providers Care Suspender Maker Name Role Phone Abby Chang BENEFITS COUNSELOR Primary Care Provider + Encounter Details Date Type Department Care Team (Late st Contact Info) Description 10/18/2014 [place] [phone] Abby Chang, BENEFITS COUNSELOR [address] [place] [address] Social History Tobacco Use Types Packs/Day Years Used Date Smoking Tobacco: Unknown Sex and Gender Information Value Date Recorded Sex Assigned at Not on file Gender Identity Not on file Sexual Orientation Not on file documented as of this encounter Plan of Treatment Upcoming Encounters Date Type Department Care Team (Late st Contact Info) Description 04/27/2024 11:30 AM EST Office Visit Dermatology at [address] [place] [phone] Robert Herron MD [address] [facility] [address], [facility] [place], [place] [phone] Scheduled Procedures Name Priority Associated Diagnoses Date/Ti me ANTERIOR COLPORRHAPHY CYSTOC SALLY W OR WO URETHEROCELE; INC CYSTO (WRVU 10.08) Female cystocele URETHRAL SUSPENSION, SLING\F ASCIA OR SYNTHETIC (WRVU 12.13) Female cystocele documented as of this encounter Procedures Procedure Name Priority Date/Time Associated Diagnosis Comments FILM LIBRARY STORAGE ONLY MR HIP Routine 10/18/2014 3:35 PM EDT documented in this encounter Results * Film Library- Storage only MR Hip (10/18/2014 3:35 PM EDT) Anatomical Region Laterality Modality Other 10/18/2014 3:35 PM EDT Narrative 12/03/2014 3:35 PM EDT This is a Non-reportable exam Procedure Note BRENNEN, UNSIGNED REPORT - 12/03/2014 This is a Non-reportable exam Abby Chang APRN IMIain FILM LIBRARY ORDERABLES documented in this encounter Visit Diagnoses Not on filedocumented in this encounter Care Teams Suspender Maker Relationship Specialty Start Date End Date Abby Chang APRN PCP - General 05/19/13 02/20/15 documented as of this encounter
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
--- OUTSIDE RECORDS SUMMARY | 2024-04-26 16:48 | XMS_ITS | Encounter Summary ---
Author Organization [facility] [place] [address] Care Team Providers Care Label Stamper Name Role Phone Abby Chang APRN Primary Care Provider + Encounter Details Date Type Department Care Team (Late st Contact Info) Description 01/25/2015 Orders [place] [address] Ashish Gray MD [facility] [place] [address] Osteomyelitis (Primary Dx) Social History Tobacco Use Types Packs/Day Years Used Date Smoking Tobacco: Former Sex and Gender Information Value Date Recorded Sex Assigned at Not on file Gender Identity Not on file Sexual Orientation Not on file documented as of this encounter Progress Notes * Ashish Gray MD - 01/25/2015 10:49 AM EDT Pt reports considerably improved nausea after cessation of moxifloxacin. I have written for two weeks of levofloxacin, which should cover similar antimicrobial bases, hopefully without the nausea. She is almost out of linezolid (although previously I wrote for 42 days) so will also write for two w eeks of this. Given the prior requirement for a prior authorization, I will forward this message Joel Calles who helped last time and suggested to the patient that she alert both Ms. Calles and me if there are prior authorization problems when she contacts the pharmacy. Will see the patient on02/11, which is around the time the patient should be finishing six weeks of antibiotics. At that point will assess whether there has been symptomatic benefit and make plans from there regarding re-imaging, etc. documented in this encounter Plan of Treatment Upcoming Encounters Date Type Department Care Team (Late st Contact Info) Description 04/27/2024 11:30 AM EST Office Visit Dermatology at [place] [address] [place] [address] Robert Herron MD [address] [place] [address] Scheduled Procedures Name Priority Associated Diagnoses Date/Ti me ANTERIOR COLPORRHAPHY CYSTOC SALLY W OR WO URETHEROCELE; INC CYSTO (WRVU 10.08) Female cystocele URETHRAL SUSPENSION, SLING\F ASCIA OR SYNTHETIC (WRVU 12.13) Female cystocele documented as of this encounter Visit Diagnoses Diagnosis Osteomyelitis- Primary Unspecified osteomyelitis, site unspecified documented in this encounter Care Teams Label Stamper Relationship Specialty Start Date End Date Abby Chang, R D INTERN PCP - General 05/19/13 02/20/15 documented as of this encounter
--- OUTSIDE RECORDS SUMMARY | 2024-04-26 16:48 | XMS_ITS | Encounter Summary ---
Author Organization [facility] [place] [address] Care Team Providers Care Curriculum Counselor Name Role Phone Abby Chang APRN Primary Care Provider + Encounter Details Date Type Department Care Team (Late st Contact Info) Description 2015 Telephone [place] [id number] Ashish Gray MD [facility] [place] [address] Social History Tobacco Use Types Packs/Day Years Used Date Smoking Tobacco: Former Sex and Gender Information Value Date Recorded Sex Assigned at Not on file Gender Identity Not on file Sexual Orientation Not on file documented as of this encounter Miscellaneous Notes * Telephone Encounter - Ashish Gray MD - 2015 3:16 PM EDT Phone Note Pt started on LZD + moxi 2-3 weeks ago for possible septic arthritis/pelvic osteo (after special dispensation from rx company after insurance company refused to pay) and have not received the resultsof safety labs I discussed with pt need to be done weekly. Left a message today reminding her to have them done and asking that she let us know if they were already done (in which case we can request them from lab) or, in the event she has not yet had them drawn, to do so now, asking us to provide the form again if needed. Will see her in clinic on Sunday 01/21. documented in this encounter Plan of Treatment Upcoming Encounters Date Type Department Care Team (Late st Contact Info) Description 04/27/2024 11:30 AM EST Office Visit Dermatology at [place] [address] [place] [address] Robert Herron MD [address] [place] [address] Scheduled Procedures Name Priority Associated Diagnoses Date/Ti me ANTERIOR COLPORRHAPHY CYSTOC SALLY W OR WO URETHEROCELE; INC CYSTO (WRVU 10.08) Female cystocele URETHRAL SUSPENSION, SLING\F ASCIA OR SYNTHETIC (WRVU 12.13) Female cystocele documented as of this encounter Visit Diagnoses Not on filedocumented in this encounter Care Teams Curriculum Counselor Relationship Specialty Start Date End Date Abby Chang, COMPUTER LABORATORY TECHNICIAN PCP - General 05/19/13 02/20/15 documented as of this encounter
--- OUTSIDE RECORDS SUMMARY | 2024-04-26 16:48 | XMS_ITS | Encounter Summary ---
Author Organization [facility] [place] [address] Care Team Providers Care Criminal Court Judge Name Role Phone Ramona Hercules APRN Primary Care Provider Encounter Details Date Type Department Care Team (Late st Contact Info) Description 11/02/2017 Refill Dermatology at [address] [place] [address] Lisseth Oconnor LPN Social History Tobacco Use Types Packs/Day Years Used Date Smoking Tobacco: Former Smokeless Tobacco: Never Sex and Gender Information Value Date Recorded Sex Assigned at Not on file Gender Identity Not on file Sexual Orientation Not on file documented as of this encounter Miscellaneous Notes * Telephone Encounter - Lisseth Oconnor LPN - 11/02/2017 4:[address] Shah recommendations: Stop medication Imiquimod. Apply TAC twice daily until clears. Once cleared start Imiquimod Wed, Wed, & Wednesday only for 6 weeks. Any questions call office. Reviewed recommendations with Mary Ellen. Voiced understanding. Wants prescription called into [facility]. Order called. * Telephone Encounter - Lisseth Oconnor LPN - 11/02/2017 4:04 PM EDT Patient reports her lips are raw, tender, painful, and looks like ground hamberger. Started Imiquimod cream Wednesday10/25/17. Applied as directed Wednesday, Wednesday, Wednesday, , and Wednesday. Didn't apply Wednesday, or Wednesday. Didn't apply Wednesday to painful and raw. Should she continue to use? documented in this encounter Plan of Treatment Upcoming Encounters Date Type Department Care Team (Late st Contact Info) Description 04/27/2024 11:30 AM EST Office Visit Dermatology at [place] [address] [place] [address] Robert Herron MD [address], [place] José [place] [address] Scheduled Procedures Name Priority Associated Diagnoses Date/Ti me ANTERIOR COLPORRHAPHY CYSTOC SALLY W OR WO URETHEROCELE; INC CYSTO (WRVU 10.08) Female cystocele URETHRAL SUSPENSION, SLING\F ASCIA OR SYNTHETIC (WRVU 12.13) Female cystocele documented as of this encounter Visit Diagnoses Not on filedocumented in this encounter Care Teams Criminal Court Judge Relationship Specialty Start Date End Date Ramona Hercules, [place]ER[place] [address] [place] [address] PCP - General Family Medicine 11/10/16 04/17/18 documented as of this encounter
--- OUTSIDE RECORDS SUMMARY | 2024-04-26 16:48 | XMS_ITS | Encounter Summary ---
Author Organization [facility] [place] [address] Care Team Providers Care Site Leader Name Role Phone Israel Campuzano APRN Primary Care Provider + Encounter Details Date Type Department Care Team (Late st Contact Info) Description 12/04/2014 [place] [address] Ashish Gray MD [facility] [place] [address] Social History Tobacco Use Types Packs/Day Years Used Date Smoking Tobacco: Former Sex and Gender Information Value Date Recorded Sex Assigned at Not on file Gender Identity Not on file Sexual Orientation Not on file documented as of this encounter Progress Notes * Jose Fernandez MD - 12/04/2014 1:50 PM EDT Interventional Radiology - Pre-Procedure Note Problem List: @HOSPPROBL@ @NONHOSPPROBL@ ID: [id number] y.o. 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 No past surgical history on file. Allergies: No Known Allergies Laboratory (Last 24 Hours): Lab Results Component Value Date WBC 5.6 11/19/2014 HCT 35.1 11/19/2014 BUN 20* 11/19/2014 Radiology: destructive arthropathy of the right hip with marrow edema Medications to discontinue for procedure: none Prophylactic antibiotic: none Planned access site / position: prone / posterior appraoch A copy of this document will be sent to the patient's Primary Care Physician and/or Referring Physician. Jose Fernandez MD 12/04/2014 documented in this encounter Plan of Treatment Upcoming Encounters Date Type Department Care Team (Late st Contact Info) Description 04/27/2024 11:30 AM EST Office Visit Dermatology at [place] [address] [place] [address] Robert Herron MD [address], [place] [address] Scheduled Procedures Name Priority Associated Diagnoses Date/Ti me ANTERIOR COLPORRHAPHY CYSTOC SALLY W OR WO URETHEROCELE; INC CYSTO (WRVU 10.08) Female cystocele URETHRAL SUSPENSION, SLING\F ASCIA OR SYNTHETIC (WRVU 12.13) Female cystocele documented as of this encounter Visit Diagnoses Not on filedocumented in this encounter Care Teams Site Leader Relationship Specialty Start Date End Date Israel Campuzano, IMPLEMENTATION ARCHITECT PCP - General 05/19/13 02/20/15 documented as of this encounter
--- OUTSIDE RECORDS SUMMARY | 2024-04-26 16:48 | XMS_ITS | Encounter Summary ---
[place] [address] Care Team Providers Care Lighting Adviser Name Role Phone Jeannie Mantilla MD Primary Care Provider [phone] Reason for Referral * Consultation (Routine) - Specialty Diagnoses / Procedures Referred By Contac t Referred To Contact Orthopaedic Surgery Diagnoses Osteoarthritis, unspecified osteoarthritis type, unspecified site Eleazar Heath MD [facility] [place] [address] Referral ID Status Reason Start Date Expiration Date V isits Requested Visits Authorized [id number] Consult, Test & Treat 03/12/2015 09/08/2015 1 1 Encounter Details Date Type Department Care Team (Late st Contact Info) Description 03/12/2015 [place] [phone] Marina Walker LPN Social History Tobacco Use Types Packs/Day Years Used Date Smoking Tobacco: Former Sex and Gender Information Value Date Recorded Sex Assigned at Not on file Gender Identity Not on file Sexual Orientation Not on file documented as of this encounter Miscellaneous Notes * Telephone Encounter - Marina Walker LPN - 03/12/2015 1:12 PM EDT Mary Ellen calls back and said she would like a referral to the [facility] in [place] for hip replacement. She just saw Dr. Heath on March 01 and didn't think this would be an issue. Message forwarded to Dr. Heath. * Telephone Encounter - Marina Walker LPN - 03/12/2015 10:30 AM EDT Mary Ellen calls the nursing office and L/M about a referral, appt and Ortho 03/01 [facility]. Called and L/M for a return call to clarify the message from yesterday. documented in this encounter Plan of Treatment Upcoming Encounters Date Type Department Care Team (Late st Contact Info) Description 04/27/2024 11:30 AM EST Office Visit Dermatology at [place] [address] [place] [address] Robert Herron MD [address], [place] [address] Scheduled Procedures Name Priority Associated Diagnoses Date/Ti me ANTERIOR COLPORRHAPHY CYSTOC SALLY W OR WO URETHEROCELE; INC CYSTO (WRVU 10.08) Female cystocele URETHRAL SUSPENSION, SLING\F ASCIA OR SYNTHETIC (WRVU 12.13) Female cystocele Scheduled Referrals Name Type Priority Associated Diagnoses Orde r Schedule Referral to Orthopaedics Outpatient Referral Routine Osteoarthritis, unspecified osteoarthritis type, unspecified site Ordered: 03/12/2015 documented as of this encounter Visit Diagnoses Diagnosis Osteoarthritis, unspecified osteoarthritis type, unspecified site documented in this encounter Care Teams Lighting Adviser Relationship Specialty Start Date End Date Jeannie Mantilla MD [address] [facility] [address] [place] [address] PCP - General 02/21/15 11/09/16 documented as of this encounter
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
--- OUTSIDE RECORDS SUMMARY | 2024-04-26 16:48 | XMS_ITS | Encounter Summary ---
[place] [address] Care Team Providers Care Vehicle Check In Clerk Name Role Phone Abby Chang APRN Primary Care Provider + Reason for Visit * Reason Onset Date Comments Other 01/09/2015 MAP-Status of ap plication?, Resent to pt Encounter Details Date Type Department Care Team (Late st Contact Info) Description 01/09/2015 Telephone [place] [address] Shona Esteban Other (MAP-Status of application?, Resent to pt) Social History Tobacco Use Types Packs/Day Years Used Date Smoking Tobacco: Former Sex and Gender Information Value Date Recorded Sex Assigned at Not on file Gender Identity Not on file Sexual Orientation Not on file documented as of this encounter Miscellaneous Notes * Telephone Encounter - Aida Estebanlizz Cole - 01/09/2015 4:01 PM EDT MAP-Status of application?, Resent to pt I called Mary Ellen-spoke to her today. Discussed the annual application for [employer]. Pt stated she had not received it yet. I advised her it was mailed to her mid December. Pt verified address (was correct). I advised pt I will resend application. Pt stated she will complete RADHA and return to our office. I mailed copy of the letter from December 26, 2014 and the application for [employer] to Ms. Hodge for her to complete, sign, and return to me with proof of income. I will follow through with the applicationonce everything is returned to me.[id number] documented in this encounter Plan of Treatment Upcoming Encounters Date Type Department Care Team (Late st Contact Info) Description 04/27/2024 11:30 AM EST Office Visit Dermatology at [place] [address] [place] [address] Robert Herron MD [address], [place] [address] Scheduled Procedures Name Priority Associated Diagnoses Date/Ti me ANTERIOR COLPORRHAPHY CYSTOC SALLY W OR WO URETHEROCELE; INC CYSTO (WRVU 10.08) Female cystocele URETHRAL SUSPENSION, SLING\F ASCIA OR SYNTHETIC (WRVU 12.13) Female cystocele documented as of this encounter Visit Diagnoses Not on filedocumented in this encounter Care Teams Vehicle Check In Clerk Relationship Specialty Start Date End Date Abby Chang, CAMERON PCP - General 05/19/13 02/20/15 documented as of this encounter
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
--- OUTSIDE RECORDS SUMMARY | 2024-04-26 16:49 | XMS_ITS | Encounter Summary ---
Author Organization [facility] Address [address] [place] [address] Care Team Providers Care Vp Ad Products And Planning Name Role Phone Edd Caballero DO Primary Care Provider [phone] Reason for Visit * Reason Comments Pain Encounter Details Date Type Department Care Team ([facility] st Contact Info) Description 12/09/2020 14:45 EDT [facility] Visit [facility] Spine Program - [address] [address] Nelia Madera MD [address] [facility] [place] [address] Cervical myelopathy ([facility]) (Primary Dx) Social History Tobacco Use Types Packs/Day Years Used Date Smoking Tobacco: Former Cigarettes 1 16 0 07/11/1964 - 07/11/1980 Smokeless Tobacco: Never Alcohol Use Standard Drinks/Week Comments Never 0 (1 standard drink = 0.6 oz pur e alcohol) AUDIT-C Answer Date Recorded Q1: How often do you have a drink containing alc ohol? Never 11/06/2020 Average Number of Drinks Not on file 021 Frequency of Binge Drinking Not on file 10/13 PHQ-2 Answer Date Recorded PHQ-2 SUBTOTAL 0 09/16/2020 Interpersonal Safety Answer Date Record ed Physically Hurt Never 07/08/2020 Verbally Threaten Not on file 07/08/2020 Comments No Sex and Gender Information Value Date Recorded Sex Assigned at Not on file Legal Sex Female 18:26 EST Gender Identity Female 09/06/2020 17:23 EDT Sexual Orientation Not on file documented as of this encounter Functional Status * Are you deaf or do you have serious difficulty hearing? Answer Date of Assessment Author No 09/16/2020 15:00 Audrey Fernandez RN * Are you blind or do you have serious difficulty seeing, even when wearing glasses? Answer Date of Assessment Author No 09/16/2020 15:00 Audrey Fernandez RN * Do you have serious difficulty walking or climbing stairs? (5 years old or older) Answer Date of Assessment Author Yes 09/16/2020 15:00 Audrey Fernandez RN * Do you have difficulty dressing or bathing? (5 years old or older) Answer Date of Assessment Author Yes 09/16/2020 15:00 Audrey Fernandez RN * Because of a physical, mental, or emotional condition, do you have difficulty doing errands alone such as visiting a doctor's office or shopping? (15 years old or older) Answer Date of Assessment Author No 09/16/2020 15:00 Audrey Fernandez RN documented as of this encounter Mental Status * Because of a physical, mental, or emotional condition, do you have serious difficulty concentrating, remembering, or making decisions? (5 years old or older) Answer Entry Date Author No 09/16/2020 15:00 Audrey Fernandez RN documented in this encounter Progress Notes * Nelia Madera MD - 12/09/2020 1445 EDT Spine progress note VAS back 6 VAS leg 7 NDI 28 Date of operation: September 16, 2020 Procedure performed: C2-T1 laminectomy and posterior spinal fusion The patient returns 3 months out from her aforementioned surgery. She has been doing well since herlast follow-up with me at the end of October. She is continuing to work with therapy and feels that this has been very helpful in terms of pain control. She is using her walker and has started driving again. She has been transitioned to extended release morphine which she says dramatically improved herduration of pain control. She is also been in a pool working on strengthening and endurance. Her hand function continues to improve. She is otherwise doing well. Exam: Her posterior incision is well-healed. She ambulates slowly with her walker. She has good strength in her upper extremities with no focal deficits. Imaging: I reviewed her cervical radiographs from today. This demonstrates no changes in alignment or position of instrumentation. Assessment: Postop from C2-T1 laminectomy and fusion doing well Plan: Glad that the patient continues to make progress in terms of her recovery. She has an upcoming appointment with the pain clinic and I think that is an excellent idea. I am open to all options in terms of improving her pain control and trying to wean down off of narcotics. She can continue to work with physical therapy and I am happy to support her if a new prescription is needed. She will let me know. I can see her back in 3 months with repeat x-rays. She is agreeable with this plan and all questions were answered. Nelia Madera MD 12/09/2020 15:29 documented in this encounter Plan of Treatment Not on file documented as of this encounter Visit Diagnoses Diagnosis Cervical myelopathy ([facility])- Primary Cervical spondylosis with myelopathy documented in this encounter Historical Medications * This list may reflect changes made after this encounter. morphine (JACQUE) 30 mg ER capsule, pellets Take 15 mg by mouth every 12 hours. added in this encounter Care Teams Vp Ad Products And Planning Relationship Specialty Start Date End Date Edd Caballero DO [address] [place] [address] PCP - General Family Medicine - Primary Care 07/08/20 11/19/21 documented as of this encounter
--- OUTSIDE RECORDS SUMMARY | 2024-04-26 16:49 | XMS_ITS | Encounter Summary ---
Author Organization [facility] Address [address] [place] [address] Care Team Providers Care Bridge Maintainer Name Role Phone Edd Caballero DO Primary Care Provider [phone] Encounter Details Date Type Department Care Team (Late st Contact Info) Description 10/20/2021 Orders Only [facility] Spine Program - [address] [place], [place] [id number] Nelia Madera MD [address] [place] [address] [place] [address] Back pain, unspecified back location, unspecified back pain laterality, unspecified chronicity (Primary Dx) Social History Tobacco Use Types [...] Audrey Fernandez RN documented in this encounter Plan of Treatment Not on file documented as of this encounter Visit Diagnoses Diagnosis Back pain, unspecified back location, unspecified back pain laterality, unspecified chronicity- Primary documented in this encounter Care Teams Bridge Maintainer Relationship Specialty Start Date End Date Edd Caballero DO [address] [place] [address] PCP - General Family Medicine - Primary Care 07/08/20 11/19/21 documented as of this encounter
--- OUTSIDE RECORDS SUMMARY | 2024-04-26 16:49 | XMS_ITS | Encounter Summary ---
Author Organization [facility] Address [address] [place] [address] Care Team Providers Care Hand Candy Molder Name Role Phone Edd Caballero DO Primary Care Provider [phone] Encounter Details Date Type Department Care Team ([facility] st Contact Info) Description 09/21/2020 Results Only [facility] [phone] Mayra Bermudez, RISK ASSESSMENT ANALYST [address] [place] [address] Social History Tobacco Use Types Packs/Day Years Used Date Smoking Tobacco: Former Cigarettes 1 16 0 07/11/1964 - 07/11/1980 Smokeless Tobacco: Never Alcohol Use Standard Drinks/Week Comments Never 0 (1 standard drink = 0.6 oz pur e alcohol) AUDIT-C Answer Date Recorded Q1: How often do you have a drink containing alc ohol? Never 09/12/2020 Average Number of Drinks Not on file 021 Frequency of Binge Drinking Not on file 06/2020 PHQ-2 Answer Date Recorded PHQ-2 SUBTOTAL 0 09/16/2020 Interpersonal Safety Answer Date Record ed Physically Hurt Never 07/08/2020 Verbally Threaten Not on file 07/08/2020 Comments No Sex and Gender Information Value Date Recorded Sex Assigned at Not on file Legal Sex Female 18:26 EST Gender Identity Female 09/06/2020 17:23 EDT Sexual Orientation Not on file COVID-19 Exposure Response Date Recorded In the last month, have you been in contact with someone who was confirmed or suspected to have Coronavirus / COVID-19? No / Unsure 09/06/2020 17:23 EDT documented as of this encounter Functional Status * Are you deaf or do you have serious difficulty hearing? Answer Date of Assessment Author No 09/16/2020 15:00 EDT Audrey Rosario RN * Are you blind or do you have serious difficulty seeing, even when wearing glasses? Answer Date of Assessment Author No 09/16/2020 15:00 EDT Audrey Rosario RN * Do you have serious difficulty walking or climbing stairs? (5 years old or older) Answer Date of Assessment Author Yes 09/16/2020 15:00 EDT Audrey Rosario RN * Do you have difficulty dressing or bathing? (5 years old or older) Answer Date of Assessment Author Yes 09/16/2020 15:00 EDT Audrey Rosario RN * Because of a physical, mental, or emotional condition, do you have difficulty doing errands alone such as visiting a doctor's office or shopping? (15 years old or older) Answer Date of Assessment Author No 09/16/2020 15:00 EDT Audrey Rosario RN documented as of this encounter Mental Status * Because of a physical, mental, or emotional condition, do you have serious difficulty concentrating, remembering, or making decisions? (5 years old or older) Answer Entry Date Author No 09/16/2020 15:00 EDT Audrey Rosario RN documented in this encounter Plan of Treatment Not on file documented as of this encounter Procedures Procedure Name Priority Date/Time Associated Diagnosis Comments COVID-19 TESTING Routine 09/21/2020 15:4 0 EDT documented in this encounter Results * COVID-19 TESTING (09/21/2020 15:40 EDT) Performing Lab [facility] () 09/23/2020 13:19 EDT [facility] Comment: Please indicate the Triage Tier2 Test performed or referred by The [address] [address] COVID-19 rt-PCR Result Not Detected Negative 09/23/2020 13:19 EDT [facility] Comment: This test has not been FDA cleared or approved. This test has been authorized by FDA under an EUA for use by authorized laboratories. This test has been authorized only for detection of nucleic acid from 2019-nCoV, not for any other viruses or pathogens. This test is only authorized for the duration of the declaration that circumstances exist justifying the authorization of emergency use of in vitro diagnostic tests for detection and/or diagnosis of 2019-nCoV under section 564(b)(1) of Act, 21 U.S.C ? 360bbb-3(b) (1), unless the authorization is terminated or revoked sooner. Negative results do not preclude 2019-nCoV infection and should not be used as the sole basis for treatment or other patient management decisions. Negative results must be combined with clinical observations, patient history, and epidemiological information. Testing was performed using the mirza SARS-CoV-2 assay ([employer] on the Mirza 6800 System 09/21/2020 15:4 0 EDT 09/21/2020 16:45 EDT us Mayra Bermudez RISK ASSESSMENT ANALYST MICROBIOLOGY - GENERAL ORDERABLE S Final Result Performing Organization Address City/State/[facility] Co de Phone Number [facility] [address] [place] [address] documented in this encounter Visit Diagnoses Not on filedocumented in this encounter Care Teams Hand Candy Molder Relationship Specialty Start Date End Date Edd Caballero DO [address] [place] [address] PCP - General Family Medicine - Primary Care 07/08/20 11/19/21 documented as of this encounter
--- OUTSIDE RECORDS SUMMARY | 2024-04-26 16:49 | XMS_ITS | Encounter Summary ---
Author Organization [facility] Address [address] [place] [address] Care Team Providers Care Contact Lens Technician Name Role Phone Edd Caballero DO Primary Care Provider [phone] Reason for Visit * Reason Onset Date Comments Update 09/23/2020 Encounter Details Date Type Department Care Team ([facility] st Contact Info) Description 09/23/2020 Telephone [facility] Spine Program - [address] [place] [address] Roberta Bran, RN Update Social History Tobacco Use Types Packs/Day Years [...] Frequency of Binge Drinking Not on file 040 06/2020 PHQ-2 Answer Date Recorded PHQ-2 SUBTOTAL [...] Audrey Rosario RN documented in this encounter Miscellaneous Notes * Telephone Encounter - Roberta Bran RN - 09/24/2020 0957 EDT Patient's daughter Sangeetha called again this morning. States that the QUALITY PROJECT MANAGER at [facility] had a discussion with patient last night about changing her pain medication protocol and beginning to wean off pain medication. Sangeetha is wondering if it may be better for her mom to be discharged from [facility] and to have Home Health come instead. * Telephone Encounter - Roberta Bran RN - 09/23/2020 1343 EDT Marysol is s/p C2-T1 laminectomy and fusion on 09/16/[address] Madera. Her daughter Sangeetha called today with some concerns. [facility] Sangeetha wanted Dr. Madera to be aware that Marysol was placed in the Alzheimer's wing due to the fact that she needs to quarantine for 2 weeks. She has not been getting her pain medication in atimely manner and Sangeetha is concerned about the type of care her mother is receiving. She has spoken with the geriatric case manager/licensed clinical social worker at [facility] and has a care plan meeting with them on Wednesday. Forwarding to Dr. Madera as fyi documented in this encounter Plan of Treatment Not on file documented as of this encounter Visit Diagnoses Not on filedocumented in this encounter Care Teams Contact Lens Technician Relationship Specialty Start Date End Date Edd Caballero DO [address] [place] [address] PCP - General Family Medicine - Primary Care 07/08/20 11/19/21 documented as of this encounter
--- OUTSIDE RECORDS SUMMARY | 2024-04-26 16:49 | XMS_ITS | Encounter Summary ---
Author Organization [facility] Address [address] [place] [address] Care Team Providers Care Director Recreation Center Name Role Phone Edd Caballero DO Primary Care Provider [phone] Reason for Referral * Radiology Services (Routine) - Closed Specialty Diagnoses / Procedures Referred By Contac t Referred To Contact Diagnoses Neck pain Procedures XR CERVICAL SPINE 2-3 VIEWS Nelia Madera MD Phone: tel: fax: Referral ID Status Reason Start Date Expiration Date Visits Re quested Visits Authorized [id number] Closed 12/06/2020 1 1 Reason for Visit * Radiology Services (Routine) - Closed Specialty Diagnoses / Procedures Referred By Contac t Referred To Contact Diagnoses Neck pain Procedures XR CERVICAL SPINE 2-3 VIEWS Nelia Madera MD Phone: tel: fax: Referral ID Status Reason Start Date Expiration Date Visits Re quested Visits Authorized [id number] Closed 12/06/2020 1 1 Encounter Details Date Type Department Care Team (Latest Contact Info) Description 12/09/2020 14:45 EDT - 12/09/2020 23:59 ED[address] Encounter [address] [place], [place] [id number] Neck pain Discharge Disposition: Home or Self Care Social History Tobacco Use Types Packs/Day Years [...] Answer Entry Date Author No 09/16/2020 15:00 Aurdey Fernandez RN documented in this encounter Medications at Time of Discharge acetaminophen (TYLENOL) 500 mg tablet Take 325 mg by mouth every 6 hours as needed. Rare use aspirin-acetaminophe n-caffeine (EXCEDRIN EXTRA STRENGTH) 250-250-65 mg per tablet Take 1 Tablet by mouth every 6 hours as needed for Headaches. Takes 1/2 tab as needed for pain Cholecalciferol, Vitamin D3, 50 mcg (2,000 unit) capsule Take 1 Capsule by mouth daily. docusate sodium (COLACE) 100 mg capsule Take 200 mg by mouth 2 times daily. alonso root (ALONSO EXTRACT ORAL) Take by mouth daily. methocarbamoL (ROBAXIN) 750 mg tablet Take 1 Tab by mouth every 6 hours as needed (muscle spasms). 09/19/2020 miSOPROStol (CYTOTEC) 200 mcg tablet TK 1 T PO BID HS [facility] 04/16/2020 morphine (JACQUE) 30 mg ER capsule, pellets Take 15 mg by mouth every 12 hours. multivitamin (THERAGRAN) per tablet Take 1 Tablet by mouth daily. niacin (NIASPAN) 1,000 mg ER tablet Take 1,200 mg by mouth. omega-3 fatty acids 1,000 mg capsule capsule Take 2 Capsules by mouth daily. ondansetron (ZOFRAN-ODT) 4 mg disintegrating tablet Take 1 Tab by mouth every 6 hours as needed for Nausea. 09/19/2020 polyethylene glycol (GLYCOLAX) 17 gram/dose powder Take 17 g by mouth daily. 01/19/2019 potassium chloride 20 mEq tablet extended release TK 1 T PO QD WF 04/23/2020 senna (SENOKOT) 8.6 mg tablet Take 1 Tab by mouth 2 times daily. 09/19/2020 TURMERIC ORAL Take by mouth daily. valACYclovir (VALTREX) 500 mg tablet Take 1 Tablet by mouth. VITAMIN B COMPLEX ORAL Take by mouth daily. gabapentin (NEURONTIN) 100 mg capsule Take 1 Cap by mouth 3 times daily. 09/19/2020 2 HYDROmorphone (DILAUDID) 2 mg tablet Take 1-2 Tabs by mouth every 3 hours as needed for Pain. Daily Max: 32 mg 16 Tab 09/19/2020 2 documented as of this encounter Discharge Disposition Disposition Code Departure Means Destination Home or Self Care documented in this encounter Plan of Treatment Not on file documented as of this encounter Procedures Procedure Name Priority Date/Time Associated Diagnosis Comments XR CERVICAL SPINE 2-3 VIEWS Routine 12/09/2020 14:58 EDT Neck pain documented in this encounter Results * XR CERVICAL SPINE 2-3 VIEWS (12/09/2020 14:58 EDT) Anatomical Region Laterality Modality Computed Radiogr aphy 12/10/2020 13:4 3 EDT Impressions 12/10/2020 13:43 EDT Findings/Impression: Redemonstration of the postsurgical changes following posterior decompression and instrumented fusion extending from C2 through T1 without evidence of hardware complication. Alignment is unchanged. No vertebral body height loss. The visible soft tissues are unremarkable. Narrative 12/10/2020 13:43 EDT XR CERVICAL SPINE 2-3 VIEWS 12/09/2020 2:45 PM History: assess healing Technique: AP and lateral views of the cervical spine were performed. Comparisons: 11/06/2020 Procedure Note Faisal Blount MD - 12/10/2020 XR CERVICAL SPINE 2-3 VIEWS 12/09/2020 2:45 PM History: assess healing Technique: AP and lateral views of the cervical spine were performed. Comparisons: 11/06/2020 IMPRESSION Findings/Impression: Redemonstration of the postsurgical changes following posteriordecompression and instrumented fusion extending from C2 through T1 withoutevidence of hardware complication. Alignment is unchanged. No vertebralbody height loss. The visible soft tissues are unremarkable. Nelia Madera MD IMG DIAGNOSTIC IMAGING ORDERABLE S Final Result documented in this encounter Visit Diagnoses Diagnosis Neck pain Cervicalgia documented in this encounter Care Teams Director Recreation Center Relationship Specialty Start Date End Date Edd Caballero DO [address] [place] [address] PCP - General Family Medicine - Primary Care 07/08/20 11/19/21 documented as of this encounter
--- OUTSIDE RECORDS SUMMARY | 2024-04-26 16:49 | XMS_ITS | Encounter Summary ---
Author Organization [facility] Address [address] [place] [address] Care Team Providers Care Qa Lead Name Role Phone Ada Edd Primary Care Provider [phone] Reason for Referral * Radiology Services (Routine) - Closed Specialty Diagnoses / Procedures Referred By Contac t Referred To Contact Diagnoses Neck pain Procedures XR CERVICAL SPINE 2-3 VIEWS Nelia Madera MD Phone: tel: fax: Referral ID Status Reason Start Date Expiration Date Visits Re quested Visits Authorized [id number] Closed 11/04/2020 1 1 Encounter Details Date Type Department Care Team ([facility] st Contact Info) Description 11/04/2020 Orders Only [facility] Spine Program - [address] [place] [address] Nelia Madera MD [address] [place] [address] [place] [address] Neck pain (Primary Dx) Social History Tobacco Use Types [...] Frequency of Binge Drinking Not on file 0406/2020 PHQ-2 Answer Date Recorded PHQ-2 SUBTOTAL 0 [...] on file documented as of this encounter Results * XR CERVICAL SPINE 2-3 VIEWS (11/06/2020 15:10 EDT) Anatomical Region Laterality Modality Computed Radiogr aphy 11/07/2020 11:2 4 EDT Impressions 11/07/2020 11:24 EDT Findings/Impression: Redemonstration of the postsurgical changes following posterior decompression and is ready fusion extending from C2 through T1 without evidence of hardware complication. Alignment is unchanged. No new vertebral body height loss. The visible soft tissues are unremarkable. Narrative 11/07/2020 11:24 EDT XR CERVICAL SPINE 2-3 VIEWS 11/06/2020 3:00 PM History: s/p C2-t1 fusion, assess healing Technique: AP and lateral views of the cervical spine were performed. Comparisons: 09/18/2020 Procedure Note Faisal Blount MD - 11/07/2020 XR CERVICAL SPINE 2-3 VIEWS 11/06/2020 3:00 PM History: s/p C2-t1 fusion, assess healing Technique: AP and lateral views of the cervical spine were performed. Comparisons: 09/18/2020 IMPRESSION Findings/Impression: Redemonstration of the postsurgical changes following posteriordecompression and is ready fusion extending from C2 through T1 withoutevidence of hardware complication. Alignment is unchanged. No newvertebral body height loss. The visible soft tissues are unremarkable. us Nelia Madera MD IMG DIAGNOSTIC IMAGING ORDERABLE S Final Result documented in this encounter Visit Diagnoses Diagnosis Neck pain- Primary Cervicalgia Neck pain Cervicalgia documented in this encounter Care Teams Qa Lead Relationship Specialty Start Date End Date Edd Caballero DO [address] [place] [address] PCP - General Family Medicine - Primary Care 07/08/20 11/19/21 documented as of this encounter
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
--- OUTSIDE RECORDS SUMMARY | 2024-04-26 16:49 | XMS_ITS | Encounter Summary ---
Author Organization [facility] Address [address] [place] [address] Care Team Providers Care Diet Therapist Name Role Phone Edd Caballero DO Primary Care Provider [phone] Reason for Referral * Radiology Services (Routine) - Closed Specialty Diagnoses / Procedures Referred By Contac t Referred To Contact Diagnoses Neck pain Procedures XR CERVICAL SPINE 2-3 VIEWS Nelia Madera MD Phone: tel: fax: Referral ID Status Reason Start Date Expiration Date Visits Re quested Visits Authorized [id number] Closed 11/04/2020 1 1 Reason for Visit * Radiology Services (Routine) - Closed Specialty Diagnoses / Procedures Referred By Contac t Referred To Contact Diagnoses Neck pain Procedures XR CERVICAL SPINE 2-3 VIEWS Nelia Madera MD Phone: tel: fax: Referral ID Status Reason Start Date Expiration Date Visits Re quested Visits Authorized [id number] Closed 11/04/2020 1 1 Encounter Details Date Type Department Care Team (Latest Contact Info) Description 11/06/2020 14:59 EDT - 11/06/2020 23:59 EDT [address] Encounter [address] [place], [place] [id number] Neck pain Discharge Disposition: Home or Self [...] Audrey Fernandez RN documented in this encounter Medications [...] tablet TK 1 T PO BID HS IAC 04/16/2020 multivitamin (THERAGRAN) per tablet Take 1 Tablet [...] Comments XR CERVICAL SPINE 2-3 VIEWS Routine 11/06/2020 15:10 EDT Neck pain documented in this encounter [...] Cervicalgia documented in this encounter Care Teams Diet Therapist Relationship Specialty Start Date End Date Edd Caballero DO [address] [place] [address] PCP - General Family Medicine - Primary Care 07/08/20 11/19/21 documented as of this encounter
--- OUTSIDE RECORDS SUMMARY | 2024-04-26 16:49 | XMS_ITS | Encounter Summary ---
Author Organization [facility] Address [address] [place] [address] Care Team Providers Care Nuclear Medicine Pet Ct Technologist Name Role Phone Edd Caballero DO Primary Care Provider [phone] Reason for Referral * Radiology Services (Routine/Next Available) - Closed Specialty Diagnoses / Procedures Referred By Luac t Referred To Contact Diagnoses Neck pain Procedures XR CERVICAL SPINE 2-3 VIEWS Nelia Madera MD Phone: tel: fax: Referral ID Status Reason Start Date Expiration Date Visits Re quested Visits Authorized [id number] Closed 03/07/2021 1 1 Reason for Visit * Radiology Services (Routine/Next Available) - Closed Specialty Diagnoses / Procedures Referred By Contac t Referred To Contact Diagnoses Neck pain Procedures XR CERVICAL SPINE 2-3 VIEWS Nelia Madera MD Phone: tel: fax: Referral ID Status Reason Start Date Expiration Date Visits Re quested Visits Authorized [id number] Closed 03/07/2021 1 1 Encounter Details Date Type Department Care Team (Latest Contact Info) Description 03/14/2021 14:15 EDT - 03/14/2021 23:59 EDT [address] Encounter [address] [address] [place] [address] Neck pain Discharge Disposition: Home or Self [...] Date of Assessment Author No 09/16/2020 15:00 Aurdey Fernandez RN * Do you have serious [...] TK 1 T PO BID HS [facility] 04/16/2020 morphine (JACQUE) 30 mg ER capsule, [...] Comments XR CERVICAL SPINE 2-3 VIEWS Routine 03/14/2021 14:29 EDT Neck pain documented in this encounter Results * XR CERVICAL SPINE 2-3 VIEWS (03/14/2021 14:29 EDT) Anatomical Region Laterality Modality Computed Radiogr aphy 03/17/2021 15:2 1 EDT Impressions 03/17/2021 15:21 EDT Findings/Impression: Postsurgical changes following posterior decompression and instrumented fusion extending from C2 through T1 with no evidence of hardware fracture or change in alignment. No new vertebral body height loss. Diffuse osseous demineralization. Narrative 03/17/2021 15:21 EDT XR CERVICAL SPINE 2-3 VIEWS 03/14/2021 2:30 PM History: neck pain Technique: AP and lateral views of the cervical spine were performed. Comparisons: 12/09/2020 Procedure Note Faisal Blount MD - 03/17/2021 XR CERVICAL SPINE 2-3 VIEWS 03/14/2021 2:30 PM History: neck pain Technique: AP and lateral views of the cervical spine were performed. Comparisons: 12/09/2020 IMPRESSION Findings/Impression: Postsurgical changes following posterior decompression and instrumentedfusion extending from C2 through T1 with no evidence of hardware fractureor change in alignment. No new vertebral body height loss. Diffuse osseousdemineralization. Nelia Madera MD IMG DIAGNOSTIC IMAGING ORDERABLE S Final Result documented in this encounter Visit Diagnoses Diagnosis Neck pain Cervicalgia documented in this encounter Care Teams Nuclear Medicine Pet Ct Technologist Relationship Specialty Start Date End Date Edd Caballero DO [address] [place] [address] PCP - General Family Medicine - Primary Care 07/08/20 11/19/21 documented as of this encounter
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
--- OUTSIDE RECORDS SUMMARY | 2024-04-26 16:49 | XMS_ITS | Encounter Summary ---
Author Organization [facility] Address [address] [place] [address] Care Team Providers Care Senior Financial Analyst Name Role Phone Edd Caballero DO Primary Care Provider [phone] Reason for Referral * Radiology Services (Routine/Next Available) - Authorization Not Required Specialty Diagnoses / Procedures Referred By Contac t Referred To Contact Diagnoses Neck pain Procedures XR CERVICAL SPINE 2-3 VIEWS Nelia Madera MD Phone: tel: fax: [facility] Referral ID Status Reason Start Date Expiration Date Visits Requested Visits Authorized [id number] Authorization Not Required 10/17/2021 1 1 Encounter Details Date Type Department Care Team (Late st Contact Info) Description 10/17/2021 Orders Only [facility] Spine Program - [address] [place] [address] Nelia Madera MD [address] [place] [address] [place] [address] Neck pain (Primary Dx) Social [...] Results * XR CERVICAL SPINE 2-3 VIEWS (10/20/2021 13:16 EDT) Anatomical Region Laterality Modality Computed Radiogr aphy 10/20/2021 16:2 1 EDT Impressions 10/20/2021 16:21 EDT C2-T1 posterior spinal fusion hardware appears intact and in unchanged position. No significant change in alignment. No evidence of recent fractures. Narrative 10/20/2021 16:21 EDT XR CERVICAL SPINE 2-3 VIEWS ??10/20/2021 1:10 PM Clinical History/Comments: assess healing. Technique: AP, lateral views of the cervical spine. Procedure Note Nitesh Castañeda MD - 10/20/2021 XR CERVICAL SPINE 2-3 VIEWS 10/20/2021 1:10 PM Clinical History/Comments: assess healing. Technique: AP, lateral views of the cervical spine. IMPRESSION C2-T1 posterior spinal fusion hardware appears intact and in unchangedposition. No significant change in alignment. No evidence of recentfractures. us Nelia Madera MD IMG DIAGNOSTIC IMAGING ORDERABLE S Final Result documented in this encounter Visit Diagnoses Diagnosis Neck pain- Primary Cervicalgia Neck pain Cervicalgia documented in this encounter Care Teams Senior Financial Analyst Relationship Specialty Start Date End Date Edd Caballero DO [address] [place] [address] PCP - General Family Medicine - Primary Care 07/08/20 11/19/21 documented as of this encounter
--- OUTSIDE RECORDS SUMMARY | 2024-04-26 16:49 | XMS_ITS | Encounter Summary ---
Author Organization [facility] Address [address] [place] [address] Care Team Providers Care Spot Facer Name Role Phone Ada, Edd DON Primary Care Provider + [phone] Frank Francois MD Primary Care Provider [phone] Encounter Details Date Type Department Care Team (Late st Contact Info) Description 09/21/2020 Lab Requisition [facility] Pathology & Laboratory Medicine - [facility] [address] [place] [address] Outr Resulting Lab, Provider Social History Tobacco Use Types Packs/Day Years [...] Procedure Name Priority Date/Time Associated Diagnosis Comments ZZCOVID-19 TEST [facility] PCR Today 09/21/2020 15:40 EDT COVID-19 TESTING Routine 09/21/2020 15:4 0 EDT documented in this encounter Results * COVID-19 TEST [facility] PCR (09/21/2020 15:40 EDT) Swab ENTIRE NASOPHARYNX / Unknown 09/21/2020 15:40 EDT 09/22/2020 16:53 EDT us Provider Outr Resulting Lab MICROBIOLOGY - GENER AL ORDERABLES Final Result Performing Organization Address City/[facility]/ZIP Co de Phone Number [facility] [address] [place] [address] * COVID-19 TESTING (09/21/2020 15:40 EDT) COVID-19 rt-PCR Result Negative Negative 09/23/2020 11:57 EDT [facility] Comment: This test has not been FDA [...] under section 564(b)(1) of Act, 21 U.S.C ?? 360bbb-3(b) (1), unless the authorization is terminated or revoked sooner. Negative results do not preclude 2019-nCoV infection and should not be used as the sole basis for treatment or other patient management decisions. Negative results must be combined with clinical observations, patient history, and epidemiological information. Testing was performed using the mirza SARS-CoV-2 assay ([employer] on the Mirza 6800 System Performing Lab Mirza 6800 [facility] Lab 09/23/2020 11:57 EDT [facility] Swab 09/21/2020 15:4 0 EDT 09/22/2020 16:53 EDT us Provider Outr Resulting Lab MICROBIOLOGY - GENER AL ORDERABLES Final Result Performing Organization Address [facility] Co de Phone Number [facility] [address] [place] [address] documented in this encounter Visit Diagnoses Not on filedocumented in this encounter Care Teams Spot Facer Relationship Specialty Start Date End Date Edd Caballero DO [address] [place] [id number] PCP - General Family Medicine - Primary Care 07/08/20 11/19/21 Frank Francois MD [address] [address] PCP - General Emergency Medicine 11/20/21 documented as of this encounter
--- OUTSIDE RECORDS SUMMARY | 2024-04-26 16:49 | XMS_ITS | Encounter Summary ---
Author Organization [facility] Address [address] [place] [address] Care Team Providers Care Matchbook Maker Name Role Phone Edd Caballero DO Primary Care Provider [phone] Reason for Visit * Reason Comments Pain Encounter Details Date Type Department Care Team ([facility] st Contact Info) Description 10/20/2021 13:15 EDT Office Visit [facility] Spine Program - [address] [address] Nelia Madera MD [address] [facility] [place] [address] Cervical myelopathy (HCC-CMS) (HCC) (HCC-CMS) (Primary Dx) Social History [...] Progress Notes * Nelia Madera MD - 10/20/2021 1315 EDT Spine progress note Date of operation: September 16, 2020 Operation performed: C2-T1 laminectomy and posterior spinal fusion The patient returns just over a year out from her previous surgery. She is doing about the same as when I saw her in the fall. She continues to have some ongoing neck pain as well as issues related to her arthritis in multiple joints including the left shoulder, left hip and left knee. She is having ablations and injections to keep the symptoms at bay she would like to avoid joint replacement surgery. She is requesting a new referral for physical therapy. She feels that her ambulation and upperextremity dexterity issues are stable. She is quite discouraged that she has not made more progresspostoperatively Exam the patient is in no acute distress. She ambulates slowly with a cane. She continues to have ongoing script editor and interossei weakness. Exam otherwise unchanged from prior Imaging I reviewed her cervical radiographs from today. These demonstrate no change in alignment or position of instrumentation Assessment: Postop from C2-T1 laminectomy and fusion for cervical spondylotic myelopathy with ongoing gait and upper extremity limitations Plan: Marysol is quite discouraged today that she has not made more progress postoperatively. We discussed atlength that surgery was done to halt progression and generally if patients are the same a year out from surgery I consider that a success. She was hoping for a more dramatic improvement in upper extremity dexterity issues as well as her gait. We discussed that therapy can still be helpful at this point and I will give her a new prescription for this. I will also refer her to my physiatry colleagues for additional recommendations regarding ongoing symptoms. I think she should focus on maximizingthe function she has presently. I am happy to see her back at any point. No spine restrictions. Nelia Madera MD 10/20/2021 16:26 documented in this encounter Plan of Treatment Not on file documented as of this encounter Visit Diagnoses Diagnosis Cervical myelopathy (HCC-CMS)- Primary Cervical spondylosis with myelopathy documented in this encounter Care Teams Matchbook Maker Relationship Specialty Start Date End Date Edd Caballero DO [address] [place] [address] PCP - General Family Medicine - Primary Care 07/08/20 11/19/21 documented as of this encounter
--- OUTSIDE RECORDS SUMMARY | 2024-04-26 16:49 | XMS_ITS | Encounter Summary ---
Author Organization [facility] Address [address] [place] [address] Care Team Providers Care Electromechanical Equipment Tester Name Role Phone Edd Caballero DO Primary Care Provider [phone] Reason for Visit * Reason Comments Pain Encounter Details Date Type Department Care Team ([facility] st Contact Info) Description 03/14/2021 14:30 EDT Office Visit [facility] Spine Program - [address] [address] Nelia Madera MD [address] [facility] [place] [address] Cervical myelopathy (HCC-CMS) (HCC) (HCC-CMS) [...] Author No 09/16/2020 15:00 EDAudrey Bobby RN * Do you have serious difficulty [...] Progress Notes * Nelia Madera MD - 03/14/2021 1430 EDT Spine progress note VAS next 6 VAS arm 8 NDI 26 Date of operation: September 16, 2020 Procedure performed: C2-T1 laminectomy and posterior spinal fusion The patient returns 6 months out from her aforementioned surgery. She continues to have some mild ongoing neck pain. She is also having trouble with her left shoulder, left hip, and left knee and is seeing specialists and been told that she needs joint replacements for each of these issues. She continues to work with her therapist and feel that she has made some progress in her upper extremity dexterity. She is also ambulating with crutches which is a significant improvement for her. Exam The patient's in no acute distress. She ambulates slowly with her crutches. She has good strength in her upper extremities with no focal deficits but some subtle manager regulatory and interossei weakness. Imaging I reviewed her cervical radiographs from today. These demonstrate no change in alignment or position of instrumentation Assessment: Postop C2-T1 laminectomy and fusion doing well Plan: I discussed with the patient that recovery after myelopathy surgery is often very slow. Again I reiterated that the goal of the operation was to halt progression. I am glad that she has had some improvement of her dexterity and she may continue to notice subtle changes going forward. I think physical therapy can be very helpful for this and I would be happy to give her a prescription for this in the future if needed. I also think she does not need any spine restrictions and should proceed with her other interventions as necessary. I can see her back on an as-needed basis. She is agreeable with this plan and all questions were answered. Nelia Madera MD 03/14/2021 16:31 documented in this encounter Plan of Treatment Not on file documented as of this encounter Visit Diagnoses Diagnosis Cervical myelopathy ([facility])- Primary Cervical spondylosis with myelopathy documented in this encounter Care Teams Electromechanical Equipment Tester Relationship Specialty Start Date End Date Edd Caballero DO [address] [place] [address] PCP - General Family Medicine - Primary Care 07/08/20 11/19/21 documented as of this encounter
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
--- OUTSIDE RECORDS SUMMARY | 2024-04-26 16:49 | XMS_ITS | Encounter Summary ---
Author Organization [facility] Address [address] [place] [address] Care Team Providers Care Sketch Liner Name Role Phone Edd Caballero DO Primary Care Provider [phone] Reason for Referral * Radiology Services (Routine/Next Available) - Authorization Not Required Specialty Diagnoses / Procedures Referred By Contac t Referred To Contact Diagnoses Neck pain Procedures XR CERVICAL SPINE 2-3 VIEWS Nelia Madera MD Phone: tel: fax: [facility] Referral ID Status Reason Start Date Expiration Date Visits Requested Visits Authorized [id number] Authorization Not Required 10/17/2021 1 1 Reason for Visit * Radiology Services (Routine/Next Available) - Authorization Not Required Specialty Diagnoses / Procedures Referred By Contac t Referred To Contact Diagnoses Neck pain Procedures XR CERVICAL SPINE 2-3 VIEWS Nelia Madera MD Phone: tel: fax: [facility] Referral ID Status Reason Start Date Expiration Date Visits Requested Visits Authorized [id number] Authorization Not Required 10/17/2021 1 1 Encounter Details Date Type Department Care Team (Latest Contact Info) Description 10/20/2021 13:07 EDT - 10/20/2021 23:59 EDT [address] Encounter [address] [place], [place] [id number] Neck pain Discharge Disposition: Home or Self [...] Audrey Rosario RN documented in this encounter Medications at [...] TK 1 T PO BID HS [facility] 04/16/2020 morphine (JACQUE) 30 mg ER capsule, [...] Daily Max: 32 mg 16 Tab 09/19/2020 documented as of this encounter Discharge Disposition Disposition Code Departure Means Destination Home or Self Care documented in this encounter Plan of Treatment Not on file documented as of this encounter Procedures Procedure Name Priority Date/Time Associated Diagnosis Comments XR CERVICAL SPINE 2-3 VIEWS Routine 10/20/2021 13:16 EDT Neck pain documented in this encounter [...] change in alignment. No evidence of recentfractures. Nelia Madera MD [facility] ORDERABLE S Final Result documented in this encounter Visit Diagnoses Diagnosis Neck pain Cervicalgia documented in this encounter Care Teams Sketch Liner Relationship Specialty Start Date End Date Edd Caballero DO [address] [place] [address] PCP - General Family Medicine - Primary Care 07/08/20 11/19/21 documented as of this encounter
--- OUTSIDE RECORDS SUMMARY | 2024-04-26 16:49 | XMS_ITS | Encounter Summary ---
Author Organization [facility] Address [address] [place] [address] Care Team Providers Care Acura Sales Consultant Name Role Phone Edd Caballero DO Primary Care Provider [phone] Reason for Referral * Radiology Services (Routine) - Closed Specialty Diagnoses / Procedures Referred By Contac t Referred To Contact Diagnoses Neck pain Procedures XR CERVICAL SPINE 2-3 VIEWS Nelia Madera MD Phone: tel: fax: Referral ID Status Reason Start Date Expiration Date Visits Re quested Visits Authorized [id number] Closed 12/06/2020 1 1 Encounter Details Date Type Department Care Team ([facility] st Contact Info) Description 12/06/2020 Orders Only [facility] Spine Program - [address] [place] [address] Nelia Madera MD [address] [place] [address] [place] [address] Neck pain (Primary Dx) Social [...] Cervicalgia documented in this encounter Care Teams Acura Sales Consultant Relationship Specialty Start Date End Date Edd Caballero DO [address] [place] [address] PCP - General Family Medicine - Primary Care 07/08/20 11/19/21 documented as of this encounter
--- OUTSIDE RECORDS SUMMARY | 2024-04-26 16:49 | XMS_ITS | Encounter Summary ---
Author Organization [facility] Address [address] [place] [address] Care Team Providers Care Semiconductor Wafers Tester Name Role Phone Edd Caballero DO Primary Care Provider [phone] Reason for Visit * Reason Comments Post-OP Follow Up Encounter Details Date Type Department Care Team ([facility] st Contact Info) Description 11/06/2020 14:45 EDT Post-op Visit [facility] Spine Program - [address] [address] Nelia Madera MD [address] [place] [address] [place] [address] Neck pain (Primary Dx) Social [...] Progress Notes * Nelia Madera MD - 11/06/2020 1445 EDT Spine progress note VAS neck 7.5 VAS arm 8 NDI 26 Date of operation: September 16, 2020 Procedure performed: C2-T1 laminectomy and posterior spinal fusion Patient returns today 6 weeks out from her aforementioned surgery. She had a difficult postop course and did not notice significant improvement in her myelopathy symptoms postoperatively. She is a bit disappointed about this but is here today with her daughter who reports that the patient is continuing to make improvements in her upper extremity dexterity and her strength. Her daughter feels patient is moving much better getting stronger. She is taking Dilaudid every 8 hours for pain and has been slowly weaning down. She denies any issues with the incision. She still has left-sided shoulder pain and posterior neck pain. She is ready to start outpatient therapy. She is ambulating with her wal ker and is otherwise doing well. Exam: Her posterior incision is well-healed. There is no evidence of infection. She has 4-5 deltoid strength otherwise 5 out of 5 in her upper extremities. She is ambulating slowly with a walker. Imaging: I reviewed her cervical radiographs from today. These demonstrate no changes in alignment or position of instrumentation compared to prior imaging. Assessment: Postop from C2-T1 laminectomy and fusion doing well Plan: I had a long conversation with Mary Ellen and her daughter regarding her postop course. We obtained an MRI while she was in the hospital and this showed adequate decompression of her cervical spinal cord. We discussed that myelopathy surgery is done to halt progression and we always hope that patients will make improvement but it's not a guarantee. I do think she is progressing very nicely and shouldcontinue to work hard with therapy. We'll give her a prescription for outpatient therapy. I also explained to her that she should try her best to wean down off of Dilaudid. She is now beyond the 6-week hollie from this and that is the limit for any further refills. I would be happy to speak to her primary care physician regarding this at any point. Otherwise I think Mary Ellen is doing well and she should continue to follow her lifting restrictions. I'll plan to see her back in 6 weeks with repeat x-rays. She is agreeable with this plan all questions were answered. Nelia Madera MD 11/07/2020 12:04 documented in this encounter Plan of Treatment Not on file documented as of this encounter Visit Diagnoses Diagnosis Neck pain- Primary Cervicalgia documented in this encounter Care Teams Semiconductor Wafers Tester Relationship Specialty Start Date End Date Edd Caballero DO [address] [place] [address] PCP - General Family Medicine - Primary Care 07/08/20 11/19/21 documented as of this encounter
--- OUTSIDE RECORDS SUMMARY | 2024-04-26 16:49 | XMS_ITS | Referral Summary ---
Author Organization [facility] Address [address] [place] [address] Care Team Providers Care Transonic Engineer Name Role Phone Frank Francois MD Primary Care Provider [phone] Encounters Date Type Department Care Team Description 04/13/2024 15:40 EDT - 04/13/2024 23:59 EDT Hospital Encounter [address] [facility] [address] [place] [address] Chronic midline low back pain without sciatica; Chronic left hip pain; Chronic pain of left knee Discharge Disposition: Home or Self Care 04/13/2024 14:00 EDT Office Visit [facility] Physical Medicine & Rehabilitation - [address] [place] [address] Dorie Iraheta MD Chronic midline low back pain without sciatica (Primary Dx); Chronic left hip pain; Arthritis of left hip; Chronic pain of left knee; Arthritis of left knee; Vaginal prolapse; H/O rectocele repair; Scoliosis of lumbar spine, unspecified scoliosis type from Last 3 Months Allergies Active Allergy Reactions Criticality Noted Date [...] mcg tablet TK 1 T PO BID [facility] 04/16/20 20 Active VITAMIN B COMPLEX ORAL [...] 6 hours as needed (muscle spasms). 09/20/19 21 Active Additional Information Patient not taking.Reported on 04/13/2024 senna (SENOKOT) 8.6 mg tablet Take 1 Tab by mouth 2 times daily. 09/20/19 21 Active Additional Information Patient not taking.Reported on 04/13/2024 ondansetron (ZOFRAN-ODT) 4 mg disintegrating tablet Take 1 Tab by mouth every 6 hours as needed for Nausea. 09/20/19 21 Active morphine (JACQUE) 30 mg ER capsule, pellets Take 15 mg by mouth every 12 hours. Active oxyCODONE-acetamin ophen (PERCOCET) 5-325 mg per tablet Take 1 Tablet by mouth every 6 hours as needed for Pain. Active Active Problems Patient Care Coordination No te Formatting of this note migh t be different from the original. 2020 [place]CN [id number] Viviane 09/06/2020 10:33 Patient has given permission for [facility] to verbally discuss the following [...] (11/28/2021): Added automatically from request for surgery [id number] Chronic pain 11/21/2018 Gastroesophageal reflux 11/21/2018 History of bulimia 11/21/2018 History of pelvic fracture 11/21/2018 History of right hip replacement 11/21/2018 Osteoarthritis (arthritis due to wear and tear o f joints) 11/21/2018 Peripheral neuropathy 11/21/2018 Solar lentigo 03/12/2014 Immunizations Name Administration Dates Next Due Covid-19 mRNA Vaccine (MODER NA COVID-19) PF 0.5 ml IM (12 yrs+) 10/04/2020,09/06/2020 Historical Influenza Vaccine, Unspecified 2017 Td (Adult) 5 Lf Vaccine (TEN IVAC) Preservative Free =>7yo IM 05/22/2008 Social History Tobacco Use Types Packs/Day Years [...] 17:23 EDT Sexual Orientation Not on file Last Filed [...] Body Mass Index 19.23 09/16/2020 1500 EDT Functional Status * Are you deaf or [...] Date of Assessment Author Yes 09/16/2020 15:00 EDAudrey Bobby RN * Do you have difficulty dressing [...] No 09/16/2020 15:00 EDT Audrey Rosario RN Mental Status * Because of a physical, mental, or emotional condition, do you have serious difficulty concentrating, remembering, or making decisions? (5 years old or older) Answer Entry Date Author No 09/16/2020 15:00 EDT Audrey Rosario RN Plan of Treatment Not on file Medical Devices Implanted Type Area Service Delivery Consultant Device Identifier Shelf Expiration Date Model / Serial / Lot [place] Avnity 10 Ml [id number] - [id number] Implanted:Qty: 1 on 09/16/2020 by Nelia Madera MD at [facility] Bone N/A: Spine Cervical [employer] 06/24/2023 [id number] / [id number] / [place]ro Spinal Posterior Cervical Solid Threaded Oasys [id number] - [id number] Implanted:Qty: 10 on 09/16/2020 by Nelia Madera MD at [facility] Screw Implant N/A: Spine Cervical CECILY SPINE [id number] / / Screw Biased 3.5 X 18mm Oasys Implanted:Qty: 2 on 09/16/2020 by Nelia Madera MD at [facility] Spinal Implant N/A: Spine Cervical CECILY SPINE [id number] / / Screw Pa Medial Based 4 X 24 Mm Oasys [employer] - [id number] Implanted:Qty: 2 on 09/16/2020 by Nelia Madera MD at [facility] Spinal Implant N/A: Spine Cervical CECILY SPINE [id number] / / Screw Biased 3.5 X 12mm Oasys Implanted:Qty: 6 on 09/16/2020 by Nelia Madera MD at [facility] Spinal Implant N/A: Spine Cervical CECILY SPINE [id number] / / Robert Spinal Posterior Occipito Cervico Thoracic Ti Str Rad 3.5x80mm Oasys [id number] - [id number] Implanted:Qty: 2 on 09/16/2020 by Nelia Madera MD at [facility] Spinal Implant N/A: Spine Cervical CECILY SPINE [id number] / / Procedures Procedure Name Priority Date/Time [...] REGARDING THIS REPORT PLEASE CALL [facility] AT [phone] [facility] 04/17/2024 8:36 EST PROCEDURE INFORMATION: Exam: XR [...] CONCERNS REGARDING THIS REPORT PLEASE CALL VR [phone] us Dorie Iraheta MD IMG DIAGNOSTIC IMAGING CLARI GUTHRIE Final Result * XR KNEE LEFT 1-2 [...] There is a background of diffuse osteopenia. [id number] Narrative 04/21/2024 12:50 EST EXAM/TECHNIQUE: XR KNEE LEFT 1-2 VIEWS ??04/13/2024 3:44 PM HISTORY: chronic L knee pain, remote Hx trauma COMPARISON: None. Resulting Agency Comment [id number] Procedure Note Mark Mcneill MD - 04/21/2024 [...] There is a background of diffuse osteopenia. [id number] us Dorie Iraheta MD IM DIAGNOSTIC IMAGING [facility] Final Result * XR HIP LEFT 2-3 [...] is however a background of diffuse osteopenia. [id number] Narrative 04/21/2024 12:48 EST EXAM/TECHNIQUE: XR HIP LEFT 2-3 VIEWS OPTIONAL PELVIS ??04/13/2024 3:44 PM HISTORY: chronic L hip pain, remote Hx trauma COMPARISON: None. Resulting Agency Comment [id number] Procedure Note Mark Mcneill MD - 04/21/2024 [...] is however a background of diffuse osteopenia. [id number] us Dorie Iraheta MD IMG DIAGNOSTIC IMAGING ORDShruti GUTHRIE Final Result from Last 3 Months Insurance [place] Advance Directives For more information, please contact: [phone] Documents on File Type Date Recorded Patient Resourcing Advisor Expl anation COLST/MOLST 09/25/2020 14:12 D NR/COLST Advance Directive 09/16/2020 5:53 [place] Advanc e Directive For Health Care-Signed 2020-09-16 * Full Code (Latest Code Status on File) Date Activated Date Inactivated Comments 09/16/2020 6:19 09/20/2020 12:42 Question Answer Comments Reason for decision includes: Full code consistent with overall plan of care Who participated in the discussion? Not Discusse d Care Teams Transonic Engineer Relationship Specialty Start Date End Date Frank Francois MD [address] [facility] [address] [place] [address] PCP - General Emergency Medicine 11/20/21
--- OUTSIDE RECORDS SUMMARY | 2024-04-26 16:49 | XMS_ITS | Encounter Summary ---
Author Organization [facility] Address [address] [place] [address] Care Team Providers Care Abrasive Worker Name Role Phone Edd Caballero DO Primary Care Provider [phone] Reason for Visit * Reason Onset Date Comments Post-OP Follow Up 09/26/2020 Encounter Details Date Type Department Care Team ([facility] Contact Info) Description 09/26/2020 Telephone [facility] Spine Program - [place] [address] Roberta Bran, JULIA Post-OP Follow Up Social History Tobacco Use Types Packs/Day Years [...] Telephone Encounter - Roberta Bran RN - 09/26/2020 0939 EDT Mary Ellen is going to be discharged to home from [place] today. Her daughter Sangeetha called with several questions. Marysol is wondering when she can resume gentle touch chiropractic as well as hyperbaric chamber? I recommended that she wait until she sees Dr. Madera for her first post-op visit but thatI would ask also check with him about this. documented in this encounter Plan of Treatment Not on file documented as of this encounter Visit Diagnoses Not on filedocumented in this encounter Care Teams Abrasive Worker Relationship Specialty Start Date End Date Edd Caballero DO [address] [place] [address] PCP - General Family Medicine - Primary Care 07/08/20 11/19/21 documented as of this encounter
--- OUTSIDE RECORDS SUMMARY | 2024-04-26 16:49 | XMS_ITS | Encounter Summary ---
Author Organization [facility] Address [address] [place] [address] Care Team Providers Care Pharmacy Messenger Name Role Phone Edd Caballero DO Primary Care Provider [phone] Reason for Visit * Reason Onset Date Comments Post-OP Follow Up 10/16/2020 Encounter Details Date Type Department Care Team ([facility] st Contact Info) Description 10/16/2020 Telephone [facility] Spine Program - [place] [address] Roberta Bran, JULIA Post-OP Follow Up Social [...] No 09/16/2020 15:00 EDAudrey Bobby RN * Are you blind or do [...] Audrey Fernandez RN documented in this encounter Miscellaneous Notes * Telephone Encounter - Roberta Bran RN - 10/16/2020 1001 EDT Spoke with patient's daughter Sangeetha, who states that her Mom is doing well. Home Health PT has recommended that she start outpatient PT. Referral and protocols faxed to [facility] [phone]. Sangeetha states that her mom is slowly making progress, she has gained a few pounds and is able to sign her name and lift her arms over her head to wash her hair. She is currently taking dilaudid 2mg every 4 -5 hours, which is being managed by her PCP. documented in this encounter Plan of Treatment Not on file documented as of this encounter Visit Diagnoses Not on filedocumented in this encounter Care Teams Pharmacy Messenger Relationship Specialty Start Date End Date Edd Caballero DO [address] [place] [address] PCP - General Family Medicine - Primary Care 07/08/20 11/19/21 documented as of this encounter
--- OUTSIDE RECORDS SUMMARY | 2024-04-26 16:49 | XMS_ITS | Encounter Summary ---
Author Organization [facility] Address [address] [place] [address] Care Team Providers Care Bilingual Legal Assistant Name Role Phone Edd Caballero DO Primary Care Provider [phone] Reason for Referral * Radiology Services (Routine/Next Available) - Closed Specialty Diagnoses / Procedures Referred By Contac t Referred To Contact Diagnoses Neck pain Procedures XR CERVICAL SPINE 2-3 VIEWS Nelia Madera MD Phone: tel: fax: Referral ID Status Reason Start Date Expiration Date Visits Re quested Visits Authorized [id number] Closed 03/07/2021 1 1 Encounter Details Date Type Department Care Team (Late st Contact Info) Description 03/07/2021 Orders Only [facility] Spine Program - [address] [address] Nelia Madera MD [address] [place] [address] [place] [address] Neck pain (Primary Dx) Social [...] Cervicalgia documented in this encounter Care Teams Bilingual Legal Assistant Relationship Specialty Start Date End Date Edd Caballero DO [address] [place] [address] PCP - General Family Medicine - Primary Care 07/08/20 11/19/21 documented as of this encounter
--- OUTSIDE RECORDS SUMMARY | 2024-04-26 16:49 | XMS_ITS | Encounter Summary ---
Author Organization [facility] Address [address] [place] [address] Care Team Providers Care Hatchery Supervisor Name Role Phone Frank Francois MD Primary Care Provider [phone] Reason for Referral * Radiology Services (Routine/Next Available) - Authorization Not Required Specialty Diagnoses / Procedures Referred By Contac t Referred To Contact Diagnoses Chronic pain of left knee Procedures XR KNEE LEFT 1-2 VIEWS Dorie Iraheta MD [address] [place] [address] Phone: tel: fax: [facility] Referral ID Status Reason Start Date Expiration Date Visits Requested Visits Authorized [id number] Authorization Not Required 4 1 1 * Radiology Services (Routine/Next Available) - Authorization Not Required Specialty Diagnoses / Procedures Referred By Contac t Referred To Contact Diagnoses Chronic left hip pain Procedures XR HIP LEFT 2-3 VIEWS OPTIONAL PELVIS Dorie Iraheta MD [address] [place] [address] Phone: tel: fax: [facility] Referral ID Status Reason Start Date Expiration Date Visits Requested Visits Authorized [id number] Authorization Not Required 4 1 1 * Radiology Services (Routine/Next Available) - Authorization Not Required Specialty Diagnoses / Procedures Referred By Contac t Referred To Contact Diagnoses Chronic midline low back pain without sciatica Procedures XR PELVIS 1-2 VIEWS Dorie Iraheta MD [address] [place] [address] Phone: tel: fax: [facility] Referral ID Status Reason Start Date Expiration Date Visits Requested Visits Authorized [id number] Authorization Not Required 4 1 1 * Radiology Services (Routine/Next Available) - Authorization Not Required Specialty Diagnoses / Procedures Referred By Contac t Referred To Contact Diagnoses Chronic midline low back pain without sciatica Procedures XR LUMBAR SPINE 2-3 VIEWS Dorie Iraheta MD [address] [place] [address] Phone: tel: fax: [facility] Referral ID Status Reason Start Date Expiration Date Visits Requested Visits Authorized [id number] Authorization Not Required 4 1 1 Reason for Visit * Radiology Services (Routine/Next Available) - Authorization Not Required Specialty Diagnoses / Procedures Referred By Contac t Referred To Contact Diagnoses Chronic midline low back pain without sciatica Procedures XR LUMBAR SPINE 2-3 VIEWS Dorie Iraheta MD [address] [place] [address] Phone: tel: fax: [facility] Referral ID Status Reason Start Date Expiration Date Visits Requested Visits Authorized [id number] Authorization Not Required 4 1 1 Encounter Details Date Type Department Care Team (Latest Contact Info) Description 04/13/2024 15:40 EDT - 04/13/2024 23:59 EDT [address] Encounter [address] [place] [address] Chronic midline low back pain without sciatica; Chronic left hip pain; Chronic pain of left knee Discharge Disposition: Home or Self Care Social [...] Date of Assessment Author No 09/16/2020 15:00 JULIOT Audrey Rosario RN * Are you blind or do you have serious difficulty seeing, even when wearing glasses? Answer Date of Assessment Author No 09/16/2020 15:00 JULIOT Audrey Rosario RN * Do you have serious difficulty walking or climbing stairs? (5 years old or older) Answer Date of Assessment Author Yes 09/16/2020 15:00 Audrey Fernandez RN * Do you have difficulty dressing or bathing? (5 years old or older) Answer Date of Assessment Author Yes 09/16/2020 15:00 JULIOT Audrey Rosario RN * Because of a [...] 6 hours as needed for Nausea. 09/19/2020 oxyCODONE-acetaminop hen (PERCOCET) 5-325 mg per tablet Take 1 [...] B COMPLEX ORAL Take by mouth daily. documented as of this encounter Discharge Disposition Disposition Code Departure Means Destination Home or Self Care documented in this encounter Plan of Treatment Not on file documented as of this encounter Procedures Procedure Name Priority Date/Time Associated Diagnosis Comments XR LUMBAR SPINE 2-3 VIEWS Routine 04/13/2024 16:03 EDT Chronic midline low back pain without sciatica XR KNEE LEFT 1-2 VIEWS Routine 04/13/2024 16:03 EDT Chronic pain of left knee XR HIP LEFT 2-3 VIEWS, OPTIONAL PELVIS Routine 04/13/2024 16:03 EDT Chronic left hip pain documented in this encounter Results * XR KNEE LEFT [...] There is a background of diffuse osteopenia. [id number] Narrative 04/21/2024 12:50 EST EXAM/TECHNIQUE: XR KNEE LEFT 1-2 VIEWS ??04/13/2024 3:44 PM HISTORY: chronic L knee pain, remote Hx trauma COMPARISON: None. Resulting Agency Comment [id number] Procedure Note Mark Mcneill MD - 04/21/2024 [...] There is a background of diffuse osteopenia. [id number] us Dorie Iraheta MD IM DIAGNOSTIC IMAGING AYADShruti GUTHRIE Final Result * XR HIP LEFT 2-3 [...] is however a background of diffuse osteopenia. [id number] Narrative 04/21/2024 12:48 EST EXAM/TECHNIQUE: XR HIP LEFT 2-3 VIEWS OPTIONAL PELVIS ??04/13/2024 3:44 PM HISTORY: chronic L hip pain, remote Hx trauma COMPARISON: None. Resulting Agency Comment [id number] Procedure Note Mark Mcneill MD - 04/21/2024 [...] is however a background of diffuse osteopenia. [id number] us Dorie Iraheta MD IMG DIAGNOSTIC IMAGING [...] REGARDING THIS REPORT PLEASE CALL [facility] AT [phone] Narrative 04/17/2024 8:36 EST PROCEDURE INFORMATION: Exam: [...] CONCERNS REGARDING THIS REPORT PLEASE CALL [facility] [phone] us Dorie Iraheta MD IMG DIAGNOSTIC IMAGING ORDE JERRI Final Result documented in this encounter Visit Diagnoses Diagnosis Chronic midline low back pain without sciatica Chronic left hip pain Pain in joint, pelvic region and thigh Chronic pain of left knee Pain in joint, lower leg documented in this encounter Orders Imaging Orders Without Results Count Last Order ed Date First Ordered Date XR PELVIS 1-2 VIEWS 1 04/13/2024 documented in this encounter Care Teams Hatchery Supervisor Relationship Specialty Start Date End Date Frank Francois MD [address] [facility] [address] [place] [address] PCP - General Emergency Medicine 11/20/21 documented as of this encounter
--- OUTSIDE RECORDS SUMMARY | 2024-04-26 16:49 | XMS_ITS | Encounter Summary ---
Author Organization [facility] Address [address] [place] [address] Care Team Providers Care Piece Dyer Name Role Phone Frank Francois MD Primary Care Provider [phone] Encounter Details Date Type Department Care Team (Late st Contact Info) Description 03/16/2022 Lab Requisition [facility] Pathology & Laboratory Medicine - [facility] [address] [place] [address] Dionne Ordaz MD [facility] [place], [place] [id number] Encounter for other general examination Social History Tobacco Use Types Packs/Day Years [...] Procedure Name Priority Date/Time Associated Diagnosis Comments PAP TEST Today 03/13/2022 13:15 EDT Encounter for other general examination HPV DNA DETECTION WITH GENOTYPING, PCR Today 03/13/2022 13:15 EDT Encounter for other general examination documented in this encounter Results * HUMAN PAPILLOMAVIRUS (HPV) DETECTION-HIGH RISK TYPES (03/13/2022 13:15 EDT) HPV other High Risk types, PCR Negative Negative 03/18/2022 15:08 EDT [facility] Comment:No E6 or E7 mRNA is detected from HPV types 16,18,31,33,35,39,45,51,52,56,58,59,66, and 68 by gis analyst mediated amplification. Papanicolaou smear specimen (specimen) CERVIX UTERI STRUCTURE / Unknown 03/13/2022 13:15 EDT 03/17/2022 13:14 EDT us Dionne Ordaz MD MICROBIOLOGY - GENERAL ORDERAB LES Final Result [facility] [address] [place] [address] * PAP TEST (03/13/2022 13:15 EDT) Specimens A. Cervix and/or Endocervix , ThinPrep Imaging System with Manual Evaluation 03/18/2022 15:08 [facility] Specimen Adequacy Satisfactory for Evaluation - transformation zone component present Scant squamous epithelial component, contamination present, possibly lubricant 03/18/2022 15:08 [facility] General Categorization Negative for intraepithelial lesion or malignancy 03/18/2022 15:08 [facility] Attestation . 03/18/2022 15:08 [facility] at 1508 Clinical History See below 03/18/20 15:08 [facility] HPV The result for the Human Papillomavirus (HPV) Detection-High Risk Types is Negative. No E6 or E7 mRNA is detected from HPV types 16,18,31,33,35,39 ,45,51,52,56,58,5 9,66, and 68 by gis analyst mediated amplification.Maricruz ting was performed on specimen [id number] and was resulted on 03/18/2022 1507 EDT by BRENNEN, LAB INSTRUMENT RESULTS IN 03/18/2022 15:08 T [facility] Performing Lab [facility] 03/18/2022 15:08 T [facility] Scanned Images 03/18/2022 15:08 [facility] Papanicolaou smear specimen (specimen) CERVIX UTERI STRUCTURE / Unknown 03/13/2022 13:15 EDT 03/16/2022 9:39 EDT us Dionne Ordaz MD PATHOLOGY ORDERABLES Final Res ult [facility] [address] [place] [address] documented in this encounter Visit Diagnoses Diagnosis Encounter for other general examination documented in this encounter Care Teams Piece Dyer Relationship Specialty Start Date End Date Frank Francois MD [address] [facility] [address] [place] [address] PCP - General Emergency Medicine 11/20/21 documented as of this encounter
--- OUTSIDE RECORDS SUMMARY | 2024-04-26 16:50 | XMS_ITS | Encounter Summary ---
Author Organization [facility] Address [address] [place] [address] Care Team Providers Care Pigment Mixer Name Role Phone Jeannie Mantilla MD Primary Care Provider [phone] Edd Caballero DO Primary Care Provider [phone] Reason for Visit * Reason Onset Date Comments Appointment Related 07/04/2020 Encounter Details Date Type Department Care Team (Late st Contact Info) Description 07/04/2020 Telephone [facility] [place] [address] [place] [id number] Jd Lebron MD [address] [place] [address], [address] [place] [address] Appointment Related Social History Tobacco Use Types Packs/Day Years Used Date Smoking Tobacco: Never Assessed AUDIT-C Answer Date Recorded Q1: How often do you have a drink containing alc ohol? Never 11/06/2020 Average Number of Drinks Not on file 021 Frequency of Binge Drinking Not on file 10/13 PHQ-2 Answer Date Recorded PHQ-2 SUBTOTAL 0 09/16/2020 Interpersonal Safety Answer Date Record ed Physically Hurt Never 07/08/2020 Verbally Threaten Not on file 07/08/2020 Comments Unknown Sex and Gender Information Value Date [...] 17:23 EDT documented as of this encounter Miscellaneous Notes * Telephone Encounter - TerryduglasZenia - 07/04/2020 1158 EST Spoke to patient and scheduled the NPV with on 07/11/20 @ 8:30am via Zoom. Meeting ID: [id number] Password: [id number] Referral assigned documented in this encounter Plan of Treatment Not on file documented as of this encounter Visit Diagnoses Not on filedocumented in this encounter Care Teams Pigment Mixer Relationship Specialty Start Date End Date Jeannie Mantilla MD [address] [place] [phone] PCP - General 05/05/15 07/07/20 Edd Caballero DO [address] [place] [id number] PCP - General Family Medicine - Primary Care 07/08/20 11/19/21 documented as of this encounter
--- OUTSIDE RECORDS SUMMARY | 2024-04-26 16:50 | XMS_ITS | Encounter Summary ---
Author Organization [facility] Address [address] [place] [address] Care Team Providers Care Temporary Office Assistant Name Role Phone Edd Caballero DO Primary Care Provider Reason for Visit * Reason Onset Date Comments Pre-op Exam 09/09/2020 Encounter Details Date Type Department Care Team ([facility] st Contact Info) Description 09/09/2020 Prep for Procedure [facility] [place] [address] [place] [address] Roberta Bran, JULIA Social History Tobacco Use Types Packs/Day Years Used Date Smoking Tobacco: Former Cigarettes 1 16 0 07/11/1964 - 07/11/1980 Smokeless Tobacco: Never Interpersonal Safety Answer Date Record ed Physically [...] 17:23 EDT documented as of this encounter Plan of Treatment Not on file documented as of this encounter Visit Diagnoses Not on filedocumented in this encounter Care Teams Temporary Office Assistant Relationship Specialty Start Date End Date Edd Caballero DO [address] [place] [phone] PCP - General Family Medicine - Primary Care 07/08/20 11/19/21 documented as of this encounter
--- OUTSIDE RECORDS SUMMARY | 2024-04-26 16:50 | XMS_ITS | Encounter Summary ---
Author Organization [facility] Address [address] [place] [address] Care Team Providers Care Executive Staff Assistant Name Role Phone Edd Caballero DO Primary Care Provider [phone] Reason for Visit * Reason Onset Date Comments Pre-op Exam 09/13/2020 Encounter Details Date Type Department Care Team ([facility] st Contact Info) Description 09/13/2020 Telephone [facility] [place] [address] [place] [address] Roberta Bran, JULIA Pre-op Exam Social History Tobacco Use Types Packs/Day Years [...] of Binge Drinking Not on file 0406/2020 Interpersonal Safety Answer Date Record ed Physically [...] Telephone Encounter - Roberta Bran RN - 09/13/2020 1213 EDT Spoke with patient's daughter Sangeetha while patient was in the background. Patient was told to arrive @6am on 09/16/20 @ 3rd floor registration at [facility], nothing to eat or drink after midnight, to take Tylenol as per protocol, and any medications with a sip of water, no makeup/jewelry/zeferino lpolish/perfumes, to shower the night before and morning of surgery with an antibacterial soap thatwas provided, to wear appropriate attire (baggy, loose fitting, etc), to leave all valuables at home. Patient denies any illness/infection at this time. Patient was given COVID-19 visitor policy updat e. Patient verbalized understanding of all instructions. documented in this encounter Plan of Treatment Not on file documented as of this encounter Visit Diagnoses Not on filedocumented in this encounter Care Teams Executive Staff Assistant Relationship Specialty Start Date End Date Edd Caballero DO [address] [place] [address] PCP - General Family Medicine - Primary Care 07/08/20 11/19/21 documented as of this encounter
--- OUTSIDE RECORDS SUMMARY | 2024-04-26 16:50 | XMS_ITS | Encounter Summary ---
Author Organization [facility] Address [address] [place] [address] Care Team Providers Care Bench Jeweler Name Role Phone Edd Caballero DO Primary Care Provider [phone] Reason for Visit * Reason Onset Date Comments Follow-up 09/09/2020 Encounter Details Date Type Department Care Team ([facility] st Contact Info) Description 09/09/2020 Orders Only [facility] [place] [address] [place] [address] Roberta Bran, RN Cervical myelopathy ([facility]) (Primary Dx) Social History Tobacco Use Types [...] this encounter Visit Diagnoses Diagnosis Cervical myelopathy ([facility])- Primary Cervical spondylosis with myelopathy documented in this encounter Care Teams Bench Jeweler Relationship Specialty Start Date End Date Edd Caballero DO [address] [place] [address] PCP - General Family Medicine - Primary Care 07/08/20 11/19/21 documented as of this encounter
--- OUTSIDE RECORDS SUMMARY | 2024-04-26 16:50 | XMS_ITS | Encounter Summary ---
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 unchanged from immediate postop radiographs. The alignment of the fused segments is otherwise unchanged from comparison studies. Narrative 09/18/2020 11:54 EDT EXAM/TECHNIQUE: XR CERVICAL SPINE 2-3 VIEWS ??09/18/2020 11:15 AM HISTORY: ?? s/p C2-T1 fusion, assess alignment and hardware position on upright images COMPARISON: September 16, 2020. Films, August 19, 2020 preoperative films Procedure Note Damian Vasquez MD - 09/18/2020 EXAM/TECHNIQUE: XR CERVICAL SPINE 2-3 VIEWS 09/18/2020 11:15 AM HISTORY: s/p C2-T1 fusion, assess alignment and hardware position on uprightimages COMPARISON: September 16, 2020. Films, August 19, 2020 preoperative films IMPRESSION FINDINGS / IMPRESSION: 2 views of the cervical spine upright. Patient status post recentposterior spinal fusion decompression C2-T1. 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 The fused segment anterolisthesis of C2over C3 is improved from the preoperative films, unchanged from immediatepostop radiographs. The alignment of the fused segments is otherwiseunchanged from comparison studies. us Neri Vargas MD IMG DIAGNOSTIC IMAGING ORDERABLE S Final Result * (ABNORMAL) COMPLETE BLOOD COUNT (09/18/2020 6:48 EDT) WBC 5.85 4.00 - 12.40 K/cmm 09/18/2020 7:21 [facility] RBC 3.66(L) 3.86 - 5.04 M/cmm 09/18/2020 7:21 [facility] Hemoglobin 11.8 11.6 - 15.2 gm/dL 09/18/2020 7:21 [facility] HCT 34.9 34.9 - 44.4 % 09/18/2020 7:21 [facility] MCV 95 81 - 98 fl 09/18/2020 7:21 [facility] MCH 32.2 26.7 - 33.3 pg 09/18/2020 7:21 [facility] MCHC 33.8 32.1 - 35.9 gm/dL 09/18/2020 7:21 EDT [facility] RDW-CV 11.8 <14.7 % 09/18/2020 7:21 EDT [facility] RDW-SD 41.3 <50.4 fl 09/18/2020 7:21 EDT [facility] PLT 239 141 - 377 K/cmm 09/18/2020 7:21 EDT [facility] MPV 9.0(L) 9.5 - 12.7 fl 09/18/2020 7:21 EDT [facility] Blood VENOUS BLOOD / Unknown Venipuncture / Unknown 09/18/2020 6:48 EDT 09/18/2020 7:12 EDT Linda Das PA-C HEMATOLOGY & PF4 ORDERABLES Fi nal Result Performing Organization Address City/[facility] Co de Phone Number [facility] [address] [place] [address] * ELECTROLYTES (09/18/2020 6:48 EDT) Sodium 138 136 - 145 mEq/L 09/18/2020 7:50 EDT [facility] Potassium 4.1 3.5 - 5.0 mEq/L 09/18/2020 7:50 EDT [facility] Chloride 102 96 - 110 mEq/L 09/18/2020 7:50 EDT [facility] CO2 Total 30 22 - 32 mEq/L 09/18/2020 7:50 EDT [facility] Blood VENOUS BLOOD / Unknown Venipuncture / Unknown 09/18/2020 6:48 EDT 09/18/2020 7:10 EDT Linda Das PA-C CHEMISTRY & BLOOD GAS ORDERABL ES Final Result Performing Organization Address [facility]/ZIP Co de Phone Number [facility] [address] [place] [address] * (ABNORMAL) CREATININE (09/18/2020 6:48 EDT) Creatinine 0.49(L) 0.52 - 1.04 mg/dL 09/18/2020 7:50 EDT [facility] eGFR 101 >60 mL/min/1.7 3m2 09/18/2020 7:50 EDT [facility] Comment:eGFR calculated aravind mackenzie CKD-EPI equation for non- Americans. Multiply eGFR by 1.16 for patients. Blood VENOUS BLOOD / Unknown Venipuncture / Unknown 09/18/2020 6:48 EDT 09/18/2020 7:10 EDT Linda Das PA-C CHEMISTRY & BLOOD GAS ORDERABL ES Final Result [facility] [address] [place] [address] * BUN (09/18/2020 6:48 EDT) BUN 14 10 - 26 mg/dL 09/18/2020 7:50 EDT [facility] Blood VENOUS BLOOD / Unknown Venipuncture / Unknown 09/18/2020 6:48 EDT 09/18/2020 7:10 EDT Linda Das PA-C CHEMISTRY & BLOOD GAS ORDERABL ES Final Result Performing Organization Address City/[facility]/ZIP Co de Phone Number [facility] [address] [place] [address] * MR CERVICAL SPINE WO CONTRAST (09/18/2020 3:08 EDT) Anatomical Region Laterality Modality Spine Magnetic Resonan ce 09/18/2020 13:5 4 EDT Impressions 09/18/2020 13:54 EDT 1. Status post C2-T1 laminectomy and posterior fusion with improvement in spinal canal stenosis at C2-3 and C5-6. There is residual myelomalacia in the spinal cord at these levels, similar in appearance to prior. 2. Severe bilateral neural foraminal stenosis from C4-T1, predominantly related to vertebral body height loss. 3. Other chronic degenerative changes as above. 4. Postsurgical changes to the posterior cervical soft tissues with a surgical drain in place. I have personally reviewed the images and the above interpretation and agree with the findings. Narrative 09/18/2020 13:54 EDT EXAM: MRI CERVICAL SPINE WO CONTRAST HISTORY: Myelopathy, acute or progressive; evaluate for residual compression TECHNIQUE: MRI of the cervical spine without contrast. Structured report code: [id number] COMPARISON: Cervical spine radiographs 08/19/2020 and outside cervical spine MRI 05/27/2020. FINDINGS: SURGICAL CHANGES: Status post C2-T1 laminectomy and posterior fusion on 09/16/2020. Allowing for limited evaluation due to susceptibility artifact, the orthopedic hardware appears anatomically aligned. ALIGNMENT: There is minimal anterolisthesis of C2 on C3, improved since preoperative MRI. There is mild anterolisthesis of the C4 component on C5, though these vertebral bodies are fused. Retrolisthesis of C5 on C6 and C6 on C7 is similar to prior. There is reversal of normal cervical lordosis centered at C5, which is fused with C4. BONES: There is fusion of the C3-C5 vertebral bodies with height loss of the C5 component. There is also degenerative height loss and C6, similar to prior. No concerning lesions. INTERVERTEBRAL DISCS: There is multilevel intervertebral disc height loss including complete loss at the site of vertebral body fusion from C3-C5. There is fluid in the C5-6 and C6-7 intervertebral discs and desiccation at C7-T1. SPINAL CANAL AND SPINAL CORD: Again seen is abnormal T2 hyperintensity of the spinal cord at the levels of C2- 3 and C5-6 likely related reflecting myelomalacia. A more coalescent T2 hyperintensity is present posterior to the C6 vertebral body, unchanged from prior. VISIBLE EXTRASPINAL SOFT TISSUES AND INTRACRANIAL CONTENTS: There are postsurgical changes in the posterior cervical soft tissues. No organized fluid collection or evidence of complication. A surgical drain is in place. EVALUATION BY LEVEL: C1-C2: No spinal canal or neural foraminal stenosis. C2-C3: There is a posteriorly projecting disc osteophyte complex. No spinal canal stenosis status post laminectomy. No neural foraminal stenosis. C3-C4: There is fusion of the C3 and C4 vertebral bodies with no spinal canal stenosis. There is mild bilateral neural foraminal stenosis. C4-C5: There is fusion of the C4 and C5 vertebral bodies with no spinal canal stenosis. There is severe bilateral neural foraminal stenosis. C5-C6: A posteriorly projecting disc osteophyte complex causes no spinal canal stenosis. There is severe right and moderate left neural foraminal stenosis. C6-C7: A small disc osteophyte complex causes no spinal canal stenosis. There is severe bilateral neural foraminal stenosis. C7-T1: A small disc osteophyte complex causes no spinal canal stenosis. There is severe left and at least moderate right neural foraminal stenosis. Procedure Note Nitesh Castañeda MD - 09/18/2020 EXAM: MRI CERVICAL SPINE WO CONTRAST HISTORY: Myelopathy, acute or progressive; evaluate for residualcompression TECHNIQUE: MRI of the cervical spine without contrast. Structured reportcode: [id number] COMPARISON: Cervical spine radiographs 08/19/2020 and outside cervical spineMRI 05/27/2020. FINDINGS: SURGICAL CHANGES: Status post C2-T1 laminectomy and posterior fusion on 09/16/2020. Allowingfor limited evaluation due to susceptibility artifact, the orthopedichardware appears anatomically aligned. ALIGNMENT: There is minimal anterolisthesis of C2 on C3, improved since preoperativeMRI. There is mild anterolisthesis of the C4 component on C5, though thesevertebral bodies are fused. Retrolisthesis of C5 on C6 and C6 on C7 issimilar to prior. There is reversal of normal cervical lordosis centeredat C5, which is fused with C4. BONES: There is fusion of the C3-C5 vertebral bodies with height loss of the [id number]. There is also degenerative height loss and C6, similar toprior. No concerning lesions. INTERVERTEBRAL DISCS: There is multilevel intervertebral disc height loss including completeloss at the site of vertebral body fusion from C3-C5. There is fluid inthe C5-6 and C6-7 intervertebral discs and desiccation at C7-T1. SPINAL CANAL AND SPINAL CORD: Again seen is abnormal T2 hyperintensity of the spinal cord at the levelsof C2-3 and C5-6 likely related reflecting myelomalacia. A more coalescentT2 hyperintensity is present posterior to the C6 vertebral body, unchangedfrom prior. VISIBLE EXTRASPINAL SOFT TISSUES AND INTRACRANIAL CONTENTS: There are postsurgical changes in the posterior cervical soft tissues. Noorganized fluid collection or evidence of complication. A surgical drainis in place. EVALUATION BY LEVEL: C1-C2: No spinal canal or neural foraminal stenosis. C2-C3: There is a posteriorly projecting disc osteophyte complex. Nospinal canal stenosis status post laminectomy. No neural foraminalstenosis. C3-C4: There is fusion of the C3 and C4 vertebral bodies with no spinalcanal stenosis. There is mild bilateral neural foraminal stenosis. C4-C5: There is fusion of the C4 and C5 vertebral bodies with no spinalcanal stenosis. There is severe bilateral neural foraminal stenosis. C5-C6: A posteriorly projecting disc osteophyte complex causes no spinalcanal stenosis. There is severe right and moderate left neural foraminalstenosis. C6-C7: A small disc osteophyte complex causes no spinal canal stenosis.There is severe bilateral neural foraminal stenosis. C7-T1: A small disc osteophyte complex causes no spinal canal stenosis.There is severe left and at least moderate right neural foraminalstenosis. IMPRESSION 1. Status post C2-T1 laminectomy and posterior fusion with improvement inspinal canal stenosis at C2-3 and C5-6. There is residual myelomalacia inthe spinal cord at these levels, similar in appearance to prior. 2. Severe bilateral neural foraminal stenosis from C4-T1, predominantlyrelated to vertebral body height loss. 3. Other chronic degenerative changes as above. 4. Postsurgical changes to the posterior cervical soft tissues with asurgical drain in place. I have personally reviewed the images and the above interpretation andagree with the findings. us Linda Das PA-C [facility] MRI ORDERABLES Final Resul t * (ABNORMAL) COMPLETE BLOOD COUNT (09/17/2020 6:11 EDT) WBC 8.48 4.00 - 12.40 K/cmm 09/17/2020 6:41 T [facility] RBC 3.60(L) 3.86 - 5.04 M/cmm 09/17/2020 6:41 [facility] Hemoglobin 11.8 11.6 - 15.2 gm/dL 09/17/2020 6:41 [facility] HCT 33.7(L) 34.9 - 44.4 % 09/17/2020 6:41 [facility] MCV 94 81 - 98 fl 09/17/2020 6:41 T [facility] MCH 32.8 26.7 - 33.3 pg 09/17/2020 6:41 [facility] MCHC 35.0 32.1 - 35.9 gm/dL 09/17/2020 6:41 [facility] RDW-CV 11.9 <14.7 % 09/17/2020 6:41 [facility] RDW-SD 40.9 <50.4 fl 09/17/2020 6:41 [facility] PLT 191 141 - 377 K/cmm 09/17/2020 6:41 [facility] MPV 10.4 9.5 - 12.7 fl 09/17/2020 6:41 [facility] Blood VENOUS BLOOD / Unknown Venipuncture / Unknown 09/17/2020 6:11 EDT 09/17/2020 6:31 EDT us Linda Das PA-C HEMATOLOGY & PF4 ORDERABLES Fi nal Result [facility] [address] [place] [id number] * (ABNORMAL) ELECTROLYTES (09/17/2020 6:11 EDT) Sodium 134(L) 136 - 145 mEq/L 09/17/2020 7:13 [facility] Potassium 4.5 3.5 - 5.0 mEq/L 09/17/2020 7:13 [facility] Comment:Moderate hemolysis i dentified, interpret with caution as hemolysis will elevate potassium result. Chloride 100 96 - 110 mEq/L 09/17/2020 7:13 [facility] CO2 Total 26 22 - 32 mEq/L 09/17/2020 7:13 [facility] Blood VENOUS BLOOD / Unknown Venipuncture / Unknown 09/17/2020 6:11 EDT 09/17/2020 6:41 EDT Linda Das PA-C CHEMISTRY & BLOOD GAS ORDERABL ES Final Result [facility] [address] [place] [address] * (ABNORMAL) CREATININE (09/17/2020 6:11 EDT) Pathologist [facility] Creatinine 0.47(L) 0.52 - 1.04 mg/dL 09/17/2020 7:10 EDT [facility] eGFR 103 >60 mL/min/1.7 3m2 09/17/2020 7:10 EDT [facility] Comment:eGFR calculated aravind mackenzie CKD-EPI equation for non- Americans. Multiply eGFR by 1.16 for patients. Blood VENOUS BLOOD / Unknown Venipuncture / Unknown 09/17/2020 6:11 EDT 09/17/2020 6:41 EDT Linda Das PA-C CHEMISTRY & BLOOD GAS ORDERABL ES Final Result Performing Organization Address [facility]/ZIP Co de Phone Number [facility] [address] [place] [address] * BUN (09/17/2020 6:11 EDT) [facility] BUN 13 10 - 26 mg/dL 09/17/2020 7:13 EDT [facility] Comment:Moderate hemolysis i dentified, interpret with caution as results may be affected due to hemolysis. Blood VENOUS BLOOD / Unknown Venipuncture / Unknown 09/17/2020 6:11 EDT 09/17/2020 6:41 EDT Linda Das PA-C CHEMISTRY & BLOOD GAS ORDERABL ES Final Result [facility] [address] [place] [address] * SCREENING GLUCOSE (09/17/2020 6:11 EDT) Pathologist [facility] Glucose, Screening 99 70 - 100 mg/dL 09/17/2020 7:10 EDT [facility] Blood VENOUS BLOOD / Unknown Venipuncture / Unknown 09/17/2020 6:11 EDT 09/17/2020 6:41 EDT us Linda Das PA-Fanny CHEMISTRY & BLOOD GAS ORDERABL ES Final Result [facility] [address] [place] [address] * FL C-ARM 0-1 HOUR (09/16/2020 10:39 EDT) Narrative 09/16/2020 10:40 EDT This is a non-reportable exam. us Nelia Madera MD IMG OTHER IMAGING ORDERABLES Fin al Result * XR CERVICAL SPINE 1 VIEW (09/16/2020 10:39 EDT) Anatomical Region Laterality Modality Radio Fluoroscop y 09/16/2020 13:5 2 EDT Impressions 09/16/2020 13:52 EDT Findings/impression: Patient is newly status post C2-T1 posterior spinal fusion without unexpected radiopaque foreign bodies seen. There is again severe degenerative change with fusion of C3 and C4 and facet arthropathy. I have personally reviewed the images and the above interpretation and agree with the findings. Narrative 09/16/2020 13:52 EDT XR CERVICAL SPINE 1 VIEW ??09/16/2020 8:35 AM Signs And Symptoms/Comments: ?? Myelopathy (HCC-CMS) C2-T1 PSF-routine post op for no count R/O FB, ??check hardware, alignment ?? *done in OR* Comparison: 08/19/2020 and 09/16/2020. Technique: Postoperative crosstable lateral fluoroscopic spot view of the cervical spine was obtained. Procedure Note Quan Boyer MD - 09/16/2020 XR CERVICAL SPINE 1 VIEW 09/16/2020 8:35 AM Signs And Symptoms/Comments: Myelopathy (HCC-CMS) C2-T1 PSF-routine post op for no count R/O FB, checkhardware, alignment *done in OR* Comparison: 08/19/2020 and 09/16/2020. Technique: Postoperative crosstable lateral fluoroscopic spot view of the cervicalspine was obtained. IMPRESSION Findings/impression: Patient is newly status post C2-T1 posterior spinal fusion withoutunexpected radiopaque foreign bodies seen. There is again severedegenerative change with fusion of C3 and C4 and facet arthropathy. I have personally reviewed the images and the above interpretation andagree with the findings. us Nelia Madera MD IM DIAGNOSTIC IMAGING ORDERABLE S Final Result * XR CERVICAL SPINE 1 VIEW (09/16/2020 8:31 EDT) Anatomical Region Laterality Modality Radio Fluoroscop y 09/16/2020 11:5 3 EDT Narrative 09/16/2020 11:53 EDT XR CERVICAL SPINE 1 VIEW ??09/16/2020 7:10 AM Signs and Symptoms/Comments: ?? Myelopathy (HCC-CMS) C2-T1 PSF R/O check hardware, alignment ??Please call [phone] *done in OR*. Comparison: Cervical spine radiographs 08/19/2020 Findings: Single lateral view of the cervical spine was submitted from intraoperative x- rays for confirmation of spinal levels. There is a surgical probe projecting over the C2 spinous process. Findings were discussed with Nelia Madera MD, who agrees with the above interpretation. I have personally reviewed the images and the above interpretation and agree with the findings. Procedure Note Nitesh Castañeda MD - 09/16/2020 XR CERVICAL SPINE 1 VIEW 09/16/2020 7:10 AM Signs and Symptoms/Comments: Myelopathy (HCC-CMS) C2-T1 PSF R/O check hardware, alignment Please [id number] *done in OR*. Comparison: Cervical spine radiographs 08/19/2020 Findings: Single lateral view of the cervical spine was submitted fromintraoperative x- rays for confirmation of spinal levels. There is asurgical probe projecting over the C2 spinous process. Findings were discussed with Nelia Madera MD, who agrees with the aboveinterpretation. I have personally reviewed the images and the above interpretation andagree with the findings. us Nelia Madera MD IMG DIAGNOSTIC IMAGING ORDERABLE S Final Result * TYPE AND SCREEN (09/16/2020 6:48 EDT) ABO O 09/16/2020 7:33 EDT [facility] Rh Factor Positive 09/16/2020 7:33 EDT [facility] Antibody Screen Negative 09/16/2020 7:33 EDT [facility] Specimen Expires: 09/19/2020 @ 23:59 09/16/2020 7:33 EDT [facility] Blood VENOUS BLOOD / Unknown Venipuncture / Unknown 09/16/2020 6:48 EDT 09/16/2020 6:53 EDT Nelia Madera MD BLOOD BANK TESTS Edited Result - Final Performing Organization Address City/State/[facility] de Phone Number [facility] [address] [place] [address] * ECG REPORT - SCANNED (08/29/2020 14:39 EDT) 08/29/2020 14:3 9 EDT us Scan 2 Database Developer PROCEDURE/MINOR SURGICAL OR DERABLES Final Result documented in this encounter Visit Diagnoses Diagnosis Myelopathy (HCC-CMS) Unspecified disease of spinal cord Myelopathy (HCC-CMS) Unspecified disease of spinal cord documented in this encounter Admitting Diagnoses Diagnosis Myelopathy (HCC-CMS) Unspecified disease of spinal cord documented in this encounter Administered Medications Inactive Administered Medications - up to 3 most recent administrations Medication Order MAR Action Action Date Dose Rate Site acetaminophen (TYLENOL) tablet 650 mg 650 mg, oral, EVERY 6 HOURS PRN, Starting on 09/16/20 at 1314, Until Wed09/20/20 at 1237, Pain, Routine Given 09/20/2020 5:48 EDT 650 mg Given 09/19/2020 23:56 EDT 650 mg Given 09/19/2020 17:42 EDT 650 mg ascorbic acid (vitamin C) (VITAMIN C) tablet 500 mg 500 mg, oral, DAILY WITH BREAKFAST, 10 doses, First dose on Wed09/17/20 at 0800, Last dose on Wed09/26/20 at 0800, Routine Given 09/20/2020 8:43 EDT 500 mg Given 09/19/2020 8:25 EDT 500 mg Given 09/18/2020 9:27 EDT 500 mg bupivacaine (PF) (MARCAINE) 0.5% injection As needed, Starting on Wed09/16/20 at 1026, Until Wed09/16/20 at 1032, Routine, Intraprocedure Given 09/16/2020 10:26 EDT 15 mL Other celecoxib (CELEBREX) capsule 100 mg 100 mg, oral, EVERY 12 HOURS, 10 doses, First dose on Wed09/16/20 at 2100, Last dose on Wed09/21/20 at 0900, Routine Given 09/20/2020 8:42 EDT 100 mg Given 09/19/2020 21:05 EDT 100 mg Given 09/19/2020 8:25 EDT 100 mg cholecalciferol (Vitamin D3) tablet 2,000 Units 2,000 Units, oral, DAILY WITH DINNER, 10 doses, First dose on Wed09/16/20 at 1700, Last dose on Wed09/25/20 at 1700, Routine Given 09/19/2020 17:43 E DT 2,000 Units Given 09/18/2020 16:42 EDT 2,000 Units docusate sodium (COLACE) capsule 100 mg 100 mg, oral, 2 TIMES DAILY, First dose on Wed09/16/20 at 1300, Until Discontinued, Routine Given 09/20/2020 8:43 EDT 100 mg Given 09/19/2020 8:25 EDT 100 mg Given 09/18/2020 20:22 EDT 100 mg gabapentin (NEURONTIN) capsule 100 mg 100 mg, oral, 3 TIMES DAILY, First dose on Wed09/16/20 at 1400, Until Discontinued, Routine Given 09/20/2020 8:42 EDT 100 mg Given 09/19/2020 21:05 EDT 100 mg Given 09/19/2020 13:24 EDT 100 mg Gelatin Adsorbable powder As needed, Starting on Wed09/16/20 at 0826, Until Wed09/16/20 at 0830, Intraprocedure Given 09/16/2020 8:26 EDT 2,000 mg Other HYDROmorphone (DILAUDID) tablet 2-4 mg 2-4 mg, oral, EVERY 3 HOURS PRN, Starting on Wed09/18/20 at 1830, Until Wed09/20/20 at 1237, Pain, Routine Given 09/20/2020 8:42 EDT 4 mg Given 09/20/2020 5:48 EDT 4 mg Given 09/20/2020 2:24 EDT 4 mg lactated ringers (LR) infusion at 100 mL/hr, intravenous, CONTINUOUS, Starting on Wed09/16/20 at 0645, Until Wed09/20/20 at 1237, Routine, Preprocedure Continued by Anesthesia 09/16/2020 7:35 EDT New Bag 09/16/2020 7:04 EDT 100 mL/hr methocarbamoL (ROBAXIN) tablet 750 mg 750 mg, oral, EVERY 6 HOURS PRN, Starting on Wed09/18/20 at 1900, Until Wed09/20/20 at 1237, muscle spasms, Routine Given 09/20/2020 5:48 EDT 750 mg Given 09/19/2020 23:56 EDT 750 mg Given 09/19/2020 17:42 EDT 750 mg Multivitamins with Minerals tablet 1 Tab 1 Tablet, oral, DAILY WITH DINNER, First dose on Wed09/16/20 at 1700, Until Discontinued, Routine Given 09/19/2020 17:43 EDT 1 Tablet Given 09/18/2020 16:42 EDT 1 Tablet ondansetron (PF) (ZOFRAN) injection 4 mg 4 mg, intravenous, EVERY 6 HOURS PRN, Starting on Wed09/16/20 at 1314, Until Wed09/20/20 at 1237, Nausea, Routine ondansetron (ZOFRAN-ODT) disintegrating tablet 4 mg 4 mg, oral, EVERY 6 HOURS PRN, Starting on Wed09/16/20 at 1314, Until Wed09/20/20 at 1237, Nausea, Routine polyethylene glycol 3350 (MIRALAX) packet 17 g 17 g, oral, DAILY, First dose on Wed09/17/20 at 0900, Until Discontinued, Routine Given 09/20/2020 8:43 EDT 17 g Given 09/19/2020 8:25 EDT 17 g Given 09/18/2020 9:37 EDT 17 g potassium chloride (KLOR-CON) packet 20 mEq 20 mEq, oral, DAILY, First dose on Wed09/17/20 at 0900, Until Discontinued Given 09/20/2020 8:43 EDT 20 mEq Given 09/19/2020 8:25 EDT 20 mEq Given 09/18/2020 9:36 EDT 20 mEq prochlorperazine (COMPAZINE) 25 mg suppository 25 mg 25 mg, rectal, EVERY 12 HOURS PRN, Starting on Wed09/16/20 at 1314, Until Wed09/20/20 at 1237, Nausea, Routine prochlorperazine (COMPAZINE) tablet 10 mg 10 mg, oral, EVERY 6 HOURS PRN, Starting on Wed09/16/20 at 1314, Until Wed09/20/20 at 1237, Nausea, Routine prochlorperazine edisylate (COMPAZINE) injection 10 mg 10 mg, intravenous, EVERY 6 HOURS PRN, Starting on Wed09/16/20 at 1314, Until Wed09/20/20 at 1237, Nausea, Routine Given 09/17/2020 19:36 EDT 10 mg senna (SENOKOT) tablet 1 Tab 1 Tablet, oral, 2 TIMES DAILY, First dose on Wed09/16/20 at 1300, Until Discontinued, Routine Given 09/20/2020 8:43 EDT 1 Tablet Given 09/19/2020 8:25 EDT 1 Tablet Given 09/18/2020 20:22 EDT 1 Tablet thrombin (bovine) 5,000 unit topical solution As needed, Starting on Wed09/16/20 at 0827, Until Wed09/16/20 at 0830, Intraprocedure Given 09/16/2020 8:27 EDT 1 Vial Other vancomycin (VANCOCIN) powder As needed, Starting on Wed09/16/20 at 1010, Until Wed09/16/20 at 1010, Routine, Intraprocedure Given 09/16/2020 10:10 EDT 1,000 mg Other documented in this encounter Discontinued Medications Medication Sig Discontinue Reason Start Date End Da te diclofenac (VOLTAREN) 75 mg EC tablet TK 1 T PO BID WF OR MILK 04/10/2020 09/20/2020 mupirocin (BACTROBAN) 2 % ointment Using a Q-tip, apply a small amt. of ointment to each nostril twice a day for 5 days prior to surgery, starting on the morning of 09/11/20 08/22/2020 09/20/2020 HYDROmorphone (DILAUDID) 2 mg tablet Take 0.2 mg by mouth every 4 hours as needed. 09/20/2020 documented as of this encounter Active and Recently Administered Medications Times are shown in EDT. Scheduled Medication Order 09/18/2020 09/19/2020 09/20/2020 ascorbic acid (vitamin C) (VITAMIN C) tablet 500 mg 500 mg, oral, DAILY WITH BREAKFAST, 10 doses, First dose on Wed09/17/20 at 0800, Last dose on Wed09/26/20 at 0800, Routine 0927 (Given - Provider: Digna Rodriguez RN) 0825 (Given - Provider: Briseyda Neville, JULIA) 0843 (Given - Provider: Briseyda Neville, RN) bisacodyL (DULCOLAX) suppository 10 mg 10 mg, rectal, DAILY, 1 dose, First dose on Wed09/19/20 at 0900, Routine 1957 (Not Given - Provider: Ximena Cortés, JULIA - Reason: Other) celecoxib (CELEBREX) capsule 100 mg 100 mg, oral, EVERY 12 HOURS, 10 doses, First dose on Wed09/16/20 at 2100, Last dose on Wed09/21/20 at 0900, Routine 0937 (Given - Provider: Digna Rodriguez RN)2021 (Given - Provider: Sarah Doherty RN) 0825 (Given - Provider: Briseyda Neville RN)2104 (Given - Provider: Ximena Cortés, JULIA) 0842 (Given - Provider: Briseyda Neville, JULIA) cholecalciferol (Vitamin D3) tablet 2,000 Units 2,000 Units, oral, DAILY WITH DINNER, 10 doses, First dose on Wed09/16/20 at 1700, Last dose on Wed09/25/20 at 1700, Routine 1642 (Given - Provider: Briseyda Neville RN) 1743 (Given - Provider: Ximena Cortés, RN) docusate sodium (COLACE) capsule 100 mg 100 mg, oral, 2 TIMES DAILY, First dose on Wed09/16/20 at 1300, Until Discontinued, Routine 0937 (Given - Provider: Digna Rodriguez RN)2021 (Given - Provider: Sarah Doherty RN) 08 (Given - Provider: Briseyda Neville RN)210 (Hold - Provider: Ximena Cortés RN - Reason: Other - Comment: x2 bm today) 0843 (Given - Provider: Briseyda Neville RN) gabapentin (NEURONTIN) capsule 100 mg 100 mg, oral, 3 TIMES DAILY, First dose on Wed09/16/20 at 1400, Until Discontinued, Routine 0937 (Given - Provider: Digna Rodriguez RN)1339 (Given - Provider: Digna Rodriguez RN)2021 (Given - Provider: Sarah Doherty RN) 08 (Given - Provider: Briseyda Neville RN)1324 (Given - Provider: Briseyda Neville RN)210 (Given - Provider: Ximena Cortés RN) 0842 (Given - Provider: Briseyda Neville RN) Multivitamins with Minerals tablet 1 Tab 1 Tablet, oral, DAILY WITH DINNER, First dose on Wed09/16/20 at 1700, Until Discontinued, Routine 1642 (Given - Provider: Briseyda Neville RN) 1743 (Given - Provider: Ximena Cortés RN) polyethylene glycol 3350 (MIRALAX) packet 17 g 17 g, oral, DAILY, First dose on Wed09/17/20 at 0900, Until Discontinued, Routine 0937 (Given - Provider: Digna Rodriguez RN) 0825 (Given - Provider: Briseyda Neville RN) 0843 (Given - Provider: Briseyda Neville, RN) potassium chloride (KLOR-CON) packet 20 mEq 20 mEq, oral, DAILY, First dose on Wed09/17/20 at 0900, Until Discontinued 0936 (Given - Provider: Digna Rodriguez RN) 0825 (Given - Provider: Briseyda Neville RN) 0843 (Given - Provider: Briseyda Neville RN) senna (SENOKOT) tablet 1 Tab 1 Tablet, oral, 2 TIMES DAILY, First dose on Wed09/16/20 at 1300, Until Discontinued, Routine 0937 (Given - Provider: Digna Rodriguez RN)2021 (Given - Provider: Sarah Doherty RN) 0825 (Given - Provider: Briseyda Neville RN)2102 (Not Given - Provider: Ximena Cortés RN - Reason: Other - Comment: x2 Bm today) 0843 (Given - Provider: Briseyda Neville, RN) Continuous Medication Order 09/18/2020 09/19/2020 09/20/2020 lactated ringers (LR) infusion at 100 mL/hr, intravenous, CONTINUOUS, Starting on Wed09/16/20 at 0645, Until Wed09/20/20 at 1237, Routine, Preprocedure PRN Medication Order 09/18/2020 09/19/2020 09/20/2020 acetaminophen (TYLENOL) tablet 650 mg 650 mg, oral, EVERY 6 HOURS PRN, Starting on Wed09/16/20 at 1314, Until Wed09/20/20 at 1237, Pain, Routine 0205 (Given - Provider: Sarah Doherty RN)1339 (Given - Provider: Digna Rodriguez RN)2021 (Given - Provider: Sarah Doherty RN) 0502 (Given - Provider: Sarah Doherty RN)1204 (Given - Provider: Elyssa England RN)1742 (Given - Provider: Ximena Cortés, JULIA)2356 (Given - Provider: Adelaide Angeles, JULIA) 0548 (Given - Provider: Adelaide Angeles, JULIA) calcium carbonate (TUMS) 200 mg calcium (500 mg) per chewable tablet tablet,chewable 2 Tab 2 Tablet, oral, EVERY 2 HOURS PRN, Starting on Wed09/16/20 at 1314, Until Wed09/20/20 at 1237, epigastric stress, Routine HYDROmorphone (DILAUDID) tablet 2-4 mg (CANCELED) 2-4 mg, oral, EVERY 4 HOURS PRN, Starting on Wed09/17/20 at 1610, Until Wed09/18/20 at 1544, Pain, Routine 0205 (Given - Provider: Sarah Doherty RN)0620 (Given - Provider: Sarah Doherty RN)1010 (Given - Provider: Digna Rodriguez RN)1528 (Given - Provider: Briseyda Neville RN) HYDROmorphone (DILAUDID) tablet 2-4 mg 2-4 mg, oral, EVERY 3 HOURS PRN, Starting on Wed09/18/20 at 1830, Until Wed09/20/20 at 1237, Pain, Routine 1858 (Given - Provider: Briseyda Neville RN) 0009 (Given - Provider: Sarah Doherty RN)0502 (Given - Provider: Sarah Doherty RN)0825 (Given - Provider: Briseyda Neville RN)1204 (Given - Provider: Elyssa England RN)1504 (Given - Provider: Briseyda Neville RN)1911 (Given - Provider: Ximena Cortés RN)2228 (Given - Provider: Ximena Cortés RN) 0224 (Given - Provider: Adelaide Angeles RN)0548 (Given - Provider: Adelaide Angeles RN)0842 (Given - Provider: Briseyda Neville RN) magnesium hydroxide (MILK OF MAGNESIA) 400 mg/5 mL suspension 30 mL 30 mL, oral, EVERY 4 HOURS PRN, Starting on Juli 09/19/20 at 0000, Until Wed09/20/20 at 1237, Constipation, Routine methocarbamoL (ROBAXIN) tablet 500 mg (CANCELED) 500 mg, oral, EVERY 6 HOURS PRN, Starting on Wed09/16/20 at 1132, Until Wed09/18/20 at 1548, muscle spasms, Routine 1339 (Given - Provider: Digna Rodriguez RN) methocarbamoL (ROBAXIN) tablet 750 mg 750 mg, oral, EVERY 6 HOURS PRN, Starting on Wed09/18/20 at 1900, Until Wed09/20/20 at 1237, muscle spasms, Routine 202 (Given - Provider: Sarah Doherty RN) 0502 (Given - Provider: Sarah Doherty RN)1204 (Given - Provider: Elyssa England RN)1742 (Given - Provider: Ximnea Cortés RN)2356 (Given - Provider: Adelaide Angeles RN) 0548 (Given - Provider: Adelaide Angeles RN) ondansetron (PF) (ZOFRAN) injection 4 mg(Linked Group 1) 4 mg, intravenous, EVERY 6 HOURS PRN, Starting on Wed09/16/20 at 1314, Until Wed09/20/20 at 1237, Nausea, Routine ondansetron (ZOFRAN-ODT) disintegrating tablet 4 mg(Linked Group 1) 4 mg, oral, EVERY 6 HOURS PRN, Starting on Wed09/16/20 at 1314, Until Wed09/20/20 at 1237, Nausea, Routine prochlorperazine (COMPAZINE) 25 mg suppository 25 mg(Linked Group 2) 25 mg, rectal, EVERY 12 HOURS PRN, Starting on Wed09/16/20 at 1314, Until Wed09/20/20 at 1237, Nausea, Routine prochlorperazine (COMPAZINE) tablet 10 mg(Linked Group 2) 10 mg, oral, EVERY 6 HOURS PRN, Starting on Wed09/16/20 at 1314, Until Wed09/20/20 at 1237, Nausea, Routine prochlorperazine edisylate (COMPAZINE) injection 10 mg(Linked Group 2) 10 mg, intravenous, EVERY 6 HOURS PRN, Starting on Wed09/16/20 at 1314, Until Wed09/20/20 at 1237, Nausea, Routine sodium phosphate (FLEET SALINE) enema 1 Enema 1 Enema, rectal, DAILY PRN, Starting on Wed09/18/20 at 0000, Until Wed09/20/20 at 1237, Constipation, Routine Linked Groups Order Group 1: ondansetron (PF) (ZOFRAN) injection 4 mgJump to med 4 mg, intravenous, EVERY 6 HOURS PRN, Starting on Wed09/16/20 at 1314, Until Wed09/20/20 at 1237, Nausea, Routine Or ondansetron (ZOFRAN-ODT) disintegrating tablet 4 mgJump to med 4 mg, oral, EVERY 6 HOURS PRN, Starting on Wed09/16/20 at 1314, Until Wed09/20/20 at 1237, Nausea, Routine Group 2: prochlorperazine (COMPAZINE) tablet 10 mgJump to med 10 mg, oral, EVERY 6 HOURS PRN, Starting on Wed09/16/20 at 1314, Until Wed09/20/20 at 1237, Nausea, Routine Or prochlorperazine (COMPAZINE) 25 mg suppository 25 mgJump to med 25 mg, rectal, EVERY 12 HOURS PRN, Starting on Wed09/16/20 at 1314, Until Wed09/20/20 at 1237, Nausea, Routine Or prochlorperazine edisylate (COMPAZINE) injection 10 mgJump to med 10 mg, intravenous, EVERY 6 HOURS PRN, Starting on Wed09/16/20 at 1314, Until Wed09/20/20 at 1237, Nausea, Routine documented in this encounter Orders Medications Ordered That Sameer ht Not Have Been Administered Count Last Ordered Date First Ordered Date HYDROmorphone (DILAUDID) tablet 2-4 mg 2 09/17/2020 methocarbamoL (ROBAXIN) tablet 750 mg 2 12/202009/16/2020 HYDROmorphone (PF) (DILAUDID ) 0.5 mg/0.5 mL syringe 0.5 mg 3 09/17/2020 09/16/2020 acetaminophen (TYLENOL) tablet 1,000 mg 1 0 09/16/2020 acetaminophen (TYLENOL) tablet 650 mg 1 10/2020 ascorbic acid (vitamin C) (V ITAMIN C) tablet 500 mg 1 09/16/2020 atropine 0.1 mg/mL syringe 0.5 mg 1 021 bisacodyL (DULCOLAX) suppository 10 mg 1 calcium carbonate (TUMS) 200 mg calcium (500 mg) per chewable tablet tablet,chewable 2 Tab 1 09/16/2020 ceFAZolin (ANCEF) syringe 2 g 1 09/16/2020 ceFAZolin in dextrose (iso-o s) piggyback 2 g/100 mL 1 09/16/2020 celecoxib (CELEBREX) capsule 100 mg 1 09/16 cholecalciferol (Vitamin D3) tablet 2,000 Units 1 09/16/2020 dexAMETHasone (DECADRON) tablet 8 mg 1 10/2020 diazePAM (VALIUM) tablet 10 mg 1 09/16/2020 diphenhydrAMINE (BENADRYL) i njection 12.5 mg 1 09/16/2020 docusate sodium (COLACE) capsule 100 mg 1 0 09/16/2020 fentaNYL citrate (PF) injection 25-50 mcg 1 09/16/2020 gabapentin (NEURONTIN) capsule 100 mg 1 10/2020 HYDROmorphone (PF) (DILAUDID ) 0.5 mg/0.5 mL syringe 0.3-0.5 mg 1 09/16/2020 lactated ringers (LR) infusion 2 09/16/2020 lactated ringers BOLUS 500 mL 1 09/16/2020 lidocaine (PF) 10 mg/mL (1 % ) injection 2 mg 1 09/16/2020 magnesium hydroxide (MILK OF MAGNESIA) 400 mg/5 mL suspension 30 mL 2 09/16/2020 methocarbamoL (ROBAXIN) tablet 500 mg 1 10/2020 miSOPROStol (CYTOTEC) tablet 200 mcg 1 10/2020 morphine (MS CONTIN) CR tablet 15 mg 1 10/2020 Multivitamins with Minerals tablet 1 Tab 1 09/16/2020 naloxone (NARCAN) injection 0.2 mg 1 2020 ondansetron (PF) (ZOFRAN) injection 4 mg 2 09/16/2020 ondansetron (ZOFRAN-ODT) dis integrating tablet 4 mg 1 09/16/2020 oxyCODONE (ROXICODONE) immed iate release tablet 5-10 mg 1 09/16/2020 oxyCODONE (ROXICODONE) immed iate release tablet 5-15 mg 1 09/16/2020 polyethylene glycol 3350 ([place] RALAX) packet 17 g 1 09/16/2020 potassium chloride (KLOR-CON ) packet 20 mEq 1 09/16/2020 prochlorperazine (COMPAZINE) 25 mg suppository 25 mg 1 09/16/2020 prochlorperazine (COMPAZINE) tablet 10 mg 1 09/16/2020 prochlorperazine edisylate ( COMPAZINE) injection 10 mg 1 09/16/2020 senna (SENOKOT) tablet 1 Tab 1 09/16/2020 sodium phosphate (FLEET SALI NE) enema 1 Enema 1 09/16/2020 Diet Count Last Ordered Date First Orde red Date DISCHARGE DIET 1 09/19/2020 Nursing Count Last Ordered Date First Orde red Date ACTIVITY INSTRUCTIONS 1 09/19/2020 BATHING INSTRUCTIONS 1 09/19/2020 WOUND CARE INSTRUCTIONS 1 09/19/2020 CHECK DAIGLE CATHETER 1 09/16/2020 CHECK HEMOVAC DRAIN 1 09/16/2020 DAIGLE CATHETER - DISCONTINUE 1 09/16/2020 PATIENT AT LOW RISK FOR VTE: RISK OF PHARMACOLOGIC PROPHYLAXIS OUTWEIG 1 09/16/2020 Admission Count Last Ordered Date First Orde red Date ADMIT TO INPATIENT 1 09/16/2020 Discharge Count Last Ordered Date First Orde red Date DISCHARGE PATIENT 1 09/20/2020 Legal Count Last Ordered Date First Orde red Date MISCELLANEOUS DISCHARGE INSTRUCTIONS 1 01/2021 Consult to Social Work Count Last Ordered Date First Ordered Date CONSULT SOCIAL WORK 1 09/16/2020 documented in this encounter Care Teams City Carrier Relationship Specialty Start Date End Date Edd Caballero DO [address] [place] [id number] PCP - General Family Medicine - Primary Care 07/08/20 11/19/21 documented as of this encounter
--- OUTSIDE RECORDS SUMMARY | 2024-04-26 16:50 | XMS_ITS | Encounter Summary ---
Author Organization [facility] Address [address] [place] [address] Care Team Providers Care Disc Pad Grinder Name Role Phone Unavailable Primary Care Provider Unavailabl e Encounter Details Date Type Department Care Team (Late st Contact Info) Description 01/17/2008 Before PRISM Converted Visit (Maple) [facility] - Maple conversion [address] [place] [address] Israel Campuzano, PATENT SEARCHER [address] [place] [id number] Social History Tobacco Use Types Packs/Day Years Used Date Smoking Tobacco: Never Assessed Comments Unknown Sex and Gender Information Value Date Recorded Sex Assigned at Not on file Legal Sex Female 18:26 EST Gender Identity Female 09/06/2020 17:23 EDT Sexual Orientation Not on file documented as of this encounter Plan of Treatment Not on file documented as of this encounter Procedures Procedure Name Priority Date/Time Associated Diagnosis Comments CYTOPATHOLOGY Routine 01/17/2008 0:00 EDT documented in this encounter Results * CYTOPATHOLOGY (01/17/2008 0:00 EDT) Pathology Report: CYTOPATHOLOGY REPORT ? Reports generated via electronic interface contain original data; ? however they are lacking the format of the original report. ? Caution should be taken when reading/interpreti ng unformatted reports. ? Name: ? MARY ELLEN CORTEZ ? Accession #: ? [id number] ? : ? 1955 (Age: 53) ??F ?Collect Date: ? 01/17/2008 ? Location: ? [facility] ? Receive Date: ? 01/18/2008 ? Provider: ?ISRAEL CAMPUZANO NP ? Copy to: ? Specimen/Source: ?ThinPrep Pap Test, Cervix/Endocervix, processed on [employer] ThinPrep Imaging System, with manual evaluation ? Last Menstrual Period: ? Menstrual/Pregnanc y Status: ? Post Menopausal ? Other: ? HPVA - HPV testing requested if ASC-US on the current ThinPrep Pap test. ? SPECIMEN ADEQUACY ? Satisfactory for Evaluation ? - assessment of transformation zone component not applicable ( e.g. atrophy, ? vaginal sample, hysterectomy) ? GENERAL CATEGORIZATION ? Negative for Intraepithelial Lesion or Malignancy ? Document reviewed and electronically signed by: ? Monica F. Colasacco, SCT(ASCP) ? Report Date: ??01/20/2008 15:04 ? End of Report ? [facility] 01/17/2008 01/18/2008 Israel Campuzano NP PATHOLOGY ORDERABLES Final R esult [facility] [address] [place] [address] documented in this encounter Visit Diagnoses Not on filedocumented in this encounter
--- OUTSIDE RECORDS SUMMARY | 2024-04-26 16:50 | XMS_ITS | Encounter Summary ---
Author Organization [facility] Address [address] [place] [address] Care Team Providers Care Tour Counselor Name Role Phone Jeannie Mantilla MD Primary Care Provider [phone] Reason for Visit * (Routine) - Receiving Office to Obtain Authorization Specialty Diagnoses / Procedures Referred By Contdixon t Referred To Contact Procedures MR OUTSIDE IMAGES NEURO Unknown, Provider, MD Referral ID Status Reason Start Date Expiration Date Visits Requested Visits Authorized [id number] Receiving Office to Obtain Authorization 07/29/2020 1 1 Encounter Details Date Type Department Care Team (Latest Contact Info) Description 05/27/2020 - 05/27/2020 0:04 EST Hospital Encounter [facility] Secondary Reads [place] Discharge Disposition: Home or Self Care Social History Tobacco Use Types Packs/Day Years Used Date Smoking Tobacco: Never Assessed Comments Unknown Sex and Gender Information Value Date Recorded Sex Assigned at Not on file Legal Sex Female 18:26 EST Gender Identity Female 09/06/2020 17:23 EDT Sexual Orientation Not on file documented as of this encounter Medications at Time of Discharge miSOPROStol (CYTOTEC) 200 mcg tablet TK 1 T PO BID HS WAC 04/16/2020 polyethylene glycol (GLYCOLAX) 17 gram/dose powder Take 17 g by mouth daily. 01/19/2019 potassium chloride 20 mEq tablet extended release TK 1 T PO QD WF 04/23/2020 diclofenac (VOLTAREN) 75 mg EC tablet TK 1 T PO BID WF OR MILK 04/10/2020 09/20/2020 documented as of this encounter Discharge Disposition Disposition Code Departure Means Destination Home or Self Care documented in this encounter Plan of Treatment Not on file documented as of this encounter Procedures Procedure Name Priority Date/Time Associated Diagnosis Comments MR OUTSIDE IMAGES NEURO Routine 07/29/2020 16:48 EST documented in this encounter Results * MR OUTSIDE IMAGES NEURO (07/29/2020 16:48 EST) Narrative 07/29/2020 16:48 EST This is a non-reportable exam. us Provider Unknown IMIain OTHER IMAGING ORDERABLES Final Result documented in this encounter Visit Diagnoses Not on filedocumented in this encounter Care Teams Tour Counselor Relationship Specialty Start Date End Date Jeannie Mantilla MD [address] [place] [phone] PCP - General 05/05/15 07/07/20 documented as of this encounter
--- OUTSIDE RECORDS SUMMARY | 2024-04-26 16:50 | XMS_ITS | Encounter Summary ---
Author Organization [facility] Address [address] [place] [address] Care Team Providers Care Media Assistant Name Role Phone Edd Caballero DO Primary Care Provider [phone] Reason for Visit * Reason Onset Date Comments Pre-op Exam 08/20/2020 Encounter Details Date Type Department Care Team ([facility] st Contact Info) Description 08/20/2020 Orders Only [facility] [place] [address] Roberta Bran, RN Myelopathy ([facility]) (Primary Dx); Preop testing Social History Tobacco Use Types Packs/Day Years [...] Procedure Name Priority Date/Time Associated Diagnosis Comments MRSA PCR Routine 08/20/2020 8:02 EST Myelopathy ([facility]) Preop testing documented in this encounter Results * MRSA PCR (08/20/2020 8:02 EST) MRSA/Staph aureus Result Staphylococcus aureus detected by PCR (MRSA NOT detected) 08/20/2020 14:49 EST [facility] Swab ENTIRE NARIS / Unknown Swab / Unknown 08/20/2020 8:02 EST 08/20/2020 11:10 EST us Nelia Madera MD MICROBIOLOGY - GENERAL ORDERABLE S Final Result Performing Organization Address City/State/[facility] Co de Phone Number [facility] [address] [place] [address] documented in this encounter Visit Diagnoses Diagnosis Myelopathy ([facility] Primary Unspecified disease of spinal cord Preop testing Preoperative examination, unspecified documented in this encounter Care Teams Media Assistant Relationship Specialty Start Date End Date Edd Caballero DO [address] [place] [address] PCP - General Family Medicine - Primary Care 07/08/20 11/19/21 documented as of this encounter
--- OUTSIDE RECORDS SUMMARY | 2024-04-26 16:50 | XMS_ITS | Encounter Summary ---
Author Organization [facility] Address [address] [place] [address] Care Team Providers Care Chute Worker Name Role Phone AdaEdd adam Primary Care Provider [phone] Reason for Visit * Reason Onset Date Comments Appointment Related 08/14/2020 Encounter Details Date Type Department Care Team (Late st Contact Info) Description 08/14/2020 Telephone [facility] - [address] [address] Lorna Eckert PA-C [address] [email or web address] [facility] [place] [phone] Appointment Related Social History Tobacco Use Types [...] encounter Miscellaneous Notes * Telephone Encounter - Angeles Jimenes MA - 08/14/2020 0746 EST Left two messages with patient about her televideo appointment with Alva Eckert tomorrow. Informed patient that there will only be time to discuss one section of her spine during her appointment tomorrow. Advised patient to decided which section of her spine is bothering her more (lumbar or cervical), and have that as the focus of her appointment tomorrow. Informed patient that she may need to make another appointment to talk about the other section of her spine. documented in this encounter Plan of Treatment Not on file documented as of this encounter Visit Diagnoses Not on filedocumented in this encounter Care Teams Chute Worker Relationship Specialty Start Date End Date Edd Caballero DO [address] [place] [address] PCP - General Family Medicine - Primary Care 07/08/20 11/19/21 documented as of this encounter
--- OUTSIDE RECORDS SUMMARY | 2024-04-26 16:50 | XMS_ITS | Encounter Summary ---
Author Organization [facility] Address [address] [place] [address] Care Team Providers Care Buyer Renter Name Role Phone Jeannie Mantilla MD Primary Care Provider [phone] Reason for Visit * (Routine) - Receiving Office to Obtain Authorization Specialty Diagnoses / Procedures Referred By Satinder t Referred To Contact Procedures XR OUTSIDE IMAGES NEURO Unknown, Provider, MD Referral ID Status Reason Start Date Expiration Date Visits Requested Visits Authorized [id number] Receiving Office to Obtain Authorization 07/29/2020 1 1 Encounter Details Date Type Department Care Team (Latest Contact Info) Description 06/10/2020 Hospital Encounter [facility] Secondary Read[place] Discharge Disposition: Home or [...] Name Priority Date/Time Associated Diagnosis Comments XR OUTSIDE IMAGES NEURO Routine 07/29/2020 16:45 EST documented in this encounter Results * XR OUTSIDE IMAGES NEURO (07/29/2020 16:45 EST) Narrative 07/29/2020 16:45 EST This is a non-reportable exam. us Provider Unknown IMIain OTHER IMAGING ORDERABLES Final Result documented in this encounter Visit Diagnoses Not on filedocumented in this encounter Care Teams Buyer Renter Relationship Specialty Start Date End Date Jeannie Mantilla MD [address] [place] [phone] PCP - General 05/05/15 07/07/20 documented as of this encounter
--- OUTSIDE RECORDS SUMMARY | 2024-04-26 16:50 | XMS_ITS | Encounter Summary ---
Author Organization [facility] Address [address] [place] [address] Care Team Providers Care Stonework Tracer Name Role Phone Edd Caballero DO Primary Care Provider Reason for Visit * Reason Onset Date Comments Pre-op Exam 08/20/2020 Encounter Details Date Type Department Care Team (Late st Contact Info) Description 08/20/2020 Orders Only [facility] [place] [address] [place] [address] Roberta Bran, RN Myelopathy ([facility]) (Primary Dx); Preop testing Social History Tobacco [...] of this encounter Visit Diagnoses Diagnosis Myelopathy ([facility])- Primary Unspecified disease of spinal cord Preop testing Preoperative examination, unspecified documented in this encounter Care Teams Stonework Tracer Relationship Specialty Start Date End Date Edd Caballero DO [address] [place] [id number] PCP - General Family Medicine - Primary Care 07/08/20 11/19/21 documented as of this encounter
--- OUTSIDE RECORDS SUMMARY | 2024-04-26 16:50 | XMS_ITS | Encounter Summary ---
Author Organization [facility] Address [address] [place] [address] Care Team Providers Care Plaster Tender Name Role Phone Jeannie Mantilla MD Primary Care Provider [phone] Encounter Details Date Type Department Care Team (Late st Contact Info) Description 07/23/2015 Results Only [facility] [phone] Ronn Johnson DO [facility] [place] [address] Social History Tobacco Use Types Packs/Day Years [...] Procedure Name Priority Date/Time Associated Diagnosis Comments SURGICAL PATHOLOGY Routine 07/23/2015 12 :15 EST documented in this encounter Results * SURGICAL PATHOLOGY (07/23/2015 12:15 EST) Pathology Report: SURGICAL PATHOLOGY REPORT Reports generated via electronic interface contain original data; however they are lacking the format of the original report. Caution should be taken when reading/interpreting unformatted reports. Name: ? MARY ELLEN CORTEZ ? Accession #: ? [id number] ? : ? 1955 (Age: 60) ??F ? Collect Date: ? 07/23/2015 ? Location: ? [facility] ? Receive Date: ? 07/24/2015 ? Provider: RONN JOHNSON DO Copy to: ? Final Pathologic Diagnosis: RIGHT FEMORAL HEAD AND LIGAMENTUM, AND SOFT TISSUE, EXCISION: - ??Fragments of reactive synovium with multinucleated giant cells. - ??Foci of non-viable bone with ragged edges, consistent with avascular necrosis. - ??Fragments of bone with remodeling changes, intramedullary fibrosis and scattered plasma cells suggestive of chronic osteomyelitis. - ??No neutrophils identified. Comment: Chief Of Planning slides of this case were reviewed at the intradepartmental consultation conference. Dr. Bradley 07/30/2015 11:57 AM Document reviewed and electronically signed by: KATHARINE BRADLEY MD Report ??Date: 07/30/2015 15:23 By the signature above, the attending physician certifies that he/she has personally conducted a gross and/or microscopic examination of the described specimens and rendered or confirmed the above diagnosis. Specimen(s) Received: Right femoral head and ligamentum Clinical History: Avascular necrosis Intraoperative Interpretation: RIGHT FEMORAL HEAD, SURROUNDING LIGAMENTUM, AND SOFT TISSUE, EXCISION: - Negative for acute inflammation. ??20 HPF (40X) examined on each of three portions of tissue (total 60 HPF), no neutrophils identified. - FSA1-FSA3. ??No acute inflammation identified in 20 HPF (40X) per section. - Reported to Dr. Vargas at 9:11 AM. ??Patient identified prior to verbal report. ??Dr. Neal Crawford 07/23/2015 Gross Description: ? Received fresh labelled with proper patient identification (initials B, P) and right femoral head and ligamentum are portions of bone resembling a portion of femoral head (4.0 x 2.0 x 2.0 cm in aggregate) and portions of lock-red tissue (3.5 x 3.0 x 1.0 cm in aggregate). The soft tissue is serially sectioned showing mostly firm white fibrotic tissue covered by soft red tissue. Chief Of Planning sections of the soft tissue are submitted for frozen section as FSA1-FSA3 with the interpretation rendered as above. Chief Of Planning sections are submitted as follows: BLOCK HUANG 1- ??FSA1 2- ??FSA2 3- ??FSA3 4- ??soft tissue x4 5- ??bone and soft tissue x2, following decalcification 6-7- ??femoral head, continuous section, following decalcification 8-9- ??femoral head, following decalcification Roxana GUERRERO 07/24/2015 2:20 PM End of Report [facility] 07/23/2015 12:1 5 EST 07/24/2015 12:15 EST us Ronn Johnson DO PATHOLOGY ORDERABLES Dior luu Result Performing Organization Address City/State/[facility] Co de Phone Number [facility] [address] [place] [address] documented in this encounter Visit Diagnoses Not on filedocumented in this encounter Care Teams Plaster Tender Relationship Specialty Start Date End Date Jeannie Mantilla MD [address] [place] [phone] PCP - General 05/05/15 07/07/20 documented as of this encounter
--- OUTSIDE RECORDS SUMMARY | 2024-04-26 16:50 | XMS_ITS | Encounter Summary ---
Author Organization [facility] Address [address] [place] [address] Care Team Providers Care Mirror Painter Name Role Phone Unavailable Primary Care Provider Unavailabl e Encounter Details Date Type Department Care Team (Late st Contact Info) Description 05/07/2006 Results Only [facility] [address] [place] [address] Israel Campuzano, SUPERVISOR [employer] [address] [place] [address] Social History Tobacco Use Types Packs/Day Years [...] Priority Date/Time Associated Diagnosis Comments CYTOPATHOLOGY Routine 05/07/2006 0:00 EST documented in this encounter Results * CYTOPATHOLOGY (05/07/2006 0:00 EST) Pathology Report: CYTOPATHOLOGY REPORT Reports generated via electronic interface contain original data; however they are lacking the format of the original report. Caution should be taken when reading/interpreti ng unformatted reports. Name: ? MARY ELLEN CORTEZ ? Accession #: ? [id number] : ? 1955 (Age: 51) ??F ?Collect Date: ? 05/07/2006 Location: ? [facility] ? Receive Date: ? 05/11/2006 Provider: ?ISRAEL CAMPUZANO [employer]OR [employer] Copy to: ? Specimen/Source: ?ThinPrep Pap Test, Cervix/Endocervix, processed on [employer] ThinPrep Imaging System, with manual evaluation Last Menstrual Period: ? 2003 Other: ? Additional clinical information: DUB 12/16 HPVA - HPV testing requested if ASC-US on the current ThinPrep Pap test. ? SPECIMEN ADEQUACY ? Satisfactory for Evaluation - transformation zone component present GENERAL CATEGORIZATION ? Negative for Intraepithelial Lesion or Malignancy ? Document reviewed and electronically signed by: ? LUIS CARLOS Cheatham(ASCP) ? Report Date: ??05/17/2006 10:38 End of Report [facility]ETT 05/07/2006 05/11/2006 us Israel Campuzano NP PATHOLOGY ORDERABLES Final R esult [facility] BASSETT [address] [place] [address] documented in this encounter Visit Diagnoses Not on filedocumented in this encounter
--- OUTSIDE RECORDS SUMMARY | 2024-04-26 16:50 | XMS_ITS | Encounter Summary ---
Author Organization [facility] Address [address] [place] [address] Care Team Providers Care Batteryman Name Role Phone Edd Caballero DO Primary Care Provider [phone] Encounter Details Date Type Department Care Team (Late st Contact Info) Description 08/23/2020 Orders Only [facility] Neurosurgery - [facility] [address] [place], [place] [id number] Andie Espino PA-C [address] [facility] [place] [address] Cervical stenosis of spinal canal (Primary Dx); Acquired scoliosis Social History Tobacco Use Types Packs/Day Years [...] of this encounter Visit Diagnoses Diagnosis Cervical stenosis of spinal canal- Primary Spinal stenosis in cervical region Acquired scoliosis Scoliosis (and kyphoscoliosis), idiopathic documented in this encounter Care Teams Batteryman Relationship Specialty Start Date End Date Edd Caballero DO [address] [place] [address] PCP - General Family Medicine - Primary Care 07/08/20 11/19/21 documented as of this encounter
--- OUTSIDE RECORDS SUMMARY | 2024-04-26 16:50 | XMS_ITS | Encounter Summary ---
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 [facility] [address] [place] [address] * BUN (09/19/2020 8:04 EDT) BUN 10 10 - 26 mg/dL 09/19/2020 9:01 EDT [facility] Blood VENOUS BLOOD / Unknown Venipuncture / Unknown 09/19/2020 8:04 EDT 09/19/2020 8:28 EDT Linda Das PA-C CHEMISTRY & BLOOD GAS ORDERABL ES Final Result [facility] [address] [place] [id number] * XR CERVICAL SPINE 2-3 VIEWS (09/18/2020 [...] 5.85 4.00 - 12.40 K/cmm 09/18/2020 7:21 EDT [facility] RBC 3.66(L) 3.86 - 5.04 M/cmm 09/18/2020 7:21 EDT [facility] Hemoglobin 11.8 11.6 - 15.2 gm/dL 09/18/2020 [facility] HCT 34.9 34.9 - 44.4 % 09/18/2020 7:21 [facility] MCV 95 81 - 98 fl 09/18/2020 7:21 [facility] MCH 32.2 26.7 - 33.3 pg 09/18/2020 7:21 [facility] MCHC 33.8 32.1 - 35.9 gm/dL 09/18/2020 7:21 [facility] RDW-CV 11.8 <14.7 % 09/18/2020 7:21 [facility] RDW-SD 41.3 <50.4 fl 09/18/2020 7:21 [facility] PLT 239 141 - 377 K/cmm 09/18/2020 7:21 [facility] MPV 9.0(L) 9.5 - 12.7 fl 09/18/2020 7:21 [facility] Blood VENOUS BLOOD / Unknown Venipuncture / Unknown 09/18/2020 6:48 EDT 09/18/2020 7:12 EDT us Linda Das PA-C HEMATOLOGY & PF4 ORDERABLES Fi nal Result [facility] [address] [place] [address] * ELECTROLYTES (09/18/2020 6:48 EDT) Sodium 138 136 - 145 mEq/L 09/18/2020 7:50 T [facility] Potassium 4.1 3.5 - 5.0 mEq/L 09/18/2020 7:50 T [facility] Chloride 102 96 - 110 mEq/L 09/18/2020 7:50 EDT [facility] CO2 Total 30 22 - 32 mEq/L 09/18/2020 7:50 EDT [facility] Blood VENOUS BLOOD / Unknown Venipuncture / Unknown 09/18/2020 6:48 EDT 09/18/2020 7:10 EDT Linda HUTTONC CHEMISTRY & BLOOD GAS ORDERABL ES Final Result Performing Organization Address City/[facility]/ZIP Co de Phone Number [facility] [address] [place] [address] * (ABNORMAL) CREATININE (09/18/2020 6:48 EDT) Creatinine 0.49(L) 0.52 - 1.04 mg/dL 09/18/2020 7:50 EDT [facility] eGFR 101 >60 mL/min/1.7 3m2 09/18/2020 7:50 EDT [facility] Comment:eGFR calculated aravind mackenzie CKD-EPI equation for non- Americans. Multiply eGFR by 1.16 for patients. Blood VENOUS BLOOD / Unknown Venipuncture / Unknown 09/18/2020 6:48 EDT 09/18/2020 7:10 EDT Linda Das PA-C CHEMISTRY & BLOOD GAS ORDERABL ES Final Result Performing Organization Address [facility]/ZIP Co de Phone Number [facility] [address] [place] [address] * BUN (09/18/2020 6:48 EDT) BUN 14 10 - 26 mg/dL 09/18/2020 7:50 EDT [facility] Blood VENOUS BLOOD / Unknown Venipuncture / Unknown 09/18/2020 6:48 EDT 09/18/2020 7:10 EDT Linda Das PA-C CHEMISTRY & BLOOD GAS ORDERABL ES Final Result [facility] [address] [place] [address] * MR CERVICAL SPINE WO CONTRAST (09/18/2020 [...] vertebral bodies with height loss of the [id number]. There is also degenerative height loss and [...] the above interpretation andagree with the findings. Linda Das PA-C [facility] MRI ORDERABLES Final Resul t * (ABNORMAL) COMPLETE BLOOD COUNT (09/17/2020 6:11 EDT) WBC 8.48 4.00 - 12.40 K/cmm 09/17/2020 6:41 T [facility] RBC 3.60(L) 3.86 - 5.04 M/cmm 09/17/2020 6:41 [facility] Hemoglobin 11.8 11.6 - 15.2 gm/dL 09/17/2020 6:41 [facility] HCT 33.7(L) 34.9 - 44.4 % 09/17/2020 6:41 [facility] MCV 94 81 - 98 fl 09/17/2020 6:41 [facility] MCH 32.8 26.7 - 33.3 pg 09/17/2020 6:41 [facility] MCHC 35.0 32.1 - 35.9 gm/dL 09/17/2020 6:41 [facility] RDW-CV 11.9 <14.7 % 09/17/2020 6:41 [facility] RDW-SD 40.9 <50.4 fl 09/17/2020 6:41 [facility] PLT 191 141 - 377 K/cmm 09/17/2020 6:41 [facility] MPV 10.4 9.5 - 12.7 fl 09/17/2020 6:41 [facility] Blood VENOUS BLOOD / Unknown Venipuncture / Unknown 09/17/2020 6:11 EDT 09/17/2020 6:31 EDT us Linda Das PA-C HEMATOLOGY & PF4 ORDERABLES Fi nal Result [facility] [address] [place] [address] * (ABNORMAL) ELECTROLYTES (09/17/2020 6:11 EDT) Sodium 134(L) 136 - 145 mEq/L 09/17/2020 7:13 [facility] Potassium 4.5 3.5 - 5.0 mEq/L 09/17/2020 7:13 EDT [facility] Comment:Moderate hemolysis i dentified, interpret with caution as hemolysis will elevate potassium result. Chloride 100 96 - 110 mEq/L 09/17/2020 7:13 EDT [facility] CO2 Total 26 22 - 32 mEq/L 09/17/2020 7:13 EDT [facility] Blood VENOUS BLOOD / Unknown Venipuncture / Unknown 09/17/2020 6:11 EDT 09/17/2020 6:41 EDT Linda Das PA-C CHEMISTRY & BLOOD GAS ORDERABL ES Final Result Performing Organization Address [facility] Co de Phone Number [facility] [address] [place] [address] * (ABNORMAL) CREATININE (09/17/2020 6:11 EDT) Creatinine 0.47(L) 0.52 - 1.04 mg/dL 09/17/2020 7:10 EDT [facility] eGFR 103 >60 mL/min/1.7 3m2 09/17/2020 7:10 EDT [facility] Comment:eGFR calculated aravind mackenzie CKD-EPI equation for non- Americans. Multiply eGFR by 1.16 for patients. Blood VENOUS BLOOD / Unknown Venipuncture / Unknown 09/17/2020 6:11 EDT 09/17/2020 6:41 EDT us Linda Das PA-C CHEMISTRY & BLOOD GAS ORDERABL ES Final Result [facility] [address] [place] [address] * BUN (09/17/2020 6:11 EDT) BUN 13 10 - 26 mg/dL 09/17/2020 7:13 EDT [facility] Comment:Moderate hemolysis i dentified, interpret with caution as results may be affected due to hemolysis. Blood VENOUS BLOOD / Unknown Venipuncture / Unknown 09/17/2020 6:11 EDT 09/17/2020 6:41 EDT us Linda Das PA-C CHEMISTRY & BLOOD GAS ORDERABL ES Final Result Performing Organization Address City/[facility]/ZIP Co de Phone Number [facility] [address] [place] [address] * SCREENING GLUCOSE (09/17/2020 6:11 EDT) [facility] Signature Glucose, Screening 99 70 - 100 mg/dL 09/17/2020 7:10 EDT [facility] Blood VENOUS BLOOD / Unknown Venipuncture / Unknown 09/17/2020 6:11 EDT 09/17/2020 6:41 EDT Linda Das PA-C CHEMISTRY & BLOOD GAS ORDERABL ES Final Result Performing Organization Address [facility] Co de Phone Number [facility] [address] [place] [address] * FL C-ARM 0-1 HOUR (09/16/2020 10:39 EDT) Narrative 09/16/2020 10:40 EDT This is a non-reportable exam. Nelia Madera MD IMG OTHER IMAGING ORDERABLES [...] PSF R/O check hardware, alignment ??Please call [phone] *done in OR*. Comparison: Cervical spine radiographs [...] C2-T1 PSF R/O check hardware, alignment Please [id number] *done in OR*. Comparison: Cervical spine radiographs 08/19/2020 Findings: Single lateral view of the cervical spine was submitted fromintraoperative x- rays for confirmation of spinal levels. There is asurgical probe projecting over the C2 spinous process. Findings were discussed with Nelia Madera MD, who agrees with the aboveinterpretation. I have personally reviewed the images and the above interpretation andagree with the findings. Nelia Madera MD IMG DIAGNOSTIC IMAGING ORDERABLE S Final Result * TYPE AND SCREEN (09/16/2020 6:48 EDT) ABO O 09/16/2020 7:33 EDT [facility] Rh Factor Positive 09/16/2020 7:33 EDT [facility] Antibody Screen Negative 09/16/2020 7:33 EDT [facility] Specimen Expires: 09/19/2020 @ 23:59 09/16/2020 7:33 EDT [facility] Blood VENOUS BLOOD / Unknown Venipuncture / Unknown 09/16/2020 6:48 EDT 09/16/2020 6:53 EDT Nelia Madera MD BLOOD BANK TESTS Edited Result - Final Performing Organization Address City/State/[facility] Co de Phone Number [facility] [address] [facility] [place] [address] * ECG REPORT - SCANNED (08/29/2020 14:39 EDT) 08/29/2020 14:3 9 EDT us Scan 2 Independent Driver PROCEDURE/MINOR SURGICAL OR DERABLES Final Result documented [...] mg Given 09/18/2020 9:27 EDT 500 mg ceFAZolin in dextrose (iso-os) piggyback 2 g/100 mL 2,000 mg, intravenous, Administer over 30 Minutes, EVERY 8 HOURS, 3 doses, First dose on Wed09/16/20 at 1400, Last dose on Wed09/17/20 at 0800, Type of Therapy: Prophylaxis, Suspected Indication (Select all that apply): Surgical prophylaxis, ID Consult: No, Routine Given 09/17/2020 8:00 EDT 2,000 mg Given 09/16/2020 23:03 EDT 2,000 mg Given 09/16/2020 14:07 EDT 2,000 mg celecoxib (CELEBREX) capsule 100 mg 100 mg, [...] Units Given 09/18/2020 16:42 EDT 2,000 Units dexAMETHasone (DECADRON) tablet 8 mg 8 mg, oral, PRE-OP ONCE, 1 dose, On Wed09/16/20 at 0645, Routine, Preprocedure Given 09/16/2020 6:53 EDT 8 mg diazePAM (VALIUM) tablet 10 mg 10 mg, oral, PRE-OP ONCE, 1 dose, On Wed09/16/20 at 0645, Routine, Preprocedure Given 09/16/2020 6:53 EDT 10 mg docusate sodium (COLACE) capsule 100 mg 100 mg, oral, 2 TIMES DAILY, First dose on Wed09/16/20 at 1300, Until Discontinued, Routine Given 09/20/2020 8:43 EDT 100 mg Given 09/19/2020 8:25 EDT 100 mg Given 09/18/2020 20:22 EDT 100 mg fentaNYL citrate (PF) injection 25-50 mcg 25-50 mcg, intravenous, EVERY 5 MIN PRN, Starting on Wed09/16/20 at 1010, Until Wed09/16/20 at 1314, Pain, Routine, Recovery (only) Given 09/16/2020 12 :16 EDT 25 mcg Given 09/16/2020 11:30 EDT 50 mcg Given 09/16/2020 11:12 EDT 25 mcg gabapentin (NEURONTIN) capsule 100 mg 100 mg, oral, 3 TIMES DAILY, First dose on Wed09/16/20 at 1400, Until Discontinued, Routine Given 09/20/2020 8:42 EDT 100 mg Given 09/19/2020 21:05 EDT 100 mg Given 09/19/2020 13:24 EDT 100 mg HYDROmorphone (DILAUDID) tablet 2-4 mg 2-4 mg, oral, EVERY 4 HOURS PRN, Starting on Wed09/17/20 at 1610, Until Wed09/18/20 at 1544, Pain, Routine Given 09/18/2020 15:28 EDT 4 mg Given 09/18/2020 10:10 EDT 4 mg Given 09/18/2020 6:20 EDT 4 mg HYDROmorphone (DILAUDID) tablet 2-4 mg 2-4 mg, oral, EVERY 3 HOURS PRN, Starting on Wed09/18/20 at 1830, Until Wed09/20/20 at 1237, Pain, Routine Given 09/20/2020 8:42 EDT 4 mg Given 09/20/2020 5:48 EDT 4 mg Given 09/20/2020 2:24 EDT 4 mg HYDROmorphone (PF) (DILAUDID) 0.5 mg/0.5 mL syringe 0.5 mg 0.5 mg, intravenous, EVERY 3 HOURS PRN, Starting on Wed09/16/20 at 1314, Until Wed09/17/20 at 0713, Pain, Routine Given 09/17/2020 4:11 EDT 0.5 mg Given 09/16/2020 16:20 EDT 0.5 mg HYDROmorphone (PF) (DILAUDID) 0.5 mg/0.5 mL syringe 0.5 mg 0.5 mg, intravenous, NOW X1, 1 dose, On Wed09/17/20 at 0945, Routine Given 09/17/2020 10:10 EDT 0.5 mg HYDROmorphone (PF) (DILAUDID) 0.5 mg/0.5 mL syringe 0.5 mg 0.5 mg, intravenous, EVERY 4 HOURS PRN, Starting on Wed09/17/20 at 1609, Until Wed09/18/20 at 0808, Pain, Routine Given 09/17/2020 16:41 EDT 0.5 mg lactated ringers (LR) infusion at 100 mL/hr, intravenous, CONTINUOUS, Starting on Wed09/16/20 at 0645, Until Wed09/20/20 at 1237, Routine, Preprocedure Continued by Anesthesia 09/16/2020 7:35 EDT New Bag 09/16/2020 7:04 EDT 100 mL/hr lactated ringers BOLUS 500 mL 500 mL, intravenous, NOW X1, 1 dose, On Wed09/16/20 at 1100, Routine, Recovery (only) Given 09/16/2020 11:00 EDT 500 m L methocarbamoL (ROBAXIN) 500 mg tablet 1 dose, Starting on Wed09/16/20 at 1126, Until Wed09/16/20 at 1130 methocarbamoL (ROBAXIN) tablet 500 mg 500 mg, oral, EVERY 6 HOURS PRN, Starting on Wed09/16/20 at 1132, Until Wed09/18/20 at 1548, muscle spasms, Routine Given 09/18/2020 13:39 EDT 500 mg Given 09/17/2020 15:11 EDT 500 mg Given 09/17/2020 9:11 EDT 500 mg methocarbamoL (ROBAXIN) tablet 750 mg 750 mg, oral, EVERY 6 HOURS PRN, Starting on Wed09/18/20 at 1900, Until Wed09/20/20 at 1237, muscle spasms, Routine Given 09/20/2020 5:48 EDT 750 mg Given 09/19/2020 23:56 EDT 750 mg Given 09/19/2020 17:42 EDT 750 mg morphine (MS CONTIN) CR tablet 15 mg 15 mg, oral, PRE-OP ONCE, 1 dose, On Wed09/16/20 at 0645, Routine, Preprocedure Given 09/16/2020 6:53 EDT 15 mg Multivitamins with Minerals tablet 1 Tab [...] 1314, Until Wed09/20/20 at 1237, Nausea, Routine oxyCODONE (ROXICODONE) 5 mg immediate release tablet 1 dose, Starting on Wed09/16/20 at 1126, Until Wed09/16/20 at 1130 oxyCODONE (ROXICODONE) immediate release tablet 5-10 mg 5-10 mg, oral, EVERY 4 HOURS PRN, Starting on Wed09/16/20 at 1134, Until Wed09/17/20 at 1611, Pain, Routine Given 09/17/2020 13:34 EDT 10 mg Given 09/17/2020 7:54 EDT 10 mg Given 09/17/2020 3:03 EDT 10 mg oxyCODONE (ROXICODONE) immediate release tablet 5-15 mg 5-15 mg, oral, EVERY 4 HOURS PRN, Starting on Wed09/16/20 at 1117, Until Wed09/16/20 at 1135, Pain, Routine Given 09/16/2020 11:30 EDT 5 mg polyethylene glycol 3350 (MIRALAX) packet 17 g [...] Tablet Given 09/18/2020 20:22 EDT 1 Tablet documented in this encounter Discontinued Medications Medication [...] JULIA) 0843 (Given - Provider: Briseyda Neville, JULIA) bisacodyL (DULCOLAX) suppository 10 mg 10 mg, [...] Doherty RN) 0825 (Given - Provider: Briseyda Neville, JULIA)2104 (Given - Provider: Ximena Cortés, RN) 0842 (Given - Provider: Briseyda Neville, RN) cholecalciferol (Vitamin D3) tablet 2,000 Units 2,000 Units, oral, DAILY WITH DINNER, 10 doses, First dose on Wed09/16/20 at 1700, Last dose on Wed09/25/20 at 1700, Routine 1642 (Given - Provider: Briseyda Neville RN) 1743 (Given - Provider: Ximena Cortés, JULIA) docusate sodium (COLACE) capsule 100 mg 100 [...] Briseyda Neville RN)1324 (Given - Provider: Briseyda Neville, JULIA)2104 (Given - Provider: Ximena Cortés, JULIA) 0842 (Given - Provider: Briseyda Neville RN) [...] Bm today) 0843 (Given - Provider: Briseyda Neville RN) Continuous Medication Order 09/18/2020 09/19/2020 09/20/2020 [...] Sarah Doherty RN)1204 (Given - Provider: Elyssa England, RN)1742 (Given - Provider: Ximena Cortés, JULIA)2356 [...] Briseyda Neville RN)1911 (Given - Provider: Ximena Cortés, RN)2228 (Given - Provider: Ximena Cortés RN) 0224 (Given - Provider: Adelaide Angeles RN)0548 (Given - Provider: Adelaide Angeles, JULIA)0842 (Given - Provider: Briseyda Neville RN) magnesium [...] Elyssa England RN)1742 (Given - Provider: Ximena Cortés RN)2356 (Given - Provider: Adelaide Angeles, JULIA) 0955 (Given - Provider: Adelaide Angeles, JULIA) ondansetron (PF) (ZOFRAN) injection 4 mg(Linked Group [...] Count Last Ordered Date First Ordered Date acetaminophen (TYLENOL) tablet 1,000 mg 1 0 09/16/2020 atropine 0.1 mg/mL syringe 0.5 mg 1 021 bisacodyL (DULCOLAX) suppository 10 mg 1 bupivacaine (PF) (MARCAINE) 0.5% injection 1 09/16/2020 calcium carbonate (TUMS) 200 mg calcium (500 mg) per chewable tablet tablet,chewable 2 Tab 1 09/16/2020 ceFAZolin (ANCEF) syringe 2 g 1 09/16/2020 diphenhydrAMINE (BENADRYL) i njection 12.5 mg 1 09/16/2020 Gelatin Adsorbable powder 1 09/16/2020 HYDROmorphone (PF) (DILAUDID ) 0.5 mg/0.5 mL syringe 0.3-0.5 mg 1 09/16/2020 lactated ringers (LR) infusion 1 09/16/2020 lidocaine (PF) 10 mg/mL (1 % ) injection 2 mg 1 09/16/2020 magnesium hydroxide (MILK OF MAGNESIA) 400 mg/5 mL suspension 30 mL 2 09/16/2020 methocarbamoL (ROBAXIN) tablet 750 mg 1 10/2020 miSOPROStol (CYTOTEC) tablet 200 mcg 1 10/2020 naloxone (NARCAN) injection 0.2 mg 1 2020 ondansetron (PF) (ZOFRAN) injection 4 mg 2 09/16/2020 ondansetron (ZOFRAN-ODT) dis integrating tablet 4 mg 1 09/16/2020 prochlorperazine (COMPAZINE) 25 mg suppository 25 mg 1 09/16/2020 prochlorperazine (COMPAZINE) tablet 10 mg 1 09/16/2020 sodium phosphate (FLEET SALI NE) enema 1 Enema 1 09/16/2020 thrombin (bovine) 5,000 unit topical solution 1 09/16/2020 vancomycin (VANCOCIN) powder 1 09/16/2020 Diet Count Last Ordered Date [...] 09/16/2020 documented in this encounter Care Teams Personnel Placement Specialist Relationship Specialty Start Date End Date Edd Caballero DO [address] [place] [address] PCP - General Family Medicine - Primary Care 07/08/20 11/19/21 documented as of this encounter
--- OUTSIDE RECORDS SUMMARY | 2024-04-26 16:50 | XMS_ITS | Encounter Summary ---
Author Organization [facility] Address [address] [place] [address] Care Team Providers Care Hardboard Panel Printer Name Role Phone Jeannie Mantilla MD Primary Care Provider [phone] Encounter Details Date Type Department Care Team (Latest Contact Info) Description 07/23/2015 10:45 EST - 07/23/2015 23:59 EST Hospital Encounter [address] [address] Unknown, Provider, MD Discharge Disposition: Home or Self Care Social History Tobacco Use Types Packs/Day Years Used Date Smoking Tobacco: Never Assessed Comments Unknown Sex and Gender Information Value Date Recorded Sex Assigned at Not on file Legal Sex Female 18:26 EST Gender Identity Female 09/06/2020 17:23 EDT Sexual Orientation Not on file documented as of this encounter Discharge Disposition Disposition Code Departure Means Destination Home or Self Longterm documented in this encounter Plan of Treatment Not on file documented as of this encounter Visit Diagnoses Not on filedocumented in this encounter Care Teams Hardboard Panel Printer Relationship Specialty Start Date End Date Jeannie Mantilla MD [address] [place] [phone] PCP - General 05/05/15 07/07/20 documented as of this encounter
--- OUTSIDE RECORDS SUMMARY | 2024-04-26 16:50 | XMS_ITS | Encounter Summary ---
Author Organization [facility] Address [address] [place] [address] Care Team Providers Care Electromedical Equipment Technician Name Role Phone Ada, Edd DON Primary Care Provider + [phone] Frank Francois MD Primary Care Provider [phone] Encounter Details Date Type Department Care Team (Late st Contact Info) Description 09/13/2020 Lab Requisition [facility] Pathology & Laboratory Medicine - [facility] [address] [place] [address] Outr Resulting Lab, Provider Social History Tobacco [...] Comments ZZCOVID-19 TEST [facility] PCR Today 09/13/2020 10:04 EDT COVID-19 TESTING Routine 09/13/2020 10:0 4 EDT documented in this encounter Results * COVID-19 TEST [facility] PCR (09/13/2020 10:04 EDT) Swab ENTIRE NASOPHARYNX / Unknown 09/13/2020 10:04 EDT 09/13/2020 15:34 EDT us Provider Outr Resulting Lab MICROBIOLOGY - GENER AL ORDERABLES Final Result Performing Organization Address City/State/[facility] Co de Phone Number [facility] [address] [place] [id number] * COVID-19 TESTING (09/13/2020 10:04 EDT) COVID-19 rt-PCR Result Negative Negative 09/14/2020 0:10 EDT [facility] Comment: This test has not [...] clinical observations, patient history, and epidemiological information. Performed on the [employer] [place] Fusion instrument Performing Lab [place] [facility] 09/14/2020 0:10 EDT [facility] Swab 09/13/2020 10:0 4 EDT 09/13/2020 15:34 EDT us Provider Outr Resulting Lab MICROBIOLOGY - GENER AL ORDERABLES Final Result [facility] [address] [place] [address] documented in this encounter Visit Diagnoses Not on filedocumented in this encounter Care Teams Electromedical Equipment Technician Relationship Specialty Start Date End Date Edd Caballero DO [address] [place] [address] PCP - General Family Medicine - Primary Care 07/08/20 11/19/21 Frank Francois MD [address] [facility] [address] [place] [address] PCP - General Emergency Medicine 11/20/21 documented as of this encounter
--- OUTSIDE RECORDS SUMMARY | 2024-04-26 16:50 | XMS_ITS | Encounter Summary ---
Author Organization [facility] Address [address] [place] [address] Care Team Providers Care Tool Supervisor Name Role Phone Edd Caballero DO Primary Care Provider [phone] Encounter Details Date Type Department Care Team (Latest Contact Info) Description 09/12/2020 10:50 EDT - 09/12/2020 23:59 EDT Hospital Encounter [facility] Pre-Surgical Testing [address], [place] [id number] Discharge Disposition: Home or Self Care Social [...] Sign Reading Time Taken Comments Blood Pressure - - Pulse - - Temperature - - Respiratory Rate - - Oxygen Saturation - - Inhaled Oxygen Concentration - - Weight 39.5 kg (87 lb) 09/12/2020 1108 EDT Height 142.2 cm (4' 8) 09/12/2020 1108 EDT Body Mass Index 19.51 09/12/2020 1108 EDT documented in this encounter Medications at [...] tablet TK 1 T PO BID HS [facility] 04/16/2020 multivitamin (THERAGRAN) per tablet Take [...] B COMPLEX ORAL Take by mouth daily. diclofenac (VOLTAREN) 75 mg EC tablet TK 1 T PO BID WF OR MILK 04/10/2020 1 gabapentin (NEURONTIN) 100 mg capsule Take 1 Cap by mouth 3 times daily. 09/19/2020 2 HYDROmorphone (DILAUDID) 2 mg tablet Take 1-2 Tabs by mouth every 3 hours as needed for Pain. Daily Max: 32 mg 16 Tab 09/19/2020 2 HYDROmorphone (DILAUDID) 2 mg tablet Take 0.2 mg by mouth every 4 hours as needed. 1 mupirocin (BACTROBAN) 2 % ointment Using a Q-tip, apply a small amt. of ointment to each nostril twice a day for 5 days prior to surgery, starting on the morning of 09/11/20 1 Tube 08/22/2020 1 documented as of this encounter Discharge Disposition Disposition Code Departure Means Destination Home or Self Care documented in this encounter Progress Notes * Molly Kurtz, RN - 09/12/2020 1050 EDT COVID 19 Screening Perioperative at time of PAT Please document by exception (only check those that apply). Have you had any of the following symptoms recently? no Yes Chronic ? Cough Shortness of breath or difficulty breathing Fever Chills Fatigue Muscle or body aches Severe Headache New loss of taste or smell Sore throat Congestion or runny nose Rash Nausea, vomiting, or diarrhea (rare in adults. More common in children) Please elaborate if yes: If a chronic symptom is reported use your judgement if an anesthesia review is needed. Have you been in close contact with someone who has been diagnosed with Covid 19? no (close contact, within 6 feet of any person known to have Coronavirus in the past 14 days) If past COVID + test results in chart: ??? Complete call, Place for Anesthesia Review ??? Do not give COVID+ DOS arrival instructions unless anes review deems necessary Negative COVID screen: Please file negative COVID screening under a progress note Negative screening is no symptoms or patient reporting a chronic symptom that does not need an anesthesia review Positive COVID screen: Patient answers yes to the question(s) and it is not a chronic symptom RN to flag this chart for anesthesia review and complete call Please file positive COVID screening under a PAT note If patient develops any of these symptoms between now and their surgery date instruct them to call us back at [phone] to report symptoms (If patient is in Surgical Admissions and answers yes, please notify Surgery and Anesthesia team). Follow proper precautions- yellow mask to patient/family. Visitor Policy: -IP or OP PeriOp visitors: ??? One non sick visitor may accompany patient to surgical wait area ??? No visitors to PreOp or PACU o Exceptions: special needs and pediatrics ??? Support person can remain with the patient until they are called to Preop ??? The support person has the choice to leave at that time and get a phone update from the surgeonor remain in the surgical waiting area for an in person update from the surgeon in one of our consult rooms ??? Once they have been updated by the surgeon, they may exit the building for inpatients. Outpatient visitor can wait in the surgical wait area until patient is ready for discharge. -IP: Inpatient unit: ??? No visitors at this time -Pediatric patient: ??? One parent can come with child DOS, and is allowed with child in PreOp/PACU ??? Due to COVID 19 no parents are allowed to go back to OR. ??? Pediatric inpatients: one caregiver at bedside and one overnight -Children under age of 16 y.o. are not permitted. -Only ADA service animals are permitted into the hospital. All other animals, including previously approved therapy/support animals, are not allowed at this time. (No animals will be allowed into Preop, OR, or PACU) * Molly Kurtz RN - 09/12/2020 1050 EDT PAT call completed with daughter (Sangeetha) answering questions but patient in the room verifying answers. Permission for the daughter to answer questions was verified at the beginning of the call. documented in this encounter OR Notes * Preprocedure Instructions - Molly Kurtz RN - 09/12/2020 1050 EDT Mary Ellen Ayesha has been instructed as follows regarding medication administration for the day of thescheduled procedure. Date of Surgery: 09/16/2020 Instructions for Taking Medications Day of Surgery Medication Sig Last Dose Hold DOS Take DOS acetaminophen (TYLENOL) 500 mg tablet Take 1,000 mg by mouth every 6 hours as needed. Yes woquaza-dvgmcbuswrdgp-tpvshscd (EXCEDRIN EXTRA STRENGTH) 250-250-65 mg per tablet Take 1 Tab by mouth every 6 hours as needed for Headaches. Takes 1/2 tab as needed for pain Hold for 7 days prior to surgery Cholecalciferol, Vitamin D3, 50 mcg (2,000 unit) capsule Take 2,000 Units by mouth daily. Hold for 7 days prior to surgery Yes diclofenac (VOLTAREN) 75 mg EC tablet TK 1 T PO BID WF OR MILK Hold for 7 days prior to surgery docusate sodium (COLACE) 100 mg capsule Take 200 mg by mouth 2 times daily. Yes alonso root (ALONSO EXTRACT ORAL) Take by mouth daily. Hold for 7 days prior to surgery HYDROmorphone (DILAUDID) 2 mg tablet Take 0.2 mg by mouth every 4 hours as needed. Yes miSOPROStol (CYTOTEC) 200 mcg tablet TK 1 T PO BID HS WAC- takes with diclofenac x multivitamin (THERAGRAN) per tablet Take 1 Tab by mouth daily. Hold for 7 days prior to surgery mupirocin (BACTROBAN) 2 % ointment Using a Q-tip, apply a small amt. of ointment to each nostril twice a day for 5 days prior to surgery, starting on the morning of 09/11/20 Yes niacin (NIASPAN) 1,000 mg ER tablet Take 1,200 mg by mouth. Hold for 7 days prior to surgery omega-3 fatty acids 1,000 mg capsule capsule Take 2 g by mouth daily. Hold for 7 days prior to surgery polyethylene glycol (GLYCOLAX) 17 gram/dose powder Take 17 g by mouth daily. potassium chloride 20 mEq tablet extended release TK 1 T PO QD WF Yes TURMERIC ORAL Take by mouth daily. Hold for 7 days prior to surgery valACYclovir (VALTREX) 500 mg tablet Take 500 mg by mouth. Yes VITAMIN B COMPLEX ORAL Take by mouth daily. Hold for 7 days prior to surgery documented in this encounter Plan of Treatment Not on file documented as of this encounter Visit Diagnoses Not on filedocumented in this encounter Historical Medications * This list may reflect changes made after this encounter. docusate sodium (COLACE) 100 mg capsule Take 200 mg by mouth 2 times daily. aspirin-acetamino phen-caffeine (EXCEDRIN EXTRA STRENGTH) 250-250-65 mg per tablet Take 1 Tablet by mouth every 6 hours as needed for Headaches. Takes 1/2 tab as needed for pain HYDROmorphone (DILAUDID) 2 mg tablet Take 0.2 mg by mouth every 4 hours as needed. 09/20/2020 added in this encounter Care Teams Tool Supervisor Relationship Specialty Start Date End Date Edd Caballero DO [address] [place] [address] PCP - General Family Medicine - Primary Care 07/08/20 11/19/21 documented as of this encounter
--- OUTSIDE RECORDS SUMMARY | 2024-04-26 16:50 | XMS_ITS | Encounter Summary ---
Author Organization [facility] Address [address] [place] [address] Care Team Providers Care Mail Processor Name Role Phone AdaEdd Bueno DO Primary Care Provider [phone] Reason for Visit * Reason Onset Date Comments Pre-op Exam 08/22/2020 Encounter Details Date Type Department Care Team (Late st Contact Info) Description 08/22/2020 Telephone [facility] Spine Program [place] [address] Roberta Bran, JULIA Pre-op Exam Social History [...] on file documented as of this encounter Ordered Prescriptions Prescription Sig Dispense Quantity Refills Last Filled Start Date End Date mupirocin (BACTROBAN) 2 % ointment Using a Q-tip, apply a small amt. of ointment to each nostril twice a day for 5 days prior to surgery, starting on the morning of 09/11/20 1 Tube 08/22/2020 documented in this encounter Miscellaneous Notes * Telephone Encounter - Roberta Bran RN - 08/22/2020 1039 EST Sangeetha returned my call, verbalized understanding. * Telephone Encounter - Roberta Bran RN - 08/22/2020 1028 EST Detailed message left for patient's daughter: nasal swab +MSSA, advised to use antibacterial soap for 5 days prior to surgery and to use bactroban ointment for 5 days prior to surgery. I do not see apharmacy listed in patient's chart, requested that she return my call with this information. A direct phone number was left. documented in this encounter Plan of Treatment Not on file documented as of this encounter Visit Diagnoses Not on filedocumented in this encounter Care Teams Mail Processor Relationship Specialty Start Date End Date Edd Caballero DO [address] [place] [address] PCP - General Family Medicine - Primary Care 07/08/20 11/19/21 documented as of this encounter
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
--- OUTSIDE RECORDS SUMMARY | 2024-04-26 16:50 | XMS_ITS | Encounter Summary ---
Author Organization [facility] Address [address] [place] [address] Care Team Providers Care Lighting Specialist Name Role Phone Edd Caballero DO Primary Care Provider [phone] Reason for Visit * Reason Onset Date Comments COVID-19 08/21/2020 Encounter Details Date Type Department Care Team (Late st Contact Info) Description 08/21/2020 Telephone [facility] [employer] [address] [place] [address] Nelia Madera MD [address] [place] [phone] COVID-19 Social History Tobacco Use Types Packs/Day Years [...] encounter Miscellaneous Notes * Telephone Encounter - Elise Sloan - 08/22/2020 1049 EST Patient advised they would like covid testing done at [facility]. Family Services Worker faxed the order to [phone] and asked that they schedule the patient for testing on 09/13. Also made patient aware of testing dates and the need the quarantine after testing. Family Services Worker will also remove patient from the work queue. * Telephone Encounter - Zeinab Herrera - 08/21/2020 0806 EST Called patient to schedule COVID-19 testing. Requested a call back @[phone]. This is our 1st attempt at contacting patient. documented in this encounter Plan of Treatment Not on file documented as of this encounter Visit Diagnoses Not on filedocumented in this encounter Care Teams Lighting Specialist Relationship Specialty Start Date End Date Edd Caballero DO [address] [place] [address] PCP - General Family Medicine - Primary Care 07/08/20 11/19/21 documented as of this encounter
--- OUTSIDE RECORDS SUMMARY | 2024-04-26 16:50 | XMS_ITS | Encounter Summary ---
Author Organization [facility] Address [address] [place] [address] Care Team Providers Care Bulb Tester Name Role Phone Unavailable Primary Care Provider Unavailabl e Encounter Details Date Type Department Care Team (Late st Contact Info) Description 05/08/[address] [facility] - [facility] [place] [place] [address] [place] [address] Israel Campuzano, LARRY [address] [facility] [address] [place] [address] Social History Tobacco Use Types [...] Name Priority Date/Time Associated Diagnosis Comments PAP TEST- RESULT ONLY Routine 05/08/2013 0:00 EST documented in this encounter Results * PAP TEST- RESULT ONLY (05/08/2013 0:00 EST) Pathology Report: CYTOPATHOLOGY REPORT Reports generated via electronic interface contain original data; however they are lacking the format of the original report. Caution should be taken when reading/interpreti ng unformatted reports. Name: ? MARY ELLEN CORTEZ ? Accession #: ? [id number] : ? 1955 (Age: 58) ??F ?Collect Date: ? 05/08/2013 Location: ? [facility] ? Receive Date: ? 05/09/2013 Provider: ?ISRAEL CAMPUZANO ORDER DESK CLERK Copy to: ? Specimen/Source: ?Pap Test, Cervix/Endocervix, ThinPrep Imaging System with manual evaluation Last Menstrual Period: ? Menstrual/Pregnanc y Status: ? Post Menopausal ? SPECIMEN ADEQUACY ? Satisfactory for Evaluation - assessment of transformation zone component not applicable ( e.g. atrophy, vaginal sample, hysterectomy) - scant squamous epithelial component GENERAL CATEGORIZATION ? Negative for Intraepithelial Lesion or Malignancy ? Document reviewed and electronically signed by: ? LUIS CARLOS Cheatham(ASCP) ? Report Date: ??05/16/2013 09:03 End of Report KEERTHI BASSETT 05/08/2013 05/09/2013 us Israel Campuzano NP PATHOLOGY ORDERABLES Final R esult KEERTHI BASSETT [address] [place] [address] documented in this encounter Visit Diagnoses Not on filedocumented in this encounter
--- OUTSIDE RECORDS SUMMARY | 2024-04-26 16:50 | XMS_ITS | Encounter Summary ---
Author Organization [facility] Address [address] [place] [address] Care Team Providers Care Cessation Systems Outreach Specialist Name Role Phone Jeannie Mantilla MD Primary Care Provider Encounter Details Date Type Department Care Team (Late st Contact Info) Description 03/16/2016 Results Only [facility] [phone] Ramona Lizama, LARRY [facility] [address] [place], [place] [id number] Social History Tobacco Use Types Packs/Day Years [...] Diagnosis Comments PAP TEST- RESULT ONLY Routine 03/16/2016 0:00 EDT documented in this encounter Results * PAP TEST- RESULT ONLY (03/16/2016 0:00 EDT) Pathology Report: CYTOPATHOLOGY REPORT Reports generated via electronic interface contain original data; however they are lacking the format of the original report. Caution should be taken when reading/interpreti ng unformatted reports. Name: ? MARY ELLEN CORTEZ ? Accession #: ? [id number] ? : ? 1955 (Age: 61) ??F ?Collect Date: ? 03/16/2016 ? Location: ? [facility] ? Receive Date: ? 03/19/2016 ? Provider: RAMONA LIZAMA COMPUTER PROGRAMMER ANALYST Copy to: ? Final Report SPECIMEN ADEQUACY ? Satisfactory for Evaluation - assessment of transformation zone component not applicable ( e.g. atrophy, vaginal sample, hysterectomy) GENERAL CATEGORIZATION ? Negative for Intraepithelial Lesion or Malignancy ?? Menstrual/Pregnanc y Status: ??Menopausal Specimen/Source: ??Pap Test, Vagina/Endocervix, ThinPrep Imaging System with manual evaluation Document reviewed and electronically signed by: ? LUIS CARLOS Hairston(ASCP) ? Report ??Date: 03/23/2016 12:51 HPV with Pap Test ? Date Ordered: ? 03/23/2016 ? Status: ?? Signed Out ?Date Complete: ? 03/25/2016 ? By: ??System Interface ? Date Reported: ? 03/25/2016 ? Interpretation RESULT: Negative for HPV. No E6 or E7 mRNA is detected from HPV types 16,18,31,33,35, 39,45,51,52,56,58, 59,66, and 68 by varnish blender mediated amplification. Comments Document reviewed and electronically signed by: ? System Interface ? Report date: 03/25/2016 By the signature above, the attending physician certifies that he/she has personally conducted a gross and/or microscopic examination of the described specimens and rendered or confirmed the above diagnosis. End of Report [facility] 03/16/2016 03/19/2016 us Ramona Lizama COMPUTER PROGRAMMER ANALYST PATHOLOGY ORDERABLES Final Res ult [facility] [address] [place] [address] documented in this encounter Visit Diagnoses Not on filedocumented in this encounter Care Teams Cessation Systems Outreach Specialist Relationship Specialty Start Date End Date Jeannie Mantilla MD [address] [place] [address] [phone] PCP - General 05/05/15 07/07/20 documented as of this encounter
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
--- OUTSIDE RECORDS SUMMARY | 2024-04-26 16:50 | XMS_ITS | Encounter Summary ---
Author Organization [facility] Address [address] [place] [address] Care Team Providers Care School Psychologist Assistant Name Role Phone Unavailable Primary Care Provider Unavailabl e Encounter Details Date Type Department Care Team (Late st Contact Info) Description 03/27/2005 Results Only [facility] [address] [place] [address] Israel Campuzano, PIN SORTER AND BAGGER [address] [place] [phone] Social History Tobacco Use Types [...] Procedure Name Priority Date/Time Associated Diagnosis Comments HPV DETECTION, HIGH RISK TYPES Routine 03/27/2005 10:48 EDT CYTOPATHOLOGY Routine 03/27/2005 0:00 EDT documented in this encounter Results * HUMAN PAPILLOMA VIRUS DNA TEST (03/27/2005 10:48 EDT) Specimen Description Cervix, ThinPrep vial [facility] Result Negative for HPV types 16, 18, 31, 33, 35, 39, 45, 51, 52, 56, 58, 59, and 68. [facility] Report Status Final [id number] [facility] 03/27/2005 10:4 8 EDT 04/07/2005 10:48 EDT us Israel Campuzano NP MICROBIOLOGY - GENERAL ORDER PUNEET Final Result [facility] [address] [place] [address] * CYTOPATHOLOGY (03/27/2005 0:00 EDT) Pathology Report: CYTOPATHOLOGY REPORT Reports generated via electronic interface contain original data; however they are lacking the format of the original report. Caution should be taken when reading/interpreti ng unformatted reports. Name: ? DIEGO MARY ELLEN ? Accession #: ? [id number] : ? 1955 (Age: 50) ??F ?Collect Date: ? 03/27/2005 Location: ? [facility] ? Receive Date: ? 03/31/2005 Provider: ?ISRAEL CAMPUZANO PIN S[employer]TER [employer] BAGGER Copy to: ? Specimen/Source: ?ThinPrep Pap Test, Cervix/Endocervix, processed on [employer] ThinPrep Imaging System, with manual evaluation Last Menstrual Period: ? 08/15 Other: ? [facility] - HPV testing requested regardless of diagnosis on current ThinPrep Pap test. ? SPECIMEN ADEQUACY ? Satisfactory for Evaluation - transformation zone component present - scant squamous epithelial component GENERAL CATEGORIZATION ? Negative for Intraepithelial Lesion or Malignancy ? Document reviewed and electronically signed by: ? Kate Muñoz, LUIS CARLOS(ASCP)(IAC) ? Report Date: ??04/06/2005 15:57 End of Report [facility] 03/27/2005 03/31/2005 us Israel Campuzano NP PATHOLOGY ORDERABLES Final R esult [facility] [address] [place] [address] documented in this encounter Visit Diagnoses Not on filedocumented in this encounter
--- OUTSIDE RECORDS SUMMARY | 2024-04-26 16:50 | XMS_ITS | Encounter Summary ---
Author Organization [facility] Address [address] [place] [address] Care Team Providers Care Broomcorn Scraper Name Role Phone Jeannie Mantilla MD Primary Care Provider [phone] Reason for Visit * (Routine) - Receiving Office to Obtain Authorization Specialty Diagnoses / Procedures Referred By Contdixon t Referred To Contact Procedures MR OUTSIDE IMAGES NEURO Unknown, Provider, MD Referral ID Status Reason Start Date Expiration Date Visits Requested Visits Authorized [id number] Receiving Office to Obtain Authorization 07/29/2020 1 1 Encounter Details Date Type Department Care Team (Latest Contact Info) Description 05/27/2020 0:10 EST - 05/27/2020 23:59 EST Hospital Encounter [facility] Secondary Reads [place] Discharge Disposition: Home [...] Comments MR OUTSIDE IMAGES NEURO Routine 07/29/2020 16:50 EST documented in this encounter Results * MR OUTSIDE IMAGES NEURO (07/29/2020 16:50 EST) Narrative 07/29/2020 16:50 EST This is a non-reportable exam. us Provider Unknown MD MELENDEZ OTHER IMAGING ORDERABLES Final Result documented in this encounter Visit Diagnoses Not on filedocumented in this encounter Care Teams Broomcorn Scraper Relationship Specialty Start Date End Date Jeannie Mantilla MD [address] [place] [phone] PCP - General 05/05/15 07/07/20 documented as of this encounter
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
--- OUTSIDE RECORDS SUMMARY | 2024-04-26 16:50 | XMS_ITS | Encounter Summary ---
Author Organization [facility] Address [address] [place] [address] Care Team Providers Care Heater Operator Name Role Phone Unavailable Primary Care Provider Unavailabl e Encounter Details Date Type Department Care Team (Late st Contact Info) Description 03/25/2004 Results Only [facility] - [facility] [address] [place] [address] Israel Campuzano, CUSTOMER SERVICES MANAGER [address] [place] [address] Social History Tobacco Use Types [...] Priority Date/Time Associated Diagnosis Comments CYTOPATHOLOGY Routine 03/25/2004 0:00 EDT documented in this encounter Results * CYTOPATHOLOGY (03/25/2004 0:00 EDT) Pathology Report: CYTOPATHOLOGY REPORT Reports generated via electronic interface contain original data; however they are lacking the format of the original report. Caution should be taken when reading/interpreti ng unformatted reports. Name: ? MARY ELLEN CORTEZ ? Accession #: ? [id number] : ? 1955 (Age: 49) ??F ?Collect Date: ? 03/25/2004 Location: ? [facility] ? Receive Date: ? 03/27/2004 Provider: ?ISRAEL CAMPUZANO CUSTOMER SERVICES MANAGER Copy to: ? Specimen/Source: ?ThinPrep Pap Test, Cervix/Endocervix Last Menstrual Period: ? 08/15 Other: ? HPVA - HPV testing requested if ASC-US on the current ThinPrep Pap test. ? SPECIMEN ADEQUACY ? Satisfactory for Evaluation - transformation zone component present - scant squamous epithelial component secondary to excessive blood GENERAL CATEGORIZATION ? Negative for Intraepithelial Lesion or Malignancy ? Document reviewed and electronically signed by: ? LUIS CARLOS Hairston(ASCP) ? Report Date: ??04/01/2004 13:26 End of Report [facility] 03/25/2004 03/27/2004 us Israel Campuzano CUSTOMER SERVICES MANAGER PATHOLOGY ORDERABLES Final R esult [facility] [address] [place] [address] documented in this encounter Visit Diagnoses Not on filedocumented in this encounter
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
--- OUTSIDE RECORDS SUMMARY | 2024-04-26 16:50 | XMS_ITS | Encounter Summary ---
Author Organization [facility] Address [address] [place] [address] Care Team Providers Care Canvas Cutter Hand Name Role Phone Jeannie Mantilla MD Primary Care Provider Reason for Visit * (Routine) - Receiving Office to Obtain Authorization Specialty Diagnoses / Procedures Referred By Contdixon t Referred To Contact Procedures CT OUTSIDE IMAGES NEURO Unknown, Provider, MD Referral ID Status Reason Start Date Expiration Date Visits Requested Visits Authorized [id number] Receiving Office to Obtain Authorization 07/29/2020 1 1 Encounter Details Date Type Department Care Team (Latest Contact Info) Description 06/10/2020 Hospital Encounter [facility] Secondary Reads [place] Discharge Disposition: Home [...] Name Priority Date/Time Associated Diagnosis Comments CT OUTSIDE IMAGES NEURO Routine 07/29/2020 16:51 EST documented in this encounter Results * CT OUTSIDE IMAGES NEURO (07/29/2020 16:51 EST) Narrative 07/29/2020 16:51 EST This is a non-reportable exam. us Provider Unknown MD MELENDEZ OTHER IMAGING ORDERABLES Final Result documented in this encounter Visit Diagnoses Not on filedocumented in this encounter Care Teams Canvas Cutter Hand Relationship Specialty Start Date End Date Jeannie Mantilla MD [address] [place] [id number] PCP - General 05/05/15 07/07/20 documented as of this encounter
--- OUTSIDE RECORDS SUMMARY | 2024-04-26 16:50 | XMS_ITS | Encounter Summary ---
Author Organization [facility] Address [address] [place] [address] Care Team Providers Care Sunday School Missionary Name Role Phone Unavailable Primary Care Provider Unavailabl e Encounter Details Date Type Department Care Team (Late st Contact Info) Description 05/03/2012 Results Only [facility] Services - [facility] ([facility]) [address] [place] [address] Israel Campuzano, LARRY [address] [facility] [address] [place] [address] Social History Tobacco Use Types [...] Diagnosis Comments PAP TEST- RESULT ONLY Routine 05/03/2012 0:00 EST documented in this encounter Results * PAP TEST- RESULT ONLY (05/03/2012 0:00 EST) Pathology Report: CYTOPATHOLOGY REPORT Reports generated via electronic interface contain original data; however they are lacking the format of the original report. Caution should be taken when reading/interpreti ng unformatted reports. Name: ? MARY ELLEN CORTEZ ? Accession #: ? [id number] : ? 1955 (Age: 57) ??F ?Collect Date: ? 05/03/2012 Location: ? [facility] ? Receive Date: ? 05/04/2012 Provider: ?ISRAEL CAMPUZANO DIRECTOR INVESTOR RELATIONS Copy to: ? Specimen/Source: ?Pap Test, Cervix/Endocervix, ThinPrep Imaging System with manual evaluation Last Menstrual Period: ? Menstrual/Pregnanc y Status: ? Post Menopausal: 6 years ? SPECIMEN ADEQUACY ? Satisfactory for Evaluation - assessment of transformation zone component not applicable ( e.g. atrophy, vaginal sample, hysterectomy) GENERAL CATEGORIZATION ? Negative for Intraepithelial Lesion or Malignancy ? Document reviewed and electronically signed by: ? LUIS CARLOS Mckinnon(ASCP) ? Report Date: ??05/12/2012 13:44 End of Report KEERTHI BASSETT 05/03/2012 05/04/2012 us Israel Campuzano NP PATHOLOGY ORDERABLES Final R esult KEERTHI BASSETT [address] [place] [address] documented in this encounter Visit Diagnoses Not on filedocumented in this encounter
--- OUTSIDE RECORDS SUMMARY | 2024-04-26 16:50 | XMS_ITS | Encounter Summary ---
Author Organization [facility] Address [address] [place] [address] Care Team Providers Care Case Assembler Name Role Phone Edd Caballero DO Primary Care Provider Encounter Details Date Type Department Care Team (Latest Contact Info) Description 09/06/2020 Travel Social History Tobacco Use Types Packs/Day [...] on filedocumented in this encounter Care Teams Case Assembler Relationship Specialty Start Date End Date Edd Caballero DO [address] [place] [id number] PCP - General Family Medicine - Primary Care 07/08/20 11/19/21 documented as of this encounter
--- OUTSIDE RECORDS SUMMARY | 2024-04-26 16:50 | XMS_ITS | Encounter Summary ---
Author Organization [facility] Address [address] [place] [address] Care Team Providers Care Blacksmith Assistant Name Role Phone AdaEdd adam DO Primary Care Provider Encounter Details Date Type Department Care Team (Latest Contact Info) Description 08/19/2020 15:16 EST - 08/19/2020 23:59 EST Hospital Encounter [address] [place], [place] [phone] Discharge Disposition: Home or Self Care Social [...] every 6 hours as needed. Rare use Cholecalciferol, Vitamin D3, 50 mcg (2,000 unit) capsule Take 1 Capsule by mouth daily. alonso root (ALONSO EXTRACT ORAL) Take by mouth daily. miSOPROStol (CYTOTEC) 200 mcg tablet TK 1 T PO BID HS [facility] 04/16/2020 multivitamin (THERAGRAN) per tablet Take 1 Tablet by mouth daily. niacin (NIASPAN) 1,000 mg ER tablet Take 1,200 mg by mouth. omega-3 fatty acids 1,000 mg capsule capsule Take 2 Capsules by mouth daily. polyethylene glycol (GLYCOLAX) 17 gram/dose powder Take 17 g by mouth daily. 01/19/2019 potassium chloride 20 mEq tablet extended release TK 1 T PO QD WF 04/23/2020 TURMERIC ORAL Take by mouth daily. valACYclovir [...] on filedocumented in this encounter Care Teams Blacksmith Assistant Relationship Specialty Start Date End Date Edd Caballero DO [address] [place] [address] PCP - General Family Medicine - Primary Care 07/08/20 11/19/21 documented as of this encounter
--- OUTSIDE RECORDS SUMMARY | 2024-04-26 16:50 | XMS_ITS | Encounter Summary ---
Author Organization [facility] Address [address] [place] [address] Care Team Providers Care After School Caregiver Name Role Phone Unavailable Primary Care Provider Unavailabl e Encounter Details Date Type Department Care Team (Late st Contact Info) Description 03/23/2011 Results Only [facility] Laboratory Services - [facility] ([facility]) [address] [place] [address] Israel Campuzano, LARRY [address] [facility] [address] [place] [address] Social History Tobacco Use Types [...] Diagnosis Comments PAP TEST- RESULT ONLY Routine 03/23/2011 0:00 EDT documented in this encounter Results * PAP TEST- RESULT ONLY (03/23/2011 0:00 EDT) Pathology Report: CYTOPATHOLOGY REPORT Reports generated via electronic interface contain original data; however they are lacking the format of the original report. Caution should be taken when reading/interpreti ng unformatted reports. Name: ? MARY ELLEN CORTEZ ? Accession #: ? [id number] ? : ? 1955 (Age: 56) ??F ?Collect Date: ? 03/23/2011 ? Location: ? [facility] ? Receive Date: ? 03/24/2011 ? Provider: ISRAEL CAMPUZANO FOREIGN LANGUAGE INSTRUCTOR Copy to: ? Final Report SPECIMEN ADEQUACY ? Satisfactory for Evaluation - assessment of transformation zone component not applicable ( e.g. atrophy, vaginal sample, hysterectomy) GENERAL CATEGORIZATION ? Negative for Intraepithelial Lesion or Malignancy ?? Last Menstural Period: 06/14/2000 Specimen/Source: ??Pap Test, Vagina/Cervix, ThinPrep Imaging System with manual evaluation Document reviewed and electronically signed by: ? Henny Fatima, CT(ASCP) ? Report ??Date: 03/27/2011 14:40 HPV with Pap Test ? Date Ordered: ? 03/27/2011 ? Status: ?? Signed Out ?Date Complete: ? 03/31/2011 ? By: ??System Interface ? Date Reported: ? 03/31/2011 ? Interpretation RESULT: Negative for HPV types 16, 18, 31, 33, 35, 39, 45, 51, 52, 56, 58, 59, and 68. Comments Document reviewed and electronically signed by: ? System Interface ? Report date: 03/31/2011 By the signature above, the attending physician certifies that he/she has personally conducted a gross and/or microscopic examination of the described specimens and rendered or confirmed the above diagnosis. End of Report KEERTHI BASSETT 03/23/2011 03/24/2011 us Israel Campuzano NP PATHOLOGY ORDERABLES Final R esult KEERTHI BASSETT [address] [place] [address] documented in this encounter Visit Diagnoses Not on filedocumented in this encounter
--- OUTSIDE RECORDS SUMMARY | 2024-04-26 16:50 | XMS_ITS | Encounter Summary ---
Author Organization [facility] Address [address] [place] [address] Care Team Providers Care Music Department Chair Name Role Phone Jeannie Mantilla MD Primary Care Provider [phone] Reason for Visit * (Routine) - Receiving Office to Obtain Authorization Specialty Diagnoses / Procedures Referred By Contdixon t Referred To Contact Procedures MR OUTSIDE IMAGES NEURO Unknown, Provider, MD Referral ID Status Reason Start Date Expiration Date Visits Requested Visits Authorized [id number] Receiving Office to Obtain Authorization 07/29/2020 1 1 Encounter Details Date Type Department Care Team (Latest Contact Info) Description 05/27/2020 0:05 EST - 05/27/2020 0:09 EST Hospital Encounter [facility] Secondary Reads [place] Discharge Disposition: Home or [...] Comments MR OUTSIDE IMAGES NEURO Routine 07/29/2020 16:49 EST documented in this encounter Results * MR OUTSIDE IMAGES NEURO (07/29/2020 16:49 EST) Narrative 07/29/2020 16:49 EST This is a non-reportable exam. us Provider Unknown MD MELENDEZ OTHER IMAGING ORDERABLES Final Result documented in this encounter Visit Diagnoses Not on filedocumented in this encounter Care Teams Music Department Chair Relationship Specialty Start Date End Date Jeannie Mantilla MD [address] [place] [phone] PCP - General 05/05/15 07/07/20 documented as of this encounter
--- OUTSIDE RECORDS SUMMARY | 2024-04-26 16:51 | XMS_ITS | Encounter Summary ---
Author Organization [facility] Address [address] [place] [address] Care Team Providers Care Pad Extractor Tender Name Role Phone Unavailable Primary Care Provider Unavailabl e Encounter Details Date Type Department Care Team (Late st Contact Info) Description 11/03/2001 Results Only [facility] - Maple conversion [address] [place] [address] Israel Campuzano, MASTER DEPUTY SHERIFF [address] SECURITY [address] [place] [address] Social History Tobacco Use Types [...] Priority Date/Time Associated Diagnosis Comments CYTOPATHOLOGY Routine 11/03/2001 0:00 EDT documented in this encounter Results * CYTOPATHOLOGY (11/03/2001 0:00 EDT) Pathology Report: CYTOPATHOLOGY REPORT Reports generated via electronic interface contain original data; however they are lacking the format of the original report. Caution should be taken when reading/interpreti ng unformatted reports. Name: ? MARY ELLEN CORTEZ ? Accession #: ? [id number] : ? 1955 (Age: 46) ??F ?Collect Date: ? 11/03/2001 Location: ? [facility] ? Receive Date: ? 11/08/2001 Provider: ?ISRAEL CAMPUZANO MASTER DEPUTY SHERIFF [employer] SECURITY Copy to: ? Specimen/Source: ?Conventional Pap Test, Cervix/Endocervix Last Menstrual Period: ? 10/02/01 ? SPECIMEN ADEQUACY ? Satisfactory for Evaluation - transformation zone component present GENERAL CATEGORIZATION ? Negative for Intraepithelial Lesion or Malignancy ? Document reviewed and electronically signed by: ? LUIS CARLOS Mckinnon(ASCP) ? Report Date: ??11/10/2001 08:59 End of Report [facility] 11/03/2001 11/08/2001 us Israel Campuzano NP PATHOLOGY ORDERABLES Final R esult [facility] [address] [place] [address] documented in this encounter Visit Diagnoses Not on filedocumented in this encounter
--- OUTSIDE RECORDS SUMMARY | 2024-04-26 16:51 | XMS_ITS | Encounter Summary ---
Author Organization [facility] Address [address] [place] [address] Care Team Providers Care Seed Potato Arranger Name Role Phone Unavailable Primary Care Provider Unavailabl e Encounter Details Date Type Department Care Team (Late st Contact Info) Description 10/25/2000 Results Only [facility] - Maple conversion [address] [place] [address] Israel Campuzano, TISSUE TECHNICIAN [address] [place] [address] Social History Tobacco Use Types [...] Priority Date/Time Associated Diagnosis Comments CYTOPATHOLOGY Routine 10/25/2000 0:00 EDT documented in this encounter Results * CYTOPATHOLOGY (10/25/2000 0:00 EDT) Pathology Report: CYTOPATHOLOGY REPORT Reports generated via electronic interface contain original data; however they are lacking the format of the original report. Caution should be taken when reading/interpreti ng unformatted reports. Name: ? MARY ELLEN CORTEZ ? Accession #: ? [id number] : ? 1955 (Age: 45) ??F ?Collect Date: ? 10/25/2000 Location: ? [facility] ? Receive Date: ? 10/27/2000 Provider: ?ISRAEL CAMPUZANO TISSUE TECHNICIAN Copy to: ? Specimen/Source: ?Conventional Pap Test, Cervix/Endocervix Last Menstrual Period: ? 10/14/00 ? SPECIMEN ADEQUACY ? Satisfactory for evaluation. GENERAL CATEGORIZATION ? Within Normal Limits ? Document reviewed and electronically signed by: ? Kiki Pisano, ??CT(ASCP) ? Report Date: ??10/27/2000 10:10 End of Report [facility] 10/25/2000 10/27/2000 us Israel Campuzano TISSUE TECHNICIAN PATHOLOGY ORDERABLES Final R esult [facility] [address] [place] [address] documented in this encounter Visit Diagnoses Not on filedocumented in this encounter
--- OUTSIDE RECORDS SUMMARY | 2024-04-26 16:51 | XMS_ITS | Encounter Summary ---
Author Organization [facility] Address [address] [place] [address] Care Team Providers Care Seismic Observer Name Role Phone Unavailable Primary Care Provider Unavailabl e Encounter Details Date Type Department Care Team (Late st Contact Info) Description 02/23/2003 Results Only [facility] - Maple conversion [address] [place] [address] Israel Campuzano, HYDROMETER CALIBRATOR [address] [place] [address] Social History Tobacco Use Types [...] Priority Date/Time Associated Diagnosis Comments CYTOPATHOLOGY Routine 02/23/2003 0:00 EDT documented in this encounter Results * CYTOPATHOLOGY (02/23/2003 0:00 EDT) Pathology Report: CYTOPATHOLOGY REPORT Reports generated via electronic interface contain original data; however they are lacking the format of the original report. Caution should be taken when reading/interpreti ng unformatted reports. Name: ? MARY ELLEN CORTEZ ? Accession #: ? [id number] : ? 1955 (Age: 48) ??F ?Collect Date: ? 02/23/2003 Location: ? [facility] ? Receive Date: ? 02/27/2003 Provider: ?ISRAEL CAMPUZANO HYDROMETER CALIBRATOR Copy to: ? Specimen/Source: ?ThinPrep Pap Test, Cervix/Endocervix Last Menstrual Period: ? 12/14 Other: ? HPVA - HPV testing requested if ASC-US on the current ThinPrep Pap test. ? SPECIMEN ADEQUACY ? Satisfactory for Evaluation - transformation zone component absent GENERAL CATEGORIZATION ? Negative for Intraepithelial Lesion or Malignancy ? Document reviewed and electronically signed by: ? Roseann Sanchez, LUIS CARLOS(ASCP) ? Report Date: ??03/01/2003 13:45 End of Report [facility] 02/23/2003 02/27/2003 us Israel Campuzano HYDROMETER CALIBRATOR PATHOLOGY ORDERABLES Final R esult [facility] [address] [place] [address] documented in this encounter Visit Diagnoses Not on filedocumented in this encounter
--- OUTSIDE RECORDS SUMMARY | 2024-04-26 16:51 | XMS_ITS | Encounter Summary ---
Author Organization [facility] Address [address] [place] [address] Care Team Providers Care Pharmaceutical Analyst Name Role Phone Unavailable Primary Care Provider Unavailabl e Encounter Details Date Type Department Care Team (Late st Contact Info) Description 08/14/2003 Results Only [facility] - Maple conversion [address] [place] [address] Talia Lo MD [address] [place] [address] [place] [address] Social History Tobacco Use Types Packs/Day Years [...] Comments HPV DETECTION, HIGH RISK TYPES Routine 08/14/2003 16:00 EST SURGICAL PATHOLOGY Routine 08/14/2003 0:00 EST documented in this encounter Results * HUMAN PAPILLOMA VIRUS DNA TEST (08/14/2003 16:00 EST) Specimen Description Cervix, ThinPrep vial [facility] Result Negative for HPV types 16, 18, 31, 33, 35, 39, 45, 51, 52, 56, 58, 59, and 68. [facility] Report Status Final [id number] [facility] 08/14/2003 16:0 0 EST 08/16/2003 15:02 EST us Talia Lo MD MICROBIOLOGY - GENERAL ORDERABL ES Final Result [facility] [address] [place] [address] * SURGICAL PATHOLOGY (08/14/2003 0:00 EST) Pathology Report: SURGICAL PATHOLOGY REPORT Reports generated via electronic interface contain original data; however they are lacking the format of the original report. Caution should be taken when reading/interpreting unformatted reports. Name: ? MARY ELLEN CORTEZ ? Accession #: ? [id number] ? : ? 1955 (Age: 48) ??F ? Collect Date: ? 08/14/2003 ? Location: ? [facility] ? Receive Date: ? 08/15/2003 ? Provider: TALIA LO MD Copy to: ISRAEL CAMPUZANO NP ? Final Pathologic Diagnosis: ? Endometrium, biopsy: 1. ?Simple hyperplasia without cytologic atypia. ??See comment. 2. ?Endocervical tissue with squamous metaplasia and focal microglandular hyperplasia. Comment: ? Textile Dyer sections have been reviewed at intradepartmental consultation conference. ??Sections show areas of artifactual crowding and telescoping artifact. ??However, several intact fragments exhibit crowded glands with intervening supporting stroma. ??There is no cytologic atypia.(Dr. Guillermo) Document reviewed and electronically signed by: ELAINE GUILLERMO MD Report ??Date: 08/17/2003 16:24 By the signature above, the attending physician certifies that he/she has personally conducted a gross and/or microscopic examination of the described specimens and rendered or confirmed the above diagnosis. Specimen(s) Received: ? Endometrial bx Clinical History: ? DUB Gross Description: ? Received in formalin labeled Ayesha and endometrial bx are multiple fragments of brown and lock friable material which measure in aggregate 2.0 x 0.7 x 0.3 cm. ??Entirely submitted in one cassette. ??(Dr. Briones-)/tmg ?? End of Report [facility] 08/14/2003 08/15/2003 15: 47 EST us Talia Lo MD PATHOLOGY ORDERABLES Final Resu lt [facility] [address] [place] [address] documented in this encounter Visit Diagnoses Not on filedocumented in this encounter
[2024-04-26 21:02] LABS: HCT 37.5 % (36.0-46.0); HGB 12.5 g/dL (11.2-15.7); MCH 30.9 pg (27.0-33.0); MCHC 33.3 % (32.0-36.0); MCV 93 fL (80-95); MPV 9.9 fL (8.0-11.0); Platelet Count 266 10^3/uL (130-400); RBC 4.04 10^6/uL (3.93-5.22); RDW 12.6 % (11.7-14.6); RDW-SD 43.5 fL; WBC 3.83 10^3/uL (4.4-10.8)
[2024-04-26 21:32] LABS: ALT 28 U/L (14-59); AST 23 U/L (15-37); Albumin 3.9 g/dL (3.4-5.0); Alkaline Phosphatase 80 U/L (46-116); Anion Gap 8.1 mmol/L (3-11); BUN 15 mg/dL (7-18); Bilirubin, Total 0.36 mg/dL (0.2-1.0); CO2 28.9 mmol/L (21.0-32.0); CREATININE 0.8 mg/dL (0.55-1.02); Calcium 9.5 mg/dL (8.5-10.1); Chloride 105 mmol/L (98-107); Estimated GFR 78.72 (mL/min/1.73m2); Glucose 83 mg/dL (74-106); Magnesium 2.2 mg/dL (1.8-2.4); Potassium 4.3 mmol/L (3.5-5.1); Sodium 142 mmol/L (136-145); Total Protein 7.4 g/dL (6.4-8.2)
== END 2024-04-26 16:39 | disposition home or self-care (01) ==
LOC: NCHCN 16:38
PROVIDERS: PCP Family Medicine; Visit Provider Family Medicine
DX: Z00.00 Encounter for general adult medical examination without abnormal findings (principal)
CPT/HCPCS: 80053; 85027; 83735

== ENCOUNTER 2024-05-01 15:49 | Outpatient (CLI) | payer MEDICARE, MEDICAID, SELFPAY ==
--- NOTE | 2024-05-01 15:15 | DI.RAD_ITS ---
Exam(s) XR SHOULDER LT COMPLETE 2+V EXAM: XR SHOULDER LT COMPLETE 2+V CLINICAL HISTORY: Lt shoulder pain, M25.512. TECHNIQUE: 2D digital imaging was performed. Three views. COMPARISON: CR CERV SP.WITH OBL OR FLEX/EXT from 01/25/2009 CR CERV SP.WITH OBL OR FLEX/EXT from 07/19/2012 FINDINGS: BONES: No acute fracture is present. No bony destructive lesion is seen. Hardware noted in lower ce rvical spine. Some remodeling of the glenoid and prominent periarticular spurring. Prominent spurri ng at the humeral head. JOINTS: No dislocation present. Severe narrowing of the glenohumeral joint space. Some anterior sub luxation. Joint space loose bodies. Humeral head appears superiorly positioned consistent with workplace rehabilitation officer óscar rotator cuff tear. AC joint shows mild degenerative changes. There is some spurring at the unde rsurface of the acromion. SOFT TISSUE: Normal. IMPRESSION: Severe degenerative changes of the humeral glenohumeral joint. DATA REPOSITORY: RADIATION DOSE DELIVERED:
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
--- OUTSIDE RECORDS SUMMARY | 2024-05-01 16:12 | XMS_ITS | Encounter Summary ---
[place] [address] Care Team Providers Care Cadd Drafter Name Role Phone Frank Francois MD Primary Care Provider [phone] Reason for Referral * Consultation (Routine) - Closed Specialty Diagnoses / Procedures Referred By Contac t Referred To Contact General Surgery Diagnoses Cystocele with incomplete uterovaginal prolapse Frank Francois MD [address] [place] [address] [facility] [address] [place] [phone] Referral ID Status Reason Start Date Expiration Date V isits Requested Visits Authorized [id number] Closed Consult, Test & Treat PCP Updated and/or Approved 05/01/2023 04/30/2024 12 12 Encounter Details Date Type Department Care Team (Latest Contact Info) Description 05/01/2023 Transcribe Orders eDH Incoming Referrals [phone] Frank Francois MD [address] [place] [address] Cystocele with incomplete uterovaginal prolapse Social [...] 11:15 AM EST Office Visit Dermatology at [place] [address] [place] [address] Robert Herron MD [address], [place] [address] Scheduled Procedures Name Priority Associated Diagnoses Date/Ti [...] prolapse documented in this encounter Care Teams Cadd Drafter Relationship Specialty Start Date End Date Frank Francois MD [address] [place] [address] PCP - General Emergency Medicine 04/28/21 documented as of this encounter
--- OUTSIDE RECORDS SUMMARY | 2024-05-01 16:12 | XMS_ITS | Encounter Summary ---
[place] [address] Care Team Providers Care Alodize Machine Operator Name Role Phone Frank Francois MD Primary Care Provider [phone] Reason for Referral * Consultation (RADHA) - Closed Specialty Diagnoses / Procedures Referred By Contac t Referred To Contact General Surgery Diagnoses Rectal prolapse Dionne Eckert MD [address] [place] [address] [facility] [address] [address] Referral ID Status Reason Start Date Expiration Date V isits Requested Visits Authorized [id number] Closed Consult, Test & Treat PCP Updated and/or Approved 07/07/2023 01/04/2024 6 6 Encounter Details Date Type Department Care Team (Late st Contact Info) Description 07/14/2023 Transcribe Orders eDH Incoming Referrals [phone] Dionne Eckert MD [address] [place] [address] Rectal prolapse Social History Tobacco [...] 11:15 AM EST Office Visit Dermatology at [place] [address] [place] [phone] Robert Herron MD [address], [place] José [place] [address] Scheduled Procedures Name Priority Associated Diagnoses Date/Ti [...] prolapse documented in this encounter Care Teams Alodize Machine Operator Relationship Specialty Start Date End Date Frank Francois MD [address] [place] [address] PCP - General Emergency Medicine 04/28/21 documented as of this encounter
--- OUTSIDE RECORDS SUMMARY | 2024-05-01 16:12 | XMS_ITS | Encounter Summary ---
Author [facility] [place] [address] Care Team Providers Care Md Pediatric Allergist Name Role Phone Frank Francois MD Primary Care Provider [phone] Encounter Details Date Type Department Care Team (Late st Contact Info) Description 07/05/2023 Telephone [place] [phone] Lorna Lo, RN Social History Tobacco Use Types Packs/Day Years Used Date Smoking Tobacco: Former Cigarettes 1 15 0 10/12/1968 - 10/13/1983 Smokeless Tobacco: Never Alcohol Use Standard Drinks/Week Comments Yes 1 (1 standard drink = 0.6 oz pur e alcohol) [facility] Inpatient Questions Answer Date Recorded Does Anyone [...] calls today to report having seen her OFFICE MACHINE INSPECTOR in [facility] who told pt that she does have [...] 11:15 AM EST Office Visit Dermatology at [place] [address] [facility] [place] [address] Robert Herron MD [address], [place] [address] Scheduled Procedures Name Priority Associated Diagnoses Date/Ti me ANTERIOR COLPORRHAPHY CYSTOC SALLY W OR WO URETHEROCELE; INC CYSTO (WRVU 10.08) Female cystocele URETHRAL SUSPENSION, SLING\F ASCIA OR SYNTHETIC (WRVU 12.13) Female cystocele documented as of this encounter Visit Diagnoses Not on filedocumented in this encounter Care Teams Md Pediatric Allergist Relationship Specialty Start Date End Date Frank Francois MD [address] [place] [address] PCP - General Emergency Medicine 04/28/21 documented as of this encounter
--- OUTSIDE RECORDS SUMMARY | 2024-05-01 16:12 | XMS_ITS | Encounter Summary ---
Author Organization [facility] [place] [address] Care Team Providers Care Manager Nc Name Role Phone Frank Francois MD Primary Care Provider Encounter Details Date Type Department Care Team (Late st Contact Info) Description 04/11/2024 Telephone Obstetrics [place] [address] Addy Arnold Social History Tobacco Use Types Packs/Day Years Used Date Smoking Tobacco: Former Cigarettes 1 15 0 10/12/1968 - 10/13/1983 Smokeless Tobacco: Never Alcohol Use Standard Drinks/Week Comments Yes 1 (1 standard drink = 0.6 oz pur e alcohol) [facility] Inpatient Questions Answer Date Recorded [...] Department Care Team (Late Contact Info) Description 05/01/2025 11:15 AM EST Office Visit Dermatology at [address] [place] [phone] Robert Herron MD [address], [place] [address] Scheduled Procedures Name Priority Associated Diagnoses Date/Ti me ANTERIOR COLPORRHAPHY CYSTOC SALLY W OR WO URETHEROCELE; INC CYSTO (WRVU 10.08) Female cystocele URETHRAL SUSPENSION, SLING\F ASCIA OR SYNTHETIC (WRVU 12.13) Female cystocele documented as of this encounter Visit Diagnoses Not on filedocumented in this encounter Care Teams Manager Nc Relationship Specialty Start Date End Date Frank Francois MD [address] [place] [address] PCP - General Emergency Medicine 04/28/21 documented as of this encounter
--- OUTSIDE RECORDS SUMMARY | 2024-05-01 16:12 | XMS_ITS | Encounter Summary ---
[place] [address] Care Team Providers Care Stevedoring Supervisor Name Role Phone Frank Francois MD Primary Care Provider [phone] Reason for Visit * Reason Comments Abdominal Pain Fatigue Encounter Details Date Type Department Care Team ([facility] st Contact Info) Description 05/03/2023 4:23 PM EST - 05/03/2023 7:22 PM EST Emergency [place] [address] Kings Whelan MD Chronic abdominal pain; Rectal [...] sent through Care Everywhere. * Rectal Prolapse (Nepalese) * Abdominal Pain (Nepalese) documented in this encounter Medications at Time of Discharge Medication Sig Dispensed Refills Start Date End Date acetaminophen (Tylenol) 500 mg Tablet Take 325 mg by mouth as needed. oxyCODONE-acetaminophen (Percocet) 5-325 mg Tablet 09/20/2021 UNABLE TO FIND Med Name cholestoff and coQ 10. Richelle root Niacin 1,000 mg Tablet Sustained Release 24 hr Take 1,200 mg by mouth. TURMERIC ROOT EXTRACT ORAL Take by mouth. Calcium 500 mg Tablet Take by mouth. multivitamin (THERAGRAN) Tablet Take [...] by mouth 2 times daily. 01/18/2019 12/24/2023 fish oil-omega-3 fatty acids 1,000 mg Capsule Take 2 g by mouth daily. 04/27/2024 cholecalciferol, Vitamin D3, (cholecalciferol, Vitamin D3,) 50 mcg (2,000 unit) Capsule Take by mouth. 04/27 documented as of this encounter ED Notes [...] who have questions please contact the health neonatal intensive care unit nurse that requested your imaging first. Electronically signed by: Abdirashid Jerry MD, [facility] ([phone]), at 05/03/2023 6:15 PM ASSESSMENT & PLAN ED Course ED Course as of 05/03/23 2355 Mon May 03, 2023 1743 Rectal exam performed with central supply manager without evidence of prolapse.Normal rectal tone. 1805 [...] has no lower or pelvic pain. - OH/ACS: Unlikely given no chest pain, SOB, diaphoresis. [...] 11:55 PM Tavo Sanchez MD Resident 05/03/23 6631 * Kings Whelan MD - 05/03/2023 5:19 [...] 11:15 AM EST Office Visit Dermatology at [place] [address] [place] [address] Robert Herron MD [address], [place] José [place] [address] Scheduled Procedures Name Priority Associated Diagnoses Date/Ti [...] EST) Glucose, Urine Dipstick Negative Negative mg/dL [facility] Protein, Urine Dipstick Negative Negative mg/dL [facility] Bilirubin, Urine Dipstick Negative Negative mg/dL [facility] Comment: Clinical correlation required for positive Urine Bilirubin results as false positive may occur with some drugs and drug related products. If a false positive is suspected a serum total bilirubin should be considered if clinically indicated. Urobilinogen, Urine Dipstick Normal Normal mg/dL [facility] pH, Urn (dipstick) 7.0 5.0 - 8.0 [facility] Blood, Urine Dipstick Negative Negative mg/dL [facility] Ketone, Urine Dipstick Negative Negative mg/dL [facility] Nitrite, Urine Dipstick Negative Negative [facility] Leukocytes, Urine Dipstick Negative Negative mcL [facility] Appearance, Urine Dipstick Clear Clear [facility] Specific Manns Choice Urine Automated 1.027 1.005 - 1.030 [facility] Color, Urine Dipstick Yellow Yellow [facility] Reflex to Culture No [facility] Clean Catch Urine 05/03/2023 6:16 PM EST 05/03/2023 6:33 PM EST Narrative Resulting Agency Comment Spec In Lab Kings Whelan MD URINE ORDERABLES Performing Organization Address City/State/[facility] Co de Phone Number [facility] [address] * CT Abdomen & Pelvis w Contrast [...] who have questions please contact the health neonatal intensive care unit nurse that requested your imaging first. ? Narrative 05/03/2023 6:15 PM EST EXAMINATION: CT [...] patients who have questions please contactthe health neonatal intensive care unit nurse that requested your imaging first. Electronically signed by: Abdirashid Jerry MD, [facility]([phone]), at 05/03/2023 6:15 PM Kings Whelan MD [facility] [place] ORDERABLES * Differential, Automated (05/03/2023 4:35 PM EST) Neutrophil % 54.6 % [facility] Neutrophil Absolute 2.54 1.70 - 6.10 x10(3)/[facility] Lymph % 33.9 % [facility] Lymphocytes Abs 1.6 0.9 - 3.2 x10(3)/[facility] Monocyte % 7.7 % [facility] Monocyte Abs 0.4 0.3 - 0.9 x10(3)/[facility] Eos % 3.0 % [facility] Eosinophils Abs 0.1 0.0 - 0.4 x10(3)/[facility] Basophil % 0.6 % [facility] Baso Absolute 0.0 0.0 - 0.1 x10(3)/[facility] Immature Gran % 0.20 % [facility] Comment: Immature granulocytes(IG's)percentage and absolute count will include metamyelocytes, myelocytes, and promyelocytes. Blood smears from CBCs yielding IG's will be scanned manually for concordance. If this scan disagrees with the automated IG or if promyelocytes are noted, a manual differential will be performed. Immature Gran Absolute 0.01 0.00 - 0.04 x10(3)/[facility] Blood 05/03/2023 4:35 PM EST 05/03/2023 5:00 PM EST Narrative Resulting Agency Comment Spec In Lab Frank GUERRERO HEMATOLOGY ORDERABL ES [facility] [address] * (ABNORMAL) Hemogram (05/03/2023 4:35 PM EST) White Blood Cell 4.7 4.0 - 9.5 x10(3)/mc L [facility] Red Blood Cell 3.88(L) 4.00 - 5.21 x10(6)/mc L [facility] Hemoglobin 12.0 11.7 - 15.5 g/dL [facility] Hematocrit 35.0(L) 35.7 - 45.8 % [facility] Mean Cell Volume 90.2 82.6 - 94.4 fL [facility] Mean Cell Hemoglobin 30.9 27.1 - 32.0 pg [facility] Mean Cell Hemoglobin Concentration 34.3 31.7 - 35.0 g/dL [facility] Platelet 252 145 - 357 x10(3)/mc L [facility] RDW Standard Deviation 41.0 37.0 - 46.0 fL [facility] RDW coefficient of variation 12.5 11.5 - 14.1 % [facility] Mean Platelet Volume 8.8 7.6 - 12.[address] [facility] NRBC% auto 0.0 % [facility] NRBC Absolute 0.000 0.000 - 0.000 x10(3)/mc L [facility] Blood 05/03/2023 4:35 PM EST 05/03/2023 5:00 PM EST Narrative Resulting Agency Comment Spec In Lab Frank GUERRERO HEMATOLOGY ORDERABL ES [facility] [address] * Lipase (05/03/2023 4:35 PM EST) Lipase 35 0 - 60 unit/L [facility] Blood 05/03/2023 4:35 PM EST 05/03/2023 5:00 PM EST Narrative Resulting Agency Comment Spec In Lab Andie Kemp MD CHEMISTRY ORDERABLES [facility] [address] [place] [address] * (ABNORMAL) Comprehensive metabolic panel (non-fasting) (05/03/2023 4:35 PM EST) Glucose 108 65 - 199 mg/dL [facility] Comment:Diabetes: >=200 mg/d L plus symptoms Blood Urea Nitrogen 12 8 - 18 mg/dL [facility] Creatinine 0.61(L) 0.70 - 1.20 mg/dL [facility] Sodium 138 135 - 145 mmol/L [facility] Potassium 3.9 3.5 - 5.0 mmol/L [facility] Comment: Please note: ??Patients with WBC >100,000 may have falsely elevated Potassium levels. ??For accurate Potassium quantification in these patients send serum separator tube (gold top) for subsequent determinations. ??Contact the Clinical Chemistry Laboratory if there are any questions. Chloride 104 98 - 107 mmol/L [facility] Carbon Dioxide 25 22 - 31 mmol/L [facility] Anion Gap 9 5 - 15 mmol/L [facility] Calcium 9.4 8.5 - 10.5 mg/dL [facility] Protein, Total 6.6 6.1 - 8.0 g/dL [facility] Albumin 3.9 3.2 - 5.2 g/dL [facility] Aspartate Aminotransferase 18 0 - 30 unit/L [facility] Alanine Aminotransferase 19 0 - 30 unit/L [facility] Alkaline Phosphatase 66 35 - 105 unit/L [facility] Bilirubin, Total 0.2 0.2 - 1.3 mg/dL [facility] Est Glomerular Filtration Rate 96 >=60 mL/min/1. 73 m?? [facility] Comment: This patient's estimated GFR was [...] In Lab Andie Kemp MD CHEMISTRY ORDERABLES [facility] [address] documented in this encounter Visit Diagnoses Diagnosis [...] Galan) documented in this encounter Care Teams Stevedoring Supervisor Relationship Specialty Start Date End Date Frank Francois MD [address] [place] [address] PCP - General Emergency Medicine 04/28/21 documented as of this encounter
--- OUTSIDE RECORDS SUMMARY | 2024-05-01 16:12 | XMS_ITS | Encounter Summary ---
Author Organization [facility] [place] [address] Care Team Providers Care Secondary English Teacher Name Role Phone Frank Francois MD Primary Care Provider [phone] Encounter Details Date Type Department Care Team (Late st Contact Info) Description 12/21/2023 Telephone Obstetrics and Gynecology at [facility] [place] [address] [facility] Social History Tobacco Use Types Packs/Day Years Used Date Smoking Tobacco: Former Cigarettes 1 15 0 10/12/1968 - 10/13/1983 Smokeless Tobacco: Never Alcohol Use Standard Drinks/Week Comments Yes 1 (1 standard drink = 0.6 oz pur e alcohol) [facility] Inpatient Questions Answer Date Recorded Does [...] 11:15 AM EST Office Visit Dermatology at [place] [address] [place] [phone] Robert Herron MD [address] [place] [address] Scheduled Procedures Name Priority Associated Diagnoses Date/Ti me ANTERIOR COLPORRHAPHY CYSTOC SALLY W OR WO URETHEROCELE; INC CYSTO (WRVU 10.08) Female cystocele URETHRAL SUSPENSION, SLING\F ASCIA OR SYNTHETIC (WRVU 12.13) Female cystocele documented as of this encounter Visit Diagnoses Not on filedocumented in this encounter Care Teams Secondary English Teacher Relationship Specialty Start Date End Date Frank Francois MD [address] [place] [address] PCP - General Emergency Medicine 04/28/21 documented as of this encounter
--- OUTSIDE RECORDS SUMMARY | 2024-05-01 16:12 | XMS_ITS | Encounter Summary ---
Author Organization [facility] [place] [address] Care Team Providers Care Gasoline Tester Name Role Phone Frank Francois MD Primary Care Provider [phone] Encounter Details Date Type Department Care Team [...] 11:15 AM EST Office Visit Dermatology at [place] [address] [place] [address] Robert Herron MD [address], [place] [address] Scheduled Procedures Name Priority Associated Diagnoses Date/Ti me ANTERIOR COLPORRHAPHY CYSTOC SALLY W OR WO URETHEROCELE; INC CYSTO (WRVU 10.08) Female cystocele URETHRAL SUSPENSION, SLING\F ASCIA OR SYNTHETIC (WRVU 12.13) Female cystocele documented as of this encounter Visit Diagnoses Not on filedocumented in this encounter Care Teams Gasoline Tester Relationship Specialty Start Date End Date Frank Francois MD [address] [place] [address] PCP - General Emergency Medicine 04/28/21 documented as of this encounter
--- OUTSIDE RECORDS SUMMARY | 2024-05-01 16:12 | XMS_ITS | Encounter Summary ---
Author Organization [facility] [place] [address] Care Team Providers Care Restorer Paper And Prints Name Role Phone Frank Francois MD Primary Care Provider [phone] Encounter Details Date Type Department Care Team (Late st Contact Info) Description 05/03/2023 Telephone [place] [phone] Lorna Barton, RN Social History Tobacco Use Types Packs/Day Years Used Date Smoking Tobacco: Former Cigarettes 1 15 0 10/12/1968 - 10/13/1983 Smokeless Tobacco: Never Alcohol Use Standard Drinks/Week Comments Yes 1 (1 standard drink = 0.6 oz pur e alcohol) [facility] Inpatient Questions Answer Date Recorded Does [...] 11:15 AM EST Office Visit Dermatology at [address] [address] Robert Herron MD [address] [place] [address] Scheduled Procedures Name Priority Associated Diagnoses Date/Ti me ANTERIOR COLPORRHAPHY CYSTOC SALLY W OR WO URETHEROCELE; INC CYSTO (WRVU 10.08) Female cystocele URETHRAL SUSPENSION, SLING\F ASCIA OR SYNTHETIC (WRVU 12.13) Female cystocele documented as of this encounter Visit Diagnoses Not on filedocumented in this encounter Care Teams Restorer Paper And Prints Relationship Specialty Start Date End Date Frank Francois MD [address] [place] [address] PCP - General Emergency Medicine 04/28/21 documented as of this encounter
--- OUTSIDE RECORDS SUMMARY | 2024-05-01 16:12 | XMS_ITS | Encounter Summary ---
Author Organization [facility] [place] [address] Care Team Providers Care Land Mobile Radio Technician Name Role Phone Frank Francois MD Primary Care Provider [phone] Encounter Details Date Type Department Care Team [...] 11:15 AM EST Office Visit Dermatology at [place] [address] [place] [address] Robert Herron MD [address], [place] [address] Scheduled Procedures Name Priority Associated Diagnoses Date/Ti me ANTERIOR COLPORRHAPHY CYSTOC SALLY W OR WO URETHEROCELE; INC CYSTO (WRVU 10.08) Female cystocele URETHRAL SUSPENSION, SLING\F ASCIA OR SYNTHETIC (WRVU 12.13) Female cystocele documented as of this encounter Visit Diagnoses Not on filedocumented in this encounter Care Teams Land Mobile Radio Technician Relationship Specialty Start Date End Date Frank Francois MD [address] [place] [address] PCP - General Emergency Medicine 04/28/21 documented as of this encounter
--- OUTSIDE RECORDS SUMMARY | 2024-05-01 16:12 | XMS_ITS | Encounter Summary ---
Author Organization [facility] [place] [address] Care Team Providers Care Green Marketing Analyst Name Role Phone Frank Francois MD Primary Care Provider [phone] Reason for Visit * Reason Comments Rectal Problems Encounter Details Date Type Department Care Team ([facility] st Contact Info) Description 07/22/2023 6:51 PM EST - 07/22/2023 11:21 PM EST Emergency [place] [address] Lupe Estrada MD [address] [place] [address] Rectal prolapse; Abdominal cramping; Incontinence of feces, [...] can make rectal prolapse more likely include: snf bowel problems Chronic constipation: this means your [...] approach mayoffer the best chance for a meterman successful repair. Perineal approaches are often better [...] through Care Everywhere. * Fecal Incontinence Diet (Slovenian) * Protein Increase: General Info (Slovenian) documented in this encounter Medications at Time [...] they recommended constipation management and to see TUNNEL MAN. She has seen TUNNEL MAN, per TUNNEL MAN there is no pelvic floor issue/dysfunction, no bladder or vaginal prolapse. Patient's prolapse has been persistently worsening. She saw TUNNEL MAN in the end of June, they were [...] Course ED Course as of 07/22/23 2252 [facility] Jul 22, [id number] General surgery paged [...] Discharge to home Lester Thompson APRN 07/22/23 9043 * Neri Persaud APRN - 07/22/2023 2:25 [...] emergencyroom for further evaluation and management. Neri Persaud APRN 07/22/23 1427 documented in this encounter Miscellaneous Notes * Consult Note - Gideon Arnold MD - 07/22/2023 10:18 PM EST Mary Ellen Hodge [id number] [address] [facility] COLORECTAL SURGERY ED CONSULTATION NOTE [...] METHOD performed by Greg Pitt MD at [facility] MAIN OR PRO EXCIS RECTAL PROLAPSE, PERINEAL N/A 01/17/2019 @RECTOPEXY, RESEC. PROLAPSE, PERINEAL APPROACH (WRVU 18.5) performed by Greg iPtt MD at [facility] MAIN OR TOTAL HIP ARTHROPLASTY Right [...] Chief, Division of Colon and Rectal Surgery [facility] Pager [phone] * ED Triage - Karl Aguayo RN - 07/22/2023 2:26 PM EST Please see Provider in Triage note. documented in this encounter Plan of Treatment Upcoming Encounters Date Type Department Care Team (Late st Contact Info) Description 05/01/2025 11:15 AM EST Office Visit Dermatology at [place] [address] [place] [address] Robert Herron MD [address] [place] [address] Scheduled Procedures Name Priority Associated Diagnoses Date/Ti [...] 8:20 PM EST) Neutrophil % 42.1 % [facility] Neutrophil Absolute 2.52 1.70 - 6.10 x10(3)/[facility] Lymph % 43.9 % [facility] Lymphocytes Abs 2.6 0.9 - 3.2 x10(3)/[facility] Monocyte % 6.9 % [facility] Monocyte Abs 0.4 0.3 - 0.9 x10(3)/[facility] Eos % 6.4 % [facility] Eosinophils Abs 0.4 0.0 - 0.4 x10(3)/[facility] Basophil % 0.5 % [facility] Baso Absolute 0.0 0.0 - 0.1 x10(3)/[facility] Immature Gran % 0.20 % [facility] Comment: Immature granulocytes(IG's)percentage and absolute count will include metamyelocytes, myelocytes, and promyelocytes. Blood smears from CBCs yielding IG's will be scanned manually for concordance. If this scan disagrees with the automated IG or if promyelocytes are noted, a manual differential will be performed. Immature Gran Absolute 0.01 0.00 - 0.04 x10(3)/[facility] Blood 07/22/2023 8:20 PM EST 07/22/2023 8:27 PM EST Narrative Resulting Agency Comment Spec In Lab Lester Bacaicoa IV TECHNICIAN HEMATOLOGY ORDERABLE S Performing Organization Address City/[facility]/ZIP Co de Phone Number [facility] [place] [address] * Hemogram (07/22/2023 8:20 PM EST) White Blood Cell 6.0 4.0 - 9.5 x10(3)/[facility] Red Blood Cell 4.15 4.00 - 5.21 x10(6)/[facility] Hemoglobin 12.5 11.7 - 15.5 g/dL [facility] Hematocrit 36.8 35.7 - 45.8 % [facility] Mean Cell Volume 88.7 82.6 - 94.4 fL [facility] Mean Cell Hemoglobin 30.1 27.1 - 32.0 pg [facility] Mean Cell Hemoglobin Concentration 34.0 31.7 - 35.0 g/dL [facility] Platelet 300 145 - 357 x10(3)/[facility] RDW Standard Deviation 42.0 37.0 - 46.0 fL [facility] RDW coefficient of variation 12.8 11.5 - 14.1 % [facility] Mean Platelet Volume 9.0 7.6 - 12.9 fL [facility] NRBC% auto 0.0 % [facility] NRBC Absolute 0.000 0.000 - 0.000 x10(3)/[facility] Blood 07/22/2023 8:20 PM EST 07/22/2023 8:27 PM EST Narrative Resulting Agency Comment Spec In Lab Lester Bacaicoa IV TECHNICIAN HEMATOLOGY ORDERABLE S Performing Organization Address City/[facility]/ZIP Co de Phone Number [facility] [place] [address] * (ABNORMAL) Basic Metabolic Panel (non-fasting) (07/22/2023 8:20 PM EST) Glucose 91 65 - 199 mg/dL [facility] Comment:Diabetes: >=200 mg/d L plus symptoms Blood Urea Nitrogen 14 8 - 18 mg/dL [facility] Creatinine 0.59(L) 0.70 - 1.20 mg/dL [facility] Sodium 138 135 - 145 mmol/L [facility] Potassium 4.5 3.5 - 5.0 mmol/L [facility] Comment: Please note: ??Patients with WBC >100,000 may have falsely elevated Potassium levels. ??For accurate Potassium quantification in these patients send serum separator tube (gold top) for subsequent determinations. ??Contact the Clinical Chemistry Laboratory if there are any questions. Chloride 102 98 - 107 mmol/L [facility] Carbon Dioxide 25 22 - 31 mmol/L [facility] Anion Gap 11 5 - 15 mmol/L [facility] Calcium 9.5 8.5 - 10.5 mg/dL [facility] Est Glomerular Filtration Rate 97 >=60 mL/min/1. 73 m?? [facility] Comment: This patient's estimated GFR was [...] In Lab Lester Thompson APRN CHEMISTRY ORDERABLES [facility] [place] [address] documented in this encounter Visit Diagnoses Diagnosis [...] 2019 (New Bag - Prov ider: Genie Esparza, JULIA)2257 (Stopped - Provider: Genie Esparza RN) documented in this encounter Care Teams Green Marketing Analyst Relationship Specialty Start Date End Date Frank Francois MD [address] [place] [address] PCP - General Emergency Medicine 04/28/21 documented as of this encounter
--- OUTSIDE RECORDS SUMMARY | 2024-05-01 16:12 | XMS_ITS | Encounter Summary ---
[place] [address] Care Team Providers Care Lead Net Software Developer Name Role Phone Frank Francois MD Primary Care Provider [phone] Encounter Details Date Type Department Care Team (Late st Contact Info) Description 04/03/2024 Telephone Obstetrics [place] [phone] Matthew Sanchez LPN Social History Tobacco Use Types Packs/Day Years Used Date Smoking Tobacco: Former Cigarettes 1 15 0 10/12/1968 - 10/13/1983 Smokeless Tobacco: Never Alcohol Use Standard Drinks/Week Comments Yes 1 (1 standard drink = 0.6 oz pur e alcohol) [facility] Inpatient Questions Answer Date Recorded Does Anyone [...] 11:15 AM EST Office Visit Dermatology at [place] [address] [place] [address] Robert Herron MD [address], [place] José [place] [address] Scheduled Procedures Name Priority Associated Diagnoses Date/Ti me ANTERIOR COLPORRHAPHY CYSTOC SALLY W OR WO URETHEROCELE; INC CYSTO (WRVU 10.08) Female cystocele URETHRAL SUSPENSION, SLING\F ASCIA OR SYNTHETIC (WRVU 12.13) Female cystocele documented as of this encounter Visit Diagnoses Not on filedocumented in this encounter Care Teams Lead Net Software Developer Relationship Specialty Start Date End Date Frank Francois MD [address] [place] [address] PCP - General Emergency Medicine 04/28/21 documented as of this encounter
--- OUTSIDE RECORDS SUMMARY | 2024-05-01 16:12 | XMS_ITS | Encounter Summary ---
Author Organization [facility]ly [facility] [place] [address] Care Team Providers Care Slabbing Machine Operator Name Role Phone Frank Francois MD Primary Care Provider [phone] Encounter Details Date Type Department Care Team (Latest Contact Info) Description 04/27/2024 Travel Social History Tobacco Use Types Packs/Day [...] 11:15 AM EST Office Visit Dermatology at [place] [address] [place] [address] Robert Herron MD [address], [place] [address] Scheduled Procedures Name Priority Associated Diagnoses Date/Ti me ANTERIOR COLPORRHAPHY CYSTOC SALLY W OR WO URETHEROCELE; INC CYSTO (WRVU 10.08) Female cystocele URETHRAL SUSPENSION, SLING\F ASCIA OR SYNTHETIC (WRVU 12.13) Female cystocele documented as of this encounter Visit Diagnoses Not on filedocumented in this encounter Care Teams Slabbing Machine Operator Relationship Specialty Start Date End Date Frank Francois MD [address] [place] [address] PCP - General Emergency Medicine 04/28/21 documented as of this encounter
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
--- OUTSIDE RECORDS SUMMARY | 2024-05-01 16:12 | XMS_ITS | Encounter Summary ---
Author Organization [facility]ly [facility] [place] [address] Care Team Providers Care Assembler Finger Buffs Name Role Phone Frank Francois MD Primary Care Provider [phone] Encounter Details Date Type Department Care Team [...] 11:15 AM EST Office Visit Dermatology at [place] [address] [place] [address] Robert Herron MD [address], [place] [address] Scheduled Procedures Name Priority Associated Diagnoses Date/Ti me ANTERIOR COLPORRHAPHY CYSTOC SALLY W OR WO URETHEROCELE; INC CYSTO (WRVU 10.08) Female cystocele URETHRAL SUSPENSION, SLING\F ASCIA OR SYNTHETIC (WRVU 12.13) Female cystocele documented as of this encounter Visit Diagnoses Not on filedocumented in this encounter Care Teams Assembler Finger Buffs Relationship Specialty Start Date End Date Frank Francois MD [address] [place] [address] PCP - General Emergency Medicine 04/28/21 documented as of this encounter
--- OUTSIDE RECORDS SUMMARY | 2024-05-01 16:12 | XMS_ITS | Encounter Summary ---
Author Organization [facility] [place] [place] [address] Care Team Providers Care Breaker Tender Name Role Phone Frank Francois MD Primary Care Provider [phone] Encounter Details Date Type Department Care Team [...] 11:15 AM EST Office Visit Dermatology at [address] [place] [address] Robert Herron MD [address] [place] [address] RD, [place] [address] Scheduled Procedures Name Priority Associated Diagnoses Date/Ti me ANTERIOR COLPORRHAPHY CYSTOC SALLY W OR WO URETHEROCELE; INC CYSTO (WRVU 10.08) Female cystocele URETHRAL SUSPENSION, SLING\F ASCIA OR SYNTHETIC (WRVU 12.13) Female cystocele documented as of this encounter Visit Diagnoses Not on filedocumented in this encounter Care Teams Breaker Tender Relationship Specialty Start Date End Date Frank Francois MD [address] [place] [address] PCP - General Emergency Medicine 04/28/21 documented as of this encounter
--- OUTSIDE RECORDS SUMMARY | 2024-05-01 16:12 | XMS_ITS | Encounter Summary ---
Author Organization [facility] [place] [address] Care Team Providers Care Technical Information Specialist Name Role Phone Frank Francois MD Primary Care Provider [phone] Encounter Details Date Type Department Care Team (Late st Contact Info) Description 10/07/2021 Telephone Dermatology at [address] [address] Lisseth Oconnor LPN Social History [...] 11:15 AM EST Office Visit Dermatology at [address] [address] Robert Herron MD [address], SHANICE A DERMATOLOGY [place], [place] [address] Scheduled Procedures Name Priority Associated Diagnoses Date/Ti me ANTERIOR COLPORRHAPHY CYSTOC ASLLY W OR WO URETHEROCELE; INC CYSTO (WRVU 10.08) Female cystocele URETHRAL SUSPENSION, SLING\F ASCIA OR SYNTHETIC (WRVU 12.13) Female cystocele documented as of this encounter Visit Diagnoses Not on filedocumented in this encounter Care Teams Technical Information Specialist Relationship Specialty Start Date End Date Frank Francois MD [address] [place] [address] PCP - General Emergency Medicine 04/28/21 documented as of this encounter
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
--- OUTSIDE RECORDS SUMMARY | 2024-05-01 16:12 | XMS_ITS | Encounter Summary ---
Author Organization [facility] [place] [address] Care Team Providers Care Machine Pie Maker Name Role Phone Frank Francois MD Primary Care Provider [phone] Encounter Details Date Type Department Care Team [...] 11:15 AM EST Office Visit Dermatology at [place] [address] [place] [address] Robert Herron MD [address], [place] [address] Scheduled Procedures Name Priority Associated Diagnoses Date/Ti me ANTERIOR COLPORRHAPHY CYSTOC SALLY W OR WO URETHEROCELE; INC CYSTO (WRVU 10.08) Female cystocele URETHRAL SUSPENSION, SLING\F ASCIA OR SYNTHETIC (WRVU 12.13) Female cystocele documented as of this encounter Visit Diagnoses Not on filedocumented in this encounter Care Teams Machine Pie Maker Relationship Specialty Start Date End Date Frank Francois MD [address] [place] [address] PCP - General Emergency Medicine 04/28/21 documented as of this encounter
--- OUTSIDE RECORDS SUMMARY | 2024-05-01 16:12 | XMS_ITS | Encounter Summary ---
Author Organization [facility] [place] [address] Care Team Providers Care Claim Trainee Name Role Phone Frank Francois MD Primary Care Provider [phone] Reason for Visit * Reason Comments Establish Care * Consultation (Routine) - Closed Specialty Diagnoses / Procedures Referred By Contac t Referred To Contact Urology Diagnoses Urinary dysfunction Kevan Nunn MD [facility] [place] [address] [facility] [address] [place] [address] Referral ID Status Reason Start Date Expiration Date V isits Requested Visits Authorized [id number] Closed Consult, Test & Treat 08/26/2023 08/25/2024 1 1 Encounter Details Date Type Department Care Team (Late st Contact Info) Description 12/24/2023 2:30 PM EDT Office Visit Obstetrics [place] [address] Helen Peterson MD [facility] OBSTETRICS [place] [address] Vaginal atrophy; Female cystocele; Functional urinary incontinence; Decreased anal sphincter tone Social History Tobacco Use Types Packs/Day Years Used Date Smoking Tobacco: Former Cigarettes 1 15 0 10/12/1968 - 10/13/1983 Smokeless Tobacco: Never Alcohol Use Standard Drinks/Week Comments Yes 1 (1 standard drink = 0.6 oz pur e alcohol) [facility] In[facility] Questions Answer Date Recorded Does [...] Female Pelvic Medicine and Reconstructive Surgery @ [facility] Patient Name: Mary Ellen Hodge Patient [...] Ellen has actually been seen here at [facility] in the past by Dr. Cabezas [...] rectal prolapse, reported she had seen a DAMAGED FREIGHT INSPECTOR who reported no uterine prolapse and no [...] pessary for a while with her primary DAMAGED FREIGHT INSPECTOR, who she reports tried 4-5 pessaries, including [...] rectal prolapse and she has seen Dr. Ptit, as well as the emergency department, for [...] performed by Greg Pitt MD at [facility] MAIN OR PRO EXCIS RECTAL PROLAPSE, PERINEAL N/A 01/17/2019 @RECTOPEXY, RESEC. PROLAPSE, PERINEAL APPROACH (WRVU 18.5) performed by Greg Pitt MD at [facility] MAIN OR SPINAL FUSION C2 to T1 [...] test (empty supine): negative External Genitalia: Vulva, Wendell's and Bartholin glands normal, urethra without tenderness [...] 11:15 AM EST Office Visit Dermatology at [place] [address] [place] [address] Robert Herron MD [address], [place] José [place] [address] Scheduled Procedures Name Priority Associated Diagnoses Date/Ti [...] anus documented in this encounter Care Teams Claim Trainee Relationship Specialty Start Date End Date Frank Francois MD [address] [place] [address] PCP - General Emergency Medicine 04/28/21 documented as of this encounter
--- OUTSIDE RECORDS SUMMARY | 2024-05-01 16:12 | XMS_ITS | Encounter Summary ---
Author Organization [facility] [place] [address] Care Team Providers Care Front End Developer Name Role Phone Frank Francois MD Primary Care Provider [phone] Encounter Details Date Type Department Care Team (Late st Contact Info) Description 04/13/2024 8:30 AM EDT TH Visit (TeleHealth) [place] [address] Helen Peterson MD [facility] DR OBSTETRICS [place] [address] Female cystocele Social History Tobacco Use Types Packs/Day Years Used Date Smoking Tobacco: Former Cigarettes 1 15 0 10/12/1968 - 10/13/1983 Smokeless Tobacco: Never Alcohol Use Standard Drinks/Week Comments Yes 1 (1 standard drink = 0.6 oz pur e alcohol) [facility] Inpatient Questions Answer Date Recorded [...] - 04/13/2024 8:30 AM EDT TELEHEALTH Encounter [facility] Female Pelvic Medicine and Reconstructive Surgery @ [facility] I obtained the patient's consent to receiving health care services at [facility] through telemedicine. We discussed the opportunities [...] is available for patient's review in [facility]'s patient portal, [facility]. Patient verbally consents to this telephone [...] Location of patient at time of visit: [place], [place] I provided care to the patient today [...] She has an appointment with orthopedics at [facility] today to discuss surgical management, and that [...] 11:15 AM EST Office Visit Dermatology at [address] [address] Robert Herron MD [address], SHANICE A DERMATOLOGY [place], [place] [address] Scheduled Procedures Name Priority Associated Diagnoses Date/Ti me ANTERIOR COLPORRHAPHY CYSTOC SALLY W OR WO URETHEROCELE; INC CYSTO (WRVU 10.08) Female cystocele URETHRAL SUSPENSION, SLING\F ASCIA OR SYNTHETIC (WRVU 12.13) Female cystocele documented as of this encounter Visit Diagnoses Diagnosis Female cystocele Cystocele, midline documented in this encounter Care Teams Front End Developer Relationship Specialty Start Date End Date Frank Francois MD [address] [place] [address] PCP - General Emergency Medicine 04/28/21 documented as of this encounter
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
--- OUTSIDE RECORDS SUMMARY | 2024-05-01 16:12 | XMS_ITS | Encounter Summary ---
Author Organization [facility] [place] [address] Care Team Providers Care Supervisor Putty And Caluking Name Role Phone Frank Francois MD Primary Care Provider [phone] Encounter Details Date Type Department Care Team [...] 11:15 AM EST Office Visit Dermatology at [place] [address] [place] [address] Robert Herron MD [address], [place] [address] Scheduled Procedures Name Priority Associated Diagnoses Date/Ti me ANTERIOR COLPORRHAPHY CYSTOC SALLY W OR WO URETHEROCELE; INC CYSTO (WRVU 10.08) Female cystocele URETHRAL SUSPENSION, SLING\F ASCIA OR SYNTHETIC (WRVU 12.13) Female cystocele documented as of this encounter Visit Diagnoses Not on filedocumented in this encounter Care Teams Supervisor Putty And Caluking Relationship Specialty Start Date End Date Frank Francois MD [address] [place] [address] PCP - General Emergency Medicine 04/28/21 documented as of this encounter
--- OUTSIDE RECORDS SUMMARY | 2024-05-01 16:12 | XMS_ITS | Encounter Summary ---
Author Organization [facility] [place] [address] Care Team Providers Care Dope Dry House Operator Name Role Phone Frank Francois MD Primary Care Provider [phone] Reason for Visit * Reason Comments Follow-up * Consultation (Routine) - Closed Specialty Diagnoses / Procedures Referred By Contac t Referred To Contact General Surgery Diagnoses Cystocele with incomplete uterovaginal prolapse Frank Francois MD [address] [place] [address] [facility] Gen Surgery [address] [place] [address] Referral ID Status Reason Start Date Expiration Date V isits Requested Visits Authorized [id number] Closed Consult, Test & Treat PCP Updated and/or Approved 05/01/2023 04/30/2024 12 12 Encounter Details Date Type Department Care Team (Late st Contact Info) Description 06/03/2023 2:00 PM EST Office [place] [address] Greg Pitt MD [facility] [place] [address] Perineal floor weakness Social History [...] Division of Colon and Rectal Surgery ~ [facility] HPI: Mary Ellen Hodge is [...] pessary, and to follow up with her uro-telephone instrument supervisor for management of anterior prolapse. Recently she was seen in the [facility] on 05/03 with recurrent rectal prolapse [...] METHOD performed by Greg Pitt MD at [facility] MAIN OR PRO EXCIS RECTAL PROLAPSE, PERINEAL N/A 01/17/2019 @RECTOPEXY, RESEC. PROLAPSE, PERINEAL APPROACH (WRVU 18.5) performed by Greg Pitt MD at [facility] MAIN OR TOTAL HIP ARTHROPLASTY Right [...] appropriate. 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 Division of Colon and Rectal Surgery [facility] Pager [phone] documented in this encounter Plan of Treatment Upcoming Encounters Date Type Department Care Team (Late st Contact Info) Description 05/01/2025 11:15 AM EST Office Visit Dermatology at [place] [address] [place] [address] Robert Herron MD [address] [facility], SHANICE A DERMATOLOGY [place], [place] [address] Scheduled Procedures Name Priority Associated Diagnoses Date/Ti me ANTERIOR COLPORRHAPHY CYSTOC SALLY W OR WO URETHEROCELE; INC CYSTO (WRVU 10.08) Female cystocele URETHRAL SUSPENSION, SLING\F ASCIA OR SYNTHETIC (WRVU 12.13) Female cystocele documented as of this encounter Visit Diagnoses Diagnosis Perineal floor weakness documented in this encounter Care Teams Dope Dry House Operator Relationship Specialty Start Date End Date Frank Francois MD [address] [place] [address] PCP - General Emergency Medicine 04/28/21 documented as of this encounter
--- OUTSIDE RECORDS SUMMARY | 2024-05-01 16:12 | XMS_ITS | Clinical Summary ---
Author Organization [facility] Address [facility] [place] [address] Care Team Providers Care Md Physician Dermatologist Name Role Phone Frank Francois MD Primary Care Provider [phone] Allergies Active Allergy Reactions Criticality Noted Date Comments Gabapentin 11/20/2021 Other reaction(s): Drowsiness Worse balance. even at 100 TID Medications Medication Sig Dispensed Refills Start Date End Date Status valACYclovir (VALTREX) 500 mg Tablet Take 500 mg by mouth 2 times daily. Taking PRN Active Niacin 1,000 mg Tablet Sustained Release 24 hr Take 1,200 mg by mouth. Active TURMERIC ROOT EXTRACT ORAL Take by mouth. Active Calcium 500 mg Tablet Take by mouth. Active multivitamin (THERAGRAN) Tablet [...] by mouth every 12 hours. 11/15/2023 Active aspirin-acetaminophe n-caffeine (Excedrin Migraine) 250-250-65 mg Tablet Take 1 tablet by mouth Every 6 hours as needed. Active naloxone (Narcan) 4 mg/actuation nasal spray SPRAY ONE SPRAY IN EACH NOSTRIL SINGLE DOSE NEEDED 02/28/2024 Active cholecalciferol, Vitamin D3, 50 mcg (2,000 unit) Capsule Take 2,000 Units by mouth Daily @ 0600. Active morphine CR (MS Contin) 30 mg ER tablet Take 1 tablet by mouth 2 times daily. 04/18/2024 Active fish oil-omega-3 fatty acids (Fish Oil) 1,000 mg capsule Take 2,000 mg by mouth Daily @ 0600. Active Active Problems Problem Noted Date Diagnosed [...] Encounters Date Type Department Care Team Description 04/27/2024 11:30 AM EST Office Visit Dermatology at [address] [address] Robert Herron MD Herpes labialis; History of SCC (squamous cell carcinoma) of skin; Seborrheic keratosis 04/27/2024 Travel 04/17/2024 Orders [place] [address] Helen Peterson MD Female cystocele 04/13/2024 8:30 AM EDT TH Visit (TeleHealth) Obstetrics [place] [address] Helen Peterson MD Female cystocele 04/11/2024 Telephone Obstetrics [place] [address] Addy Arnold 04/03/2024 Telephone Obstetrics [place] [address] Matthew Sanchez LPN 02/22/2024 9:00 AM EDT Office Visit Dermatology at [address] [phone] Robert Herron MD Herpes labialis 02/22/2024 Travel [...] 0.6 oz pur e alcohol) [facility] Inpatient Questions Answer Date Recorded [...] 11:15 AM EST Office Visit Dermatology at [place] [address] [place] [address] Robert Herron MD [address], [place] [address] Scheduled Procedures Name Priority Associated Diagnoses Date/Ti [...] of 1 - PCV) 2018 Covid-19 Vaccine ( - season) 2024 Influenza (Flu) vaccine (1 [...] capacity to make decision: Yes Care Teams Md Physician Dermatologist Relationship Specialty Start Date End Date Frank Francois MD [address] [place] [address] PCP - General Emergency Medicine 04/28/21
--- OUTSIDE RECORDS SUMMARY | 2024-05-01 16:12 | XMS_ITS | Encounter Summary ---
Author Organization [facility] [place] [address] Care Team Providers Care Scheduling Representative Name Role Phone Frank Francois MD Primary Care Provider [phone] Encounter Details Date Type Department Care Team (Late Contact Info) Description 04/17/2024 Orders [place] [phone] Helen Peterson MD [facility] OBSTETRICS & [place] [address] Female cystocele Social History Tobacco Use Types [...] 11:15 AM EST Office Visit Dermatology at [address] [place] [phone] Robert Herron MD [address], [place] [address] Scheduled Orders Name Type Priority Associated Diagnoses [...] midline documented in this encounter Care Teams Scheduling Representative Relationship Specialty Start Date End Date Frank Francois MD [address] [place] [address] PCP - General Emergency Medicine 04/28/21 documented as of this encounter
--- OUTSIDE RECORDS SUMMARY | 2024-05-01 16:12 | XMS_ITS | Encounter Summary ---
[place] [address] Care Team Providers Care Supervisor [employer] Name Role Phone Frank Francois MD Primary Care Provider [phone] Reason for Referral * Consultation (Routine) - Closed Specialty Diagnoses / Procedures Referred By Contac t Referred To Contact Urology Diagnoses Urinary dysfunction Kevan Nunn MD [facility] [place] [address] [facility] Asphalt Tile Floor Layer [address] [place] [phone] Referral ID Status Reason Start Date Expiration Date V isits Requested Visits Authorized [id number] Closed Consult, Test & Treat 08/26/2023 08/25/2024 1 1 Reason for Visit * Reason Comments Follow-up * Consultation (RADHA) - Closed Specialty Diagnoses / Procedures Referred By Contac t Referred To Contact General Surgery Diagnoses Rectal prolapse Dionne Eckert MD [address] [place] [address] [facility] Gen Surgery [address] [place] [phone] Referral ID Status Reason Start Date Expiration Date V isits Requested Visits Authorized [id number] Closed Consult, Test & Treat PCP Updated and/or Approved 07/07/2023 01/04/2024 6 6 Encounter Details Date Type Department Care Team (Late st Contact Info) Description 08/26/2023 9:00 AM EDT Office [place] [address] Greg Pitt MD [facility] [place] [address] Rectal prolapse; Urinary dysfunction Social History Tobacco [...] Division of Colon and Rectal Surgery ~ [facility] HPI: Mary Ellen Hodge is a pleasant [...] METHOD performed by Greg Pitt MD at [facility] MAIN OR PRO EXCIS RECTAL PROLAPSE, PERINEAL N/A 01/17/2019 @RECTOPEXY, RESEC. PROLAPSE, PERINEAL APPROACH (WRVU 18.5) performed by Greg Pitt MD at [facility] MAIN OR TOTAL HIP ARTHROPLASTY Right Allergies: [...] appropriate. Greg Pitt MD MSc FACS FASCRS repair supervisor Division of Colon and Rectal Surgery [facility] Pager [phone] documented in this encounter Plan of Treatment Upcoming Encounters Date Type Department Care Team (Late st Contact Info) Description 05/01/2025 11:15 AM EST Office Visit Dermatology at [place] [address] [facility] [address] [place] [address] Robert Herron MD [address], [place] [address] Scheduled Procedures Name Priority Associated Diagnoses Date/Ti [...] urination documented in this encounter Care Teams Supervisor [employer] Relationship Specialty Start Date End Date Frank Francois MD [address] [place] [address] PCP - General Emergency Medicine 04/28/21 documented as of this encounter
--- OUTSIDE RECORDS SUMMARY | 2024-05-01 16:13 | XMS_ITS | Encounter Summary ---
Author Organization [facility] [place] [address] Care Team Providers Care Envelope Stuffer Name Role Phone AdaEdd adam Primary Care Provider [phone] Reason for Visit * Auth/Cert Specialty Diagnoses / Procedures Referred By Contac t Referred To Contact Diagnoses Rectal prolapse RECTAL POLAPSE unk Procedures PRO COLONOSCOPY, DIAGNOSTIC PRO EXCIS RECTAL PROLAPSE, PERINEAL COLONOSCOPY, DIAGNOSTIC @RECTOPEXY, RESEC. PROLAPSE, PERINEAL APPROACH (WRVU 18.5) Referral ID Status Reason Start Date Expiration Date Visits Re quested Visits Authorized [id number] 1 1 Encounter Details Date Type Department Care Team (Latest Contact Info) Description 01/17/2019 6:52 AM EDT - 01/18/2019 4:15 PM EDT Hospital Encounter [address] [place] [address] Julio Pitt MD [facility] [place] [address] Discharge Disposition: Home Social History Tobacco Use [...] ANY METHOD: @RECTOPEXY, RESEC. PROLAPSE, PERINEAL APPROACH ([facility] 18.5): HPI: Mary Ellen Hodge is a [...] follow-up appointment already scheduled -call Samantha Chin [phone] for scheduling assistance -call the General Surgery Clinic nurses [phone] for prior authorizations assistance Only if applicable [...] colorectal surgery: an international consensus using the Baker technique. Dis Colon Rectum. 2012 Sep;55(4):416-23. Vital [...] PM Julio Pitt MD General Surgery at [place] Arrive at: [employer] [facility] [phone] 10/30/2019 11:00 AM Robert Herron MD Dermatology at [place] Arrive at: [facility] [address] [phone] Instructions Given to Patient at Discharge: Patient [...] Medication: Tylenol should be used as primary xngi-rlh-wagaala pain reliever; 650mg every 6 hours or [...] with information about your appointments. Please call [phone] (clinic number for appointments only) to confirm date and time of your appointments or if you do not receive information about your appointment in a timely manner. Future Appointments Date Time Provider Department Center 02/27/2019 1:00 PM Julio Pitt MD Leb Surg [facility] 10/30/2019 11:00 AM Robert Herron MD Lit Derm [facility] Call your doctor if: ??? You [...] AND HOLIDAYS: ASK FOR THE SURGERY RESIDENT WEIGHT CALLER IF ANY OF THE ABOVE OCCUR. Divison of Colon and Rectal Surgery ??? [facility] ??? [address] ??? [place] [address] ??? [phone] ??? ~~~~~~~~~~~~~~~~~~~~~~~~~~~~~~~~~~~~~~~~~~~~~~~~~~~~~~~~~~~~~~~~~~~ General Instructions None [facility] Surgery - Provider Contact Information: [phone] Primary [place] Physician: Edd Caballero DO [address] [facility] [address] Signed: CESAR Dyson 01/18/19 2:36 PM documented [...] Medication: Tylenol should be used as primary fwzd-bns-xdvonxx pain reliever; 650mg every 6 hours or [...] with information about your appointments. Please call [phone] (clinic number for appointments only) to confirm date and time of your appointments or if you do not receive information about your appointment in a timely manner. Future Appointments Date Time Provider Department Center 02/27/2019 1:00 PM Julio Pitt MD Leb Surg [facility] 10/30/2019 11:00 AM Robert Herron MD [facility] Call your doctor if: ??? You develop [...] AND HOLIDAYS: ASK FOR THE SURGERY RESIDENT WEIGHT CALLER IF ANY OF THE ABOVE OCCUR. Divison of Colon and Rectal Surgery ??? [facility] ??? [address] ??? [place] [address] ??? [phone] ??? ~~~~~~~~~~~~~~~~~~~~~~~~~~~~~~~~~~~~~~~~~~~~~~~~~~~~~~~~~~~~~~~~~~~ documented in this encounter Medications [...] 20 mEq Tab Sust.Rel. Particle/Crystal 08/31/2017 05/04/2022 fish oil-omega-3 fatty acids 1,000 mg Capsule Take 2 g by mouth daily. 04/27/2024 cholecalciferol, Vitamin D3, (cholecalciferol, Vitamin D3,) 50 mcg (2,000 unit) Capsule Take by mouth. 04/27 diclofenac-misoprostol (ARTHROTEC 50) 50-200 mg-mcg per tablet [...] scanned 155 cc at this time. call out clerk paged. PLAN MOVING FORWARD: Pain control. Closely [...] 10 Mental Status 0 Score 45 OTHER Bunrs Fall Risk High Restraint Interventions Safety Promotion/Fall [...] Pitt MD - 01/17/2019 11:56 AM EDT [facility] Operative Note Patient Name: Mary Ellen Hodge : [id number] MR#: [id number] Case Date: 01/17/2019 Surgeon: Surgeon(s) and Role: [...] Note Patient Name: Mary Ellen Hodge : [id number] MR#: [id number] Case Date: 01/17/2019 Surgeon: Surgeon(s) and Role: [...] closure: Yes Sterile closure tray used: Yes Cmozpdeam-egbfcmxzs-lqbmmielce abdominal cavity wash: Yes Hvdwwhnnj-sjtyctggw-tfjzzywjfu wound wash: Yes documented in this encounter Plan of Treatment Upcoming Encounters Date Type Department Care Team (Late st Contact Info) Description 05/01/2025 11:15 AM EST Office Visit Dermatology at [place] [address] [facility] [place] [address] Robert Herron MD [address] [facility] [place] [address] Scheduled Procedures Name Priority Associated Diagnoses Date/Ti [...] EDT TYPE AND SCREEN, SDP (FUTURE SURGERY, [facility] SAME DAY PROGRAM ONLY) STAT 01/17/2019 7:07 AM EDT ABO/RH TYPING STAT 01/17/2019 7:07 AM EDT ANTIBODY SCREEN STAT 01/17/2019 7:07 AM EDT documented in this encounter Results * (ABNORMAL) Hemoglobin and Hematocrit, blood (01/18/2019 5:23 AM EDT) Hemoglobin 9.8(L) 11.7 - 15.5 gm/dL [facility] Hematocrit 30.2(L) 35.7 - 45.8 % [facility] Blood specimen (specimen) 01/18/2019 5:23 AM EDT 01/18/2019 5:59 AM EDT Narrative Resulting Agency Comment Spec In Lab Julio Pitt MD HEMATOLOGY ORDERABLE S Performing Organization Address City/[facility]/ZIP Co de Phone Number [facility] [place] [address] * Creatinine (01/18/2019 5:23 AM EDT) Creatinine 0.70 0.70 - 1.20 mg/dL [facility] Est Glomerular Filtration Rate 90 >=60 mL/min/1.7 3 m?? [facility] Comment: The eGFR was calculated using the CKD-EPI equation. As with all creatinine based estimates of kidney function, eGFR values calculated with the CKD-EPI equation are not accurate in patients with acute kidney failure, extremes of body mass or the acutely ill. [email or web address] eGFR 105 >=60 mL/min/1.7 3 m?? [facility] Comment: The eGFR was calculated using the CKD-EPI equation. As with all creatinine based estimates of kidney function, eGFR values calculated with the CKD-EPI equation are not accurate in patients with acute kidney failure, extremes of body mass or the acutely ill. [email or web address] Blood specimen (specimen) 01/18/2019 5:23 AM EDT 01/18/2019 5:59 AM EDT Narrative Resulting Agency Comment Spec In Lab Julio Pitt MD CHEMISTRY ORDERABLES Performing Organization Address City/[facility]/ZIP Co de Phone Number [facility] [place] [address] * (ABNORMAL) Hemoglobin and Hematocrit, blood (01/17/2019 12:20 PM EDT) Hemoglobin 10.3(L) 11.7 - 15.5 gm/dL [facility] Hematocrit 32.6(L) 35.7 - 45.8 % [facility] Blood specimen (specimen) 01/17/2019 12:20 PM EDT 01/17/2019 12:30 PM EDT Narrative Resulting Agency Comment Spec In Lab Julio Pitt MD HEMATOLOGY ORDERABLE S Performing Organization Address [facility] Co de Phone Number [facility] [place] [address] * (ABNORMAL) Creatinine (01/17/2019 12:20 PM EDT) Creatinine 0.57(L) 0.70 - 1.20 mg/dL [facility] Est Glomerular Filtration Rate 97 >=60 mL/min/1.7 3 m?? [facility] Comment: The eGFR was calculated using the CKD-EPI equation. As with all creatinine based estimates of kidney function, eGFR values calculated with the CKD-EPI equation are not accurate in patients with acute kidney failure, extremes of body mass or the acutely ill. [email or web address] eGFR 112 >=60 mL/min/1.7 3 m?? [facility] Comment: The eGFR was calculated using the CKD-EPI equation. As with all creatinine based estimates of kidney function, eGFR values calculated with the CKD-EPI equation are not accurate in patients with acute kidney failure, extremes of body mass or the acutely ill. [email or web address] Blood specimen (specimen) 01/17/2019 12:20 PM EDT 01/17/2019 12:30 PM EDT Narrative Resulting Agency Comment Spec In Lab Julio Pitt MD CHEMISTRY ORDERABLES Performing Organization Address [facility] Co de Phone Number [facility] [place] [address] * Specimen to Pathology (01/17/2019 10:58 AM EDT) AP Specimen 01/17/2019 10:5 8 AM EDT 01/17/2019 10:58 AM EDT Narrative [facility] - 01/17/2019 10:58 AM EDT Specimen requisition ordered. ??Separate Pathology report to follow Julio Pitt MD PATHOLOGY/CYTOLOGY O RDERABLES Performing Organization Address [facility]/ZIP Co de Phone Number [facility] [place] [address] * Surgical Pathology Report (01/17/2019 10:56 AM EDT) Final Diagnosis [id number] ? Location: [facility]; [facility]; The signing pathologist has (i) examined the relevant preparation(s) for the specimen(s) and (ii) rendered or confirmed the diagnosis(es). . ?Surgical Pathology DIAGNOSIS Rectum, resection: Rectum with mucosal prolapse changes. Electronically signed by: ??Saima Ramsey MD Verified: ??01/20/2019 ?Pathologist Performed at: ??-[facility] Dept. of Pathology, [place], [place] CLINICAL INFORMATION Specimen Submitted: A - [...] visible at the distal margin. Sections/Proces sing: Manager Adobe sections in 3 cassettes as follows: ?A1: ??proximal margin ?A2: ??distal margin ?A3: ??representativ e mucosa ??MJA/sns 01/20/2019 1:00 PM EDT [facility] COLON STRUCTURE / Unknown 01/17/2019 10:56 AM EDT 01/17/2019 10:56 AM EDT Julio Pitt MD PATHOLOGY/CYTOLOGY O RDERABLES Performing Organization Address [facility]/ZIP Co de Phone Number [facility] [place] [address] * ABORH Recheck Status (01/17/2019 7:07 AM EDT) ABORH Type Recheck Completed [facility] Blood specimen (specimen) 01/17/2019 7:07 AM EDT 01/17/2019 7:07 AM EDT Narrative Resulting Agency Comment Spec In Lab Julio Pitt MD BLOOD BANK LAB ORDER PUNEET [facility] [place] [address] * Antibody screen (01/17/2019 7:07 AM EDT) Ab Screen Interp Negative [facility] Expires at [id number] on: 01/20/2019 [facility] Blood specimen (specimen) 01/17/2019 7:07 AM EDT 01/17/2019 7:07 AM EDT Narrative Resulting Agency Comment Spec In Lab Julio Pitt MD BLOOD BANK LAB ORDER P[place]EET [facility] [place] [address] * ABO/Rh Typing (01/17/2019 7:07 AM EDT) ABORH Type O Pos [facility] Blood specimen (specimen) 01/17/2019 7:07 AM EDT 01/17/2019 7:07 AM EDT Narrative Resulting Agency Comment Spec In Lab Julio Pitt MD BLOOD BANK LAB ORDER PUNEET [facility] [place] [address] documented in this encounter Visit Diagnoses Diagnosis [...] subcutaneous injection 5,000 Units 5,000 Units, Subcutaneous, WEIGHT CALLER TO O.R., 1 dose, On Wed01/17/19 at [...] area - Comment: given at 9:10 per AUG records)0910 (New Bag - Provider: Zan Sanchez [...] injection 5,000 Units (COMPLETED) 5,000 Units, Subcutaneous, WEIGHT CALLER TO O.R., 1 dose, On Wed01/17/19 at [...] infusion initiation time of first bag. call out clerk to OR., Intra-Operative (Intra-Procedure), Indication for (Active [...] Nahed Beal RN - Reason: Patient/family refused) sodium chloride 0.9 [...] on Wed01/17/19 at 1205, Until Wed01/18/19 at 1954, Pain, May repeat 50 mg in 60 [...] infusion initiation time of first bag. call out clerk to OR., Intra-Operative (Intra-Procedure), Indication for (Active [...] Routine documented in this encounter Care Teams Envelope Stuffer Relationship Specialty Start Date End Date Edd Caballero DO [address] [place] [address] PCP - General Family Medicine 10/24/18 04/27/21 documented as of this encounter
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
--- OUTSIDE RECORDS SUMMARY | 2024-05-01 16:13 | XMS_ITS | Encounter Summary ---
Author Organization [facility] [place] [address] Care Team Providers Care Skin Diver Name Role Phone AdaEdd sanchez Iain DON Primary Care Provider +1- [phone] Reason for Visit * Auth/Cert Specialty Diagnoses / Procedures Referred By Contac t Referred To Contact Diagnoses Rectal prolapse RECTAL POLAPSE unk Procedures PRO COLONOSCOPY, DIAGNOSTIC PRO EXCIS RECTAL PROLAPSE, PERINEAL COLONOSCOPY, DIAGNOSTIC @RECTOPEXY, RESEC. PROLAPSE, PERINEAL APPROACH (WRVU 18.5) Referral ID Status Reason Start Date Expiration Date Visits Re quested Visits Authorized [id number] 1 1 Encounter Details Date Type Department Care Team (Late st Contact Info) Description 01/17/2019 8:58 AM EDT - 01/17/2019 11:26 AM EDT [place] [address] Julio Pitt MD [facility] [place] [address] COLONOSCOPY; W CONTROL OF BLEEDING, ANY METHOD [...] ANY METHOD: @RECTOPEXY, RESEC. PROLAPSE, PERINEAL APPROACH ([facility] HPI: Mary Ellen Hodge is [...] follow-up appointment already scheduled -call Samantha Chin [phone] for scheduling assistance -call the General Surgery Clinic nurses [phone] for prior authorizations assistance Only if applicable [...] colorectal surgery: an international consensus using the Golconda technique. Dis Colon Rectum. 2012 Sep;55(4):416-23. Vital [...] PM Julio Pitt MD General Surgery at [place] Arrive at: [facility] [phone] 10/30/2019 11:00 AM Robert Herron MD Dermatology at [place] Arrive at: [facility] [address] [phone] Instructions Given to Patient at Discharge: Patient [...] Medication: Tylenol should be used as primary nytt-jwr-hfkojbi pain reliever; 650mg every 6 hours or [...] with information about your appointments. Please call [phone] (clinic number for appointments only) to confirm date and time of your appointments or if you do not receive information about your appointment in a timely manner. Future Appointments Date Time Provider Department [place] 02/27/2019 1:00 PM Julio Pitt MD Leb Surg [facility] 10/30/2019 11:00 AM Robert Herron MD Lit Derm [facility] Call your doctor if: ??? [...] AND HOLIDAYS: ASK FOR THE SURGERY RESIDENT MERCURY CRACKING TESTER IF ANY OF THE ABOVE OCCUR. Divison of Colon and Rectal Surgery ??? [facility] ??? [address] ??? [place] [address] ??? [phone] ??? ~~~~~~~~~~~~~~~~~~~~~~~~~~~~~~~~~~~~~~~~~~~~~~~~~~~~~~~~~~~~~~~~~~~ General Instructions None [facility] Surgery - Provider Contact Information: [phone] Primary [place] Physician: Edd Caballero DO [address] [facility] [id number] Signed: CESAR Dyson 01/18/19 2:36 PM documented [...] Medication: Tylenol should be used as primary nrlg-qfa-blioydx pain reliever; 650mg every 6 hours or [...] with information about your appointments. Please call [phone] (clinic number for appointments only) to confirm date and time of your appointments or if you do not receive information about your appointment in a timely manner. Future Appointments Date Time Provider Department Center 02/27/2019 1:00 PM Julio Pitt MD Leb Surg [facility] 10/30/2019 11:00 AM Robert Herron MD [facility] Call your doctor if: ??? You [...] AND HOLIDAYS: ASK FOR THE SURGERY RESIDENT MERCURY CRACKING TESTER IF ANY OF THE ABOVE OCCUR. Divison of Colon and Rectal Surgery ??? [facility] ??? [address] ??? [place] [address] ??? [phone] ??? ~~~~~~~~~~~~~~~~~~~~~~~~~~~~~~~~~~~~~~~~~~~~~~~~~~~~~~~~~~~~~~~~~~~ documented in this encounter Medications [...] Review Outcome: Ongoing (Interventions Implemented as Appropriate) 01/18/19 0229 Coping/Psychosocial Plan Of Care Reviewed With patient [...] scanned 155 cc at this time. call center support consultant paged. PLAN MOVING FORWARD: Pain control. Closely [...] Pitt MD - 01/17/2019 11:56 AM EDT [facility] Operative Note Patient Name: Mary Ellen Hodge : [id number] MR#: [id number] Case Date: 01/17/2019 Surgeon: Surgeon(s) and Role: [...] Note Patient Name: Mary Ellen Hodge : [id number] MR#: [id number] Case Date: 01/17/2019 Surgeon: Surgeon(s) and Role: [...] closure: Yes Sterile closure tray used: Yes Tgcagmbnq-kjbzgrcwo-jatemxxorn abdominal cavity wash: Yes Idbadbusx-sflmzxxwn-ezqqcnnnzq wound wash: Yes documented in this encounter Plan of Treatment Upcoming Encounters Date Type Department Care Team (Late st Contact Info) Description 05/01/2025 11:15 AM EST Office Visit Dermatology at [place] [address] [facility] [place] [phone] Robert Herron MD [address] [facility] [place] [address] Scheduled Procedures Name Priority Associated Diagnoses Date/Ti [...] EDT TYPE AND SCREEN, SDP (FUTURE SURGERY, [facility] SAME DAY PROGRAM ONLY) STAT 01/17/2019 7:07 AM EDT ABO/RH TYPING STAT 01/17/2019 7:07 AM EDT ANTIBODY SCREEN STAT 01/17/2019 7:07 AM EDT documented in this encounter Results * (ABNORMAL) Hemoglobin and Hematocrit, blood (01/18/2019 5:23 AM EDT) Hemoglobin 9.8(L) 11.7 - 15.5 gm/dL [facility] Hematocrit 30.2(L) 35.7 - 45.8 % [facility] Blood specimen (specimen) 01/18/2019 5:23 AM EDT 01/18/2019 5:59 AM EDT Narrative Resulting Agency Comment Spec In Lab Julio Pitt MD HEMATOLOGY ORDERABLE S Performing Organization Address City/[facility]/ZIP Co de Phone Number [facility] [place] [address] * Creatinine (01/18/2019 5:23 AM EDT) Creatinine 0.70 0.70 - 1.20 mg/dL [facility] Est Glomerular Filtration Rate 90 >=60 mL/min/1.7 3 m?? [facility] Comment: The eGFR was calculated using the CKD-EPI equation. As with all creatinine based estimates of kidney function, eGFR values calculated with the CKD-EPI equation are not accurate in patients with acute kidney failure, extremes of body mass or the acutely ill. http://[employer]/EasyLinknkf eGFR 105 >=60 mL/min/1.7 3 m?? [facility] Comment: The eGFR was calculated using the CKD-EPI equation. As with all creatinine based estimates of kidney function, eGFR values calculated with the CKD-EPI equation are not accurate in patients with acute kidney failure, extremes of body mass or the acutely ill. [email or web address]/EasyLinknkf Blood specimen (specimen) 01/18/2019 5:23 AM EDT 01/18/2019 5:59 AM EDT Narrative Resulting Agency Comment Spec In Lab Julio Pitt MD CHEMISTRY ORDERABLES Performing Organization Address [facility]/ZIP Co de Phone Number [facility] [place] [address] * (ABNORMAL) Hemoglobin and Hematocrit, blood (01/17/2019 12:20 PM EDT) Hemoglobin 10.3(L) 11.7 - 15.5 gm/dL [facility] Hematocrit 32.6(L) 35.7 - 45.8 % [facility] Blood specimen (specimen) 01/17/2019 12:20 PM EDT 01/17/2019 12:30 PM EDT Narrative Resulting Agency Comment Spec In Lab Julio Pitt MD HEMATOLOGY ORDERABLE S Performing Organization Address [facility] Co de Phone Number [facility] [place] [address] * (ABNORMAL) Creatinine (01/17/2019 12:20 PM EDT) Creatinine 0.57(L) 0.70 - 1.20 mg/dL [facility] Est Glomerular Filtration Rate 97 >=60 mL/min/1.7 3 m?? [facility] Comment: The eGFR was calculated using the CKD-EPI equation. As with all creatinine based estimates of kidney function, eGFR values calculated with the CKD-EPI equation are not accurate in patients with acute kidney failure, extremes of body mass or the acutely ill. http://[employer]/[facility] eGFR 112 >=60 mL/min/1.7 3 m?? [facility] Comment: The eGFR was calculated using the CKD-EPI equation. As with all creatinine based estimates of kidney function, eGFR values calculated with the CKD-EPI equation are not accurate in patients with acute kidney failure, extremes of body mass or the acutely ill. [email or web address]://[employer]/DHnkf Blood specimen (specimen) 01/17/2019 12:20 PM EDT 01/17/2019 12:30 PM EDT Narrative Resulting Agency Comment Spec In Lab Julio Pitt MD CHEMISTRY ORDERABLES Performing Organization Address [facility]/ZIP Co de Phone Number [facility] [place] [address] * Specimen to Pathology (01/17/2019 10:58 AM EDT) AP Specimen 01/17/2019 10:5 8 AM EDT 01/17/2019 10:58 AM EDT Narrative [facility] - 01/17/2019 10:58 AM EDT Specimen requisition ordered. ??Separate Pathology report to follow Julio Pitt MD PATHOLOGY/CYTOLOGY O CHERY Performing Organization Address [facility]/ZIP Co de Phone Number [facility] [place] [address] * Surgical Pathology Report (01/17/2019 10:56 AM EDT) Final Diagnosis [id number] ? [facility]; B The signing pathologist has (i) examined the relevant preparation(s) for the specimen(s) and (ii) rendered or confirmed the diagnosis(es). . ?Surgical Pathology DIAGNOSIS Rectum, resection: Rectum with mucosal prolapse changes. Electronically signed by: ??Saima Ramsey MD Verified: ??01/20/2019 ?Pathologist Performed at: ??-[facility] Dept. of Pathology, [place], [place] CLINICAL INFORMATION Specimen Submitted: A - [...] visible at the distal margin. Sections/Proces sing: Filtering Machine Tender Helper sections in 3 cassettes as follows: ?A1: ??proximal margin ?A2: ??distal margin ?A3: ??representativ e mucosa ??MJA/karsten 01/20/2019 1:00 PM EDT [facility] COLON STRUCTURE / Unknown 01/17/2019 10:56 AM EDT 01/17/2019 10:56 AM EDT Julio Pitt MD PATHOLOGY/CYTOLOGY O RDERABLES [facility] [place] [address] * ABORH Recheck Status (01/17/2019 7:07 AM EDT) ABORH Type Recheck Completed [facility] Blood specimen (specimen) 01/17/2019 7:07 AM EDT 01/17/2019 7:07 AM EDT Narrative Resulting Agency Comment Spec In Lab Julio Pitt MD BLOOD BANK LAB ORDER PUNEET Performing Organization Address City/[facility]/ZIP Co de Phone Number [facility] [place] [address] * Antibody screen (01/17/2019 7:07 AM EDT) Ab Screen Interp Negative [facility] Expires at 2359 on: 01/20/2019 [facility] Blood specimen (specimen) 01/17/2019 7:07 AM EDT 01/17/2019 7:07 AM EDT Narrative Resulting Agency Comment Spec In Lab Julio Pitt MD BLOOD BANK LAB ORDER PUNEET Performing Organization Address City/[facility]/ZIP Co de Phone Number [facility] [place] [address] * ABO/Rh Typing (01/17/2019 7:07 AM EDT) ABORH Type O Pos [facility] Blood specimen (specimen) 01/17/2019 7:07 AM EDT 01/17/2019 7:07 AM EDT Narrative Resulting Agency Comment Spec In Lab Julio Pitt MD BLOOD BANK LAB ORDER PUNEET Performing Organization Address City/[facility]/ZIP Co de Phone Number [facility] [place] [address] documented in this encounter Visit Diagnoses Not [...] Day of Surgery (Day of Procedure), Routine 848 (Given - Provider: Lorna Bush RN) acetaminophen (TYLENOL) tablet 1,000 mg 1,000 mg, Oral, EVERY 6 HOURS, First dose on Wed01/17/19 at 1230, Until Discontinued, Do not exceed 4,000 mg in 24 hours., Routine 144 (Given - Provider: Yamila Timmons RN)2030 (Given - Provider: Reynaldo Lyle RN) 004 (Given - Provider: Reynaldo Lyle RN)0617 (Given [...] - Comment: given at 9:10 per MAR records)09 (New Bag - Provider: Zan Sanchez MD) celecoxib (CeleBREX) capsule 400 mg (COMPLETED) 400 mg, Oral, ONCE, 1 dose, On Wed01/17/19 at 0830, Administer with SIP of H2O only., Day of Surgery (Day of Procedure), Routine 848 (Given - Provider: Lorna Bush RN) docusate [...] injection 5,000 Units (COMPLETED) 5,000 Units, Subcutaneous, MERCURY CRACKING TESTER TO O.R., 1 dose, On Wed01/17/19 at [...] infusion initiation time of first bag. call center support consultant to OR., Intra-Operative (Intra-Procedure), Indication for (Active [...] on Wed01/17/19 at 1527, Until Wed01/18/19 at 1954, for discomfort with PIV insertion, Recovery (Recovery-Hospital Unit), Routine sodium chloride 0.9 % (flush) flush 5-20 mL 5-20 mL, Intravenous, EVERY 1 MIN PRN, Starting on Wed01/17/19 at 1527, Until Wed01/18/19 at 1954, flush, Flush pertains to all indwelling lines. [...] infusion initiation time of first bag. call center support consultant to OR., Intra-Operative (Intra-Procedure), Indication for (Active [...] Routine documented in this encounter Care Teams Skin Diver Relationship Specialty Start Date End Date Edd Caballero DO [address] [place] [address] PCP - General Family Medicine 10/24/18 04/27/21 documented as of this encounter
--- OUTSIDE RECORDS SUMMARY | 2024-05-01 16:13 | XMS_ITS | Encounter Summary ---
Author Organization [facility] [place] [address] Care Team Providers Care Computer Trainer Name Role Phone Edd Caballero DO Primary Care Provider +1- [phone] Reason for Visit * Reason Comments Follow-up Encounter Details Date Type Department Care Team (Late st Contact Info) Description 02/27/2019 1:00 PM EDT Office [place] [address] Greg Pitt MD [facility] [place] [address] Rectal prolapse Social History Tobacco Use Types [...] Division of Colon and Rectal Surgery ~ [facility] HPI: Mary Ellen Hodge is [...] METHOD performed by Greg Pitt MD at [facility] MAIN OR ??? PRO EXCIS RECTAL PROLAPSE, PERINEAL N/A 01/17/2019 @RECTOPEXY, RESEC. PROLAPSE, PERINEAL APPROACH (WRVU 18.5) performed by Greg Pitt MD at [facility] MAIN OR Allergies: Patient has no known [...] 10 years for her next screening colonoscopy. Gerg Pitt MD, MSc engineering instructor Division of Colon and Rectal Surgery [facility] Pager [phone] documented in this encounter Plan of Treatment Upcoming Encounters Date Type Department Care Team (Late st Contact Info) Description 05/01/2025 11:15 AM EST Office Visit Dermatology at [place] [address] [place] [address] Robert Herron MD [address] [facility], [place] [address] Scheduled Procedures Name Priority Associated Diagnoses Date/Ti me ANTERIOR COLPORRHAPHY CYSTOC SALLY W OR WO URETHEROCELE; INC CYSTO (WRVU 10.08) Female cystocele URETHRAL SUSPENSION, SLING\F ASCIA OR SYNTHETIC (WRVU 12.13) Female cystocele documented as of this encounter Visit Diagnoses Diagnosis Rectal prolapse documented in this encounter Care Teams Computer Trainer Relationship Specialty Start Date End Date Edd Caballero DO [address] [place] [address] PCP - General Family Medicine 10/24/18 04/27/21 documented as of this encounter
--- OUTSIDE RECORDS SUMMARY | 2024-05-01 16:13 | XMS_ITS | Encounter Summary ---
Author Organization [facility] [place] [address] Care Team Providers Care Repair Order Clerk Name Role Phone Edd Caballero DO Primary Care Provider +1- [phone] Encounter Details Date Type Department Care Team (Late st Contact Info) Description 06/10/2020 Ancillary Procedure Radiology Library at [facility] [place] [address] Edd Caballero DO [address] [place] [address] Social History Tobacco Use Types Packs/Day Years [...] 11:15 AM EST Office Visit Dermatology at [place] [address] [facility] [place] [phone] Robert Herron MD [address] [facility] [place] [address] Scheduled Procedures Name Priority Associated Diagnoses Date/Ti [...] CT Spine (06/10/2020 12:00 AM EST) Narrative [facility] - 06/12/2020 11:23 AM EST This exam is auto-finalizing. It's purpose is for storage only. Edd Caballero DO G FILM LIBRARY O RDERABLES [place], [place] documented in this encounter Visit Diagnoses Not on filedocumented in this encounter Care Teams Repair Order Clerk Relationship Specialty Start Date End Date Edd Caballero DO [address] [place] [address] PCP - General Family Medicine 10/24/18 04/27/21 documented as of this encounter
--- OUTSIDE RECORDS SUMMARY | 2024-05-01 16:13 | XMS_ITS | Encounter Summary ---
Author Organization [facility] [place] [address] Care Team Providers Care Courtroom Deputy Name Role Phone AdaEdd sanchez Primary Care Provider +1- [phone] Encounter Details Date Type Department Care Team (Late st Contact Info) Description 07/10/2019 Telephone [place] [phone] Shirin Malone RN Social History Tobacco Use [...] prolapse. March 022018 She was seen by ob-solution lead and a pessary was placed 05/23/2019 . She lives in [place], [place]. She reports she is unable to [...] come for a visit he ask his staffing consultant to schedule Mary Ellen for a follow up appoinmtnent documented in this encounter Plan of Treatment Upcoming Encounters Date Type Department Care Team (Late st Contact Info) Description 05/01/2025 11:15 AM EST Office Visit Dermatology at [place] [address] [facility] [place] [phone] Robert Herron MD [address] [facility] [address], [place] [address] Scheduled Procedures Name Priority Associated Diagnoses Date/Ti me ANTERIOR COLPORRHAPHY CYSTOC SALLY W OR WO URETHEROCELE; INC CYSTO (WRVU 10.08) Female cystocele URETHRAL SUSPENSION, SLING\F ASCIA OR SYNTHETIC (WRVU 12.13) Female cystocele documented as of this encounter Visit Diagnoses Not on filedocumented in this encounter Care Teams Courtroom Deputy Relationship Specialty Start Date End Date Edd Caballero DO [address] [place] [address] PCP - General Family Medicine 10/24/18 04/27/21 documented as of this encounter
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
--- OUTSIDE RECORDS SUMMARY | 2024-05-01 16:13 | XMS_ITS | Encounter Summary ---
Author Organization [facility] [place] [address] Care Team Providers Care Asphalt Mixer Name Role Phone Jeannie Gruber MD Primary Care Provider [phone] Encounter Details Date Type Department Care Team (Late st Contact Info) Description 03/01/2015 2:45 PM EDT Office [place] [phone] Bill Heath MD [facility] GENER[place] [address] Osteoarthritis, unspecified osteoarthritis type, unspecified site Discharge [...] review her MRI next Wednesday with the [facility] radiologists. If they agree we will likely suggest that she see her orhtopedic surgeon in [place] for evaluation for a hip replacement. In [...] 11:15 AM EST Office Visit Dermatology at [place] [address] [facility] [address] [place] [address] Robert Herron MD [address] [facility] [address], [place] [address] Scheduled Procedures Name Priority Associated Diagnoses Date/Ti me ANTERIOR COLPORRHAPHY CYSTOC SALLY W OR WO URETHEROCELE; INC CYSTO (WRVU 10.08) Female cystocele URETHRAL SUSPENSION, SLING\F ASCIA OR SYNTHETIC (WRVU 12.13) Female cystocele documented as of this encounter Visit Diagnoses Diagnosis Osteoarthritis, unspecified osteoarthritis type, unspecified site documented in this encounter Care Teams Asphalt Mixer Relationship Specialty Start Date End Date Jeannie Gruber MD [address] [place] [address] [address] [place] [address] PCP - General 02/21/15 11/09/16 documented as of this encounter
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
--- OUTSIDE RECORDS SUMMARY | 2024-05-01 16:13 | XMS_ITS | Encounter Summary ---
Author Organization [facility] [place] [address] Care Team Providers Care Distilling Department Supervisor Name Role Phone AdaEdd sanchez Iain DON Primary Care Provider +1- [phone] Encounter Details Date Type Department Care Team (Late Contact Info) Description 11/21/2018 12:30 PM EDT Office [place] [phone] Social History Tobacco Use Types Packs/Day Years [...] 11:15 AM EST Office Visit Dermatology at [place] [address] [place] [address] Robert Herron MD [address] [facility] [address], [place] [address] Scheduled Procedures Name Priority Associated Diagnoses Date/Ti me ANTERIOR COLPORRHAPHY CYSTOC SALLY W OR WO URETHEROCELE; INC CYSTO (WRVU 10.08) Female cystocele URETHRAL SUSPENSION, SLING\F ASCIA OR SYNTHETIC (WRVU 12.13) Female cystocele documented as of this encounter Visit Diagnoses Not on filedocumented in this encounter Care Teams Distilling Department Supervisor Relationship Specialty Start Date End Date Edd Caballero DO [address] [place] [id number] PCP - General Family Medicine 10/24/18 04/27/21 documented as of this encounter
--- OUTSIDE RECORDS SUMMARY | 2024-05-01 16:13 | XMS_ITS | Encounter Summary ---
Author Organization [facility] [place] [address] Care Team Providers Care Impregnator Name Role Phone Jeannie Mantilla MD Primary Care Provider [phone] Encounter Details Date Type Department Care Team (Late st Contact Info) Description 02/25/2015 External Results Infectious Disease at [facility] [place] [address] Ashish Gray MD [facility] [place] [address] Social History Tobacco Use Types Packs/Day Years [...] AM EST Office Visit Dermatology at [address] [place] [address] Robert Herron MD [address] [facility] [facility] [address], [place] [address] Scheduled Procedures Name Priority Associated Diagnoses Date/Ti [...] Thyroid External Results (02/23/2015) White Blood Cell 4.5(Handmade Tile Artist al Lab) Hemoglobin 9.6(A) 12.0 - 16.0 Hematocrit 30.1(A) 36.0 - 46.0 Mean Cell Volume 89.6 82.0 - 108.0 Platelet 550 02/23/2015 Historical Provider EXTERNAL LAB CLARI GUTHRIE documented in this encounter Visit Diagnoses Not on filedocumented in this encounter Care Teams Impregnator Relationship Specialty Start Date End Date Jeannie Mantilla MD [address] [place] [address] PCP - General 02/21/15 11/09/16 documented as of this encounter
--- OUTSIDE RECORDS SUMMARY | 2024-05-01 16:13 | XMS_ITS | Encounter Summary ---
[place] [address] Care Team Providers Care Automatic Pattern Edger Name Role Phone Jeannie Mantilla MD Primary Care Provider [phone] Reason for Referral * Consultation (Routine) - Specialty Diagnoses / Procedures Referred By Contac t Referred To Contact Orthopaedic Surgery Diagnoses Osteoarthritis, unspecified osteoarthritis type, unspecified site Eleazar Heath MD [facility] [place] [address] Referral ID Status Reason Start Date Expiration Date V isits Requested Visits Authorized [id number] Consult, Test & Treat 03/12/2015 09/08/2015 1 1 Encounter Details Date Type Department Care Team (Late st Contact Info) Description 03/12/2015 [place] [phone] Marina Walker LPN Social History Tobacco Use [...] she would like a referral to the [facility] in [place] for hip replacement. She just saw Dr. Heath on March 01 and didn't think this would be an issue. Message forwarded to Dr. Heath. * Telephone Encounter - Marina Walker LPN - 03/12/2015 10:30 AM EDT Mary Ellen calls the nursing office and L/M about a referral, appt and Ortho 03/01 [facility]. Called and L/M for a return call to clarify the message from yesterday. documented in this encounter Plan of Treatment Upcoming Encounters Date Type Department Care Team (Late st Contact Info) Description 05/01/2025 11:15 AM EST Office Visit Dermatology at [place] [address] [place] [address] Robert Herron MD 580 [facility], [place] [address] Scheduled Procedures Name Priority Associated Diagnoses Date/Ti [...] site documented in this encounter Care Teams Automatic Pattern Edger Relationship Specialty Start Date End Date Jeannie Mantilla MD [address] [facility] [address] [place] [address] PCP - General 02/21/15 11/09/16 documented as of this encounter
--- OUTSIDE RECORDS SUMMARY | 2024-05-01 16:13 | XMS_ITS | Encounter Summary ---
Author Organization [facility] [place] [address] Care Team Providers Care Patent Leather Sorter Name Role Phone AdaEdd sanchez Primary Care Provider [phone]- [phone] Encounter Details Date Type Department Care Team (Late st Contact Info) Description 01/23/2019 Telephone [place] [phone] Lorna Lo RN Social History Tobacco Use [...] 11:15 AM EST Office Visit Dermatology at [place] 580 [place] [address] Robert Herron MD 580 [facility], [place] [address] Scheduled Procedures Name Priority Associated Diagnoses Date/Ti me ANTERIOR COLPORRHAPHY CYSTOC SALLY W OR WO URETHEROCELE; INC CYSTO (WRVU 10.08) Female cystocele URETHRAL SUSPENSION, SLING\F ASCIA OR SYNTHETIC (WRVU 12.13) Female cystocele documented as of this encounter Visit Diagnoses Not on filedocumented in this encounter Care Teams Patent Leather Sorter Relationship Specialty Start Date End Date Edd Caballero DO 580 [place] [address] PCP - General Family Medicine 10/24/18 04/27/21 documented as of this encounter
--- OUTSIDE RECORDS SUMMARY | 2024-05-01 16:13 | XMS_ITS | Encounter Summary ---
Author Organization [facility] [place] [address] Care Team Providers Care Numberer And Wirer Name Role Phone Ramona Hercules APRN Primary Care Provider Reason for Visit * Reason Comments Skin Check * Consultation (Routine) - Specialty Diagnoses / Procedures Referred By Satinder connelly Referred To Contact Dermatology Diagnoses Disorder of the skin and subcutaneous tissue, unspecified Skin Lesion Procedures Skin Lesion Ramona Hercules APRN [address] [place] [address] Robert Herron MD [address] [place] [address], [place] [address] Referral ID Status Reason Start Date Expiration Date V isits Requested Visits Authorized [id number] 09/30/2016 09/30/2017 1 1 Encounter Details Date Type Department Care Team (Late st Contact Info) Description 11/10/2016 8:00 AM EDT Office Visit Dermatology at [address] [address] Robert Herron MD [address] [place] [address], [place] [facility] DERMATOLOGY [place], [place] [phone] Actinic cheilitis; AK (actinic keratosis) Social History [...] 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 Marysol follows up, was last being seen [...] 11:15 AM EST Office Visit Dermatology at [place] 580 [facility] [place] [address] Robert Herron MD 580 [facility], [place] [address] Scheduled Procedures Name Priority Associated Diagnoses Date/Ti me ANTERIOR COLPORRHAPHY CYSTOC SALLY W OR WO URETHEROCELE; INC CYSTO (WRVU 10.08) Female cystocele URETHRAL SUSPENSION, SLING\F ASCIA OR SYNTHETIC (WRVU 12.13) Female cystocele documented as of this encounter Visit Diagnoses Diagnosis Actinic cheilitis Acute dermatitis due to solar radiation AK (actinic keratosis) Actinic keratosis documented in this encounter Care Teams Numberer And Wirer Relationship Specialty Start Date End Date Ramona Hercules, MUSICAL STRING MAKER [address] [place] [address] PCP - General Family Medicine 11/10/16 04/17/18 documented as of this encounter
--- OUTSIDE RECORDS SUMMARY | 2024-05-01 16:13 | XMS_ITS | Encounter Summary ---
Author Organization [facility] [address] Care Team Providers Care Rn Internal Medicine Name Role Phone AdaEdd Bueno Primary Care Provider [phone]- [phone] Encounter Details Date Type Department Care Team (Late st Contact Info) Description 03/02/2019 Telephone [place] [address] Carey Fletcher RN Social History Tobacco Use [...] 11:15 AM EST Office Visit Dermatology at [address] [place] [address] Robert Herron MD [address] [place] [address] RD, [place] [address] Scheduled Procedures Name Priority Associated Diagnoses Date/Ti me ANTERIOR COLPORRHAPHY CYSTOC SALLY W OR WO URETHEROCELE; INC CYSTO (WRVU 10.08) Female cystocele URETHRAL SUSPENSION, SLING\F ASCIA OR SYNTHETIC (WRVU 12.13) Female cystocele documented as of this encounter Visit Diagnoses Not on filedocumented in this encounter Care Teams Rn Internal Medicine Relationship Specialty Start Date End Date Edd Caballero DO [address] [place] [address] PCP - General Family Medicine 10/24/18 04/27/21 documented as of this encounter
--- OUTSIDE RECORDS SUMMARY | 2024-05-01 16:13 | XMS_ITS | Encounter Summary ---
Author Organization [facility] [place] [address] Care Team Providers Care Senior Media Director Name Role Phone Edd Caballero DO Primary Care Provider [phone]- [phone] Reason for Visit * Reason Comments Establish Care symptomatic cystocel e after rectocele repair * Consultation (Routine) - Closed Specialty Diagnoses / Procedures Referred By Satinder t Referred To Contact Obstetrics and Gynecology Diagnoses SYMPTOMATIC CYSTOCELE AFTER RECTOCELE REPAIR 01/2019 Dionne Eckert MD [address] [place] [address] [facility] [address] [place] [address] Referral ID Status Reason Start Date Expiration Date V isits Requested Visits Authorized [id number] Closed Consult, Test & Treat Connection Center PCP Updated and/or Approved 04/25/2019 04/24/2020 1 1 Encounter Details Date Type Department Care Team (Late st Contact Info) Description 05/23/2019 1:00 PM EST Office Visit Obstetrics [place] [address] Dionne Cabezas MD [facility] [place] [address] Female cystocele (Primary Dx); Urge [...] spinal stenosis Surgical history rectocele repair 01/17/[place] [facility] [place] Pitt, carpal tunnel surgery, right hip replacement SH occasional alcohol use former tobacco use former IVDA (remote) Urinary tract history Patient denies history of recurrent urinary tract infection. Patient denies history of pyelonephritis. Patient denies history of urinary tract abnormality. Patient has history of nephrolithiasis; 2 episodes, most recently [address] Jovel, [facility]. Patient denies history of hematuria. Bladder Function [...] the past -Perineal proctosigmoidectomy with Dr. Pitt [facility] [place]/17[place]19 Bowel Function Fecal incontinence (yes/no): On [...] performed by Greg Pitt MD at [facility] MAIN OR ??? PRO EXCIS RECTAL PROLAPSE, PERINEAL N/A 01/17/2019 @RECTOPEXY, RESEC. PROLAPSE, PERINEAL APPROACH (WRVU 18.5) performed by Greg Pitt MD at [facility] MAIN OR OB History Para Term AB Living 3 1 1 0 2 1 SAB TAB Ectopic Multiple Live Births 1 1 0 0 1 # Outcome Date GA Lbr Homero/2nd Weight Sex Delivery Anes PTL Lv 3 Term 2.948 kg (6 lb 8 oz) 2 SAB 1 TAB Last Pap smear: 2016 in [facility] [place], NILM HPV neg. Outpatient Medications Marked [...] file Gets together: Not on file Attends sikh service: Not on file Active member of [...] dip test and postvoid residual via the [employer] bladder scanner were obtained. After the patient [...] test (empty supine): neg External Genitalia: Vulva, [place]'s and [place]tholin glands normal, urethra without tenderness [...] dipstick Result Value Ref Range POC Sp [place] 1.01 1.002 - 1.030 POC pH, UA [...] she wishes. 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 [...] 11:15 AM EST Office Visit Dermatology at [place] [address] [facility] [address] Robert Herron MD [address] [facility] [address], [place] [address] Scheduled Procedures Name Priority Associated Diagnoses Date/Ti [...] * POCT urine dipstick (05/23/2019) POC Sp [place] 1.01 1.002 - 1.030 POC pH, UA [...] Blood, UA negative Negative - Negative kayla/uL iDonne Cabezas MD POINT OF CARE TEST O RDERABLES documented in this encounter Visit Diagnoses Diagnosis Female cystocele- Primary Cystocele, midline Urge incontinence Stress incontinence, female Female stress incontinence Incomplete bladder emptying documented in this encounter Care Teams Senior Media Director Relationship Specialty Start Date End Date Edd Caballero DO [address] [place] [address] PCP - General Family Medicine 10/24/18 04/27/21 documented as of this encounter
--- OUTSIDE RECORDS SUMMARY | 2024-05-01 16:13 | XMS_ITS | Encounter Summary ---
Author Organization [facility] [place] [address] Care Team Providers Care Aluminum Container Tester Name Role Phone Edd Caballero DO Primary Care Provider +1- [phone] Reason for Visit * Reason Comments Follow-up Encounter Details Date Type Department Care Team ([facility] st Contact Info) Description 01/22/2020 10:30 AM EDT Office [place] [address] Greg Pitt MD [facility] [place] [address] Rectal mucosa prolapse Social History Tobacco Use [...] Division of Colon and Rectal Surgery ~ [facility] HPI: Mary Ellen Hodge is a [...] METHOD performed by Greg Pitt MD at [facility] MAIN OR ??? PRO EXCIS RECTAL PROLAPSE, PERINEAL N/A 01/17/2019 @RECTOPEXY, RESEC. PROLAPSE, PERINEAL APPROACH (WRVU 18.5) performed by Greg Pitt MD at [facility] MAIN OR ??? TOTAL HIP ARTHROPLASTY [...] basis. Greg Pitt MD MSc FACS FASCRS chemical dependency professional Division of Colon and Rectal Surgery [facility] Pager [phone] documented in this encounter Plan of Treatment Upcoming Encounters Date Type Department Care Team (Late st Contact Info) Description 05/01/2025 11:15 AM EST Office Visit Dermatology at [place] 580 [place] [address] Robert Herron MD [address] [place] [address], [facility] [place] [address] Scheduled Procedures Name Priority Associated Diagnoses Date/Ti me ANTERIOR COLPORRHAPHY CYSTOC SALLY W OR WO URETHEROCELE; INC CYSTO (WRVU 10.08) Female cystocele URETHRAL SUSPENSION, SLING\F ASCIA OR SYNTHETIC (WRVU 12.13) Female cystocele documented as of this encounter Visit Diagnoses Diagnosis Rectal mucosa prolapse Rectal prolapse documented in this encounter Care Teams Aluminum Container Tester Relationship Specialty Start Date End Date Edd Caballero DO [address] [place] [address] PCP - General Family Medicine 10/24/18 04/27/21 documented as of this encounter
--- OUTSIDE RECORDS SUMMARY | 2024-05-01 16:13 | XMS_ITS | Encounter Summary ---
Author Organization [facility] [place] [address] Care Team Providers Care Machine Cleaner Name Role Phone AdaEdd sanchez Primary Care Provider +1- [phone] Encounter Details Date Type Department Care Team (Late st Contact Info) Description 03/15/2019 Telephone [place] [address] Carey Fletcher RN Social History Tobacco Use [...] 11:15 AM EST Office Visit Dermatology at [place] 580 [facility] [place] [address] Robert Herron MD 580 [facility], [place] [address] Scheduled Procedures Name Priority Associated Diagnoses Date/Ti me ANTERIOR COLPORRHAPHY CYSTOC SALLY W OR WO URETHEROCELE; INC CYSTO (WRVU 10.08) Female cystocele URETHRAL SUSPENSION, SLING\F ASCIA OR SYNTHETIC (WRVU 12.13) Female cystocele documented as of this encounter Visit Diagnoses Not on filedocumented in this encounter Care Teams Machine Cleaner Relationship Specialty Start Date End Date Edd Caballero DO [address] [place] [address] PCP - General Family Medicine 10/24/18 04/27/21 documented as of this encounter
--- OUTSIDE RECORDS SUMMARY | 2024-05-01 16:13 | XMS_ITS | Encounter Summary ---
Author Organization [facility] [place] [address] Care Team Providers Care Maintenance Machine Repairer Name Role Phone AdaEdd DO Primary Care Provider +1- [phone] Encounter Details Date Type Department Care Team (Late st Contact Info) Description 01/10/2019 Telephone [place] [address] Lorna Barton, RN Social History Tobacco Use [...] 11:15 AM EST Office Visit Dermatology at [place] 580 [facility] [place] [address] Robert Herron MD [address] [facility] [address], [place] Val[place] [address] Scheduled Procedures Name Priority Associated Diagnoses Date/Ti me ANTERIOR COLPORRHAPHY CYSTOC SALLY W OR WO URETHEROCELE; INC CYSTO (WRVU 10.08) Female cystocele URETHRAL SUSPENSION, SLING\F ASCIA OR SYNTHETIC (WRVU 12.13) Female cystocele documented as of this encounter Visit Diagnoses Not on filedocumented in this encounter Care Teams Maintenance Machine Repairer Relationship Specialty Start Date End Date Edd Caballero DO 580 [place] [address] PCP - General Family Medicine 10/24/18 04/27/21 documented as of this encounter
--- OUTSIDE RECORDS SUMMARY | 2024-05-01 16:13 | XMS_ITS | Encounter Summary ---
Author Organization [facility] [place] [address] Care Team Providers Care Conceptor Name Role Phone Ramona Hercules CAMERON Primary Care Provider [phone] Encounter Details Date Type Department Care Team (Late st Contact Info) Description 11/04/2017 Telephone Dermatology at [address] [place] [address] Shona Otto LPN Social History [...] pain begin to subside? Call cell # [phone] Herron for review and plan documented in this encounter Plan of Treatment Upcoming Encounters Date Type Department Care Team (Late st Contact Info) Description 05/01/2025 11:15 AM EST Office Visit Dermatology at [place] 580 [facility] [place] [address] Robert Herron MD [address] [facility] [address], [place] A DERMATOLOGY [place], [place] [address] Scheduled Procedures Name Priority Associated Diagnoses Date/Ti me ANTERIOR COLPORRHAPHY CYSTOC SALLY W OR WO URETHEROCELE; INC CYSTO (WRVU 10.08) Female cystocele URETHRAL SUSPENSION, SLING\F ASCIA OR SYNTHETIC (WRVU 12.13) Female cystocele documented as of this encounter Visit Diagnoses Not on filedocumented in this encounter Care Teams Conceptor Relationship Specialty Start Date End Date Ramona Hercules APRN [address] [place] [address] PCP - General Family Medicine 11/10/16 04/17/18 documented as of this encounter
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
--- OUTSIDE RECORDS SUMMARY | 2024-05-01 16:13 | XMS_ITS | Encounter Summary ---
Author Organization [facility]ly [facility] [place] [address] Care Team Providers Care Captain Fishing Vessel Name Role Phone Edd Caballero DO Primary Care Provider +1- [phone] Reason for Visit * Reason Comments Establish Care * Consultation (Routine) - Closed Specialty Diagnoses / Procedures Referred By Contdixon t Referred To Contact General Surgery Diagnoses RECTAL PROLAPSE Quan Bajwa Jr., MD [address] [place] [address] [facility] 4l [place] [address] Referral ID Status Reason Start Date Expiration Date Visits Re quested Visits Authorized [id number] Closed 10/26/2018 10/26/2019 1 1 Encounter Details Date Type Department Care Team (Late st Contact Info) Description 11/21/2018 10:00 AM EDT Office [place] [address] Greg Pitt MD [facility] [place] [address] Rectal prolapse (Primary Dx) Social [...] Do not take any medications containing aspirin (Alexia[place], Anacin, Bufferin, baby aspirin, Dristan, etc.) or [...] prep, please call the General Surgery Nurses [phone] weekdays before 5:00PM. After 5:00PM or on weekends and holidays, call , and ask the emergency dispatch operator to page the General Surgery Resident industrial relations commissioner. The Same Day Surgery nurses will call [...] If swallowed, call Poison Control right away: [phone]. 5. Do not shave the day before or day of your surgery. 6. After showering, do not put lotion, cream or powder on your body. 7. Be sure to wear clean pajamas after your shower on the evening before your surgery and sleep in clean sheets. 8. Wear clean clothes on the morning of surgery. [facility] Colorectal Surgery Enhanced Recovery after Surgery (ERAS) [...] include Ensure High Protein, Boost Plus, or [place] Instant Breakfast mixed in whole milk with [...] taking a nutritional supplement (Boost, Ensure, and [place] Instant Breakfast) for several weeks after surgery [...] nurse arrangements in place ?? A Discharge Heavy Truck Driver will arrange visiting nurses and other special needs. ?? follow-up appointment with Dr. Pitt in 4-5 weeks Your ERAS Surgery Team Before and after your hospital stay (4L team) 1. Greg Pitt MD, Attending Colorectal Surgeon 2. 4L General Surgery Nurses (Alva Barroso, Lorna, and Shirin): [phone] 3. Surgery schedulers: Vidhi & Patricia: [phone] 4. Samantha Chin, Racing Secretary to Dr. Pitt: [phone] During your hospital stay (Rounding team) 1. General Surgery Chief Resident (rotates) 2. General Surgery Boat Painter (rotates) 3. [facility] [employer] 3rd year Medical Student (rotates) 4. Dorie GUERRERO 5. Dr. Greg Pitt (Dr. Hilton or Dr. Amber Pitt if covering) supervising Ostomy Nurses: Treva Veras RN, Lupe Garnica RN, & Roxana Fernandes RN, Andie Michael RN, Elvia Pederson RN Resources for questions: ?? For medical question call the General Surgery Nurses: [phone] ??? We strongly encourage emailing questions or concerns online via EximSoft-Trianz (please do not use regulare-mail) and a nurse or Dr. Pitt will get back to you usually within 1 or 2 business days. ?? For scheduling questions call Samatnha Chin: [phone] ?? If you are interested in learning [...] Division of Colon and Rectal Surgery ~ [facility] HPI: Mary Ellen Hodge is a [...] PM PRE ANESTHESIA, CONSULT Leb Same Day [facility] 10/30/2019 11:00 AM Robert Herron MD [facility] Edgardo Taveras MD 11/21/18 General Surgery Resident, PGY-1 Colorectal Surgery Pager # [phone] I examined and evaluated Mary Ellen Hodge [...] 11:15 AM EST Office Visit Dermatology at [place] [address] [place] [address] Robert Herron MD [address], [place] [address] Scheduled Procedures Name Priority Associated Diagnoses Date/Ti me ANTERIOR COLPORRHAPHY CYSTOC SALLY W OR WO URETHEROCELE; INC CYSTO (WRVU 10.08) Female cystocele URETHRAL SUSPENSION, SLING\F ASCIA OR SYNTHETIC (WRVU 12.13) Female cystocele documented as of this encounter Results * EKG 12 Lead (11/21/2018 1:00 PM EDT) Pathologist [facility] Ventricular rate 51 BPM MUSE SYSTEM Atrial Rate 51 BPM MUSE SYSTEM P-R Interval 136 ms MUSE SYSTEM QRS Duration 72 ms MUSE SYSTEM Q-T Interval 432 ms MUSE SYSTEM QTC Calculated (Bezet) 398 ms MUSE SYSTEM Calculated P Sharon 33 degrees MUSE SYSTEM Calculated R Sharon 57 degrees MUSE SYSTEM Calculated T Sharon 33 degrees MUSE SYSTEM INTERPRETATION Sinus bradycardia Otherwise normal ECG No previous ECGs available Confirmed by MD Chance, Alvaro ([id number]) on 11/21/2018 1:20:13 PM MUSE SYSTEM 11/21/2018 1:00 PM EDT 11/21/2018 1:20 PM EDT Greg Pitt MD ECG ORDERABLES MUSE SYSTEM * Hepatic Function Panel (11/21/2018 12:56 PM EDT) Pathologist [facility] Protein, Total 7.8 6.1 - 8.0 gm/dL [facility] Albumin 4.5 3.2 - 5.2 gm/dL [facility] Aspartate Aminotransferase 29 0 - 30 unit/L [facility] Alanine Aminotransferase 22 0 - 30 unit/L [facility] Alkaline Phosphatase 58 40 - 104 unit/L [facility] Bilirubin, Total 0.2 0.2 - 1.3 mg/dL [facility] Bilirubin, Direct 0.1 0.0 - 0.3 mg/dL [facility] Blood specimen (specimen) 11/21/2018 12:56 PM EDT 11/21/2018 1:21 PM EDT Narrative Resulting Agency Comment Spec In Lab Greg Pitt MD CHEMISTRY ORDERABLES [facility] [place] [address] * (ABNORMAL) Basic Metabolic Panel (non-fasting) (11/21/2018 12:56 PM EDT) Glucose 88 65 - 199 mg/dL [facility] Comment:Diabetes: >=200 mg/d L plus symptoms Blood Urea Nitrogen 13 8 - 18 mg/dL [facility] Creatinine 0.71 0.70 - 1.20 mg/dL [facility] Sodium 142 135 - 145 mmol/L [facility] Potassium 5.1(H) 3.5 - 5.0 mmol/L [facility] Comment: Please note: ??Patients with WBC >100,000 may have falsely elevated Potassium levels. ??For accurate Potassium quantification in these patients send serum separator tube (gold top) for subsequent determinations. ??Contact the Clinical Chemistry Laboratory if there are any questions. Chloride 104 98 - 107 mmol/L [facility] Carbon Dioxide 24 22 - 31 mmol/L [facility] Anion Gap 14 5 - 15 mmol/L [facility] Calcium 10.0 8.5 - 10.5 mg/dL [facility] Est Glomerular Filtration Rate 89 >=60 mL/min/1. 73 m?? [facility] Comment: The eGFR was calculated using the CKD-EPI equation. As with all creatinine based estimates of kidney function, eGFR values calculated with the CKD-EPI equation are not accurate in patients with acute kidney failure, extremes of body mass or the acutely ill. http://Recognia/DHnkf eGFR 104 >=60 mL/min/1. 73 m?? [facility] Comment: The eGFR was calculated using the CKD-EPI equation. As with all creatinine based estimates of kidney function, eGFR values calculated with the CKD-EPI equation are not accurate in patients with acute kidney failure, extremes of body mass or the acutely ill. http://Recognia/DHMCnkf Blood specimen (specimen) 11/21/2018 12:56 PM EDT 11/21/2018 1:21 PM EDT Narrative Resulting Agency Comment Spec In Lab Greg Pitt MD CHEMISTRY ORDERABLES [facility] [place] [address] documented in this encounter Visit Diagnoses Diagnosis Rectal prolapse- Primary documented in this encounter Care Teams Captain Fishing Vessel Relationship Specialty Start Date End Date Edd Caballero DO [address] [place] [address] PCP - General Family Medicine 10/24/18 04/27/21 documented as of this encounter
--- OUTSIDE RECORDS SUMMARY | 2024-05-01 16:13 | XMS_ITS | Encounter Summary ---
Author Organization [facility] [place] [address] Care Team Providers Care Senior Manager Name Role Phone Edd Caballero DO Primary Care Provider +1- [phone] Encounter Details Date Type Department Care Team (Late st Contact Info) Description 06/10/2020 12:05 AM EST Ancillary Procedure Radiology Library at [facility] [address] Edd Caballero, DO [address] [place] [address] Social History Tobacco Use Types Packs/Day Years [...] 11:15 AM EST Office Visit Dermatology at [place] [address] [place] [address] Robert Herron MD [address] [place] [address] Scheduled Procedures Name Priority Associated Diagnoses Date/Ti [...] DX Spine (06/10/2020 12:05 AM EST) Narrative [facility] - 06/12/2020 11:24 AM EST This exam is auto-finalizing. It's purpose is for storage only. Edd Caballero DO G FILM LIBRARY O RDERABLES Performing Organization Address City/State/[facility] Co de Phone Number [place], [place] documented in this encounter Visit Diagnoses Not on filedocumented in this encounter Care Teams Senior Manager Relationship Specialty Start Date End Date Edd Caballero DO [address] [place] [address] PCP - General Family Medicine 10/24/18 04/27/21 documented as of this encounter
--- OUTSIDE RECORDS SUMMARY | 2024-05-01 16:13 | XMS_ITS | Encounter Summary ---
[facility] [place] [address] Care Team Providers Care Eyeglass Frames Inspector Name Role Phone AdaEdd sanchez Iain DON Primary Care Provider +1- [phone] Encounter Details Date Type Department Care Team (Latest Contact Info) Description 11/21/2018 12:55 PM EDT Laboratory [place] [phone] Rectal prolapse Social History Tobacco Use Types [...] 11:15 AM EST Office Visit Dermatology at [address] [place] [address] Robert Herron MD [address], [place] [address] Scheduled Procedures Name Priority Associated Diagnoses Date/Ti [...] prolapse TYPE AND SCREEN, SDP (FUTURE SURGERY, [facility]) Routine 11/21/2018 12:56 [...] PM EDT) ABORH Recheck Order Order Placed [facility] ABORH Type Recheck Not Performed [facility] Blood specimen (specimen) 11/21/2018 12:56 PM EDT 11/21/2018 1:00 PM EDT Narrative Resulting Agency Comment Spec In Lab Greg Pitt MD BLOOD BANK LAB ORDER PUNEET [facility] [place] [address] * Antibody screen (11/21/2018 12:56 PM EDT) Ab Screen Interp Negative [facility] Expires at [id number] on: 12/19/2018 [facility] Blood specimen (specimen) 11/21/2018 12:56 PM EDT 11/21/2018 1:00 PM EDT Narrative Resulting Agency Comment Spec In Lab Greg Pitt MD BLOOD BANK LAB ORDER P[place]ET [facility] [place] [address] * ABO/Rh Typing (11/21/2018 12:56 PM EDT) ABORH Type O Pos [facility] Blood specimen (specimen) 11/21/2018 12:56 PM EDT 11/21/2018 1:00 PM EDT Narrative Resulting Agency Comment Spec In Lab Greg Pitt MD BLOOD BANK LAB ORDER PUNEET Performing Organization Address [facility] Co de Phone Number [facility] [place] [address] * Differential, Automated (11/21/2018 12:56 PM EDT) [facility] Neutrophil % 43.8 % [facility] Neutrophil Absolute 1.88 1.70 - 6.10 x10(3)/[facility] Lymph % 40.8 % [facility] Lymphocytes Abs 1.8 0.9 - 3.2 x10(3)/[facility] Monocyte % 6.8 % [facility] Monocyte Abs 0.3 0.3 - 0.9 x10(3)/[facility] Eos % 7.5 % [facility] Eosinophils Abs 0.3 0.0 - 0.4 x10(3)/[facility] Basophil % 0.9 % [facility] Baso Absolute 0.0 0.0 - 0.1 x10(3)/[facility] Immature Gran % 0.20 % [facility] Comment: Immature granulocytes(IG's)percentage and absolute count will include metamyelocytes, myelocytes, and promyelocytes. Blood smears from CBCs yielding IG's will be scanned manually for concordance. If this scan disagrees with the automated IG or if promyelocytes are noted, a manual differential will be performed. Immature Gran Absolute 0.01 0.00 - 0.04 x10(3)/[facility] Blood specimen (specimen) 11/21/2018 12:56 PM EDT 11/21/2018 1:21 PM EDT Narrative Resulting Agency Comment Spec In Lab Greg Pitt MD HEMATOLOGY ORDERABLE S [facility] [place] [address] * (ABNORMAL) Hemogram (11/21/2018 12:56 PM EDT) White Blood Cell 4.3 4.0 - 9.5 x10(3)/[facility] Red Blood Cell 4.16 4.00 - 5.21 x10(6)/[facility] Hemoglobin 13.0 11.7 - 15.5 gm/dL [facility] Hematocrit 40.4 35.7 - 45.8 % [facility] Mean Cell Volume 97.1(H) 82.6 - 94.4 [facility] Mean Cell Hemoglobin 31.3 27.1 - 32.0 pg [facility] Mean Cell Hemoglobin Concentration 32.2 31.7 - 35.0 gm/dL [facility] Platelet 298 145 - 357 x10(3)/[facility] RDW Standard Deviation 46.5(H) 37.0 - 46.0 [facility] RDW coefficient of variation 13.1 11.5 - 14.1 % [facility] Mean Platelet Volume 8.8 7.6 - 12.9 [facility] NRBC% auto 0.0 % [facility] NRBC Absolute 0.000 0.000 - 0.000 x10(3)/[facility] Blood specimen (specimen) 11/21/2018 12:56 PM EDT 11/21/2018 1:21 PM EDT Narrative Resulting Agency Comment Spec In Lab Greg Pitt MD HEMATOLOGY ORDERABLE S [facility] [place] [address] * (ABNORMAL) Basic Metabolic Panel (non-fasting) (11/21/2018 12:56 PM EDT) Glucose 88 65 - 199 mg/dL [facility] Comment:Diabetes: >=200 mg/d L plus symptoms Blood Urea Nitrogen 13 8 - 18 mg/dL [facility] Creatinine 0.71 0.70 - 1.20 mg/dL [facility] Sodium 142 135 - 145 mmol/L [facility] Potassium 5.1(H) 3.5 - 5.0 mmol/L [facility] Comment: Please note: ??Patients with WBC >100,000 may have falsely elevated Potassium levels. ??For accurate Potassium quantification in these patients send serum separator tube (gold top) for subsequent determinations. ??Contact the Clinical Chemistry Laboratory if there are any questions. Chloride 104 98 - 107 mmol/L [facility] Carbon Dioxide 24 22 - 31 mmol/L [facility] Anion Gap 14 5 - 15 mmol/L [facility] Calcium 10.0 8.5 - 10.5 mg/dL [facility] Est Glomerular Filtration Rate 89 >=60 mL/min/1. 73 m?? [facility] Comment: The eGFR was calculated using the CKD-EPI equation. As with all creatinine based estimates of kidney function, eGFR values calculated with the CKD-EPI equation are not accurate in patients with acute kidney failure, extremes of body mass or the acutely ill. http://[email or web address] eGFR 104 >=60 mL/min/1. 73 m?? [facility] Comment: The eGFR was calculated using the CKD-EPI equation. As with all creatinine based estimates of kidney function, eGFR values calculated with the CKD-EPI equation are not accurate in patients with acute kidney failure, extremes of body mass or the acutely ill. [email or web address] Storage.Vicampo/DHMCnkf Blood specimen (specimen) 11/21/2018 12:56 PM EDT 11/21/2018 1:21 PM EDT Narrative Resulting Agency Comment Spec In Lab Greg Pitt MD CHEMISTRY ORDERABLES Performing Organization Address City/[facility] Co de Phone Number [facility] [place] [address] * Hepatic Function Panel (11/21/2018 12:56 PM EDT) Protein, Total 7.8 6.1 - 8.0 gm/dL [facility] Albumin 4.5 3.2 - 5.2 gm/dL [facility] Aspartate Aminotransferase 29 0 - 30 unit/L [facility] Alanine Aminotransferase 22 0 - 30 unit/L [facility] Alkaline Phosphatase 58 40 - 104 unit/L [facility] Bilirubin, Total 0.2 0.2 - 1.3 mg/dL [facility] Bilirubin, Direct 0.1 0.0 - 0.3 mg/dL [facility] Blood specimen (specimen) 11/21/2018 12:56 PM EDT 11/21/2018 1:21 PM EDT Narrative Resulting Agency Comment Spec In Lab Greg Pitt MD CHEMISTRY ORDERABLES Performing Organization Address City/[facility] Co de Phone Number [facility] [place] [address] documented in this encounter Visit Diagnoses Diagnosis Rectal prolapse documented in this encounter Care Teams Eyeglass Frames Inspector Relationship Specialty Start Date End Date Edd Caballero DO [address] [place] [address] PCP - General Family Medicine 10/24/18 04/27/21 documented as of this encounter
--- OUTSIDE RECORDS SUMMARY | 2024-05-01 16:13 | XMS_ITS | Encounter Summary ---
[place] [address] Care Team Providers Care Rn Utilization Management Um Name Role Phone Jeannie Mantilla MD Primary Care Provider [phone] Reason for Visit * Reason Comments Other Encounter Details Date Type Department Care Team (Late st Contact Info) Description 03/06/2015 [place] [phone] Balta Benavides RN Social History Tobacco Use [...] Sent: 03/05/2015 3:20 PM To: Marilyn Rheumatology Manufacturing Assistant Santiago Spencer and Mo, I tried calling Mary Ellen, but was unable to reach her. I reviewed her MRI with the [facility] radiologist. Her MRI showed quite a bit [...] 11:15 AM EST Office Visit Dermatology at [place] [address] [place] [address] Robert Herron MD [address], [place] [address] Scheduled Procedures Name Priority Associated Diagnoses Date/Ti me ANTERIOR COLPORRHAPHY CYSTOC SALLY W OR WO URETHEROCELE; INC CYSTO (WRVU 10.08) Female cystocele URETHRAL SUSPENSION, SLING\F ASCIA OR SYNTHETIC (WRVU 12.13) Female cystocele documented as of this encounter Visit Diagnoses Not on filedocumented in this encounter Care Teams Rn Utilization Management Um Relationship Specialty Start Date End Date Jeannie Mantilla MD [facility] [address] [place] [address] PCP - General 02/21/15 11/09/16 documented as of this encounter
--- OUTSIDE RECORDS SUMMARY | 2024-05-01 16:13 | XMS_ITS | Encounter Summary ---
Author Organization [facility] [place] [address] Care Team Providers Care Aerospace Engineer Officer Armament Name Role Phone AdaEdd adam Primary Care Provider +1- [phone] Encounter Details Date Type Department Care Team (Late st Contact Info) Description 01/05/2020 Telephone [place] [phone] Shirin Malone RN Social History Tobacco Use [...] my note to Dr. Pitt and his project scheduler. She was last seen by Dr. Pitt [...] screening colonoscopy. ?? Greg Pitt MD, MSc fence installer helper Division of Colon and Rectal Surgery [facility] Pager [phone] ?1:49 PM documented in this encounter Plan of Treatment Upcoming Encounters Date Type Department Care Team (Late st Contact Info) Description 05/01/2025 11:15 AM EST Office Visit Dermatology at [address] [address] Robert Herron MD [address] [place] [address], [facility] [place] [address] Scheduled Procedures Name Priority Associated Diagnoses Date/Ti me ANTERIOR COLPORRHAPHY CYSTOC SALLY W OR WO URETHEROCELE; INC CYSTO (WRVU 10.08) Female cystocele URETHRAL SUSPENSION, SLING\F ASCIA OR SYNTHETIC (WRVU 12.13) Female cystocele documented as of this encounter Visit Diagnoses Not on filedocumented in this encounter Care Teams Aerospace Engineer Officer Armament Relationship Specialty Start Date End Date Edd Caballero DO [address] [place] [address] [place] [address] PCP - General Family Medicine 10/24/18 04/27/21 documented as of this encounter
--- OUTSIDE RECORDS SUMMARY | 2024-05-01 16:13 | XMS_ITS | Encounter Summary ---
Author Organization [facility] [place] [address] Care Team Providers Care Paving Inspector Name Role Phone Edd Caballero DO Primary Care Provider [phone]- [phone] Encounter Details Date Type Department Care Team (Late st Contact Info) Description 05/27/2020 Ancillary Procedure Radiology Library at [place] [address] Edd Caballero DO [address] [place] [address] Social History Tobacco Use Types Packs/Day Years [...] 11:15 AM EST Office Visit Dermatology at [place] [address] [place] [phone] Robert Herron MD [address] [facility] [place] [address] Scheduled Procedures Name Priority Associated Diagnoses Date/Ti [...] MR Spine (05/27/2020 12:00 AM EST) Narrative [facility] - 05/28/2020 11:12 AM EST This exam is auto-finalizing. It's purpose is for storage only. Edd Caballero DO G FILM LIBRARY O RDERABLES [place], [place] documented in this encounter Visit Diagnoses Not on filedocumented in this encounter Care Teams Paving Inspector Relationship Specialty Start Date End Date Edd Caballero DO [address] [place] [address] PCP - General Family Medicine 10/24/18 04/27/21 documented as of this encounter
--- OUTSIDE RECORDS SUMMARY | 2024-05-01 16:13 | XMS_ITS | Encounter Summary ---
Author Organization [facility] [place] [address] Care Team Providers Care Diabetes Territory Manager Name Role Phone AdaEdd adam Primary Care Provider +1- [phone] Encounter Details Date Type Department Care Team (Late Contact Info) Description 03/14/2019 Telephone [place] [phone] Carey Fletcher RN Social History Tobacco Use [...] 11:15 AM EST Office Visit Dermatology at [address] [place] [address] Robert Herron MD [address] [place] [address] Scheduled Procedures Name Priority Associated Diagnoses Date/Ti me ANTERIOR COLPORRHAPHY CYSTOC SALLY W OR WO URETHEROCELE; INC CYSTO (WRVU 10.08) Female cystocele URETHRAL SUSPENSION, SLING\F ASCIA OR SYNTHETIC (WRVU 12.13) Female cystocele documented as of this encounter Visit Diagnoses Not on filedocumented in this encounter Care Teams Diabetes Territory Manager Relationship Specialty Start Date End Date Edd Caballero DO [address] [place] [address] PCP - General Family Medicine 10/24/18 04/27/21 documented as of this encounter
--- OUTSIDE RECORDS SUMMARY | 2024-05-01 16:13 | XMS_ITS | Encounter Summary ---
Author Organization [facility] [place] [address] Care Team Providers Care Cardiology Teacher Name Role Phone Jeannie Mantilla MD Primary Care Provider [phone] Encounter Details Date Type Department Care Team (Late st Contact Info) Description 03/13/2015 [place] [phone] Marina Walker LPN Social History Tobacco Use Types Packs/Day Years Used Date Smoking Tobacco: Former Sex and Gender Information Value Date Recorded Sex Assigned at Not on file Gender Identity Not on file Sexual Orientation Not on file documented as of this encounter Miscellaneous Notes * Telephone Encounter - Marina Walker LPN - 03/13/2015 1:00 PM EDT Called and received the fax # [phone] to the [facility] in [facility]. Order faxed and confirmed to the Ortho clinic today. documented in this encounter Plan of Treatment Upcoming Encounters Date Type Department Care Team (Late st Contact Info) Description 05/01/2025 11:15 AM EST Office Visit Dermatology at [address] [place] [address] Robert Herron MD [address], [place] José [place] [address] Scheduled Procedures Name Priority Associated Diagnoses Date/Ti me ANTERIOR COLPORRHAPHY CYSTOC SALLY W OR WO URETHEROCELE; INC CYSTO (WRVU 10.08) Female cystocele URETHRAL SUSPENSION, SLING\F ASCIA OR SYNTHETIC (WRVU 12.13) Female cystocele documented as of this encounter Visit Diagnoses Not on filedocumented in this encounter Care Teams Cardiology Teacher Relationship Specialty Start Date End Date Jeannie Mantilla MD [facility] [address] [place] [place] [address] PCP - General 02/21/15 11/09/16 documented as of this encounter
--- OUTSIDE RECORDS SUMMARY | 2024-05-01 16:13 | XMS_ITS | Encounter Summary ---
Author Organization [facility] [place] [address] Care Team Providers Care Rubber Extrusion Machine Operator Name Role Phone AdaEdd sanchez Primary Care Provider [phone] Encounter Details Date Type Department Care Team (Late st Contact Info) Description 11/21/2018 12:00 PM EDT Clinical [place] [phone] Rectal prolapse Social History Tobacco Use Types [...] 11:15 AM EST Office Visit Dermatology at [place] [address] [facility] [place] [address] Robert Herron MD [address] [facility], [place] [address] Scheduled Procedures Name Priority Associated Diagnoses Date/Ti [...] (Bezet) 398 ms MUSE SYSTEM Calculated P [place] 33 degrees MUSE SYSTEM Calculated R [place] 57 degrees MUSE SYSTEM Calculated T [place] 33 degrees MUSE SYSTEM INTERPRETATION Sinus bradycardia Otherwise normal ECG No previous ECGs available Confirmed by MD Chance, Alvaro ([id number]) on 11/21/2018 1:20:13 PM MUSE SYSTEM 11/21/2018 1:00 PM EDT 11/21/2018 1:20 PM EDT Greg Pitt MD ECG ORDERABLES MUSE SYSTEM documented in this encounter Visit Diagnoses Diagnosis Rectal prolapse documented in this encounter Care Teams Rubber Extrusion Machine Operator Relationship Specialty Start Date End Date Edd Caballero DO [address] [place] [address] PCP - General Family Medicine 10/24/18 04/27/21 documented as of this encounter
--- OUTSIDE RECORDS SUMMARY | 2024-05-01 16:13 | XMS_ITS | Encounter Summary ---
Author Organization [facility] [place] [address] Care Team Providers Care Java Programming Professor Name Role Phone AdaEdd sanchez Primary Care Provider [phone]- [phone] Encounter Details Date Type Department Care Team (Late Contact Info) Description 11/01/2018 Telephone [place] [phone] Carey Fletcher, RN Social History Tobacco Use [...] until November 17. Will forward to Scheduling guidance secretary as urgent need for visit. Phoned patient back and left message. documented in this encounter Plan of Treatment Upcoming Encounters Date Type Department Care Team (Late st Contact Info) Description 05/01/2025 11:15 AM EST Office Visit Dermatology at [place] [address] [place] [address] Robert Herron MD [address], [place] [address] Scheduled Procedures Name Priority Associated Diagnoses Date/Ti me ANTERIOR COLPORRHAPHY CYSTOC SALLY W OR WO URETHEROCELE; INC CYSTO (WRVU 10.08) Female cystocele URETHRAL SUSPENSION, SLING\F ASCIA OR SYNTHETIC (WRVU 12.13) Female cystocele documented as of this encounter Visit Diagnoses Not on filedocumented in this encounter Care Teams Java Programming Professor Relationship Specialty Start Date End Date Edd Caballero DO [address] [place] [address] PCP - General Family Medicine 10/24/18 04/27/21 documented as of this encounter
--- OUTSIDE RECORDS SUMMARY | 2024-05-01 16:13 | XMS_ITS | Encounter Summary ---
Author Organization [facility] [address] Care Team Providers Care Manager Mortgage Name Role Phone AdaEdd adam Primary Care Provider [phone]- [phone] Encounter Details Date Type Department Care Team (Late st Contact Info) Description 07/03/2019 Telephone [place] [address] Carey Fletcher RN Social History Tobacco Use [...] stating that she has questions about her [place] procedurewith Dr. Pitt. Phoned back and left her a voicemail with our call back number. documented in this encounter Plan of Treatment Upcoming Encounters Date Type Department Care Team (Late st Contact Info) Description 05/01/2025 11:15 AM EST Office Visit Dermatology at [place] [address] [facility] [place] [address] Robert [address]on MD [address] [facility], [place] [address] Scheduled Procedures Name Priority Associated Diagnoses Date/Ti me ANTERIOR COLPORRHAPHY CYSTOC SALLY W OR WO URETHEROCELE; INC CYSTO (WRVU 10.08) Female cystocele URETHRAL SUSPENSION, SLING\F ASCIA OR SYNTHETIC (WRVU 12.13) Female cystocele documented as of this encounter Visit Diagnoses Not on filedocumented in this encounter Care Teams Manager Mortgage Relationship Specialty Start Date End Date Edd Caballero DO [address] [place] [address] PCP - General Family Medicine 10/24/18 04/27/21 documented as of this encounter
--- OUTSIDE RECORDS SUMMARY | 2024-05-01 16:13 | XMS_ITS | Encounter Summary ---
Author Organization [facility] [place] [address] Care Team Providers Care Field Crop Harvest Contractor Name Role Phone AdaEdd adam Primary Care Provider [phone]- [phone] Encounter Details Date Type Department Care Team (Late st Contact Info) Description 03/14/2019 Telephone [place] [phone] Carey Fletcher RN Social History Tobacco Use [...] 11:15 AM EST Office Visit Dermatology at [place] [address] [facility] [place] [address] Robert Herron MD [address] [facility], [place] [address] Scheduled Procedures Name Priority Associated Diagnoses Date/Ti me ANTERIOR COLPORRHAPHY CYSTOC SALLY W OR WO URETHEROCELE; INC CYSTO (WRVU 10.08) Female cystocele URETHRAL SUSPENSION, SLING\F ASCIA OR SYNTHETIC (WRVU 12.13) Female cystocele documented as of this encounter Visit Diagnoses Not on filedocumented in this encounter Care Teams Field Crop Harvest Contractor Relationship Specialty Start Date End Date Edd Caballero DO 580 [place] [address] PCP - General Family Medicine 10/24/18 04/27/21 documented as of this encounter
--- OUTSIDE RECORDS SUMMARY | 2024-05-01 16:13 | XMS_ITS | Encounter Summary ---
[facility] [place] [address] Care Team Providers Care Flying Squad Worker Name Role Phone AdaEdd adam Primary Care Provider +1- [phone] Reason for Visit * Auth/Cert Specialty Diagnoses / Procedures Referred By Contac t Referred To Contact Diagnoses Rectal prolapse RECTAL POLAPSE unk Procedures PRO COLONOSCOPY, DIAGNOSTIC PRO EXCIS RECTAL PROLAPSE, PERINEAL COLONOSCOPY, DIAGNOSTIC @RECTOPEXY, RESEC. PROLAPSE, PERINEAL APPROACH (WRVU 18.5) Referral ID Status Reason Start Date Expiration Date Visits Re quested Visits Authorized [id number] 1 1 Encounter Details Date Type Department Care Team ([facility] st Contact Info) Description 01/17/2019 8:55 AM EDT Anesthesia Event [place] [address] Kings Aguilera MD [facility] [place] [address] Monet Rangel, EYEWEAR MANUFACTURING SUPERVISOR [address] [facility] 3B-1 [place] [address] Anesthesia Record Procedure Summary Procedure Name Responsible [...] 0839; metacarpal vein (top of hand), left; [id number] catheter system; 20 gauge; Lorna Bush RN; [...] Procedure Summary Date: 01/17/19 Room / Location: [facility] OR [address] [place] [address] MAIN OR Anesthesia Start: 854 Anesthesia Stop: 1130 Procedures: COLONOSCOPY; W CONTROL OF BLEEDING, ANY METHOD (N/A Anus) @RECTOPEXY, RESEC. PROLAPSE, PERINEAL APPROACH (WRVU 18.5) (N/A Anus) Diagnosis: (RECTAL POLAPSE) (linear colonic ulcerations) Surgeon: Greg Pitt MD Responsible Provider: Kings Aguilera MD Anesthesia Type: general ASA Status: 2 All Anesthesia Providers: Anesthesiologist: Kings Aguilera MD Bonsai Culturist: Zan Sanchez MD Vitals Value Taken Time BP 141/61 01/17/2019 12:00 PM Temp Pulse 65 01/17/2019 12:03 PM Resp 11 01/17/2019 12:03 PM SpO2 100 % 01/17/2019 12:03 PM Pain Level 10 01/17/2019 11:58 AM Vitals shown include unvalidated device data. Patient Location: PACU/[facility] Level of Consciousness: Awake and Alert Pain [...] COLONOSCOPY, DIAGNOSTIC @RECTOPEXY, RESEC. PROLAPSE, PERINEAL APPROACH ([facility] 18.5) Patient Active Problem List Diagnosis ??? [...] andPIV access x1. Zan Sanchez MD PGY-2, Bank Manager Pager #[phone] Attending Add: No issues with prior anesthetics [...] 63 y.o. year old female seen in [facility] prior to plannedrectopexy with Dr. Greg Pitt. [...] She is independent with ADLS, attends to retail interior designer, and can ascend 1 FOS slowly without cardiopulmonary sx. We discussed expectations re: and options to manage post-operative pain. I assured her that she would have the opportunity to speak with her anesthesiologist the morning ofthe surgery regarding the specific plan for anesthesia. She asks that IV access be avoided in her right arm if possible. Monet Rangel APRN Pre-Admission Testing [phone] documented in this encounter Plan of Treatment Upcoming Encounters Date Type Department Care Team (Late st Contact Info) Description 05/01/2025 11:15 AM EST Office Visit Dermatology at [place] [address] [facility] [place] [address] Robert Herron MD [address] [facility], [place] Valdez DERMATOLOGY [place], [place] [address] Scheduled Procedures Name Priority Associated Diagnoses Date/Ti [...] Document infusion initiation time of first bag. mechanical pencils assembler to OR., Intra-Operative (Intra-Procedure), Indication for (Active [...] mg documented in this encounter Care Teams Flying Squad Worker Relationship Specialty Start Date End Date Edd Caballero DO [address] [place] [address] PCP - General Family Medicine 10/24/18 04/27/21 documented as of this encounter
--- OUTSIDE RECORDS SUMMARY | 2024-05-01 16:13 | XMS_ITS | Encounter Summary ---
Author Organization [facility] [place] [address] Care Team Providers Care Imaging Assistant Name Role Phone Ramona Hercules APRN Primary Care Provider Encounter Details Date Type Department Care Team (Late st Contact Info) Description 11/02/2017 Refill Dermatology at [address] [place] [address] Lisseth Oconnor LPN Social History [...] Ellen. Voiced understanding. Wants prescription called into [facility]. Order called. * Telephone [...] 11:15 AM EST Office Visit Dermatology at [place] [address] [place] [address] Robert Herron MD [address] [address], [place] [address] Scheduled Procedures Name Priority Associated Diagnoses Date/Ti me ANTERIOR COLPORRHAPHY CYSTOC SALLY W OR WO URETHEROCELE; INC CYSTO (WRVU 10.08) Female cystocele URETHRAL SUSPENSION, SLING\F ASCIA OR SYNTHETIC (WRVU 12.13) Female cystocele documented as of this encounter Visit Diagnoses Not on filedocumented in this encounter Care Teams Imaging Assistant Relationship Specialty Start Date End Date Ramona Hercules, [place] [address] [place] [address] PCP - General Family Medicine 11/10/16 04/17/18 documented as of this encounter
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
--- OUTSIDE RECORDS SUMMARY | 2024-05-01 16:14 | XMS_ITS | Clinical Summary ---
Author Organization [facility] Address [address] [place] [address] Care Team Providers Care Supervisor Pastry Name Role Phone Frank Francois MD Primary Care Provider [phone] Allergies Active Allergy Reactions Criticality Noted Date [...] tablet TK 1 T PO BID HS [facility] 04/16/20 20 Active VITAMIN B COMPLEX [...] be different from the original. 2020 TRAD[place] TCN [id number] Sirois 09/06/2020 10:33 Patient has given permission for [facility] to verbally discuss the following information with [...] (11/28/2021): Added automatically from request for surgery [id number] Chronic pain 11/21/2018 Gastroesophageal reflux 11/21/2018 History of bulimia 11/21/2018 History of pelvic fracture 11/21/2018 History of right hip replacement 11/21/2018 Osteoarthritis (arthritis due to wear and tear o f joints) 11/21/2018 Peripheral neuropathy 11/21/2018 Solar lentigo 03/12/2014 Encounters Date Type Department Care Team Description 04/13/2024 15:40 EDT - 04/13/2024 23:59 EDT [address] Encounter [address] [facility] [address] [place], [place] [id number] Chronic midline low back pain without sciatica; Chronic left hip pain; Chronic pain of left knee Discharge Disposition: Home or Self Care 04/13/2024 14:00 EDT Office Visit [facility] Physical Medicine & Rehabilitation - [address] [place] [address] Dorie Iraheta MD Chronic midline low back [...] Disease Father Relation Status Comments Father Other ID age 57 Social History Tobacco Use Types [...] series) 01/15/2028 Medical Devices Implanted Type Area Batch Room Technician Device Identifier Shelf Expiration Date Model / Serial / Lot Gabinosteven Keys 10 Ml [id number] - [id number] Implanted:Qty: 1 on 09/16/2020 by Nelia Madera MD at [facility] Bone N/A: Spine Cervical [employer] 06/24/2023 [id number] / [id number] / Milagro Spinal Posterior Cervical Solid Threaded Oasys [id number] - [id number] Implanted:Qty: 10 on 09/16/2020 by Nelia Madera MD at [facility] Screw Implant N/A: Spine Cervical CECILY SPINE [id number] / / Screw Biased 3.5 X 18mm Oasys Implanted:Qty: 2 on 09/16/2020 by Nelia Madera MD at [facility] Spinal Implant N/A: Spine Cervical CECILY SPINE [id number] / / Screw Pa Medial Based 4 X 24 Mm Oasys [employer] - [id number] Implanted:Qty: 2 on 09/16/2020 by Nelia Madera MD at [facility] Spinal Implant N/A: Spine Cervical CECILY SPINE [id number] / / Screw Biased 3.5 X 12mm Oasys Implanted:Qty: 6 on 09/16/2020 by Nelia Madera MD at [facility] Spinal Implant N/A: Spine Cervical CECILY SPINE [id number] / / Robert Spinal Posterior Occipito Cervico Thoracic Ti Str Rad 3.5x80mm Oasys [id number] - [id number] Implanted:Qty: 2 on 09/16/2020 by Nelia Madera MD at [facility] Spinal Implant N/A: Spine Cervical CECILY SPINE [id number] / / Procedures Procedure Name Priority Date/Time [...] REGARDING THIS REPORT PLEASE CALL [facility] AT [phone] Narrative 04/17/2024 8:36 EST PROCEDURE INFORMATION: Exam: [...] CONCERNS REGARDING THIS REPORT PLEASE CALL [facility] [phone] us Dorie Iraheta MD IMG DIAGNOSTIC IMAGING [...] There is a background of diffuse osteopenia. [id number] Narrative 04/21/2024 12:50 EST EXAM/TECHNIQUE: XR KNEE LEFT 1-2 VIEWS ??04/13/2024 3:44 PM HISTORY: chronic L knee pain, remote Hx trauma COMPARISON: None. Resulting Agency Comment [id number] Procedure Note Mark Mcneill MD - 04/21/2024 [...] There is a background of diffuse osteopenia. [id number] us Dorie Iraheta MD [facility] DIAGNOSTIC IMAGING [facility] Final Result * XR HIP LEFT [...] is however a background of diffuse osteopenia. [id number] Narrative 04/21/2024 12:48 EST EXAM/TECHNIQUE: XR HIP LEFT 2-3 VIEWS OPTIONAL PELVIS ??04/13/2024 3:44 PM HISTORY: chronic L hip pain, remote Hx trauma COMPARISON: None. Resulting Agency Comment [id number] Procedure Note Mark Mcneill MD - 04/21/2024 [...] is however a background of diffuse osteopenia. [id number] us Dorie Iraheta MD IMG DIAGNOSTIC IMAGING [facility] Final Result from Last 3 Months Insurance [place] Advance Directives For more information, please contact: [phone] Documents on File Type Date Recorded Patient Tour Driver Expl anation COLST/MOLST 09/25/2020 14:12 D NR/COLST Advance Directive 09/16/2020 5:53 [place] Advanc [place] Directive For Health Care-Signed 2020-09-16 * Full Code (Latest Code Status on File) Date Activated Date Inactivated Comments 09/16/2020 6:19 09/20/2020 12:42 Question Answer Comments Reason for decision includes: Full code consistent with overall plan of care Who participated in the discussion? Not Discusse d Care Teams Supervisor Pastry Relationship Specialty Start Date End Date Frank Francois MD [address] [facility] [address] [place] [address] PCP - General Emergency Medicine 11/20/21
--- OUTSIDE RECORDS SUMMARY | 2024-05-01 16:14 | XMS_ITS | Encounter Summary ---
Author Organization [facility] [place] [address] Care Team Providers Care Contact Center Professional Name Role Phone Abby Chang APRN Primary Care Provider + Encounter Details Date Type Department Care Team (Late st Contact Info) Description 02/08/2015 External Results Infectious Disease at [facility] [place] [address] Ashish Gray MD [facility] [place] [address] Social History Tobacco Use Types Packs/Day Years Used Date Smoking Tobacco: Former Sex and Gender Information Value Date Recorded Sex Assigned at Not on file Gender Identity Not on file Sexual Orientation Not on file documented as of this encounter Plan of Treatment Upcoming Encounters Date Type Department Care Team (Late st Contact Info) Description 05/01/2025 11:15 AM EST Office Visit Dermatology at [address] [place] [address] Robert Herron MD [address] [address] [place] [address] Scheduled Procedures Name Priority Associated Diagnoses Date/Ti [...] filedocumented in this encounter Care Teams Contact Center Professional Relationship Specialty Start Date End Date Abby Chang APRN PCP - General 05/19/13 02/20/15 documented as of this encounter
--- OUTSIDE RECORDS SUMMARY | 2024-05-01 16:14 | XMS_ITS | Encounter Summary ---
Author Organization [facility] Address [address] [place] [address] Care Team Providers Care Tire Worker Name Role Phone Edd Caballero DO Primary Care Provider [phone] Reason for Referral * Radiology Services (Routine/Next Available) - Authorization Not Required Specialty Diagnoses / Procedures Referred By Contac t Referred To Contact Diagnoses Neck pain Procedures XR CERVICAL SPINE 2-3 VIEWS Nelia Madera MD Phone: tel: fax: [facility] Referral ID Status Reason Start Date Expiration Date Visits Requested Visits Authorized [id number] Authorization Not Required 10/17/2021 1 1 Encounter Details Date Type Department Care Team (Late st Contact Info) Description 10/17/2021 Orders Only [facility] Spine Program - [address] [place] [address] Nelia Madera MD [address] [place] [address] [place] [address] Neck pain (Primary Dx) Social [...] Cervicalgia documented in this encounter Care Teams Tire Worker Relationship Specialty Start Date End Date Edd Caballero DO [address] [place] [address] PCP - General Family Medicine - Primary Care 07/08/20 11/19/21 documented as of this encounter
--- OUTSIDE RECORDS SUMMARY | 2024-05-01 16:14 | XMS_ITS | Referral Summary ---
Author Organization [facility] Address [address] [place] [address] Care Team Providers Care Kiln Head House Operator Name Role Phone Frank Francois MD Primary Care Provider [phone] Encounters Date Type Department Care Team Description 04/13/2024 15:40 EDT - 04/13/2024 23:59 EDT Hospital Encounter [address] X[address] [place] [address] Chronic midline low back pain without sciatica; Chronic left hip pain; Chronic pain of left knee Discharge Disposition: Home or Self Care 04/13/2024 14:00 EDT Office Visit [facility] Physical Medicine & Rehabilitation - [address] [place] [address] Dorie Iraheta MD Chronic midline low back [...] mcg tablet TK 1 T PO BID [facility] 04/16/20 20 Active VITAMIN B COMPLEX [...] be different from the original. 2020 TRADITIONAL [place] MEDICA[place] TCN [id number] Viviane 09/06/2020 10:33 Patient has given permission for [facility] to verbally discuss the following information [...] (11/28/2021): Added automatically from request for surgery [id number] Chronic pain 11/21/2018 Gastroesophageal reflux 11/21/2018 History [...] on file Medical Devices Implanted Type Area Investigation Officer Device Identifier Shelf Expiration Date Model / Serial / Lot [place] Avnity 10 Ml [id number] - [id number] Implanted:Qty: 1 on 09/16/2020 by Nelia Madera MD at [facility] Bone N/A: Spine Cervical [employer] 06/24/2023 [id number] / [id number] / Milagro Spinal Posterior Cervical Solid Threaded Oasys [id number] - [id number] Implanted:Qty: 10 on 09/16/2020 by Nelia Madera MD at [facility] Screw Implant N/A: Spine Cervical CECILY SPINE [id number] / / Screw Biased 3.5 X 18mm Oasys Implanted:Qty: 2 on 09/16/2020 by Nelia Madera MD at [facility] Spinal Implant N/A: Spine Cervical CECILY SPINE [id number] / / Screw Pa Medial Based 4 X 24 Mm Oasys Co - [id number] Implanted:Qty: 2 on 09/16/2020 by Nelia Madera MD at [facility] Spinal Implant N/A: Spine Cervical CECILY SPINE [id number] / / Screw Biased 3.5 X 12mm Oasys Implanted:Qty: 6 on 09/16/2020 by Nelia Madera MD at [facility] Spinal Implant N/A: Spine Cervical CECILY SPINE [id number] / / Robert Spinal Posterior Occipito Cervico Thoracic Ti Str Rad 3.5x80mm Oasys [id number] - [id number] Implanted:Qty: 2 on 09/16/2020 by Nelia Madera MD at [facility] Spinal Implant N/A: Spine Cervical CECILY SPINE [id number] / / Procedures Procedure Name Priority Date/Time [...] REGARDING THIS REPORT PLEASE CALL [facility] AT [phone] [facility] 04/17/2024 8:36 EST PROCEDURE INFORMATION: Exam: XR [...] CONCERNS REGARDING THIS REPORT PLEASE CALL VR [phone] us Dorie Iraheta MD IMG DIAGNOSTIC IMAGING [...] There is a background of diffuse osteopenia. [id number] Narrative 04/21/2024 12:50 EST EXAM/TECHNIQUE: XR KNEE LEFT 1-2 VIEWS ??04/13/2024 3:44 PM HISTORY: chronic L knee pain, remote Hx trauma COMPARISON: None. Resulting Agency Comment [id number] Procedure Note Mark Mcneill MD - 04/21/2024 [...] There is a background of diffuse osteopenia. [id number] us Dorie Iraheta MD IM DIAGNOSTIC IMAGING [facility] Final Result * XR HIP LEFT [...] is however a background of diffuse osteopenia. [id number] Narrative 04/21/2024 12:48 EST EXAM/TECHNIQUE: XR HIP LEFT 2-3 VIEWS OPTIONAL PELVIS ??04/13/2024 3:44 PM HISTORY: chronic L hip pain, remote Hx trauma COMPARISON: None. Resulting Agency Comment [id number] Procedure Note Mark Mcneill MD - 04/21/2024 [...] is however a background of diffuse osteopenia. [id number] us Dorie Iraheta MD IMG DIAGNOSTIC IMAGING ORDShruti GUTHRIE Final Result from Last 3 Months Insurance [place] Advance Directives For more information, please contact: [phone] Documents on File Type Date Recorded Patient Meat Wrapper Expl anation COLST/MOLST 09/25/2020 14:12 D NR/COLST Advance Directive 09/16/2020 5:53 [place] Advanc e Directive For Health Care-Signed 2020-09-16 * Full Code (Latest Code Status on File) Date Activated Date Inactivated Comments 09/16/2020 6:19 09/20/2020 12:42 Question Answer Comments Reason for decision includes: Full code consistent with overall plan of care Who participated in the discussion? Not Discusse d Care Teams Kiln Head House Operator Relationship Specialty Start Date End Date Frank Francois MD [address] [facility] [address] [place] [address] PCP - General Emergency Medicine 11/20/21
--- OUTSIDE RECORDS SUMMARY | 2024-05-01 16:14 | XMS_ITS | Encounter Summary ---
Author Organization [facility] Address [address] [place] [address] Care Team Providers Care Store Cashier Name Role Phone Edd Caballero DO Primary Care Provider [phone] Reason for Visit * Reason Comments Pain Encounter Details Date Type Department Care Team ([facility] st Contact Info) Description 10/20/2021 13:15 EDT Office Visit [facility] Spine Program - [address] [address] Nelia Madera MD [address] [facility] [place] [address] Cervical myelopathy (HCC-CMS) (HCC) (HCC-CMS) [...] a cane. She continues to have ongoing lining printer and interossei weakness. Exam otherwise unchanged from [...] myelopathy documented in this encounter Care Teams Store Cashier Relationship Specialty Start Date End Date Edd Caballero DO [address] [place] [address] PCP - General Family Medicine - Primary Care 07/08/20 11/19/21 documented as of this encounter
--- OUTSIDE RECORDS SUMMARY | 2024-05-01 16:14 | XMS_ITS | Encounter Summary ---
[place] [address] Care Team Providers Care Utilities Ground Worker Name Role Phone Abby Chang INSTRUCTOR DRAMATIC ARTS Primary Care Provider + Encounter Details Date Type Department Care Team (Late st Contact Info) Description 09/17/2014 Orders [place] [id number] Abby Chang, INSTRUCTOR DRAMATIC ARTS [address] [place] [address] Social History Tobacco Use Types Packs/Day Years Used Date Smoking Tobacco: Unknown Sex and Gender Information Value Date Recorded Sex Assigned at Not on file Gender Identity Not on file Sexual Orientation Not on file documented as of this encounter Plan of Treatment Upcoming Encounters Date Type Department Care Team (Late st Contact Info) Description 05/01/2025 11:15 AM EST Office Visit Dermatology at [address] [place] [address] Robert Herron MD [address], [place] A D[place]MATOLOGY [place], [place] [address] Scheduled Procedures Name Priority Associated Diagnoses Date/Ti [...] on filedocumented in this encounter Care Teams Utilities Ground Worker Relationship Specialty Start Date End Date Abby Chang APRN PCP - General 05/19/13 02/20/15 documented as of this encounter
--- OUTSIDE RECORDS SUMMARY | 2024-05-01 16:14 | XMS_ITS | Encounter Summary ---
Author Organization [facility] Address [address] [place] [address] Care Team Providers Care Manager Harbor Name Role Phone Edd Caballero DO Primary Care Provider [phone] Reason for Referral * Radiology Services (Routine/Next Available) - Closed Specialty Diagnoses / Procedures Referred By Luac t Referred To Contact Diagnoses Neck pain Procedures XR CERVICAL SPINE 2-3 VIEWS Nelia Madera MD Phone: tel: fax: Referral ID Status Reason Start Date Expiration Date Visits Re quested Visits Authorized [id number] Closed 03/07/2021 1 1 Reason for Visit * Radiology Services (Routine/Next Available) - Closed Specialty Diagnoses / Procedures Referred By Contac t Referred To Contact Diagnoses Neck pain Procedures XR CERVICAL SPINE 2-3 VIEWS Nelia Madera MD Phone: tel: fax: Referral ID Status Reason Start Date Expiration Date Visits Re quested Visits Authorized [id number] Closed 03/07/2021 1 1 Encounter Details Date Type Department Care Team (Latest Contact Info) Description 03/14/2021 14:15 EDT - 03/14/2021 23:59 EDT [address] Encounter [address] [place] [address] Neck pain Discharge Disposition: Home [...] tablet TK 1 T PO BID [facility] 04/16/2020 morphine (JACQUE) 30 mg ER capsule, [...] Cervicalgia documented in this encounter Care Teams Manager Harbor Relationship Specialty Start Date End Date Edd Caballero DO [address] [place] [address] PCP - General Family Medicine - Primary Care 07/08/20 11/19/21 documented as of this encounter
--- OUTSIDE RECORDS SUMMARY | 2024-05-01 16:14 | XMS_ITS | Encounter Summary ---
Author Organization [facility] Address [address] [place] [address] Care Team Providers Care Butcher Head Name Role Phone Frank Francois MD Primary Care Provider [phone] Reason for Referral * Radiology Services (Routine/Next Available) - Authorization Not Required Specialty Diagnoses / Procedures Referred By Contac t Referred To Contact Diagnoses Chronic pain of left knee Procedures XR KNEE LEFT 1-2 VIEWS Dorie Iraheta MD [address] [place] [address] Phone: tel: fax: [facility] Referral ID Status Reason Start Date Expiration Date Visits Requested Visits Authorized [id number] Authorization Not Required 4 1 1 * Radiology Services (Routine/Next Available) - Authorization Not Required Specialty Diagnoses / Procedures Referred By Contac t Referred To Contact Diagnoses Chronic left hip pain Procedures XR HIP LEFT 2-3 VIEWS OPTIONAL PELVIS Dorie Iraheta MD [address] [place] [address] Phone: tel: fax: [facility] Referral ID Status Reason Start Date Expiration Date Visits Requested Visits Authorized [id number] Authorization Not Required 4 1 1 * Radiology Services (Routine/Next Available) - Authorization Not Required Specialty Diagnoses / Procedures Referred By Contac t Referred To Contact Diagnoses Chronic midline low back pain without sciatica Procedures XR PELVIS 1-2 VIEWS Dorie Iraheta MD [address] [place] [phone] Phone: tel: fax: [facility] Referral ID Status Reason Start Date Expiration Date Visits Requested Visits Authorized [id number] Authorization Not Required 4 1 1 * Radiology Services (Routine/Next Available) - Authorization Not Required Specialty Diagnoses / Procedures Referred By Contac t Referred To Contact Diagnoses Chronic midline low back pain without sciatica Procedures XR LUMBAR SPINE 2-3 VIEWS Dorie Iraheta MD [address] [place] [phone] Phone: tel: fax: [facility] Referral ID Status Reason Start Date Expiration Date Visits Requested Visits Authorized [id number] Authorization Not Required 4 1 1 Reason for Visit * Reason Comments New Patient Visit * Consult (Routine) - Receiving Office to Obtain Authorization Specialty Diagnoses / Procedures Referred By Contact Referred To Contact Physical Medicine and Rehab Diagnoses Traumatic arthropathy, multiple sites Frank Francois MD [address] [facility] [address] [place] [address] Phone: tel: fax: [facility] Physical Medicine & [place] [address] Phone: tel: fax: Referral ID Status Reason Start Date Expiration Date Visits Requested Visits Authorized [id number] Receiving Office to Obtain Authorization 1 1 Encounter Details Date Type Department Care Team (Latest Contact Info) Description 04/13/2024 14:00 EDT Office Visit [facility] Physical Medicine & Rehabilitation [place] [address] Dorie Iraheta MD [address] [place] [phone] Chronic midline low back pain without sciatica [...] follow-up with orthopedic surgery. Most recently at [facility], she saw Dr. Madera of orthopedic [...] which she met with her [place]gy[place] [facility] [place] and discussed surgical options including [...] to 4x/day. She has not seen a painting supervisor, and notes that there is a provider in [facility], Dr. Beny Long. 12pt review of systems was completed and negative except as above. PMH, PSH, SH, FH reviewed with patient and in medical record. Current Outpatient Medications on File Prior to Visit Medication Sig Dispense Refill acetaminophen (TYLENOL) 500 mg tablet Take 325 mg by mouth every 6 hours as needed. Rare use kyeqtvo-otyysxrdjnncv-hbjszfcc (EXCEDRIN EXTRA STRENGTH) 250-250-65 mg per tablet [...] head to the distal femur. 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 Functionally, I would place priority on her bowel and bladder function and recommend she proceed with urogyn/colorectal surgery first. Orthopedic interventions, if indicated, could follow after her pelvic floorrecovery. In the interim, pain management consultation may be helpful, especially for adjunctive treatment options. [facility] comprehensive pain clinic is not a realistic option given her residence in [facility]. She may consider consultation with Dr. Beny [...] There is a background of diffuse osteopenia. [id number] Narrative 04/21/2024 12:50 EST EXAM/TECHNIQUE: XR KNEE LEFT 1-2 VIEWS ??04/13/2024 3:44 PM HISTORY: chronic L knee pain, remote Hx trauma COMPARISON: None. Resulting Agency Comment [id number] Procedure Note Mark Mcneill MD - 04/21/2024 [...] There is a background of diffuse osteopenia. [id number] us Dorie Iraheta MD [facility] ORDE JERRI Final Result * [...] is however a background of diffuse osteopenia. [id number] Narrative 04/21/2024 12:48 EST EXAM/TECHNIQUE: XR HIP LEFT 2-3 VIEWS OPTIONAL PELVIS ??04/13/2024 3:44 PM HISTORY: chronic L hip pain, remote Hx trauma COMPARISON: None. Resulting Agency Comment [id number] Procedure Note Mark Mcneill MD - 04/21/2024 [...] is however a background of diffuse osteopenia. [id number] us Dorie Iraheta MD IMG DIAGNOSTIC IMAGING [...] REGARDING THIS REPORT PLEASE CALL [facility] AT [phone] Narrative 04/17/2024 8:36 EST PROCEDURE INFORMATION: Exam: [...] CONCERNS REGARDING THIS REPORT PLEASE CALL [facility] [phone] us Dorie Iraheta MD [facility] CLARI GUTHRIE Final Result documented [...] 04/13/2024 documented in this encounter Care Teams Butcher Head Relationship Specialty Start Date End Date Frank Francois MD [address] [facility] [address] [place] [address] PCP - General Emergency Medicine 11/20/21 documented as of this encounter
--- OUTSIDE RECORDS SUMMARY | 2024-05-01 16:14 | XMS_ITS | Encounter Summary ---
[place] [address] Care Team Providers Care Computer Forensics Investigator Name Role Phone Abby Chang CARPET INSTALLER Primary Care Provider + Encounter Details Date Type Department Care Team (Late st Contact Info) Description 10/18/2014 [place] [phone] Abby Chang, CARPET INSTALLER [address] [place] [address] Social History Tobacco Use Types Packs/Day Years [...] AM EST Office Visit Dermatology at [address] [place] [address] Robert Herron MD [address], [place] [address] [facility] [place], [place] [address] Scheduled Procedures Name Priority Associated Diagnoses Date/Ti [...] on filedocumented in this encounter Care Teams Computer Forensics Investigator Relationship Specialty Start Date End Date Abby Chang APRN PCP - General 05/19/13 02/20/15 documented as of this encounter
--- OUTSIDE RECORDS SUMMARY | 2024-05-01 16:14 | XMS_ITS | Encounter Summary ---
Author Organization [facility] [place] [address] Care Team Providers Care Junior Designer Name Role Phone Abby Chang APRN Primary Care Provider + Reason for Visit * Reason Onset Date Comments Medication Refill 01/25/2015 Encounter Details Date Type Department Care Team (Late st Contact Info) Description 01/25/2015 Telephone [place] [address] Ashish Gray MD [facility] [place] [address] Medication Refill Social History Tobacco Use Types Packs/Day Years Used Date Smoking Tobacco: Former Sex and Gender Information Value Date Recorded Sex Assigned at Not on file Gender Identity Not on file Sexual Orientation Not on file documented as of this encounter Miscellaneous Notes * Telephone Encounter - Jackie Venegas RN - 01/25/2015 5:08 PM EDT [facility] -originally script did not go through He called back and said They were able to process the zyvox without pa * Telephone Encounter - Jackie Venegas RN - 01/25/2015 4:52 PM EDT Phone call from Ms. carias Levoquine and linezolid sent to [facility] pharmacy She needs them at [facility] per Dr. Gray note It looks like there was some question about whether prior auth was needed to continue the linezolid documented in this encounter Plan of Treatment Upcoming Encounters Date Type Department Care Team (Late st Contact Info) Description 05/01/2025 11:15 AM EST Office Visit Dermatology at [place] [address] [place] [address] Robert Herron MD [address], [place] [address] Scheduled Procedures Name Priority Associated Diagnoses Date/Ti me ANTERIOR COLPORRHAPHY CYSTOC SALLY W OR WO URETHEROCELE; INC CYSTO (WRVU 10.08) Female cystocele URETHRAL SUSPENSION, SLING\F ASCIA OR SYNTHETIC (WRVU 12.13) Female cystocele documented as of this encounter Visit Diagnoses Diagnosis Osteomyelitis Unspecified osteomyelitis, site unspecified documented in this encounter Care Teams Junior Designer Relationship Specialty Start Date End Date Abby Chang, AIR TRAFFIC CONTROL SUPERVISOR PCP - General 05/19/13 02/20/15 documented as of this encounter
--- OUTSIDE RECORDS SUMMARY | 2024-05-01 16:14 | XMS_ITS | Encounter Summary ---
Author Organization [facility] [place] [address] Care Team Providers Care Computer Animator Name Role Phone Abby Chang APRN Primary Care Provider + Reason for Visit * Reason Comments Follow-up Encounter Details Date Type Department Care Team ([facility] st Contact Info) Description 12/25/2014 11:00 AM EDT Follow-[place] [address] Ashish Roe MD [facility] [address] INFECTIOUS [place] [address] Osteomyelitis (Primary Dx) Discharge Disposition: Home Social [...] empirical therapy on presumption that a difficul i-ll-oyxcgsvtm organism is responsible and the biopsy did [...] 6 weeks 4. Wrote rx today for [facility] pharmacy 5. If denied by insurance or [...] luck, our OPAT nurse knew that sometimes [employer] grants compassionate release of linezolid in such scenarios. Ramona Calles of the Office of Care Management was able to procure this arrangement, so I sent new rx for both drugs to [facility] near her home and alerted the [...] 50 For prolonged services, actual times of ehqi-gj-wooz time with patient documented in this encounter Miscellaneous Notes * Addendum Note - Ashish Roe MD - 12/26/2014 5:06 PM EDTAddended by: ASHISH ROE on: 12/26/2014 05:06 PM Modules accepted: Orders documented in this encounter Plan of Treatment Upcoming Encounters Date Type Department Care Team (Late st Contact Info) Description 05/01/2025 11:15 AM EST Office Visit Dermatology at [place] [address] [place] [address] Robert Herron MD [address], [place] [address] Scheduled Procedures Name Priority Associated Diagnoses Date/Ti [...] HEMATOLOGY ORDERABLE S Performing Organization Address [facility] Co de Phone Number [facility] * High Sensitivity CRP (12/25/2014 12:05 PM EDT) C-Reactive Protein High Sensitivity 0.3 mg/L [facility] Comment: result rechecked- Interpretations: 1) For [...] Roe MD CHEMISTRY ORDERABLES Performing Organization Address [facility] Co de Phone Number [facility] * (ABNORMAL) Comprehensive metabolic panel (non-fasting) (12/25/2014 12:05 PM EDT) Glucose 91 65 - 199 mg/dL [facility] Comment:Diabetes: >=200 mg/d L plus symptoms Blood Urea Nitrogen 17 8 - 18 mg/dL [facility]EN[facility]UM Creatinine 0.61(L) 0.70 - 1.20 mg/dL [facility] M[facility]NI[facility] Comment: Please note that the pediatric reference intervals supplied above were not validated at [facility]. Results from pediatric patients should be interpreted [...] the following links into your internet browser. [email or web address] Blood specimen (specimen) 12/25/2014 12:05 PM EDT 12/25/2014 12:26 PM EDT Narrative Resulting Agency Comment Spec In Lab Ashish Roe MD CHEMISTRY ORDERABLES Performing Organization Address City/State/[facility] Co de Phone Number [facility] documented in this encounter Visit Diagnoses Diagnosis Osteomyelitis- Primary Unspecified osteomyelitis, site unspecified documented in this encounter Care Teams Computer Animator Relationship Specialty Start Date End Date Abby Chang, COIN MACHINE COLLECTOR PCP - General 05/19/13 02/20/15 documented as of this encounter
--- OUTSIDE RECORDS SUMMARY | 2024-05-01 16:14 | XMS_ITS | Encounter Summary ---
Author Organization [facility] Address [address] [place] [address] Care Team Providers Care Necktie Stitcher Name Role Phone Edd Caballero DO Primary Care Provider [phone] Encounter Details Date Type Department Care Team (Late st Contact Info) Description 10/20/2021 Orders Only [facility] Spine Program - [address] [place], [place] [phone] Nelia Madera MD [address] [place] [address] [place] [address] Back pain, unspecified back location, [...] Primary documented in this encounter Care Teams Necktie Stitcher Relationship Specialty Start Date End Date Edd Caballero DO [address] [place] [address] PCP - General Family Medicine - Primary Care 07/08/20 11/19/21 documented as of this encounter
--- OUTSIDE RECORDS SUMMARY | 2024-05-01 16:14 | XMS_ITS | Encounter Summary ---
Author Organization [facility] Address [address] [place] [address] Care Team Providers Care Housekeeping Staff Name Role Phone Edd Caballero DO Primary Care Provider [phone] Reason for Visit * Reason Comments Pain Encounter Details Date Type Department Care Team ([facility] st Contact Info) Description 03/14/2021 14:30 EDT Office Visit [facility] Spine Program - [address] [address] Nelia Madera MD [address] [facility] [place] [address] Cervical myelopathy (HCC-CMS) (HCC) (HCC-CMS) [...] with no focal deficits but some subtle pain management nurse and interossei weakness. Imaging I reviewed her [...] this encounter Visit Diagnoses Diagnosis Cervical myelopathy ([facility])- Primary Cervical spondylosis with myelopathy documented in this encounter Care Teams Housekeeping Staff Relationship Specialty Start Date End Date Edd Caballero DO [address] [place] [address] PCP - General Family Medicine - Primary Care 07/08/20 11/19/21 documented as of this encounter
--- OUTSIDE RECORDS SUMMARY | 2024-05-01 16:14 | XMS_ITS | Encounter Summary ---
Author Organization [facility] Address [address] [place] [address] Care Team Providers Care Patient Centered Care Specialist Name Role Phone Frank Francois MD Primary Care Provider [phone] Reason for Visit * Reason Comments New Patient Visit * Consult (See Order Priority) - Order Cancelled Specialty Diagnoses / Procedures Referred By Satinder cnonelly Referred To Contact Physical Medicine and Rehab Diagnoses Back pain, unspecified back location, unspecified back pain laterality, unspecified chronicity Nelia Madera MD Phone: tel: fax: Monica Ulrich MD Phone: tel: fax: Referral ID Status Reason Start Date Expiration Date Visits Requested Visits Authorized [id number] Order Cancelled Specialty Services Required 10/20/2021 1 1 Encounter Details Date Type Department Care Team (Latest Contact Info) Description 11/20/2021 14:15 EDT Office Visit [facility] Physical Medicine & Rehabilitation [place] [address] [place] [address] Monica Ulrich MD [address] [place] [phone] Myelopathy (HCC-CMS) (HCC) (HCC-CMS) (Primary Dx) [...] fusion on 09/16/2020. She was discharged from [facility] on 09/20/2020 to subacute rehabilitation, [facility]. She remained at [facility] till 09/26/2020 and was discharged home to continue with home health services. She and her daughter reports today that they were very dissatisfied and worried about the care thatshe received at [facility]. The staff there seemed not to be [...] been doing nerve ablations. Is treated at [facility]. Dr. Steen treats her. Has had rectal prolapse, rectocele and cystocele. Followed at [facility]. Also follows with director of direct marketing at [facility] for these issues. Patient Active Problem List [...] 6 hours as needed. Rare use ??? wwgnfvd-ksiqobqxicnlx-rpaoasvc (EXCEDRIN EXTRA STRENGTH) 250-250-65 mg per tablet [...] pre-existing. She is able to establish some display specialist better with the left hand than the [...] made. Given her presurgical exam and her [place] cervical myelopathy deficits and would agree that [...] basis. Plan: Encounter Diagnoses Name Primary? Myelopathy ([facility]) ([facility]) Yes Med Orders Placed This Visit and [...] with speech recognition software or keyboard data control clerk techniques. Minor irregularities or keyboarding misprints may [...] of this encounter Visit Diagnoses Diagnosis Myelopathy ([facility])- Primary Unspecified disease of spinal cord documented [...] Pain. added in this encounter Care Teams Patient Centered Care Specialist Relationship Specialty Start Date End Date Frank Francois MD [address] [facility] [address] [place] [id number] PCP - General Emergency Medicine 11/20/21 documented as of this encounter
--- OUTSIDE RECORDS SUMMARY | 2024-05-01 16:14 | XMS_ITS | Encounter Summary ---
Author Organization [facility] [place] [address] Care Team Providers Care Applied Technologist Name Role Phone Abby Chang APRN Primary Care Provider + Encounter Details Date Type Department Care Team (Late st Contact Info) Description 01/25/2015 Orders [place] [address] Ashish Gray MD [facility] [address] [place] [address] Osteomyelitis (Primary Dx) Social History Tobacco Use [...] 11:15 AM EST Office Visit Dermatology at [place] [address] [facility] [place] [address] Robert Herron MD [address], [place] [address] Scheduled Procedures Name Priority Associated Diagnoses Date/Ti me ANTERIOR COLPORRHAPHY CYSTOC SALLY W OR WO URETHEROCELE; INC CYSTO (WRVU 10.08) Female cystocele URETHRAL SUSPENSION, SLING\F ASCIA OR SYNTHETIC (WRVU 12.13) Female cystocele documented as of this encounter Visit Diagnoses Diagnosis Osteomyelitis- Primary Unspecified osteomyelitis, site unspecified documented in this encounter Care Teams Applied Technologist Relationship Specialty Start Date End Date Abby Chang, TELEGRAPHIC TYPEWRITER REPAIRER PCP - General 05/19/13 02/20/15 documented as of this encounter
--- OUTSIDE RECORDS SUMMARY | 2024-05-01 16:14 | XMS_ITS | Encounter Summary ---
Author Organization [facility] [place] [address] Care Team Providers Care Mounter Brass Wind Instruments Name Role Phone Abby Chang APRN Primary Care Provider + Reason for Visit * Reason Comments Osteomyelitis Encounter Details Date Type Department Care Team (Latest Contact Info) Description 11/19/2014 10:45 AM EDT Office [place] [address] Ashish Roe MD [facility] [place] [address] Osteomyelitis (Primary Dx) Discharge Disposition: Home Social [...] like to review the imaging studies from [facility]. This requires a request from Dr. Roe's office. [facility] on [facility] [...] subsequently seen by the orthopedic office of [facility]. At that point, TEA Canas, suspected [...] the hip. We could do this at [facility] or this could be done by the [...] decision making. 2. I will ask my campaign assistant to procure some of the critical [...] by them or by Interventional Radiology at [facility]. 4. I will communicate to the patient [...] biopsy as above. Left a message with [place] 11/[address] Soriano, will call both when back11/22. Addendum 11/22 Discussed case with Ms. Robles. She says she and Dr. Soriano prefer biopsy at [facility]. Will arrange. Ordered IR guided bx. Addendum [...] 55 For prolonged services, actual times of rved-sq-gagm time with patient documented in this encounter [...] 11:15 AM EST Office Visit Dermatology at [address] [place] [address] Robert Herron MD [address] [facility], [place] [address] Scheduled Procedures Name Priority Associated Diagnoses Date/Ti [...] pre- procedural time-out was performed as per [facility] protocol. The patient was placed in the CT Suite in the supine position. The right hip was localized on axial CT images. The needle entry site was marked under CT guidance. The skin was prepped and draped in the usual sterile fashion. 1% buffered Lidocaine was used for local anesthesia. Maximum sterile barrier technique was utilized. The 13G Talkito bone biopsy set was employed. The penetration [...] a pre- procedural time-out wasperformed as per [facility] protocol. The patient was placed in the CT Suite in the supine position. The right hip was localized on axial CT images. The needle entry site wasmarked under CT guidance. The skin was prepped and draped in the usual sterilefashion. 1% buffered Lidocaine was used for local anesthesia. Maximum sterilebarrier technique was utilized. The 13G Talkito bone biopsy set was employed. The penetration [...] MD HEMATOLOGY ORDERABLE S Performing Organization Address City/State/[facility] Co de Phone Number CERCHARLEY MILLENNIUM * Sedimentation rate (11/19/2014 12:41 PM EDT) Sedimentation Rate Automated 12 0 - 20 mm/hr CERNER MILLENNIUM Blood specimen (specimen) 11/19/2014 12:41 PM EDT 11/19/2014 12:52 PM EDT Narrative Resulting Agency Comment Spec In Lab Ashish Roe MD HEMATOLOGY ORDERABLE S Performing Organization Address City/[facility] Co de Phone Number SANDRO BERGENNIUM * [...] Roe MD CHEMISTRY ORDERABLES Performing Organization Address [facility] de Phone Number [facility] ObsEvaENNIUM * Phosphorus (11/19/2014 12:41 PM EDT) Phosphorus 3.7 2.5 - 4.5 mg/dL [facility] ObsEvaENNIUM Blood specimen (specimen) 11/19/2014 12:41 PM EDT 11/19/2014 12:52 PM EDT Narrative Resulting Agency Comment Spec In Lab Ashish Roe MD CHEMISTRY ORDERABLES Performing Organization Address [facility] de Phone Number [facility] ObsEvaENNIUM * (ABNORMAL) Comprehensive metabolic panel (non-fasting) (11/19/2014 12:41 PM EDT) Glucose 85 65 - 199 mg/dL CERNER MILLENNIUM Comment:Diabetes: >=200 mg/d L plus symptoms Blood Urea Nitrogen 20(H) 8 - 18 mg/dL CERNER MILLENNIUM Creatinine 0.54(L) 0.70 - 1.20 mg/dL CERNER MILLENNIUM Comment: Please note that the pediatric reference intervals supplied above were not validated at [facility]. Results from pediatric patients should be interpreted [...] the following links into your internet browser. [email or web address] Blood specimen (specimen) 11/19/2014 12:41 PM EDT 11/19/2014 12:52 PM EDT Narrative Resulting Agency Comment Spec In Lab Ashish Roe MD CHEMISTRY ORDERABLES CERNER MILLENNIUM documented in this encounter Visit Diagnoses Diagnosis Osteomyelitis- Primary Unspecified osteomyelitis, site unspecified Osteomyelitis Unspecified osteomyelitis, site unspecified documented in this encounter Care Teams Mounter Brass Wind Instruments Relationship Specialty Start Date End Date Abby Chang APRN PCP - General 05/19/13 02/20/15 documented as of this encounter
--- OUTSIDE RECORDS SUMMARY | 2024-05-01 16:14 | XMS_ITS | Encounter Summary ---
[place] [address] Care Team Providers Care Parachute Folder Name Role Phone Abby Chang CRITICAL CARE PHYSICIAN Primary Care Provider + Encounter Details Date Type Department Care Team (Late st Contact Info) Description 09/19/2014 [place] [phone] Abby Chang, CRITICAL CARE PHYSICIAN [address] [place] [address] Social History Tobacco Use Types Packs/Day Years Used Date Smoking Tobacco: Unknown Sex and Gender Information Value Date Recorded Sex Assigned at Not on file Gender Identity Not on file Sexual Orientation Not on file documented as of this encounter Plan of Treatment Upcoming Encounters Date Type Department Care Team (Late st Contact Info) Description 05/01/2025 11:15 AM EST Office Visit Dermatology at [address] [place] [phone] Robert Herron MD [address], [place] A DERMATOLOGY [place], [place] [id number] Scheduled Procedures Name Priority Associated Diagnoses Date/Ti [...] on filedocumented in this encounter Care Teams Parachute Folder Relationship Specialty Start Date End Date Abby Chang APRN PCP - General 05/19/13 02/20/15 documented as of this encounter
--- OUTSIDE RECORDS SUMMARY | 2024-05-01 16:14 | XMS_ITS | Encounter Summary ---
Author Organization [facility] [place] [address] Care Team Providers Care Addiction Therapist Name Role Phone Abby Chang APRN Primary Care Provider + Reason for Visit * Reason Comments Skin Check Encounter Details Date Type Department Care Team (Late st Contact Info) Description 03/12/2014 8:30 AM EDT Office Visit Dermatology at [address] [place] [address] Robert Herron MD [address] [place] [address] RD, [place] [address] Solar lentigo (Primary Dx) Discharge Disposition: Home [...] from the original note were not included. [facility] Moles: After Your Visit Your Care Instructions [...] color and feel of the skin. ?? energy and sustainability manager front of a full-length mirror. Look carefully [...] more? Visit our health information library at [email or web address] You can also view health information on StepOut, your personal patient account. Log in or sign up today. Enter M489 in the search box to learn more about Moles: After Your Visit. ?? [phone] [email or web address]. Care instructions adapted under license by [facility]. This care instruction is for use with your licensed healthcare professional. If you have questions about a medical condition or this instruction, always ask your healthcare professional. [email or web address] disclaims any warranty or liability for your use of this information. Content Version: [id number]; Last Revised: January 17, 2013 documented in this encounter Progress Notes * Rboert Herron MD - 03/12/2014 8:55 AM EDT Problem: Skin checkup. Marysol follows up after last being seen in 2007. She is here for a repeat skin check. 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 Physical examination reveals a pleasant now 59-year-old [...] 11:15 AM EST Office Visit Dermatology at [place] [address] [place] [phone] Robert Herron MD [address] [facility], [place] [address] Scheduled Procedures Name Priority Associated Diagnoses Date/Ti me ANTERIOR COLPORRHAPHY CYSTOC SALLY W OR WO URETHEROCELE; INC CYSTO (WRVU 10.08) Female cystocele URETHRAL SUSPENSION, SLING\F ASCIA OR SYNTHETIC (WRVU 12.13) Female cystocele documented as of this encounter Visit Diagnoses Diagnosis Solar lentigo- Primary Other dyschromia documented in this encounter Care Teams Addiction Therapist Relationship Specialty Start Date End Date Abby Chang APRN PCP - General 05/19/13 02/20/15 documented as of this encounter
--- OUTSIDE RECORDS SUMMARY | 2024-05-01 16:14 | XMS_ITS | Encounter Summary ---
[place] [address] Care Team Providers Care Medical Record Transcriber Name Role Phone Abby Chang APRN Primary Care Provider + Reason for Visit * Reason Onset Date Comments Other 01/09/2015 MAP-Status of ap plication?, Resent to pt Encounter Details Date Type Department Care Team (Late st Contact Info) Description 01/09/2015 [place] [address] Shona Esteban Other (MAP-Status of application?, Resent [...] with the applicationonce everything is returned to me.[id number] documented in this encounter Plan of Treatment Upcoming Encounters Date Type Department Care Team (Late st Contact Info) Description 05/01/2025 11:15 AM EST Office Visit Dermatology at [place] [address] [place] [address] Robert Herron MD [address], [place] [address] Scheduled Procedures Name Priority Associated Diagnoses Date/Ti me ANTERIOR COLPORRHAPHY CYSTOC SALLY W OR WO URETHEROCELE; INC CYSTO (WRVU 10.08) Female cystocele URETHRAL SUSPENSION, SLING\F ASCIA OR SYNTHETIC (WRVU 12.13) Female cystocele documented as of this encounter Visit Diagnoses Not on filedocumented in this encounter Care Teams Medical Record Transcriber Relationship Specialty Start Date End Date Abby Chang, CAMERON PCP - General 05/19/13 02/20/15 documented as of this encounter
--- OUTSIDE RECORDS SUMMARY | 2024-05-01 16:14 | XMS_ITS | Encounter Summary ---
Author Organization [facility] [place] [address] Care Team Providers Care Feeder Operator Name Role Phone Abby Chang APRN Primary Care Provider + Reason for Referral * Consultation (Urgent) - Closed Specialty Diagnoses / Procedures Referred By Contac t Referred To Contact Rheumatology Diagnoses Joint inflammation Inflammation of bone Ashish Gray MD [facility] [place] [address] [facility] Rheumatology [address] [place] [address] Referral ID Status Reason Start Date Expiration Date V isits Requested Visits Authorized [id number] Closed Consult, Test & Treat 02/11/2015 02/11/2016 3 3 Reason for Visit * Reason Comments Follow-up Encounter Details Date Type Department Care Team (Late st Contact Info) Description 02/11/2015 1:00 PM EDT Follow-Up [place] [address] Ashish Gray MD [facility] [place] [address] Inflammation of bone (Primary Dx); Joint inflammation; 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 1. Extensive education and shared [...] 45 For prolonged services, actual times of lcvv-yp-rfrt time with patient documented in this encounter Plan of Treatment Upcoming Encounters Date Type Department Care Team (Late st Contact Info) Description 05/01/2025 11:15 AM EST Office Visit Dermatology at [place] [address] [place] [address] Robert Herron MD [address], [place] [address] Scheduled Procedures Name Priority Associated Diagnoses Date/Ti [...] PM EDT Joint inflammation Inflammation of bone USP current use of antibiotics DIFFERENTIAL, AUTOMATED STAT 02/11/2015 2:01 PM EDT Joint inflammation Inflammation of bone superintendent marine 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 terminal current use of antibiotics CBC (WITH DIFF) STAT 02/11/2015 2:01 PM EDT Joint inflammation Inflammation of bone superintendent marine 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 terminal current use of antibiotics COMPREHENSIVE METABOLIC PANEL Routine 02/11/2015 2:01 PM EDT Joint inflammation Inflammation of bone USP current use of antibiotics documented in this encounter Results * Differential, Automated (02/11/2015 2:01 PM EDT) Neutrophil % 53.5 % C[facility]ER [facility] Neutrophil Absolute 3.26 1.50 - 6.30 [...] metabolic panel (non-fasting) (02/11/2015 2:01 PM EDT) [facility] Glucose 92 65 - 199 mg/dL CERNER MILLENNIUM Comment:Diabetes: >=200 mg/d L plus symptoms Blood Urea Nitrogen 16 8 - 18 mg/dL CERNER MILLENNIUM Creatinine 0.56(L) 0.70 - 1.20 mg/dL CERNER MILLENNIUM Comment: Please note that the pediatric reference intervals supplied above were not validated at [facility]. Results from pediatric patients should be interpreted [...] the following links into your internet browser. [email or web address] Blood specimen (specimen) 02/11/2015 2:01 PM EDT 02/11/2015 2:17 PM EDT Narrative Resulting Agency Comment Spec In Lab Ashish Gray MD CHEMISTRY ORDERABLES [facility] documented in this encounter Visit Diagnoses Diagnosis Inflammation of bone- Primary Unspecified osteomyelitis, site unspecified Joint inflammation Arthropathy, unspecified, site unspecified USP current use of antibiotics Encounter for long-term (current) use of antibiotics Acute blood loss anemia Acute posthemorrhagic anemia documented in this encounter Care Teams Feeder Operator Relationship Specialty Start Date End Date Abby Chang APRN PCP - General 05/19/13 02/20/15 documented as of this encounter
--- OUTSIDE RECORDS SUMMARY | 2024-05-01 16:14 | XMS_ITS | Encounter Summary ---
Author Organization [facility] [place] [address] Care Team Providers Care Nursing Student Name Role Phone Israel Campuzano APRN Primary Care Provider + Encounter Details Date Type Department Care Team (Late st Contact Info) Description 12/04/2014 Notes [place] [address] Ashish Gray MD [facility] [place] [address] Social History Tobacco Use Types Packs/Day Years [...] 11:15 AM EST Office Visit Dermatology at [place] [address] [place] [address] Robert Herron MD [address], [place] [address] Scheduled Procedures Name Priority Associated Diagnoses Date/Ti me ANTERIOR COLPORRHAPHY CYSTOC SALLY W OR WO URETHEROCELE; INC CYSTO (WRVU 10.08) Female cystocele URETHRAL SUSPENSION, SLING\F ASCIA OR SYNTHETIC (WRVU 12.13) Female cystocele documented as of this encounter Visit Diagnoses Not on filedocumented in this encounter Care Teams Nursing Student Relationship Specialty Start Date End Date Israel Campuzano, INTAKE COUNSELOR PCP - General 05/19/13 02/20/15 documented as of this encounter
--- OUTSIDE RECORDS SUMMARY | 2024-05-01 16:14 | XMS_ITS | Encounter Summary ---
Author Organization [facility] Address [address] [place] [address] Care Team Providers Care Pressure Tester Operator Name Role Phone Frank Francois MD Primary Care Provider [phone] Reason for Referral * Radiology Services (Routine/Next Available) - Authorization Not Required Specialty Diagnoses / Procedures Referred By Contac t Referred To Contact Diagnoses Chronic pain of left knee Procedures XR KNEE LEFT 1-2 VIEWS Dorie Iraheta MD [address] [place] [address] Phone: tel: fax: [facility] Referral ID Status Reason Start Date Expiration Date Visits Requested Visits Authorized [id number] Authorization Not Required 4 1 1 * Radiology Services (Routine/Next Available) - Authorization Not Required Specialty Diagnoses / Procedures Referred By Contac t Referred To Contact Diagnoses Chronic left hip pain Procedures XR HIP LEFT 2-3 VIEWS OPTIONAL PELVIS Dorie Iraheta MD [address] [place] [address] Phone: tel: fax: [facility] Referral ID Status Reason Start Date Expiration Date Visits Requested Visits Authorized [id number] Authorization Not Required 4 1 1 * Radiology Services (Routine/Next Available) - Authorization Not Required Specialty Diagnoses / Procedures Referred By Contac t Referred To Contact Diagnoses Chronic midline low back pain without sciatica Procedures XR PELVIS 1-2 VIEWS Dorie Irahtea MD [address] [place] [address] Phone: tel: fax: [facility] Referral ID Status Reason Start Date Expiration Date Visits Requested Visits Authorized [id number] Authorization Not Required 4 1 1 * Radiology Services (Routine/Next Available) - Authorization Not Required Specialty Diagnoses / Procedures Referred By Contac t Referred To Contact Diagnoses Chronic midline low back pain without sciatica Procedures XR LUMBAR SPINE 2-3 VIEWS Dorie Iraheta MD [address] [place] [address] Phone: tel: fax: [facility] Referral ID Status Reason Start Date Expiration Date Visits Requested Visits Authorized [id number] Authorization Not Required 4 1 1 Reason for Visit * Radiology Services (Routine/Next Available) - Authorization Not Required Specialty Diagnoses / Procedures Referred By Contac t Referred To Contact Diagnoses Chronic midline low back pain without sciatica Procedures XR LUMBAR SPINE 2-3 VIEWS Dorie Iraheta MD [address] [place] [address] Phone: tel: fax: [facility] Referral ID Status Reason Start Date Expiration Date Visits Requested Visits Authorized [id number] Authorization Not Required 4 1 1 Encounter Details Date Type Department Care Team (Latest Contact Info) Description 04/13/2024 15:40 EDT - 04/13/2024 23:59 EDT [address] En[address] [place] [address] Chronic midline low back pain without sciatica; [...] There is a background of diffuse osteopenia. [id number] Narrative 04/21/2024 12:50 EST EXAM/TECHNIQUE: XR KNEE LEFT 1-2 VIEWS ??04/13/2024 3:44 PM HISTORY: chronic L knee pain, remote Hx trauma COMPARISON: None. Resulting Agency Comment [id number] Procedure Note Mark Mcneill MD - 04/21/2024 [...] There is a background of diffuse osteopenia. [id number] us Dorie Iraheta MD IM DIAGNOSTIC IMAGING [...] is however a background of diffuse osteopenia. [id number] Narrative 04/21/2024 12:48 EST EXAM/TECHNIQUE: XR HIP LEFT 2-3 VIEWS OPTIONAL PELVIS ??04/13/2024 3:44 PM HISTORY: chronic L hip pain, remote Hx trauma COMPARISON: None. Resulting Agency Comment [id number] Procedure Note Mark Mcneill MD - 04/21/2024 [...] is however a background of diffuse osteopenia. [id number] us Dorie Iraheta MD IMG DIAGNOSTIC IMAGING [...] REGARDING THIS REPORT PLEASE CALL [facility] AT [phone] Narrative 04/17/2024 8:36 EST PROCEDURE INFORMATION: Exam: [...] CONCERNS REGARDING THIS REPORT PLEASE CALL [facility] [phone] us Dorie Iraheta MD IMG DIAGNOSTIC IMAGING [...] 04/13/2024 documented in this encounter Care Teams Pressure Tester Operator Relationship Specialty Start Date End Date Frank Francois MD [address] [facility] [address] [place] [id number] PCP - General Emergency Medicine 11/20/21 documented as of this encounter
--- OUTSIDE RECORDS SUMMARY | 2024-05-01 16:14 | XMS_ITS | Encounter Summary ---
Author Organization [facility] [place] [address] Care Team Providers Care Packing Machine Tender Name Role Phone Israel Campuzano APRN Primary Care Provider + Encounter Details Date Type Department Care Team (Latest Contact Info) Description 12/12/2014 11:51 AM EDT - 12/12/2014 11:59 PM EDT Hospital Encounter [place] [address] CLINIC, Ashish Donahue MD [facility] [place] [address] Osteomyelitis Discharge Disposition: Home Social History Tobacco [...] Morse RN - 12/12/2014 2:37 PM EDT [facility] Vascular and Interventional Radiology Biopsy Discharge Instructions [...] be reported to you by your primary wound care center consultant or the clinician who ordered the biopsy. [...] is during regular office hours, please call [phone]. If it is after regular office hours, or on weekends or holidays, please call [phone] and ask to speak to the Hose Mender non food receiving clerk for Interventional Radiology. You have received medication [...] Sig Dispensed Refills Start Date End Date Niacin 1,000 mg Tablet Sustained Release 24 [...] Tablet Every 4-6 hours 0 11/09/2014 11/21/2018 fish oil-omega-3 fatty acids 1,000 mg Capsule Take 2 g by mouth daily. 04/27/2024 cholecalciferol, Vitamin D3, (cholecalciferol, Vitamin D3,) 50 mcg (2,000 unit) Capsule Take by mouth. 04/27 potassium chloride (MICRO-K) 10 mEq CR capsule [...] numbers on file. PCP ISRAEL CAMPUZANO APRN [phone] Date/Time of call: December 13, 2014/10:22 AM [...] of : 1955 AGE 59 y.o. Address: [address] [place] [phone] (home) Referring Provider: Ashish Gray REASON FOR [...] informed this patient that they require a service car driver to be present and in the building to drive them home after this procedure. In the absence of a service car driver, IR will not be able to perform this procedure and will need to reschedule. Pt verbalized understanding of these i nstructions during the pre-procedure education via phone. (initials) documented in this encounter Plan of Treatment Upcoming Encounters Date Type Department Care Team (Late st Contact Info) Description 05/01/2025 11:15 AM EST Office Visit Dermatology at [address] [place] [phone] Robert Herron MD [address], [place] [address] Scheduled Procedures Name Priority Associated Diagnoses Date/Ti [...] pre- procedural time-out was performed as per [facility] protocol. The patient was placed in the [...] a pre- procedural time-out wasperformed as per [facility] protocol. The patient was placed in the [...] AND STOO LS ORDERABLES Performing Organization Address City/[facility] Co de Phone Number SANDRO BERGENNIUM * Anaerobic Culture (12/12/2014 2:15 PM EDT) Anaerobic Culture No anaerobic organisms isolated SANDRO BERGENNIUM Specimen from bone (specimen) RIGHT HIP REGION STRUCTURE / Unknown 12/12/2014 2:15 PM EDT 12/12/2014 3:08 PM EDT Narrative Resulting Agency Comment Spec In Lab Ashish Gray MD MICROBIOLOGY - GENER AL ORDERABLES Performing Organization Address [facility] Co de Phone Number SANDRO BERGENNIUM * Bone Culture (12/12/2014 2:15 PM EDT) Bone Culture No growth SANDRO MILLENNIUM Gram Stain No WBC's seen. No microorganisms seen. SANDRO BERGENNIUM Specimen from bone (specimen) RIGHT HIP REGION STRUCTURE / Unknown 12/12/2014 2:15 PM EDT 12/12/2014 3:08 PM EDT Narrative Resulting Agency Comment Spec In Lab Ashish Gray MD MICROBIOLOGY - GENER AL ORDERABLES Performing Organization Address City/[facility]/ZIP Co de Phone Number SANDRO OLIVERIUM * Calcofluor White Stain (12/12/2014 2:15 PM EDT) Calcofluor Stain Calcofluor White Preparation: Negative SANDRO BERGENNIUM Specimen from bone (specimen) 12/12/2014 2:15 PM EDT 12/12/2014 3:08 PM EDT Comment:CT GUIDED RIGHT HIP BIOPSY Narrative Resulting Agency Comment Spec In Lab Ashish Gray MD MICROBIOLOGY - GENER AL ORDERABLES Performing Organization Address City/[facility]/ZIP Co de Phone Number SANDRO OMALLEY * Fungus culture (12/12/2014 2:15 PM EDT) Fungus Culture No Fungus isolated [facility] Specimen from bone (specimen) 12/12/2014 2:15 PM EDT 12/12/2014 3:08 PM EDT Comment:CT GUIDED RIGHT HIP BIOPSY Narrative Resulting Agency Comment Spec In Lab Ashish Gray MD MICROBIOLOGY - GENER AL ORDERABLES Performing Organization Address [facility]/ZIP Co de Phone Number SANDRO OMALLEY * AFB culture Bone (12/12/2014 2:15 PM EDT) Acid Fast Bacilli Culture No Acid Fast Bacilli isolated [facility] Acid Fast Stain No Acid Fast Bacilli seen [facility] Specimen from bone (specimen) 12/12/2014 2:15 PM EDT 12/12/2014 3:08 PM EDT Comment:CT GUIDED RIGHT HIP BIOPSY Narrative Resulting Agency Comment Spec In Lab Ashish Gray MD MICROBIOLOGY - GENER AL ORDERABLES Performing Organization Address [facility] Co de Phone Number SANDRO OMALLEY * Specimen to Pathology (NON-OR) (12/12/2014 1:34 PM EDT) AP Specimen 12/12/2014 1:34 PM EDT 12/12/2014 1:34 PM EDT Narrative CERNER MILLENNIUM - 12/12/2014 1:34 PM EDT Specimen requisition ordered. ??Separate Pathology report to follow Ashish Gray MD PATHOLOGY/CYTOLOGY O RDERABLES Performing Organization Address City/[facility]/ZIP Co de Phone Number SANDRO OMALLEY * Surgical Pathology Report (12/12/2014 1:33 PM EDT) Final Diagnosis ? [facility] ? Provider: ?? ASHISH GRAY ?Pt. Name: ?? MARY ELLEN HODGE ? Acc #: ?[id number] ?Pt. ? Col Date: ?? 12/12/2014 ?/Sex: ?1955,(59 years),Female ? Rec Date: ?? 12/12/2014 ?LOC: ?[id number] ? SURGICAL PATHOLOGY ? ---Pathologic Diagnosis--- ? Bone, right hip, CT guided biopsy: ?- Lamellar bone, adipose tissue and rare interspersed plasma cells, ? negative for osteomyelitis, see comment ? 12/13/14 ? KDL ? 12/18/14 Verified by: ? Dusty Ortiz MD ? Dermatopathologis t, Bone & Soft Tissue [...] ? Question osteomyelitis 12/18/2014 6:23 PM EDT [facility] BONE STRUCTURE / Unknown 12/12/2014 1:33 PM EDT 12/12/2014 1:33 PM EDT Ashish Gray MD PATHOLOGY/CYTOLOGY O CHERY SANDRO EBRGIOANA [facility] [place] [address] * Specimen to Pathology (NON-OR) (12/12/2014 1:33 PM EDT) AP Specimen 12/12/2014 1:33 PM EDT 12/12/2014 1:33 PM EDT Narrative CHRISTINECHARLEY BERGGONZÁLEZTESSA - 12/12/2014 1:33 PM EDT Specimen requisition ordered. ??Separate Pathology report to follow Ashish Gray MD PATHOLOGY/CYTOLOGY O CHERY Performing Organization Address [facility] Co de Phone Number SANDRO OMALLEY documented [...] mg documented in this encounter Care Teams Packing Machine Tender Relationship Specialty Start Date End Date Israel Campuzano APRN PCP - General 05/19/13 02/20/15 documented as of this encounter
--- OUTSIDE RECORDS SUMMARY | 2024-05-01 16:14 | XMS_ITS | Encounter Summary ---
Author Organization [facility] [place] [address] Care Team Providers Care Deputy Insurance Commissioner Name Role Phone Abby Chang APRN Primary Care Provider + Encounter Details Date Type Department Care Team (Late st Contact Info) Description 02/07/2015 Telephone [place] [address] Ashish Gray MD [facility] [place] [address] Social History Tobacco Use Types Packs/Day Years [...] If not then investigations into non-ID or fur-hulzuawwip-ghbwsty causes should begun. Speaking of, the patient [...] 11:15 AM EST Office Visit Dermatology at [place] [address] [place] [address] Robert Herron MD [address] [facility] [place] [address] Scheduled Procedures Name Priority Associated Diagnoses Date/Ti me ANTERIOR COLPORRHAPHY CYSTOC SALLY W OR WO URETHEROCELE; INC CYSTO (WRVU 10.08) Female cystocele URETHRAL SUSPENSION, SLING\F ASCIA OR SYNTHETIC (WRVU 12.13) Female cystocele documented as of this encounter Visit Diagnoses Not on filedocumented in this encounter Care Teams Deputy Insurance Commissioner Relationship Specialty Start Date End Date Abby Chang APRN PCP - General 05/19/13 02/20/15 documented as of this encounter
--- OUTSIDE RECORDS SUMMARY | 2024-05-01 16:14 | XMS_ITS | Encounter Summary ---
[place] [address] Care Team Providers Care Recreation Director Name Role Phone Abby Chang APRN Primary Care Provider + Reason for Visit * Reason Onset Date Comments Other 12/26/2014 MAP-approval for Zyvox assistance Encounter Details Date Type Department Care Team (Late st Contact Info) Description 12/26/2014 Telephone [place] [address] Ramona Calles Other (MAP-approval for Zyvox assistance) [...] that she would like to use the [facility] in [facility]. I called infectious disease to notify them of the approval and to ask that a prescription be sent to the [facility]. I called the pharmacy and faxed [...] 11:15 AM EST Office Visit Dermatology at [place] [address] [place] [address] Robert Herron MD [address] [facility] [place] [address] Scheduled Procedures Name Priority Associated Diagnoses Date/Ti me ANTERIOR COLPORRHAPHY CYSTOC SALLY W OR WO URETHEROCELE; INC CYSTO (WRVU 10.08) Female cystocele URETHRAL SUSPENSION, SLING\F ASCIA OR SYNTHETIC (WRVU 12.13) Female cystocele documented as of this encounter Visit Diagnoses Not on filedocumented in this encounter Care Teams Recreation Director Relationship Specialty Start Date End Date Abby Chang APRN PCP - General 05/19/13 02/20/15 documented as of this encounter
--- OUTSIDE RECORDS SUMMARY | 2024-05-01 16:14 | XMS_ITS | Encounter Summary ---
Author Organization [facility] [place] [address] Care Team Providers Care Animal Rescuer Name Role Phone Abby Chang APRN Primary Care Provider + Encounter Details Date Type Department Care Team (Late st Contact Info) Description 2015 Telephone [place] [phone] Ashish Gray MD [facility] [place] [address] Social History Tobacco Use Types Packs/Day Years [...] 11:15 AM EST Office Visit Dermatology at [place] [address] [facility] [place] [address] Robert Herron MD [address] [place] [address] Scheduled Procedures Name Priority Associated Diagnoses Date/Ti me ANTERIOR COLPORRHAPHY CYSTOC SALLY W OR WO URETHEROCELE; INC CYSTO (WRVU 10.08) Female cystocele URETHRAL SUSPENSION, SLING\F ASCIA OR SYNTHETIC (WRVU 12.13) Female cystocele documented as of this encounter Visit Diagnoses Not on filedocumented in this encounter Care Teams Animal Rescuer Relationship Specialty Start Date End Date Abby Chang, WAREHOUSE DISTRIBUTION SPECIALIST PCP - General 05/19/13 02/20/15 documented as of this encounter
--- OUTSIDE RECORDS SUMMARY | 2024-05-01 16:14 | XMS_ITS | Encounter Summary ---
Author Organization [facility] Address [address] [place] [address] Care Team Providers Care Buyer Internship Name Role Phone Edd Caballero DO Primary Care Provider [phone] Reason for Referral * Radiology Services (Routine/Next Available) - Closed Specialty Diagnoses / Procedures Referred By Contac t Referred To Contact Diagnoses Neck pain Procedures XR CERVICAL SPINE 2-3 VIEWS Nelia Madera MD Phone: tel: fax: Referral ID Status Reason Start Date Expiration Date Visits Re quested Visits Authorized [id number] Closed 03/07/2021 1 1 Encounter Details Date Type Department Care Team (Late st Contact Info) Description 03/07/2021 Orders Only [facility] Spine Program - [address] [address] Nelia Madera MD [address] [place] [address] [place] [address] Neck pain (Primary Dx) Social [...] Cervicalgia documented in this encounter Care Teams Buyer Internship Relationship Specialty Start Date End Date Edd Caballero DO [address] [place] [address] PCP - General Family Medicine - Primary Care 07/08/20 11/19/21 documented as of this encounter
--- OUTSIDE RECORDS SUMMARY | 2024-05-01 16:14 | XMS_ITS | Encounter Summary ---
[place] [address] Care Team Providers Care [place] Boatman Name Role Phone Abby Chang APRN Primary Care Provider + Reason for Visit * Reason Onset Date Comments Other 01/17/2015 MAP-wilian to co fo r continued assist Encounter Details Date Type Department Care Team (Late st Contact Info) Description 01/17/2015 [place] [address] Ramona Calles Other (MAP-wilian to co for [...] and Ms. 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 She is eligible for the year now. documented in this encounter Plan of Treatment Upcoming Encounters Date Type Department Care Team (Late st Contact Info) Description 05/01/2025 11:15 AM EST Office Visit Dermatology at [place] [address] [facility] [address] Robert Herron MD [address] [place] José [place] [address] Scheduled Procedures Name Priority Associated Diagnoses Date/Ti me ANTERIOR COLPORRHAPHY CYSTOC SALLY W OR WO URETHEROCELE; INC CYSTO (WRVU 10.08) Female cystocele URETHRAL SUSPENSION, SLING\F ASCIA OR SYNTHETIC (WRVU 12.13) Female cystocele documented as of this encounter Visit Diagnoses Not on filedocumented in this encounter Care Teams [place] Boatman Relationship Specialty Start Date End Date Abby Chang, CAMERON PCP - General 05/19/13 02/20/15 documented as of this encounter
--- OUTSIDE RECORDS SUMMARY | 2024-05-01 16:14 | XMS_ITS | Encounter Summary ---
Author Organization [facility] Address [address] [place] [address] Care Team Providers Care Mining Plant Operator Name Role Phone Edd Caballero DO Primary Care Provider [phone] Reason for Referral * Radiology Services (Routine/Next Available) - Authorization Not Required Specialty Diagnoses / Procedures Referred By Contac t Referred To Contact Diagnoses Neck pain Procedures XR CERVICAL SPINE 2-3 VIEWS Nelia Madera MD Phone: tel: fax: [facility] Referral ID Status Reason Start Date Expiration Date Visits Requested Visits Authorized [id number] Authorization Not Required 10/17/2021 1 1 Reason for Visit * Radiology Services (Routine/Next Available) - Authorization Not Required Specialty Diagnoses / Procedures Referred By Contac t Referred To Contact Diagnoses Neck pain Procedures XR CERVICAL SPINE 2-3 VIEWS Nelia Madera MD Phone: tel: fax: [facility] Referral ID Status Reason Start Date Expiration Date Visits Requested Visits Authorized [id number] Authorization Not Required 10/17/2021 1 1 Encounter Details Date Type Department Care Team (Latest Contact Info) Description 10/20/2021 13:07 EDT - 10/20/2021 23:59 EDT [address] Encounter [address] [place], [place] [phone] Neck pain Discharge Disposition: Home or Self [...] No evidence of recentfractures. Nelia Madera MD [facility] DIAGNOSTIC IMAGING ORDERABLE S Final Result documented in this encounter Visit Diagnoses Diagnosis Neck pain Cervicalgia documented in this encounter Care Teams Mining Plant Operator Relationship Specialty Start Date End Date Edd Caballero DO [address] [place] [address] PCP - General Family Medicine - Primary Care 07/08/20 11/19/21 documented as of this encounter
--- OUTSIDE RECORDS SUMMARY | 2024-05-01 16:15 | XMS_ITS | Encounter Summary ---
Author Organization [facility] Address [address] [place] [address] Care Team Providers Care Sweet Pickle Maker Name Role Phone Edd Caballero DO Primary Care Provider Encounter Details Date Type Department Care Team (Latest Contact Info) Description 09/12/2020 10:50 EDT - 09/12/2020 23:59 EDT Hospital Encounter [facility] Pre-Surgical Testing [address] [place], [place] [address] Discharge Disposition: Home or Self Care Social [...] tablet TK [address] [facility] 04/16/2020 multivitamin (THERAGRAN) per tablet [...] instruct them to call us back at [phone] to report symptoms (If patient is in [...] mouth every 6 hours as needed. Yes xnbduud-iluveyyonqkrl-dolfbwbt (EXCEDRIN EXTRA STRENGTH) 250-250-65 mg per tablet [...] 09/20/2020 added in this encounter Care Teams Sweet Pickle Maker Relationship Specialty Start Date End Date Edd Caballero DO [address] [place] [address] PCP - General Family Medicine - Primary Care 07/08/20 11/19/21 documented as of this encounter
--- OUTSIDE RECORDS SUMMARY | 2024-05-01 16:15 | XMS_ITS | Encounter Summary ---
Author Organization [facility] Address [address] [place] [address] Care Team Providers Care Aluminum Siding Mechanic Name Role Phone Ada Edd Primary Care Provider + [phone] Reason for Referral * Radiology Services (Routine) - Closed Specialty Diagnoses / Procedures Referred By Contac t Referred To Contact Diagnoses Neck pain Procedures XR CERVICAL SPINE 2-3 VIEWS Nelia Madera MD Phone: tel: fax: Referral ID Status Reason Start Date Expiration Date Visits Re quested Visits Authorized [id number] Closed 11/04/2020 1 1 Reason for Visit * Radiology Services (Routine) - Closed Specialty Diagnoses / Procedures Referred By Contac t Referred To Contact Diagnoses Neck pain Procedures XR CERVICAL SPINE 2-3 VIEWS Nelia Madera MD Phone: tel: fax: Referral ID Status Reason Start Date Expiration Date Visits Re quested Visits Authorized [id number] Closed 11/04/2020 1 1 Encounter Details Date Type Department Care Team (Latest Contact Info) Description 11/06/2020 14:59 EDT - 11/06/2020 23:59 EDT Hospital Encounter [address] [place], [place] [id number] Neck pain Discharge Disposition: Home or Self [...] tablet TK 1 T PO BID HS [facility] 04/16/2020 multivitamin (THERAGRAN) per tablet Take 1 [...] Cervicalgia documented in this encounter Care Teams Aluminum Siding Mechanic Relationship Specialty Start Date End Date Edd Caballero DO [address] [place] [address] PCP - General Family Medicine - Primary Care 07/08/20 11/19/21 documented as of this encounter
--- OUTSIDE RECORDS SUMMARY | 2024-05-01 16:15 | XMS_ITS | Encounter Summary ---
Author Organization [facility] Address [address] [place] [address] Care Team Providers Care Framing Consultant Name Role Phone Edd Caballero DO Primary Care Provider [phone] Reason for Visit * Reason Onset Date Comments Post-OP Follow Up 09/26/2020 Encounter Details Date Type Department Care Team ([facility] Contact Info) Description 09/26/2020 Telephone [facility] [place] [address] [place] [address] Roberta Bran, JULIA Post-OP Follow Up Social [...] going to be discharged to home from [place] today. Her daughter Sangeetha called with several [...] on filedocumented in this encounter Care Teams Framing Consultant Relationship Specialty Start Date End Date Edd Caballero DO [address] [place] [address] PCP - General Family Medicine - Primary Care 07/08/20 11/19/21 documented as of this encounter
--- OUTSIDE RECORDS SUMMARY | 2024-05-01 16:15 | XMS_ITS | Encounter Summary ---
Author Organization [facility] Address [address] [place] [address] Care Team Providers Care Harvest Crew Supervisor Name Role Phone Edd Caballero DO Primary Care Provider [phone] Encounter Details Date Type Department Care Team ([facility] st Contact Info) Description 09/21/2020 Results Only [facility] [phone] Mayra Bermudez, PLODDING MACHINE OPERATOR [address] [place] [address] Social History Tobacco Use Types Packs/Day Years [...] (09/21/2020 15:40 EDT) Performing Lab [facility] [facility] () 09/23/2020 13:19 EDT [facility] Comment: Please indicate the Triage Tier2 Test performed or referred by The [address] [address] COVID-19 rt-PCR Result Not Detected Negative 09/23/2020 13:19 EDT [facility] Comment: This test has not been [...] was performed using the mirza SARS-CoV-2 assay ([employer] on the Mirza 6800 System 09/21/2020 15:4 0 EDT 09/21/2020 16:45 EDT us Mayra Bermudez PLODDING MACHINE OPERATOR MICROBIOLOGY - GENERAL ORDERABLE S Final Result Performing Organization Address City/State/[facility] Co de Phone Number [facility] [address] [place] [address] documented in this encounter Visit Diagnoses Not on filedocumented in this encounter Care Teams Harvest Crew Supervisor Relationship Specialty Start Date End Date Edd Caballero DO [address] [place] [address] PCP - General Family Medicine - Primary Care 07/08/20 11/19/21 documented as of this encounter
--- OUTSIDE RECORDS SUMMARY | 2024-05-01 16:15 | XMS_ITS | Encounter Summary ---
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 bodies with height loss of the [id number]. There is also degenerative height loss and [...] with the findings. us Linda Das PA-C [facility] MRI ORDERABLES Final Resul t * (ABNORMAL) COMPLETE BLOOD COUNT (09/17/2020 6:11 EDT) WBC 8.48 4.00 - 12.40 K/cmm 09/17/2020 6:41 T [facility] RBC 3.60(L) 3.86 - 5.04 M/cmm 09/17/2020 6:41 [facility] Hemoglobin 11.8 11.6 - 15.2 gm/dL 09/17/2020 6:41 [facility] HCT 33.7(L) 34.9 - 44.4 % 09/17/2020 6:41 [facility] MCV 94 81 - 98 fl 09/17/2020 6:41 T [facility] MCH 32.8 26.7 - 33.3 pg 09/17/2020 6:41 [facility] MCHC 35.0 32.1 - 35.9 gm/dL 09/17/2020 6:41 [facility] RDW-CV 11.9 <14.7 % 09/17/2020 6:41 [facility] RDW-SD 40.9 <50.4 fl 09/17/2020 6:41 [facility] PLT 191 141 - 377 K/cmm 09/17/2020 6:41 [facility] MPV 10.4 9.5 - 12.7 fl 09/17/2020 6:41 [facility] Blood VENOUS BLOOD / Unknown Venipuncture / Unknown 09/17/2020 6:11 EDT 09/17/2020 6:31 EDT us Linda Das PA-C HEMATOLOGY & PF4 ORDERABLES Fi nal Result [facility] [address] [place] [id number] * (ABNORMAL) ELECTROLYTES (09/17/2020 6:11 EDT) Sodium 134(L) 136 - 145 mEq/L 09/17/2020 7:13 [facility] Potassium 4.5 3.5 - 5.0 mEq/L 09/17/2020 7:13 [facility] Comment:Moderate hemolysis i dentified, interpret with caution as hemolysis will elevate potassium result. Chloride 100 96 - 110 mEq/L 09/17/2020 7:13 [facility] CO2 Total 26 22 - 32 mEq/L 09/17/2020 7:13 [facility] Blood VENOUS BLOOD / Unknown Venipuncture / Unknown 09/17/2020 6:11 EDT 09/17/2020 6:41 EDT Linda Das PA-C CHEMISTRY & BLOOD GAS ORDERABL ES Final Result [facility] [address] [place] [address] * (ABNORMAL) CREATININE (09/17/2020 6:11 EDT) Pathologist [facility] Creatinine 0.47(L) 0.52 - 1.04 mg/dL 09/17/2020 7:10 EDT [facility] eGFR 103 >60 mL/min/1.7 3m2 09/17/2020 7:10 EDT [facility] Comment:eGFR calculated aravind mackenzie CKD-EPI equation for non- Americans. Multiply eGFR by 1.16 for patients. Blood VENOUS BLOOD / Unknown Venipuncture / Unknown 09/17/2020 6:11 EDT 09/17/2020 6:41 EDT Linda Das PA-C CHEMISTRY & BLOOD GAS ORDERABL ES Final Result Performing Organization Address [facility]/ZIP Co de Phone Number [facility] [address] [place] [address] * BUN (09/17/2020 6:11 EDT) [facility] BUN 13 10 - 26 mg/dL 09/17/2020 7:13 EDT [facility] Comment:Moderate hemolysis i dentified, interpret with caution as results may be affected due to hemolysis. Blood VENOUS BLOOD / Unknown Venipuncture / Unknown 09/17/2020 6:11 EDT 09/17/2020 6:41 EDT Linda Das PA-C CHEMISTRY & BLOOD GAS ORDERABL ES Final Result [facility] [address] [place] [address] * SCREENING GLUCOSE (09/17/2020 6:11 EDT) Pathologist [facility] Glucose, Screening 99 70 - 100 mg/dL 09/17/2020 7:10 EDT [facility] Blood VENOUS BLOOD / Unknown Venipuncture / Unknown 09/17/2020 6:11 EDT 09/17/2020 6:41 EDT us Linda Das PA-Fanny CHEMISTRY & BLOOD GAS ORDERABL ES Final Result [facility] [address] [place] [address] * FL C-ARM 0-1 HOUR (09/16/2020 10:39 [...] PSF R/O check hardware, alignment ??Please call [phone] *done in OR*. Comparison: Cervical spine radiographs [...] C2-T1 PSF R/O check hardware, alignment Please [id number] *done in OR*. Comparison: Cervical spine radiographs [...] 6:48 EDT) ABO O 09/16/2020 7:33 EDT [facility] Rh Factor Positive 09/16/2020 7:33 EDT [facility] Antibody Screen Negative 09/16/2020 7:33 EDT [facility] Specimen Expires: 09/19/2020 @ 23:59 09/16/2020 7:33 EDT [facility] Blood VENOUS BLOOD / Unknown Venipuncture / Unknown 09/16/2020 6:48 EDT 09/16/2020 6:53 EDT Nelia Madera MD BLOOD BANK TESTS Edited Result - Final Performing Organization Address City/State/[facility] de Phone Number [facility] [address] [place] [address] * ECG REPORT - SCANNED (08/29/2020 14:39 EDT) 08/29/2020 14:3 9 EDT us Scan 2 Event Specialist PROCEDURE/MINOR SURGICAL OR DERABLES Final Result documented [...] Cortés RN) 0842 (Given - Provider: Briseyda Neivlle RN) Multivitamins with Minerals tablet 1 Tab [...] Ximena Cortés RN)2356 (Given - Provider: Adelaide Angeles [...] 5-15 mg 1 09/16/2020 polyethylene glycol 3350 (AR RALAX) packet 17 g 1 09/16/2020 potassium [...] 09/16/2020 documented in this encounter Care Teams Galvanizer Zinc Relationship Specialty Start Date End Date Edd Caballero DO [address] [place] [address] PCP - General Family Medicine - Primary Care 07/08/20 11/19/21 documented as of this encounter
--- OUTSIDE RECORDS SUMMARY | 2024-05-01 16:15 | XMS_ITS | Encounter Summary ---
Author Organization [facility] Address [address] [place] [address] Care Team Providers Care Gate Supervisor Name Role Phone Edd Caballero DO Primary Care Provider [phone] Reason for Visit * Reason Comments Pain Encounter Details Date Type Department Care Team ([facility] st Contact Info) Description 12/09/2020 14:45 EDT Office Visit [facility] Spine Program - [address] [address] Nelia Madera MD [address] [facility] [place] [address] Cervical myelopathy ([facility]) (Primary Dx) Social History Tobacco Use Types [...] of Assessment Author No 09/16/2020 15:00 Audrey Frenandez RN documented as of this encounter Mental [...] this encounter Visit Diagnoses Diagnosis Cervical myelopathy ([facility])- Primary Cervical spondylosis with myelopathy documented in this encounter Historical Medications * This list may reflect changes made after this encounter. morphine (JACQUE) 30 mg ER capsule, pellets Take 15 mg by mouth every 12 hours. added in this encounter Care Teams Gate Supervisor Relationship Specialty Start Date End Date Edd Caballero DO [address] [place] [address] PCP - General Family Medicine - Primary Care 07/08/20 11/19/21 documented as of this encounter
--- OUTSIDE RECORDS SUMMARY | 2024-05-01 16:15 | XMS_ITS | Encounter Summary ---
Author Organization [facility] Address [address] [place] [address] Care Team Providers Care Corsetier Name Role Phone Edd Caballero DO Primary Care Provider [phone] Reason for Visit * Reason Onset Date Comments Update 09/23/2020 Encounter Details Date Type Department Care Team ([facility] st Contact Info) Description 09/23/2020 Telephone [facility] Spine Program - [address] [place] [address] Roberta Bran, RN Update Social History Tobacco [...] called again this morning. States that the ERGONOMICS ENGINEER at [facility] had a discussion with patient last night about changing her pain medication protocol and beginning to wean off pain medication. Sangeetha is wondering if it may be better for her mom to be discharged from [facility] and to have Home Health come instead. * Telephone Encounter - Roberta Bran RN - 09/23/2020 1343 EDT Marysol is s/p C2-T1 laminectomy and fusion on 09/16/[address] Madera. Her daughter Sangeetha called today with some concerns. [facility]a wanted Dr. Madera to be aware that Marysol was placed in the Alzheimer's wing due to the fact that she needs to quarantine for 2 weeks. She has not been getting her pain medication in atimely manner and Sangeetha is concerned about the type of care her mother is receiving. She has spoken with the wrapper caser/social media designer at [facility] and has a care plan meeting with them on Wednesday. Forwarding to Dr. Madera as fyi documented in this encounter Plan of Treatment Not on file documented as of this encounter Visit Diagnoses Not on filedocumented in this encounter Care Teams Corsetier Relationship Specialty Start Date End Date Edd Caballero DO [address] [place] [address] PCP - General Family Medicine - Primary Care 07/08/20 11/19/21 documented as of this encounter
--- OUTSIDE RECORDS SUMMARY | 2024-05-01 16:15 | XMS_ITS | Encounter Summary ---
Author Organization [facility] Address [address] [place] [address] Care Team Providers Care Hand Iii Cutter Name Role Phone Ada Edd Primary Care Provider [phone] Reason for Referral * Radiology Services (Routine) - Closed Specialty Diagnoses / Procedures Referred By Contac t Referred To Contact Diagnoses Neck pain Procedures XR CERVICAL SPINE 2-3 VIEWS Nelia Madera MD Phone: tel: fax: Referral ID Status Reason Start Date Expiration Date Visits Re quested Visits Authorized [id number] Closed 12/06/2020 1 1 Reason for Visit * Radiology Services (Routine) - Closed Specialty Diagnoses / Procedures Referred By Contac t Referred To Contact Diagnoses Neck pain Procedures XR CERVICAL SPINE 2-3 VIEWS Nelia Madera MD Phone: tel: fax: Referral ID Status Reason Start Date Expiration Date Visits Re quested Visits Authorized [id number] Closed 12/06/2020 1 1 Encounter Details Date Type Department Care Team (Latest Contact Info) Description 12/09/2020 14:45 EDT - 12/09/2020 23:[address] Encounter [address] [facility] [address] [place], [place] [id number] Neck pain Discharge Disposition: Home or Self [...] tablet TK 1 T PO BID HS [facility] 04/16/2020 morphine (JACQUE) 30 mg ER [...] Cervicalgia documented in this encounter Care Teams Hand Iii Cutter Relationship Specialty Start Date End Date Edd Caballero DO [address] [place] [address] PCP - General Family Medicine - Primary Care 07/08/20 11/19/21 documented as of this encounter
--- OUTSIDE RECORDS SUMMARY | 2024-05-01 16:15 | XMS_ITS | Encounter Summary ---
Author Organization [facility] Address [address] [place] [address] Care Team Providers Care Photo Printer Name Role Phone Edd Caballero DO Primary Care Provider [phone] Reason for Visit * Reason Onset Date Comments Pre-op Exam 09/13/2020 Encounter Details Date Type Department Care Team ([facility] st Contact Info) Description 09/13/2020 Telephone [facility] Spine [place] [address] [place] [address] Roberta Bran, JULIA Pre-op Exam Social History [...] on 09/16/20 @ 3rd floor registration at [facility], nothing to eat or drink after [...] on filedocumented in this encounter Care Teams Photo Printer Relationship Specialty Start Date End Date Edd Caballero DO [address] [place] [address] PCP - General Family Medicine - Primary Care 07/08/20 11/19/21 documented as of this encounter
--- OUTSIDE RECORDS SUMMARY | 2024-05-01 16:15 | XMS_ITS | Encounter Summary ---
Author Organization [facility] Address [address] [place] [address] Care Team Providers Care Bullet Assembly Press Setter Operator Name Role Phone Edd Caballero DO Primary Care Provider + [phone] Reason for Visit * Reason Onset Date Comments Post-OP Follow Up 10/16/2020 Encounter Details Date Type Department Care Team ([facility] st Contact Info) Description 10/16/2020 Telephone [facility] Spine Program [place] [address] [address] Roberta Barn, JULIA Post-OP Follow Up Social History Tobacco [...] and protocols faxed to Charles Pelayo PT [phone]. Sangeetha states that her mom is slowly [...] on filedocumented in this encounter Care Teams Bullet Assembly Press Setter Operator Relationship Specialty Start Date End Date Edd Caballero DO [address] [place] [address] PCP - General Family Medicine - Primary Care 07/08/20 11/19/21 documented as of this encounter
--- OUTSIDE RECORDS SUMMARY | 2024-05-01 16:15 | XMS_ITS | Encounter Summary ---
Author Organization [facility] Address [address] [place] [address] Care Team Providers Care Cancer Registry Manager Name Role Phone Edd Caballero DO Primary Care Provider Encounter Details Date Type Department Care Team (Late st Contact Info) Description 08/23/2020 Orders Only [facility] Neurosurgery - [facility] [address] [place], [place] [id number] Andie Espino PA-C [address] [facility], [address] [place] [address] Cervical stenosis of spinal canal [...] idiopathic documented in this encounter Care Teams Cancer Registry Manager Relationship Specialty Start Date End Date Edd Caballero DO [address] [place] [address] PCP - General Family Medicine - Primary Care 07/08/20 11/19/21 documented as of this encounter
--- OUTSIDE RECORDS SUMMARY | 2024-05-01 16:15 | XMS_ITS | Encounter Summary ---
Author Organization [facility] Address [address] [place] [address] Care Team Providers Care Hospital Internship Name Role Phone Edd Caballero DO Primary Care Provider [phone] Reason for Referral * Radiology Services (Routine) - Closed Specialty Diagnoses / Procedures Referred By Contac t Referred To Contact Diagnoses Neck pain Procedures XR CERVICAL SPINE 2-3 VIEWS Nelia Madera MD Phone: tel: fax: Referral ID Status Reason Start Date Expiration Date Visits Re quested Visits Authorized [id number] Closed 12/06/2020 1 1 Encounter Details Date Type Department Care Team ([facility] st Contact Info) Description 12/06/2020 Orders Only [facility] Spine Program - [address] [place] [address] Nelia Madera MD [address] [place] [address] [place] [address] Neck pain (Primary Dx) Social [...] Cervicalgia documented in this encounter Care Teams Hospital Internship Relationship Specialty Start Date End Date Edd Caballero DO [address] [place] [address] PCP - General Family Medicine - Primary Care 07/08/20 11/19/21 documented as of this encounter
--- OUTSIDE RECORDS SUMMARY | 2024-05-01 16:15 | XMS_ITS | Encounter Summary ---
Author Organization [facility] Address [address] [place] [address] Care Team Providers Care Photography Colorist Name Role Phone Edd Caballero DO Primary Care Provider [phone] Reason for Visit * Reason Onset Date Comments Pre-op Exam 09/09/2020 Encounter Details Date Type Department Care Team ([facility] st Contact Info) Description 09/09/2020 Prep for Procedure [facility] Spine Program [place] [address] [address] Roberta Bran, JULIA Social History Tobacco Use [...] on filedocumented in this encounter Care Teams Photography Colorist Relationship Specialty Start Date End Date Edd Caballero DO [address] [place] [id number] PCP - General Family Medicine - Primary Care 07/08/20 11/19/21 documented as of this encounter
--- OUTSIDE RECORDS SUMMARY | 2024-05-01 16:15 | XMS_ITS | Encounter Summary ---
Author Organization [facility] Address [address] [place] [address] Care Team Providers Care Security Alarm Technician Name Role Phone Edd Caballero Primary Care Provider [phone] Reason for Visit * Auth/Cert Specialty Diagnoses / Procedures [facility] Referred To Contact Diagnoses Myel[facility] ([facility] Procedures CT LAMINECTOMY,>2 SGMT,CERVICAL CT CERV FUSN,BELOW C2,POST TECH CT SPINE FUSN,POST TECH,EA ADDNL SGMT CT POSTERIOR SEGMENTAL INSTRUMENTATION 3-[address] ALLOGRAFT FOR SPINE SURGERY ONLY MORSELIZED CT ALLOGRAFT FOR SPINE SURGERY ONLY STRUCTURAL C2-T1 laminectomy and fusion with allograft . . . . . Referral ID Status Reason Start Date Expiration Date Visits Re quested Visits Authorized [id number] 1 1 Encounter Details Date Type Department Care Team (Late st Contact Info) Description 09/16/2020 7:31 EDT Anesthesia Event [facility] [place] [address] [place], [place] [address] Genie [place] MD [address] [facility], Level [address] [place] [phone] Anesthesia Record Procedure Summary Procedure Name Responsible [...] by MD; 1; Left, Posterior; Neck; 10 [place]; 09/18/20; 0633 (removed by MD at bedside) [...] Results * Airway (09/16/2020 8:11 EDT) [facility] 09/16/2020 8:11 EDT [...] mg documented in this encounter Care Teams Security Alarm Technician Relationship Specialty Start Date End Date Edd Caballero DO [address] [place] [address] PCP - General Family Medicine - Primary Care 07/08/20 11/19/21 documented as of this encounter
--- OUTSIDE RECORDS SUMMARY | 2024-05-01 16:15 | XMS_ITS | Encounter Summary ---
Author Organization [facility] Address [address] [place] [address] Care Team Providers Care Driller Portable Name Role Phone Ada, Edd DON Primary Care Provider + [phone] Frank Francois MD Primary Care Provider [phone] Encounter Details Date Type Department Care Team (Late st Contact Info) Description 09/21/2020 Lab Requisition [facility] Pathology & Laboratory Medicine - [facility] [address] [place] [address] Outr Resulting Lab, Provider Social History Tobacco [...] AL ORDERABLES Final Result Performing Organization Address City/[facility]/ZIP Co de Phone Number [facility] [address] [place] [address] * COVID-19 TESTING (09/21/2020 15:40 EDT) COVID-19 rt-PCR Result Negative Negative 09/23/2020 11:57 EDT [facility] Comment: This test has not [...] performed using the mirza SARS-CoV-2 assay ([employer] on the Mirza 6800 System Performing Lab Mirza [address] [facility] Lab 09/23/2020 11:57 EDT [facility] Swab 09/21/2020 15:4 0 EDT 09/22/2020 16:53 EDT us Provider Outr Resulting Lab MICROBIOLOGY - GENER AL ORDERABLES Final Result Performing Organization Address [facility] Co de Phone Number [facility] [address] [place] [address] documented in this encounter Visit Diagnoses Not on filedocumented in this encounter Care Teams Driller Portable Relationship Specialty Start Date End Date Edd Caballero DO [address] [place] [id number] PCP - General Family Medicine - Primary Care 07/08/20 11/19/21 Frank Francois MD [address] [address] PCP - General Emergency Medicine 11/20/21 documented as of this encounter
--- OUTSIDE RECORDS SUMMARY | 2024-05-01 16:15 | XMS_ITS | Encounter Summary ---
Author Organization [facility] Address [address] [place] [address] Care Team Providers Care Oyster Harvester Name Role Phone Edd Caballero DO Primary [...] on filedocumented in this encounter Care Teams Oyster Harvester Relationship Specialty Start Date End Date Edd Caballero DO [address] [place] [address] PCP - General Family Medicine - Primary Care 07/08/20 11/19/21 documented as of this encounter
--- OUTSIDE RECORDS SUMMARY | 2024-05-01 16:15 | XMS_ITS | Encounter Summary ---
Author Organization [facility] Address [address] [place] [address] Care Team Providers Care Night Shift Name Role Phone Edd Caballero DO Primary Care Provider [phone] Reason for Visit * Reason Onset Date Comments Follow-up 09/09/2020 Encounter Details Date Type Department Care Team ([facility] st Contact Info) Description 09/09/2020 Orders Only [facility] Spine Program - [place] [address] Roberta Bran, RN Cervical myelopathy ([facility]) (Primary Dx) Social History Tobacco Use Types [...] this encounter Visit Diagnoses Diagnosis Cervical myelopathy ([facility])- Primary Cervical spondylosis with myelopathy documented in this encounter Care Teams Night Shift Relationship Specialty Start Date End Date Edd Caballero DO [address] [place] [address] PCP - General Family Medicine - Primary Care 07/08/20 11/19/21 documented as of this encounter
--- OUTSIDE RECORDS SUMMARY | 2024-05-01 16:15 | XMS_ITS | Encounter Summary ---
Author Organization [facility] Address [address] [place] [address] Care Team Providers Care Content Administrator Name Role Phone Ada, Edd DON Primary Care Provider + [phone] Frank Francois MD Primary Care Provider [phone] Encounter Details Date Type Department Care Team (Late st Contact Info) Description 09/13/2020 Lab Requisition [facility] Pathology & Laboratory Medicine - [facility] [address] [place] [address] Outr Resulting Lab, Provider Social History Tobacco [...] AL ORDERABLES Final Result Performing Organization Address City/State/[facility] [place] Co de Phone Number [facility] [address] [place] [phone] * COVID-19 TESTING (09/13/2020 10:04 EDT) COVID-19 rt-PCR Result Negative Negative 09/14/2020 0:10 EDT [facility] Comment: This [...] and epidemiological information. Performed on the Hologic [place] Fusion instrument Performing Lab [facility] Lab 09/14/2020 0:10 EDT [facility] Swab 09/13/2020 10:0 4 EDT 09/13/2020 15:34 EDT us Provider Outr Resulting Lab MICROBIOLOGY - GENER AL ORDERABLES Final Result [facility] [address] [place] [address] documented in this encounter Visit Diagnoses Not on filedocumented in this encounter Care Teams Content Administrator Relationship Specialty Start Date End Date Edd Caballero DO [address] [place] [address] PCP - General Family Medicine - Primary Care 07/08/20 11/19/21 Frank Francois MD [address] [facility] [address] [place] [address] PCP - General Emergency Medicine 11/20/21 documented as of this encounter
--- OUTSIDE RECORDS SUMMARY | 2024-05-01 16:15 | XMS_ITS | Encounter Summary ---
Author Organization [facility] Address [address] [place] [address] Care Team Providers Care Escrow Secretary Name Role Phone Edd Caballero DO Primary Care Provider [phone] Reason for Visit * Reason Comments Post-OP Follow Up Encounter Details Date Type Department Care Team ([facility] st Contact Info) Description 11/06/2020 14:45 EDT Post-op Visit [facility] Spine Program - [address] [address] Nelia Madera MD [address] [place] [address] [place] [address] Neck pain (Primary Dx) Social [...] Cervicalgia documented in this encounter Care Teams Escrow Secretary Relationship Specialty Start Date End Date Edd Caballero DO [address] [place] [address] PCP - General Family Medicine - Primary Care 07/08/20 11/19/21 documented as of this encounter
--- OUTSIDE RECORDS SUMMARY | 2024-05-01 16:15 | XMS_ITS | Encounter Summary ---
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 Phone Number [facility] [address] [place] [address] * (ABNORMAL) CREATININE (09/18/2020 6:48 EDT) Creatinine 0.49(L) 0.52 - 1.04 mg/dL 09/18/2020 7:50 EDT [facility] eGFR 101 >60 mL/min/1.7 3m2 09/18/2020 7:50 EDT [facility] Comment:eGFR calculated aravind mackenzie CKD-EPI equation for non- Americans. Multiply eGFR by 1.16 for patients. Blood VENOUS BLOOD / Unknown Venipuncture / Unknown 09/18/2020 6:48 EDT 09/18/2020 7:10 EDT Linda Das PA-C CHEMISTRY & BLOOD GAS ORDERABL ES Final Result Performing Organization Address [facility]/ZIP Co de Phone Number [facility] [address] [place] [address] * BUN (09/18/2020 6:48 EDT) BUN 14 10 - 26 mg/dL 09/18/2020 7:50 EDT [facility] Blood VENOUS BLOOD / Unknown Venipuncture / Unknown 09/18/2020 6:48 EDT 09/18/2020 7:10 EDT Linda Das PA-C CHEMISTRY & BLOOD GAS ORDERABL ES Final Result [facility] [address] [place] [address] * MR CERVICAL SPINE WO CONTRAST (09/18/2020 [...] vertebral bodies with height loss of the [id number]. There is also degenerative height loss and [...] andagree with the findings. Linda Das PA-C [facility] [place] ORDERABLES Final Resul t * (ABNORMAL) COMPLETE BLOOD COUNT (09/17/2020 6:11 EDT) WBC 8.48 4.00 - 12.40 K/cmm 09/17/2020 6:41 T [facility] RBC 3.60(L) 3.86 - 5.04 M/cmm 09/17/2020 6:41 [facility] Hemoglobin 11.8 11.6 - 15.2 gm/dL 09/17/2020 6:41 [facility] HCT 33.7(L) 34.9 - 44.4 % 09/17/2020 6:41 [facility] MCV 94 81 - 98 fl 09/17/2020 6:41 [facility] MCH 32.8 26.7 - 33.3 pg 09/17/2020 6:41 [facility] MCHC 35.0 32.1 - 35.9 gm/dL 09/17/2020 6:41 [facility] RDW-CV 11.9 <14.7 % 09/17/2020 6:41 [facility] RDW-SD 40.9 <50.4 fl 09/17/2020 6:41 [facility] PLT 191 141 - 377 K/cmm 09/17/2020 6:41 [facility] MPV 10.4 9.5 - 12.7 fl 09/17/2020 6:41 [facility] Blood VENOUS BLOOD / Unknown Venipuncture / Unknown 09/17/2020 6:11 EDT 09/17/2020 6:31 EDT us Linda Das PA-C HEMATOLOGY & PF4 ORDERABLES Fi nal Result [facility] [address] [place] [address] * (ABNORMAL) ELECTROLYTES (09/17/2020 6:11 EDT) Sodium 134(L) 136 - 145 mEq/L 09/17/2020 7:13 [facility] Potassium 4.5 3.5 - 5.0 mEq/L 09/17/2020 7:13 EDT [facility] Comment:Moderate hemolysis i dentified, interpret with caution as hemolysis will elevate potassium result. Chloride 100 96 - 110 mEq/L 09/17/2020 7:13 EDT [facility] CO2 Total 26 22 - 32 mEq/L 09/17/2020 7:13 EDT [facility] Blood VENOUS BLOOD / Unknown Venipuncture / Unknown 09/17/2020 6:11 EDT 09/17/2020 6:41 EDT Linda Das PA-C CHEMISTRY & BLOOD GAS ORDERABL ES Final Result Performing Organization Address [facility] Co de Phone Number [facility] [address] [place] [address] * (ABNORMAL) CREATININE (09/17/2020 6:11 EDT) Creatinine 0.47(L) 0.52 - 1.04 mg/dL 09/17/2020 7:10 EDT [facility] eGFR 103 >60 mL/min/1.7 3m2 09/17/2020 7:10 EDT [facility] Comment:eGFR calculated aravind mackenzie CKD-EPI equation for non- Americans. Multiply eGFR by 1.16 for patients. Blood VENOUS BLOOD / Unknown Venipuncture / Unknown 09/17/2020 6:11 EDT 09/17/2020 6:41 EDT us Linda Das PA-C CHEMISTRY & BLOOD GAS ORDERABL ES Final Result [facility] [address] [place] [address] * BUN (09/17/2020 6:11 EDT) BUN 13 10 - 26 mg/dL 09/17/2020 7:13 EDT [facility] Comment:Moderate hemolysis i dentified, interpret with caution as results may be affected due to hemolysis. Blood VENOUS BLOOD / Unknown Venipuncture / Unknown 09/17/2020 6:11 EDT 09/17/2020 6:41 EDT us Linda Das PA-C CHEMISTRY & BLOOD GAS ORDERABL ES Final Result Performing Organization Address City/[facility]/ZIP Co de Phone Number [facility] [address] [place] [address] * SCREENING GLUCOSE (09/17/2020 6:11 EDT) [facility] Signature Glucose, Screening 99 70 - 100 mg/dL 09/17/2020 7:10 EDT [facility] Blood VENOUS BLOOD / Unknown Venipuncture / Unknown 09/17/2020 6:11 EDT 09/17/2020 6:41 EDT Linad Das PA-C CHEMISTRY & BLOOD GAS ORDERABL ES Final Result Performing Organization Address [facility] Co de Phone Number [facility] [address] [place] [address] * FL C-ARM 0-1 HOUR (09/16/2020 10:39 [...] PSF R/O check hardware, alignment ??Please call [phone] *done in OR*. Comparison: Cervical spine radiographs [...] C2-T1 PSF R/O check hardware, alignment Please [id number] *done in OR*. Comparison: Cervical spine radiographs [...] 6:48 EDT) ABO O 09/16/2020 7:33 EDT [facility] Rh Factor Positive 09/16/2020 7:33 EDT [facility] Antibody Screen Negative 09/16/2020 7:33 EDT [facility] Specimen Expires: 09/19/2020 @ 23:59 09/16/2020 7:33 EDT [facility] Blood VENOUS BLOOD / Unknown Venipuncture / Unknown 09/16/2020 6:48 EDT 09/16/2020 6:53 EDT Nelia Madera MD BLOOD BANK TESTS Edited Result - Final Performing Organization Address City/State/[facility] Co de Phone Number [facility] [address] [place] [address] * ECG REPORT - SCANNED (08/29/2020 14:39 EDT) 08/29/2020 14:3 9 EDT us Scan 2 Trimmer Tailer PROCEDURE/MINOR SURGICAL OR DERABLES Final Result documented [...] RN)[id number] (Given - Provider: Adelaide Angeles, JULIA) 4085 (Given - Provider: Adelaide Angeles, JULIA) ondansetron [...] 09/16/2020 documented in this encounter Care Teams Shuttle Filler Relationship Specialty Start Date End Date Edd Caballero DO [address] [place] [address] PCP - General Family Medicine - Primary Care 07/08/20 11/19/21 documented as of this encounter
--- OUTSIDE RECORDS SUMMARY | 2024-05-01 16:16 | XMS_ITS | Encounter Summary ---
Author Organization [facility] Address [address] [place] [address] Care Team Providers Care Weight Yardage Checker Name Role Phone Edd Caballero DO Primary Care Provider [phone] Reason for Visit * Reason Onset Date Comments Pre-op Exam 08/20/2020 Encounter Details Date Type Department Care Team ([facility] st Contact Info) Description 08/20/2020 Orders Only [facility] Spine Program [place] [address] [place] [address] Roberta Bran, RN Myelopathy ([facility]) (Primary Dx); Preop testing Social History [...] MRSA PCR Routine 08/20/2020 8:02 EST Myelopathy ([facility]) Preop testing documented in this encounter Results * MRSA PCR (08/20/2020 8:02 EST) MRSA/Staph aureus Result Staphylococcus aureus detected by PCR (MRSA NOT detected) 08/20/2020 14:49 EST [facility] Swab ENTIRE NARIS / Unknown Swab / Unknown 08/20/2020 8:02 EST 08/20/2020 11:10 EST us Nelia Madera MD MICROBIOLOGY - GENERAL ORDERABLE S Final Result Performing Organization Address City/State/[facility] Co de Phone Number [facility] [address] [place] [address] documented in this encounter Visit Diagnoses Diagnosis Myelopathy ([facility])- Primary Unspecified disease of spinal cord Preop testing Preoperative examination, unspecified documented in this encounter Care Teams Weight Yardage Checker Relationship Specialty Start Date End Date Edd Caballero DO [address] [place] [address] PCP - General Family Medicine - Primary Care 07/08/20 11/19/21 documented as of this encounter
--- OUTSIDE RECORDS SUMMARY | 2024-05-01 16:16 | XMS_ITS | Encounter Summary ---
Author Organization [facility] Address [address] [place] [address] Care Team Providers Care Cafeteria Manager Name Role Phone Unavailable Primary Care Provider Unavailabl e Encounter Details Date Type Department Care Team (Late st Contact Info) Description 05/08/2013 Results Only [facility] Laboratory Services - [facility] ([facility]) [address] [place] [address] Israel Campuzano, LARRY [address] [facility] [address] [place] [address] Social History Tobacco Use Types [...] MARY ELLEN CORTEZ ? Accession #: ? [id number] : ? 1955 (Age: 58) ??F ?Collect Date: ? 05/08/2013 Location: ? [facility] ? Receive Date: ? 05/09/2013 Provider: ?ISRAEL CAMPUZANO FARM CREW LEADER Copy to: ? Specimen/Source: ?Pap Test, Cervix/Endocervix, [...] ORDERABLES Final R esult [facility] [address] [place] [address] documented in this encounter Visit Diagnoses Not on filedocumented in this encounter
--- OUTSIDE RECORDS SUMMARY | 2024-05-01 16:16 | XMS_ITS | Encounter Summary ---
Author Organization [facility] Address [address] [place] [address] Care Team Providers Care World Renowned Chef And Restaurant Owner Name Role Phone Unavailable Primary Care Provider Unavailabl e Encounter Details Date Type Department Care Team (Late st Contact Info) Description 03/25/2004 Results Only [facility] [address] [place] [address] Israel Campuzano, METER MAINTENANCE PERSON [address] [place] [address] Social History Tobacco Use Types [...] MARY ELLEN CORTEZ ? Accession #: ? [id number] : ? 1955 (Age: 49) ??F ?Collect Date: ? 03/25/2004 Location: ? [facility] ? Receive Date: ? 03/27/2004 Provider: ?ISRAEL CAMPUZANO METER MAINTENANCE PERSON Copy to: ? Specimen/Source: ?ThinPrep Pap Test, [...] KEERTHI BASSETT 03/25/2004 03/27/2004 us Israel Campuzano METER MAINTENANCE PERSON PATHOLOGY ORDERABLES Final R esult [facility] [address] [place] [address] documented in this encounter Visit Diagnoses Not on filedocumented in this encounter
--- OUTSIDE RECORDS SUMMARY | 2024-05-01 16:16 | XMS_ITS | Encounter Summary ---
Author Organization [facility] Address [address] [place] [address] Care Team Providers Care Welder Gun Name Role Phone Edd Caballero DO Primary Care Provider Reason for Visit * Reason Onset Date Comments COVID-19 08/21/2020 Encounter Details Date Type Department Care Team (Late st Contact Info) Description 08/21/2020 Telephone [facility] [address] [place] [address] Nelia Madera MD [address] [place] [phone] COVID-19 Social History Tobacco Use Types [...] they would like covid testing done at [facility]. Straightening Machine Operator faxed the order to [phone] and asked that they schedule the patient for testing on 09/13. Also made patient aware of testing dates and the need the quarantine after testing. Straightening Machine Operator will also remove patient from the work queue. * Telephone Encounter - Zeinab Herrera - 08/21/2020 0806 EST Called patient to schedule COVID-19 testing. Requested a call back [phone]. This is our 1st attempt at contacting patient. documented in this encounter Plan of Treatment Not on file documented as of this encounter Visit Diagnoses Not on filedocumented in this encounter Care Teams Welder Gun Relationship Specialty Start Date End Date Edd Caballero DO [address] [place] [address] PCP - General Family Medicine - Primary Care 07/08/20 11/19/21 documented as of this encounter
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
--- OUTSIDE RECORDS SUMMARY | 2024-05-01 16:16 | XMS_ITS | Encounter Summary ---
Author Organization [facility] Address [address] [place] [address] Care Team Providers Care Catering Coordinator Name Role Phone Unavailable Primary Care Provider Unavailabl e Encounter Details Date Type Department Care Team (Late st Contact Info) Description 05/03/2012 Results Only [facility] Laboratory Services - [facility] ([facility] [address] [place] [address] Israel Campuzano, LARRY [address] [facility] [address] [place] [address] Social History Tobacco Use Types [...] MARY ELLEN CORTEZ ? Accession #: ? [id number] : ? 1955 (Age: 57) ??F ?Collect Date: ? 05/03/2012 Location: ? [facility] ? Receive Date: ? 05/04/2012 Provider: ?ISRAEL CAMPUZANO SOFT SUGAR SUPERVISOR Copy to: ? Specimen/Source: ?Pap Test, Cervix/Endocervix, [...] ORDERABLES Final R esult [facility]ERTHI BASSETT [address] [place] [address] documented in this encounter Visit Diagnoses Not on filedocumented in this encounter
--- OUTSIDE RECORDS SUMMARY | 2024-05-01 16:16 | XMS_ITS | Encounter Summary ---
Author Organization [facility] Address [address] [place] [address] Care Team Providers Care Public Speaking Coach Name Role Phone Jeannie Mantilla MD Primary Care Provider Encounter Details Date Type Department Care Team (Late st Contact Info) Description 03/16/2016 Results Only [facility] [phone] Ramona Lizama, LARRY [facility] [address], [place] [id number] Social History Tobacco Use Types Packs/Day Years [...] MARY ELLEN CORTEZ ? Accession #: ? [id number] ? : ? 1955 (Age: 61) ??F ?Collect Date: ? 03/16/2016 ? Location: ? [facility] ? Receive Date: ? 03/19/2016 ? Provider: RAMONA LIZAMA RADIATION MONITOR Copy to: ? Final Report SPECIMEN ADEQUACY [...] types 16,18,31,33,35, 39,45,51,52,56,58, 59,66, and 68 by proof coin collector mediated amplification. Comments Document reviewed and electronically signed by: ? System Interface ? Report date: 03/25/2016 By the signature above, the attending physician certifies that he/she has personally conducted a gross and/or microscopic examination of the described specimens and rendered or confirmed the above diagnosis. End of Report [facility] 03/16/2016 03/19/2016 us Ramona Lizama RADIATION MONITOR PATHOLOGY ORDERABLES Final Res ult [facility] [address] [place] [address] documented in this encounter Visit Diagnoses Not on filedocumented in this encounter Care Teams Public Speaking Coach Relationship Specialty Start Date End Date Jeannie Mantilla MD [address] [place] [phone] PCP - General 05/05/15 07/07/20 documented as of this encounter
--- OUTSIDE RECORDS SUMMARY | 2024-05-01 16:16 | XMS_ITS | Encounter Summary ---
Author Organization [facility] Address [address] [place] [address] Care Team Providers Care Professor Of Communication Arts Name Role Phone Jeannie Mantilla MD Primary Care Provider [phone] Reason for Visit * (Routine) - Receiving Office to Obtain Authorization Specialty Diagnoses / Procedures Referred By Contdixon t Referred To Contact Procedures MR OUTSIDE IMAGES NEURO Unknown, Provider, MD Referral ID Status Reason Start Date Expiration Date Visits Requested Visits Authorized [id number] Receiving Office to Obtain Authorization 07/29/2020 1 1 Encounter Details Date Type Department Care Team (Latest Contact Info) Description 05/27/2020 - 05/27/2020 0:04 EST Hospital Encounter [facility] Secondary Reads [place] Discharge Disposition: Home or [...] on filedocumented in this encounter Care Teams Professor Of Communication Arts Relationship Specialty Start Date End Date Jeannie Mantilla MD [address] [place] [phone] PCP - General 05/05/15 07/07/20 documented as of this encounter
--- OUTSIDE RECORDS SUMMARY | 2024-05-01 16:16 | XMS_ITS | Encounter Summary ---
Author Organization [facility] Address [address] [place] [address] Care Team Providers Care Production Administrator Name Role Phone Edd Caballero DO Primary Care Provider Reason for Visit * Reason Onset Date Comments Pre-op Exam 08/20/2020 Encounter Details Date Type Department Care Team (Late st Contact Info) Description 08/20/2020 Orders Only [facility] Spine Program [place] [address] [address] Roberta Bran, RN Myelopathy ([facility]) (Primary Dx); Preop testing Social History [...] of this encounter Visit Diagnoses Diagnosis Myelopathy ([facility])- Primary Unspecified disease of spinal cord Preop testing Preoperative examination, unspecified documented in this encounter Care Teams Production Administrator Relationship Specialty Start Date End Date Edd Caballero DO [address] [place] [address] PCP - General Family Medicine - Primary Care 07/08/20 11/19/21 documented as of this encounter
--- OUTSIDE RECORDS SUMMARY | 2024-05-01 16:16 | XMS_ITS | Encounter Summary ---
Author Organization [facility] Address [address] [place] [address] Care Team Providers Care Education Adviser Name Role Phone Jeannie Mantilla MD Primary Care Provider [phone] Reason for Visit * (Routine) - Receiving Office to Obtain Authorization Specialty Diagnoses / Procedures Referred By Contdixon t Referred To Contact Procedures MR OUTSIDE IMAGES NEURO Unknown, Provider, MD Referral ID Status Reason Start Date Expiration Date Visits Requested Visits Authorized [id number] Receiving Office to Obtain Authorization 07/29/2020 1 1 Encounter Details Date Type Department Care Team (Latest Contact Info) Description 05/27/2020 0:05 EST - 05/27/2020 0:09 EST Hospital Encounter [facility] Secondary Reads [place] Discharge Disposition: Home [...] on filedocumented in this encounter Care Teams Education Adviser Relationship Specialty Start Date End Date Jeannie Mantilla MD [address] [place] [phone] PCP - General 05/05/15 07/07/20 documented as of this encounter
--- OUTSIDE RECORDS SUMMARY | 2024-05-01 16:16 | XMS_ITS | Encounter Summary ---
Author Organization [facility] Address [address] [place] [address] Care Team Providers Care Laboratory Technologist Name Role Phone Edd Caballero DO Primary Care Provider Reason for Visit * Reason Onset Date Comments Pre-op Exam 08/22/2020 Encounter Details Date Type Department Care Team (Late st Contact Info) Description 08/22/2020 Telephone [facility] Spine Program [place] [address] Roberta Bran, JULIA Pre-op Exam Social History [...] on filedocumented in this encounter Care Teams Laboratory Technologist Relationship Specialty Start Date End Date Edd Caballero DO [address] [place] [address] PCP - General Family Medicine - Primary Care 07/08/20 11/19/21 documented as of this encounter
--- OUTSIDE RECORDS SUMMARY | 2024-05-01 16:16 | XMS_ITS | Encounter Summary ---
Author Organization [facility] Address [address] [place] [address] Care Team Providers Care Booth Cleaner Name Role Phone Unavailable Primary Care Provider Unavailabl e Encounter Details Date Type Department Care Team (Late st Contact Info) Description 11/03/2001 Results Only [facility] - Maple conversion [address] [place] [address] Israel Campuzano, PLAYGROUND WORKER [address] [place] [address] Social History Tobacco Use Types [...] MARY ELLEN CORTEZ ? Accession #: ? [id number] : ? 1955 (Age: 46) ??F ?Collect Date: ? 11/03/2001 Location: ? [facility] ? Receive Date: ? 11/08/2001 Provider: ?ISRAEL CAMPUZANO PLAYGROUND WORKER Copy to: ? Specimen/Source: ?Conventional Pap Test, [...] ORDERABLES Final R esult [facility] [address] [place] [address] documented in this encounter Visit Diagnoses Not on filedocumented in this encounter
--- OUTSIDE RECORDS SUMMARY | 2024-05-01 16:16 | XMS_ITS | Encounter Summary ---
Author Organization [facility] Address [address] [place] [address] Care Team Providers Care Ammonia Technician Name Role Phone Edd Caballero DO Primary Care Provider Reason for Visit * Reason Comments Pain Encounter Details Date Type Department Care Team ([facility] st Contact Info) Description 08/19/2020 15:00 EST Office Visit [facility] Spine Program - [address] [address] Nelia Madera MD [address] [facility] [place] [address] Myelopathy ([facility]) (Primary Dx) Social History Tobacco Use [...] will have her meet with our surgical endoscopist today to pick a date and begin [...] MRSA nasal swab collected and sent to [facility] lab. I was directly supervised by Nelia [...] 08/19/2020 documented in this encounter Care Teams Ammonia Technician Relationship Specialty Start Date End Date Edd Caballero DO [address] [place] [address] PCP - General Family Medicine - Primary Care 07/08/20 11/19/21 documented as of this encounter
--- OUTSIDE RECORDS SUMMARY | 2024-05-01 16:16 | XMS_ITS | Encounter Summary ---
Author Organization [facility] Address [address] [place] [address] Care Team Providers Care Personal Lines Underwriter Name Role Phone Unavailable Primary Care Provider Unavailabl e Encounter Details Date Type Department Care Team (Late st Contact Info) Description 01/17/2008 Before PRISM Converted Visit (Maple) [facility] - Maple conversion [address] [place] [address] Israel Campuzano, WEED SCIENCE RESEARCH TECHNICIAN [address] [place] [phone] Social History Tobacco Use Types Packs/Day Years [...] MARY ELLEN CORTEZ ? Accession #: ? [id number] ? : ? 1955 (Age: 53) ??F [...] Final R esult [facility] [address] [place] [address] documented in this encounter Visit Diagnoses Not on filedocumented in this encounter
--- OUTSIDE RECORDS SUMMARY | 2024-05-01 16:16 | XMS_ITS | Encounter Summary ---
Author Organization [facility] Address [address] [place] [address] Care Team Providers Care Overhead Door Technician Name Role Phone Unavailable Primary Care Provider Unavailabl e Encounter Details Date Type Department Care Team (Late st Contact Info) Description 03/23/2011 Results Only [facility] Services - [facility] [address] [place] [address] Israel Campuzano, LARRY [address] [facility] [address] [place] [address] Social History Tobacco Use Types [...] MARY ELLEN CORTEZ ? Accession #: ? [id number] ? : ? 1955 (Age: 56) ??F ?Collect Date: ? 03/23/2011 ? Location: ? [facility] ? Receive Date: ? 03/24/2011 ? Provider: ISRAEL CAMPUZANO PLAN NURSE Copy to: ? Final Report SPECIMEN ADEQUACY [...] ORDERABLES Final R esult [facility] [address] [place] [address] documented in this encounter Visit Diagnoses Not on filedocumented in this encounter
--- OUTSIDE RECORDS SUMMARY | 2024-05-01 16:16 | XMS_ITS | Encounter Summary ---
Author Organization [facility] Address [address] [place] [address] Care Team Providers Care Iron Piler Name Role Phone AdaEdd adam Primary Care Provider [phone] Reason for Visit * Reason Onset Date Comments Appointment Related 08/14/2020 Encounter Details Date Type Department Care Team (Late st Contact Info) Description 08/14/2020 Telephone [facility] Spine Program - [address] [address] Lorna Eckert PA-C [address] [facility] [place] [address] Appointment Related Social History Tobacco [...] Encounter - Angeles Jimenes MA - 08/14/2020 3898 EST Left two messages with patient about [...] on filedocumented in this encounter Care Teams Iron Piler Relationship Specialty Start Date End Date Edd Caballero DO [address] [place] [address] PCP - General Family Medicine - Primary Care 07/08/20 11/19/21 documented as of this encounter
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
--- OUTSIDE RECORDS SUMMARY | 2024-05-01 16:16 | XMS_ITS | Encounter Summary ---
Author Organization [facility] Address [address] [place] [address] Care Team Providers Care Coal Loader Name Role Phone Unavailable Primary Care Provider Unavailabl e Encounter Details Date Type Department Care Team (Late st Contact Info) Description 10/25/2000 Results Only [facility] - Maple conversion [address] [place] [address] Israel Campuzano, LEAD GENERATION SPECIALIST [address] [place] [address] Social History Tobacco Use Types [...] MARY ELLEN CORTEZ ? Accession #: ? [id number] : ? 1955 (Age: 45) ??F ?Collect Date: ? 10/25/2000 Location: ? [facility] ? Receive Date: ? 10/27/2000 Provider: ?ISRAEL CAMPUZANO LEAD GENERATION SPECIALIST Copy to: ? Specimen/Source: ?Conventional Pap Test, Cervix/Endocervix Last Menstrual Period: ? 10/14/00 ? SPECIMEN ADEQUACY ? Satisfactory for evaluation. GENERAL CATEGORIZATION ? Within Normal Limits ? Document reviewed and electronically signed by: ? Kiki Pisano, ??CT(ASCP) ? Report Date: ??10/27/2000 10:10 End of Report [facility] 10/25/2000 10/27/2000 us Israel Campuzano LEAD GENERATION SPECIALIST PATHOLOGY ORDERABLES Final R esult [facility] [address] [place] [address] documented in this encounter Visit Diagnoses Not on filedocumented in this encounter
--- OUTSIDE RECORDS SUMMARY | 2024-05-01 16:16 | XMS_ITS | Encounter Summary ---
Author Organization [facility] Address [address] [place] [address] Care Team Providers Care Orthophoto Tech/Draftsman Name Role Phone Jeannie Mantilla MD Primary Care Provider [phone] Edd Caballero DO Primary Care Provider [phone] Reason for Visit * Reason Onset Date Comments Appointment Related 07/04/2020 Encounter Details Date Type Department Care Team (Late st Contact Info) Description 07/04/2020 Telephone [facility] Neurology - [place] [address] [place] [address] Jd Lebron MD [address] [place] [address], [address] [place] [address] Appointment Related Social History Tobacco [...] Zoom. Meeting ID: [id number] Password: [email or web address] Referral assigned documented in this encounter Plan of Treatment Not on file documented as of this encounter Visit Diagnoses Not on filedocumented in this encounter Care Teams Orthophoto Tech/Draftsman Relationship Specialty Start Date End Date Jeannie Mantilla MD [address] [place] [phone] PCP - General 05/05/15 07/07/20 Edd Caballero DO [address] [place] [address] PCP - General Family Medicine - Primary Care 07/08/20 11/19/21 documented as of this encounter
--- OUTSIDE RECORDS SUMMARY | 2024-05-01 16:16 | XMS_ITS | Encounter Summary ---
Author Organization [facility] Address [address] [place] [address] Care Team Providers Care Interlibrary Loan Specialist Name Role Phone Unavailable Primary Care Provider Unavailabl e Encounter Details Date Type Department Care Team (Late st Contact Info) Description 05/07/2006 Results Only [facility] - Maple conversion [address] [place] [address] Israel Campuzano, COMMUNICATION AND OUTREACH MANAGER [address] [place] [address] Social History Tobacco Use Types [...] MARY ELLEN CORTEZ ? Accession #: ? [id number] : ? 1955 (Age: 51) ??F ?Collect Date: ? 05/07/2006 Location: ? [facility] ? Receive Date: ? 05/11/2006 Provider: ?ISRAEL CAMPUZANO COMMUNICATION AND OUTREACH MANAGER Copy to: ? Specimen/Source: ?ThinPrep Pap Test, Cervix/Endocervix, processed on [employer] ThinPrep Imaging System, with manual evaluation Last [...] of Report [facility] 05/07/2006 05/11/2006 us sIrael Campuzano NP PATHOLOGY ORDERABLES Final R esult [facility] [address] [place] [address] documented in this encounter Visit Diagnoses Not on filedocumented in this encounter
--- OUTSIDE RECORDS SUMMARY | 2024-05-01 16:16 | XMS_ITS | Encounter Summary ---
Author Organization [facility] Address [address] [place] [address] Care Team Providers Care Flexible Shaft Winder Name Role Phone Jeannie Mantilla MD Primary Care Provider [phone] Encounter Details Date Type Department Care Team (Latest Contact Info) Description 07/23/2015 10:45 EST - 07/23/2015 23:59 EST Hospital Encounter [address] [address] Unknown, Provider, MD Discharge Disposition: Home or [...] Code Departure Means Destination Home or Self Group Home documented in this encounter Plan of Treatment Not on file documented as of this encounter Visit Diagnoses Not on filedocumented in this encounter Care Teams Flexible Shaft Winder Relationship Specialty Start Date End Date Jeannie Mantilla MD [address] [place] [phone] PCP - General 05/05/15 07/07/20 documented as of this encounter
--- OUTSIDE RECORDS SUMMARY | 2024-05-01 16:16 | XMS_ITS | Encounter Summary ---
Author Organization [facility] Address [address] [place] [address] Care Team Providers Care Pork Cutlet Maker Name Role Phone Unavailable Primary Care Provider Unavailabl e Encounter Details Date Type Department Care Team (Late st Contact Info) Description 02/23/2003 Results Only [facility] - Maple conversion [address] [place] [address] Israel Campuzano, COSTING ANALYST [address] [place] [address] Social History Tobacco Use Types [...] MARY ELLEN CORTEZ ? Accession #: ? [id number] : ? 1955 (Age: 48) ??F ?Collect Date: ? 02/23/2003 Location: ? [facility] ? Receive Date: ? 02/27/2003 Provider: ?ISRAEL CAMPUZANO COSTING ANALYST Copy to: ? Specimen/Source: ?ThinPrep Pap Test, [...] [facility] 02/23/2003 02/27/2003 us Israel Campuzano COSTING ANALYST PATHOLOGY ORDERABLES Final R esult [facility] [address] [place] [address] documented in this encounter Visit Diagnoses Not on filedocumented in this encounter
--- OUTSIDE RECORDS SUMMARY | 2024-05-01 16:16 | XMS_ITS | Encounter Summary ---
Author Organization [facility] Address [address] [place] [address] Care Team Providers Care Flat Locker Name Role Phone Jeannie Mantilla MD Primary Care Provider [phone] Reason for Visit * (Routine) - Receiving Office to Obtain Authorization Specialty Diagnoses / Procedures Referred By Contdixon t Referred To Contact Procedures CT OUTSIDE IMAGES NEURO Unknown, Provider, MD Referral ID Status Reason Start Date Expiration Date Visits Requested Visits Authorized [id number] Receiving Office to Obtain Authorization 07/29/2020 1 1 Encounter Details Date Type Department Care Team (Latest Contact Info) Description 06/10/2020 Hospital Encounter [facility] Secondary Reads [place] Discharge Disposition: Home [...] on filedocumented in this encounter Care Teams Flat Locker Relationship Specialty Start Date End Date Jeannie Mantilla MD [address] [place] [phone] PCP - General 05/05/15 07/07/20 documented as of this encounter
--- OUTSIDE RECORDS SUMMARY | 2024-05-01 16:16 | XMS_ITS | Encounter Summary ---
Author Organization [facility] Address [address] [place] [address] Care Team Providers Care Careers Adviser Name Role Phone Unavailable Primary Care Provider Unavailabl e Encounter Details Date Type Department Care Team (Late st Contact Info) Description 08/14/2003 Results Only [facility] - Maple conversion [address] [place] [address] Talia Lo MD [address] [place] [address] [place] [address] Social History Tobacco Use Types Packs/Day Years [...] 68. [facility] Report Status Final [id number] [facility] 08/14/2003 16:0 0 EST 08/16/2003 15:02 EST us Talia Lo MD MICROBIOLOGY - GENERAL ORDERABL ES Final Result [facility] [address] [place] [address] * SURGICAL PATHOLOGY (08/14/2003 0:00 EST) Pathology Report: SURGICAL PATHOLOGY REPORT Reports generated via electronic interface contain original data; however they are lacking the format of the original report. Caution should be taken when reading/interpreting unformatted reports. Name: ? MARY ELLEN CORTEZ ? Accession #: ? [id number] ? : ? 1955 (Age: 48) ??F ? Collect Date: ? 08/14/2003 ? Location: ? [facility] ? Receive Date: ? 08/15/2003 ? Provider: TALIA LO MD Copy to: ISRAEL CAMPUZANO NP ? Final Pathologic Diagnosis: ? Endometrium, biopsy: 1. ?Simple hyperplasia without cytologic atypia. ??See comment. 2. ?Endocervical tissue with squamous metaplasia and focal microglandular hyperplasia. Comment: ? Ink Blender sections have been reviewed at intradepartmental consultation [...] Final Resu lt [facility] [address] [place] [address] documented in this encounter Visit Diagnoses Not on filedocumented in this encounter
--- OUTSIDE RECORDS SUMMARY | 2024-05-01 16:16 | XMS_ITS | Encounter Summary ---
Author Organization [facility] Address [address] [place] [address] Care Team Providers Care Chemical Processing Laborer Name Role Phone Jeannie Mantilla MD Primary Care Provider [phone] Reason for Visit * (Routine) - Receiving Office to Obtain Authorization Specialty Diagnoses / Procedures Referred By Contdixon t Referred To Contact Procedures MR OUTSIDE IMAGES NEURO Unknown, Provider, MD Referral ID Status Reason Start Date Expiration Date Visits Requested Visits Authorized [id number] Receiving Office to Obtain Authorization 07/29/2020 1 1 Encounter Details Date Type Department Care Team (Latest Contact Info) Description 05/27/2020 0:10 EST - 05/27/2020 23:59 EST Hospital Encounter [facility] Secondary Reads [place] Discharge Disposition: [...] on filedocumented in this encounter Care Teams Chemical Processing Laborer Relationship Specialty Start Date End Date Jeannie Mantilla MD [address] [place] [phone] PCP - General 05/05/15 07/07/20 documented as of this encounter
--- OUTSIDE RECORDS SUMMARY | 2024-05-01 16:16 | XMS_ITS | Encounter Summary ---
Author Organization [facility] Address [address] [place] [address] Care Team Providers Care License Inspector Name Role Phone Jeannie Mantilla MD Primary Care Provider [phone] Reason for Visit * (Routine) - Receiving Office to Obtain Authorization Specialty Diagnoses / Procedures Referred By Satinder t Referred To Contact Procedures XR OUTSIDE IMAGES NEURO Unknown, Provider, MD Referral ID Status Reason Start Date Expiration Date Visits Requested Visits Authorized [id number] Receiving Office to Obtain Authorization 07/29/2020 1 1 Encounter Details Date Type Department Care Team (Latest Contact Info) Description 06/10/[address] [facility] Secondary Reads [place] Discharge Disposition: Home [...] on filedocumented in this encounter Care Teams License Inspector Relationship Specialty Start Date End Date Jeannie Mantilla MD [address] [place] [phone] PCP - General 05/05/15 07/07/20 documented as of this encounter
--- OUTSIDE RECORDS SUMMARY | 2024-05-01 16:16 | XMS_ITS | Encounter Summary ---
Author Organization [facility] Address [address] [place] [address] Care Team Providers Care Electrical Apprentice Name Role Phone Unavailable Primary Care Provider Unavailabl e Encounter Details Date Type Department Care Team (Late st Contact Info) Description 03/27/2005 Results Only [facility] [address] [place] [address] Israel Campuzano, CLIP ON SUNGLASSES ASSEMBLER [address] [place] [address] Social History Tobacco Use Types [...] 66. [facility] Report Status Final [id number] [facility] 03/27/2005 10:4 8 EDT 04/07/2005 10:48 EDT us Israel Campuzano NP MICROBIOLOGY - GENERAL ORDER PUNEET Final Result [facility] [address] [place] [address] * CYTOPATHOLOGY (03/27/2005 0:00 EDT) Pathology Report: CYTOPATHOLOGY REPORT Reports generated via electronic interface contain original data; however they are lacking the format of the original report. Caution should be taken when reading/interpreti ng unformatted reports. Name: ? DIEGO MARY ELLEN ? Accession #: ? [id number] : ? 1955 (Age: 50) ??F ?Collect Date: ? 03/27/2005 Location: ? [facility] ? Receive Date: ? 03/31/2005 Provider: ?ISRAEL CAMPUZANO CLIP ON SUNGLASSES ASSEMBLER Copy to: ? Specimen/Source: ?ThinPrep Pap Test, Cervix/Endocervix, processed on [facility] ThinPrep Imaging System, with manual evaluation Last [...] ORDERABLES Final R esult [facility] [address] [place] [address] documented in this encounter Visit Diagnoses Not on filedocumented in this encounter
--- OUTSIDE RECORDS SUMMARY | 2024-05-01 16:16 | XMS_ITS | Encounter Summary ---
Author Organization [facility] Address [address] [place] [address] Care Team Providers Care Heel Brusher Name Role Phone Jeannie Mantilla MD Primary Care Provider [phone] Encounter Details Date Type Department Care Team (Late st Contact Info) Description 07/23/2015 Results Only [facility] [place] [phone] Ronn Johnson DO [facility] [place] [address] Social History Tobacco Use Types Packs/Day Years [...] MARY ELLEN CORTEZ ? Accession #: ? [id number] ? : ? 1955 (Age: 60) ??F [...] chronic osteomyelitis. - ??No neutrophils identified. Comment: Slider Assembler slides of this case were reviewed at [...] fibrotic tissue covered by soft red tissue. Slider Assembler sections of the soft tissue are submitted for frozen section as [id number] with the interpretation rendered as above. Slider Assembler sections are submitted as follows: BLOCK HUANG 1- ??FSA1 2- ??FSA2 3- ??FSA3 4- ??soft tissue x4 5- ??bone and soft tissue x2, following decalcification 6-7- ??femoral head, continuous section, following decalcification 8-9- ??femoral head, following decalcification Roxana GUERRERO 07/24/2015 2:20 PM End of Report [facility] 07/23/2015 12:1 5 EST 07/24/2015 12:15 EST us Ronn Johnson DO PATHOLOGY ORDERABLES Dior luu Result Performing Organization Address City/State/[facility] Co de Phone Number [facility] [address] [place] [address] documented in this encounter Visit Diagnoses Not on filedocumented in this encounter Care Teams Heel Brusher Relationship Specialty Start Date End Date Jeannie Mantilla MD [address] [place] [phone] PCP - General 05/05/15 07/07/20 documented as of this encounter
--- OUTSIDE RECORDS SUMMARY | 2024-05-01 16:16 | XMS_ITS | Encounter Summary ---
Author Organization [facility] Address [address] [place] [address] Care Team Providers Care Farmworker Fryer Farm Name Role Phone AdaEdd adam DO Primary Care Provider Encounter Details Date Type Department Care Team (Latest Contact Info) Description 08/19/2020 15:16 EST - 08/19/2020 23:59 EST Hospital Encounter [address] [place], [place] [id number] Discharge Disposition: Home or Self Care Social [...] tablet TK 1 T PO BID HS [facility] 04/16/2020 multivitamin (THERAGRAN) per tablet [...] on filedocumented in this encounter Care Teams Farmworker [employer] Relationship Specialty Start Date End Date Edd Caballero DO [address] [place] [address] PCP - General Family Medicine - Primary Care 07/08/20 11/19/21 documented as of this encounter
== END 2024-05-01 16:09 ==
LOC: DI 16:11
PROVIDERS: PCP Family Medicine; Visit Provider Anesthesiology Pain Medicine
DX: M25.512 Pain in left shoulder (principal)
CPT/HCPCS: 73030

== ENCOUNTER 2024-11-23 12:44 | Outpatient (CLI) | payer MEDICARE, MEDICAID, SELFPAY ==
--- NOTE | 2024-11-23 | DI.RAD_ITS ---
Exam(s) XR HIP LT COMPLETE AP PELVIS EXAM: XR HIP LT COMPLETE AP PELVIS CLINICAL HISTORY: PAIN LEFT HIP M25.552. TECHNIQUE: 2D digital imaging was performed of the left hip. Three views were obtained. AP pelvis and lateral left hip views were obtained. COMPARISON: CR LEFT FEMUR from 12/23/2016 CR XR HIP LEFT 2-3 VIEWS OPTIONAL PELVIS from 04/13/2024 FINDINGS: BONES: No acute fracture is present. No bony destructive lesion is seen. There is a sideplate and screws seen in the left femur. There is a mild lucency seen at the distal aspect of the orthopedic hardware which has increased since the prior examination. JOINTS: No dislocation present. There are postsurgical changes of a right total hip arthroplasty. This is incompletely imaged on the current examination but appears stable compared to 04/13/2024. There are degenerative changes seen in the left hip. SOFT TISSUE: Normal. IMPRESSION: 1. No acute fracture or dislocation. 2. Sideplate and screws seen in the left femur. Increased lucency around the distal aspect of the orthopedic hardware since the prior examination. No periosteal reaction is seen. Please correlate with physical exam. DATA REPOSITORY: RADIATION DOSE DELIVERED:
== END 2024-11-23 13:04 ==
LOC: DI 12:46
PROVIDERS: PCP Family Medicine; Visit Provider Family Medicine
DX: M25.552 Pain in left hip (principal)
CPT/HCPCS: 73502

== ENCOUNTER 2025-04-11 01:25 | Outpatient (CLI) | payer MEDICARE, MEDICAID, SELFPAY ==
--- NOTE | 2025-04-11 | DI.US_ITS ---
Exam(s) US PELVIS TRANSVAGINAL EXAM: US PELVIS TRANSVAGINAL CLINICAL HISTORY: ADNEXAL MASS SUSPECTED, OSTEOARTHRITIS LEFT HIP M16.52. TECHNIQUE: Transabdominal and transvaginal pelvic ultrasound was performed using standard protocol. FINDINGS: UTERUS: Position: Anteverted. Size: 5.7 long by 1.9 AP by 3.8 transverse cm Endometrium: 0.4 cm. Normal for patient's menstrual status. Myometrium: Unremarkable. Cervix: Unremarkable. OVARIES: The ovaries are not definitely visualized on this examination. There are no cystic or solid adnexal masses present. CUL-DE-SAC: Free fluid: None. Other: None. IMPRESSION: 1. Normal-appearing uterus with endometrial stripe within normal limits. 2. The ovaries were not visualized sonographically transabdominally or transvaginally. 3. There is no evidence of a cystic pelvic mass to correspond to the finding on the CT examination from 03/13/2025. The cystic mass described likely reflected the urinary bladder. If there is continued clinical concern, a CT scan of the pelvis with contrast may be obtained. DATA REPOSITORY:
== END 2025-04-11 01:45 ==
PROVIDERS: PCP Family Medicine; Visit Provider Physician Assistant
DX: M16.52 Unilateral post-traumatic osteoarthritis, left hip (principal)
CPT/HCPCS: 76830; 76856